=== PATIENT | female | born 1945 | race Caucasian/White ===

== ENCOUNTER 2017-03-24 04:58 | Emergency (ER) | payer BC ==
[~2017-03-24] VITALS: Ht 157.5 cm; Wt 59.0 kg
[~2017-03-24 04:58] MED LIST: ALPR2TAB2 PO; GABA600T2 PO; HYDR-2766 PO; TRAZ100T12 PO
--- NOTE | 2017-03-24 05:20 | PHYS DOC ---
Past Medical History Past Medical History: Other Additional Past Medical Histor: osteoarthritis, DDD, chronic back pain Past Surgical History: Cholecystectomy, Hysterectomy Additional Past Surgical Histo: back surgery Smoking: Cigarettes, 1 Pack Per Day Alcohol Use: None Drug Use: None Social History Narrative: lives at home Adult General Chief Complaint Chief Complaint: FEVER HPI HPI Patient is a 71 year old female who presents with two-week history of gradual onset of shortness of breath, cough and this morning reports subjective fever and dull right lower quadrant pain. Denies chest pain, decreased appetite, nausea, vomiting or diarrhea. Denies flank pain. Denies cardiac history. Does use an albuterol inhaler when necessary. Past abdominal surgical history includes cholecystectomy and abdominal hysterectomy. Review of the medical record, previous presentation to the emergency department in 2015 with similar right lower quadrant pain at which time she thought it might be a recurrence of kidney stone and had a completely negative workup as far as labs and CT scan. Review of Systems Review of Systems Constitutional: Denies fever or chills [] Eyes: Denies change in visual acuity, redness, or eye pain [] HENT: Denies nasal congestion or sore throat [] Respiratory: Denies cough or shortness of breath [] Cardiovascular: No additional information not addressed in HPI [] GI: Denies abdominal pain, nausea, vomiting, bloody stools or diarrhea [] : Denies dysuria or hematuria [] Musculoskeletal: Denies back pain or joint pain [] Integument: Denies rash or skin lesions [] Neurologic: Denies headache, focal weakness or sensory changes [] Endocrine: Denies polyuria or polydipsia [] Current Medications Current Medications Current Medications Medications (Trade) Dose Ordered Sig/Ashley Start Time Stop Time Status Last Admin Dose Admin Fentanyl Citrate (Fentanyl 2ml Vial) 50 mcg PRN Q15MIN PRN 03/24/17 06:30 03/25/17 06:29 03/24/17 06:33 50 MCG Info (Do NOT chart on this entry -- for MONITORING) 1 each PRN DAILY PRN 03/24/17 06:15 03/26/17 06:14 Iohexol (Omnipaque 300 Mg/ml) 75 ml 1X ONCE 03/24/17 06:30 03/24/17 06:31 DC 03/24/17 06:38 75 ML Ondansetron HCl (Zofran) 4 mg 1X ONCE 03/24/17 07:00 03/24/17 07:01 DC 03/24/17 06:32 4 MG Sodium Chloride 500 ml @ 500 mls/hr 1X ONCE 03/24/17 05:30 03/24/17 06:29 DC 03/24/17 05:31 500 MLS/HR Allergies Allergies Allergies Coded Allergies Type Severity Reaction Last Updated Verified codeine Allergy Intermediate 03/24/17 Yes Physical Exam Physical Exam Constitutional: Well developed, well nourished, no acute distress, non-toxic appearance. Poor eye contact [] HENT: Normocephalic, atraumatic, bilateral external ears normal, oropharynx moist, no oral exudates, nose normal. [] Eyes: PERRLA, EOMI, conjunctiva normal, no discharge. [] Neck: Normal range of motion, no tenderness, supple, no stridor. [] Cardiovascular:Heart rate regular rhythm, no murmur [] Lungs & Thorax: Bilateral breath sounds clear to auscultation [] Abdomen: Bowel sounds normal, soft, mild to moderate right lower quadrant tenderness, no masses, no pulsatile masses. [] Skin: Warm, dry, no erythema, no rash. [] Back: No tenderness, no CVA tenderness. [] Extremities: No tenderness, no cyanosis, no clubbing, ROM intact, no edema. [] Neurologic: Alert and oriented X 3, normal motor function, normal sensory function, no focal deficits noted. [] Psychologic: Affect normal, judgement normal, mood normal. [] Current Patient Data Vital Signs Vital Signs Date Time Temp Pulse Resp B/P (MAP) Pulse Ox O2 Delivery O2 Flow Rate FiO2 03/24/17 06:33 72 22 120/68 (85) 94 03/24/17 06:33 Room Air 03/24/17 05:08 98.8 98.8 Lab Values Laboratory Tests Test 03/24/17 05:09 03/24/17 05:30 White Blood Count 5.4 x10^3/uL (4.0-11.0) Red Blood Count 4.48 x10^6/uL (3.50-5.40) Hemoglobin 14.5 g/dL (12.0-15.5) Hematocrit 41.2 % (36.0-47.0) Mean Corpuscular Volume 92 fL (79-100) Mean Corpuscular Hemoglobin 32 pg (25-35) Mean Corpuscular Hemoglobin Concent 35 g/dL (31-37) Red Cell Distribution Width 13.2 % (11.5-14.5) Platelet Count 172 x10^3/uL (140-400) Neutrophils (%) (Auto) 83 % (31-73) H Lymphocytes (%) (Auto) 10 % (24-48) L Monocytes (%) (Auto) 7 % (0-9) Eosinophils (%) (Auto) 0 % (0-3) Basophils (%) (Auto) 0 % (0-3) Neutrophils # (Auto) 4.5 x10^3uL (1.8-7.7) Lymphocytes # (Auto) 0.5 x10^3/uL (1.0-4.8) L Monocytes # (Auto) 0.4 x10^3/uL (0.0-1.1) Eosinophils # (Auto) 0.0 x10^3/uL (0.0-0.7) Basophils # (Auto) 0.0 x10^3/uL (0.0-0.2) Sodium Level 140 mmol/L (136-145) Potassium Level 3.3 mmol/L (3.5-5.1) L Chloride Level 99 mmol/L (98-107) Carbon Dioxide Level 30 mmol/L (21-32) Anion Gap 11 (6-14) Blood Urea Nitrogen 8 mg/dL (7-20) Creatinine 0.8 mg/dL (0.6-1.0) Estimated GFR (Cockcroft-Gault) 70.9 BUN/Creatinine Ratio 10 (6-20) Glucose Level 105 mg/dL (70-99) H Calcium Level 9.3 mg/dL (8.5-10.1) Total Bilirubin 0.6 mg/dL (0.2-1.0) Aspartate Amino Transferase (AST) 17 U/L (15-37) Alanine Aminotransferase (ALT) 12 U/L (14-59) L Alkaline Phosphatase 68 U/L (46-116) Total Protein 6.8 g/dL (6.4-8.2) Albumin 3.8 g/dL (3.4-5.0) Albumin/Globulin Ratio 1.3 (1.0-1.7) Lipase 144 U/L (73-393) Urine Collection Type Unknown Urine Color Yellow Urine Clarity Clear Urine pH 6.0 Urine Specific [place] 1.020 Urine Protein Negative mg/dL (NEG-TRACE) Urine Glucose (UA) Negative mg/dL (NEG) Urine Ketones (Stick) 40 mg/dL (NEG) Urine Blood Negative (NEG) Urine Nitrite Negative (NEG) Urine Bilirubin Negative (NEG) Urine Urobilinogen Dipstick 1.0 mg/dL (0.2 mg/dL) Urine Leukocyte Esterase Negative (NEG) Urine RBC 0 /HPF (0-2) Urine WBC 0 /HPF (0-4) Urine Squamous Epithelial Cells Mod /LPF Urine Bacteria 0 /HPF (0-FEW) Urine Mucus Marked /LPF Laboratory Tests 03/24/17 05:09 Laboratory Tests 03/24/17 05:09 EKG EKG EKG[] normal sinus rhythm rate of 90 no STEMI QTC 479 my interpretation Radiology/Procedures Radiology/Procedures Chest x-ray: Negative acute abnormality; COPD/hyperinflation per my interpretation CT scan abdomen and pelvis:PROCEDURE: CT ABD PELV W/ IV CONTRST ONLY CT ABD PELV W/ IV CONTRST ONLY dated 03/24/2017 6:36 AM Indication: Right side abdominal pain, nausearight side abd pain with nausea
omni 300 75ml, prior sent. Comparison: 05/25/2015 Technique: Contiguous axial imaging of the abdomen and pelvis performed after the administration of 75 cc Isovue-370. One or more of the following individualized dose reduction techniques were utilized for this examination: 1. Automated exposure control 2. Adjustment of the mA and/or kV according to patient size 3. Use of iterative reconstruction technique Findings: Limited images of lung bases are clear. Heart size within normal limits. No pleural or pericardial effusion. Liver, spleen, pancreas, adrenal glands and kidneys are unremarkable. There are well-defined low density lesions at the lower pole left kidney that are most consistent with cysts. No hydronephrosis. Gallbladder surgically absent. Unopacified GI tract normal in caliber and contour. No focal bowel wall thickening. No ascites or lymphadenopathy. Abdominal aorta normal in caliber. Images of the pelvis show suspected mild wall thickening of the sigmoid colon. Uterus is surgically absent. No pelvic adenopathy. Trace amount of free fluid. Mild wall thickening of the urinary bladder. Bone windows show no acute findings. Multilevel spondylosis. Laminectomy and posterior lateral fusion from L4 to the sacrum. IMPRESSION: 1. Suspected mild wall thickening of the sigmoid colon suggesting mild colitis. Consider infectious or inflammatory etiology. 2. Trace amount of free pelvic fluid, nonspecific. 3. Status post cholecystectomy and hysterectomy. Electronically signed by: Jack Joseph MD (03/24/2017 6:52 AM) [facility] DICTATED and SIGNED BY: JACK JOSEPH MD DATE: 03/24/17 0648 Course & Med Decision Making Course & Med Decision Making Pertinent Labs and Imaging studies reviewed. (See chart for details) Patient does not appear to be ill and she is in no respiratory distress with normal lung exam. GIven her age and additional complaints of abdominal pain in the right lower abdomen we will check labs, urine, chest x-ray and a CT scan abdomen and pelvis. --- Assumed care from Dr. Martinez. Patient remained in stable condition with normal vitals. Her pain improved after treatment here. Labs as above, significant for hypokalemia but normal WBC. CT abdomen/pelvis showed colitis. No specific comment regarding appendix. Discussed with Dr. Funez as Dr. Joseph who initially read the study had already ended his shift. Dr. Cazares reviewed images, appendix not definitely seen but no abnormality detected, & there is a source of pain with colitis. Discussed at length with the patient, offered admission for indeterminate CT with persistent right lower quadrant pain, but she states she feels much better & prefers to go home. Will give prescription for cipro & flagyl for possible infectious colitis, recommend hydration & will provide pain medication with sedation precautions. Recommend follow up with PCP in 2-3 days. Low threshold to return to the ED for high fever, severe pain , uncontrolled vomiting, bloody stools, any otherwise worsening condition. Discharged home in stable condition. Melanie Joy MD [] Dragon Disclaimer Dragon Disclaimer This electronic medical record was generated, in whole or in part, using a voice recognition dictation system. Departure Departure Impression: Primary Impression: Cough Additional Impression: Right lower quadrant abdominal pain Disposition: 01 HOME, SELF-CARE Condition: STABLE Referrals: JOAN PRAKASH Jr, MD (PCP) Patient Instructions: Colitis Additional Instructions: You were seen in the emergency department today for abdominal pain & cough. Your CT scan showed inflammation or infection of your colon. The CT did not definitely show your appendix, so there is a possibility that this could be appendicitis. You preferred to go home rather than stay in the hospital for further evaluation. Please rest, drink fluids to stay hydrated, take prescribed antibiotics & use pain medication as needed. No drinking alcohol or driving while taking this medication. Follow up with Dr. Prakash in 2-3 days if not improving. Come back for high fever, severe pain, uncontrolled vomiting, bloody stools, any otherwise worsening condition. Scripts Ondansetron (ZOFRAN ODT) 4 Mg Tab.rapdis 1 TAB SL Q8HRS Y for NAUSEA, #10 TAB Prov: MELANIE JOY MD 03/24/17 Hydrocodone/Apap 5-325 (NORCO 5-325 TABLET) 1 Each Tablet 1 TAB PO PRN Q6HRS Y for PAIN, #10 TAB 0 Refills Prov: MELANIE JOY MD 03/24/17 Metronidazole (FLAGYL) 500 Mg Tablet 1 TAB PO TID, #14 TAB Prov: MELANIE JOY MD 03/24/17 Ciprofloxacin Hcl (CIPRO) 500 Mg Tablet 1 TAB PO BID, #14 TAB Prov: MELANIE JOY MD 03/24/17 Problem Qualifiers ELEN MARTINEZ MD Mar 24, 2017 05:20 MELANIE JOY MD Mar 24, 2017 07:29
[2017-03-24] MEDS ORDERED: IV NORMAL SALINE 500ML BAG 500 ML IV ONE (05:30)
[2017-03-24 05:58] LABS: BASO % 0 % (0-3); EOS % 0 % (0-3); HEMATOCRIT 41.2 % (36.0-47.0); HEMOGLOBIN 14.5 g/dL (12.0-15.5); LYMPH # 0.5 x10^3/uL (1.0-4.8); LYMPH % 10 % (24-48); MEAN CORPUSCULAR HEMOGLOBIN 32 pg (25-35); MEAN CORPUSCULAR HGB CONC 35 g/dL (31-37); MEAN CORPUSCULAR VOLUME 92 fL (79-100); MONO % 7 % (0-9); NEUT % 83 % (31-73); PLATELET COUNT 172 x10^3/uL (140-400); RED BLOOD COUNT 4.48 x10^6/uL (3.50-5.40); RED CELL DISTRIBUTION WIDTH 13.2 % (11.5-14.5); WHITE BLOOD COUNT 5.4 x10^3/uL (4.0-11.0)
[2017-03-24 06:05] LABS: CALCIUM 9.3 mg/dL (8.5-10.1); CREATININE 0.8 mg/dL (0.6-1.0); GFR 70.9; POTASSIUM 3.3 mmol/L (3.5-5.1)
[2017-03-24 06:10] LABS: ALBUMIN 3.8 g/dL (3.4-5.0); ALBUMIN/GLOBULIN RATIO 1.3 (1.0-1.7); TOTAL BILIRUBIN 0.6 mg/dL (0.2-1.0); TOTAL PROTEIN 6.8 g/dL (6.4-8.2)
--- NOTE | 2017-03-24 06:14 | EKG ---
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
[2017-03-24] MEDS ORDERED: CONTRAST GIVEN MC PRN (06:15)
[2017-03-24 06:22] LABS: BILIRUBIN,URINE NEGATIVE (NEG); GLUCOSE,URINE NEGATIVE (NEG); NITRITE,URINE NEGATIVE (NEG); PROTEIN,URINE NEGATIVE (NEG-TRACE)
[2017-03-24 06:23] LABS: BACTERIA,URINE 0 /HPF (0-FEW); RBC,URINE 0 /HPF (0-2); SQUAMOUS EPITHELIAL CELL,UR MOD /LPF; WBC,URINE 0 /HPF (0-4)
[2017-03-24] MEDS ORDERED: IOHEXOL 300 MG/ML 75 ML VIAL IV ONE (06:30)
[2017-03-24] MEDS: fentaNYL PF VIAL 100 MCG/2 ML VIAL IV PRN ×2 (06:33→07:24)
--- NOTE | 2017-03-24 06:56 | RAD ---
CT ABD PELV W/ IV CONTRST ONLY dated 03/24/2017 6:36 AM Indication: Right side abdominal pain, nausearight side abd pain with nausea
omni 300 75ml, prior sent. Comparison: 05/25/2015 Technique: Contiguous axial imaging of the abdomen and pelvis performed after the administration of 75 cc Isovue-370. One or more of the following individualized dose reduction techniques were utilized for this examination: 1. Automated exposure control 2. Adjustment of the mA and/or kV according to patient size 3. Use of iterative reconstruction technique Findings: Limited images of lung bases are clear. Heart size within normal limits. No pleural or pericardial effusion. Liver, spleen, pancreas, adrenal glands and kidneys are unremarkable. There are well-defined low density lesions at the lower pole left kidney that are most consistent with cysts. No hydronephrosis. Gallbladder surgically absent. Unopacified GI tract normal in caliber and contour. No focal bowel wall thickening. No ascites or lymphadenopathy. Abdominal aorta normal in caliber. Images of the pelvis show suspected mild wall thickening of the sigmoid colon. Uterus is surgically absent. No pelvic adenopathy. Trace amount of free fluid. Mild wall thickening of the urinary bladder. Bone windows show no acute findings. Multilevel spondylosis. Laminectomy and posterior lateral fusion from L4 to the sacrum. IMPRESSION: 1. Suspected mild wall thickening of the sigmoid colon suggesting mild colitis. Consider infectious or inflammatory etiology. 2. Trace amount of free pelvic fluid, nonspecific. 3. Status post cholecystectomy and hysterectomy. Electronically signed by: Jack Joseph MD (03/24/2017 6:52 AM) [facility]
[2017-03-24] MEDS ORDERED: ONDANSETRON PF 4 MG/2 ML VIAL. IV ONE (07:00)
--- NOTE | 2017-03-24 07:11 | RAD ---
Portable chest, 03/24/2017: History: Fever Comparison is made to a study from 11/14/2007. The heart size and pulmonary vascularity are normal. There is a calcified granuloma in the right upper lobe. No acute infiltrates are seen. There is no evidence of pleural fluid. IMPRESSION: No acute cardiopulmonary abnormality is detected.
[2017-03-24 07:24] VITALS: BP 126/62
[2017-03-24] MEDS: POTASSIUM CHLORIDE 20 MEQ TABLET.ER. PO ONE ×2 (07:28→07:30)
[2017-03-24] MEDS ORDERED: ONDA4TAB10 SL (07:29)
[2017-03-24] MEDS ORDERED: CIPR500T94 PO (07:29)
[2017-03-24] MEDS ORDERED: HYDR-971 PO (07:29)
[2017-03-24] MEDS ORDERED: METR500T PO (07:29)
[2017-03-24] MEDS ORDERED: OMEP20CA9 PO (17:36)
== END 2017-03-24 07:32 | disposition home or self-care (01) ==
LOC: ER 04:58
DX: R05 Cough (principal); R10.31 Right lower quadrant pain; R06.02 Shortness of breath; R50.9 Fever, unspecified; M19.90 Unspecified osteoarthritis, unspecified site; G89.29 Other chronic pain; F17.210 Nicotine dependence, cigarettes, uncomplicated; Z90.710 Acquired absence of both cervix and uterus; Z90.49 Acquired absence of other specified parts of digestive tract; Z88.5 Allergy status to narcotic agent
CPT/HCPCS: 36415; 71010; 74177; 80053; 81001; 83690; 85025; 93005; 96361; 96374; 96375; 96376; 99285; J2405; J3010; J7040; Q9967

== ENCOUNTER 2017-03-24 15:00 | Inpatient (IN) | payer BC ==
[~2017-03-24] VITALS: Ht 157.5 cm; Wt 59.2 kg
[~2017-03-24 15:00] MED LIST changes: +CIPR500T94 PO; +HYDR-971 PO; +METR500T PO; +ONDA4TAB10 SL
[2017-03-24] MEDS ORDERED: IV NORMAL SALINE 1000ML BAG 1,000 ML IV SCH (15:57)
[2017-03-24] MEDS ORDERED: ONDANSETRON PF 4 MG/2 ML VIAL. IV ONE (16:00)
[2017-03-24] MEDS ORDERED: HYDROmorphone 2 MG/ML VIAL IV ONE (16:00)
[2017-03-24 16:08] LABS: BASO % 0 % (0-3); EOS % 0 % (0-3); HEMATOCRIT 40.9 % (36.0-47.0); HEMOGLOBIN 14.2 g/dL (12.0-15.5); LYMPH % 15 % (24-48); MEAN CORPUSCULAR HEMOGLOBIN 32 pg (25-35); MEAN CORPUSCULAR HGB CONC 35 g/dL (31-37); MEAN CORPUSCULAR VOLUME 93 fL (79-100); MONO % 8 % (0-9); NEUT % 76 % (31-73); PLATELET COUNT 181 x10^3/uL (140-400); RED CELL DISTRIBUTION WIDTH 13.1 % (11.5-14.5); WHITE BLOOD COUNT 6.3 x10^3/uL (4.0-11.0)
--- NOTE | 2017-03-24 16:08 | PHYS DOC ---
Past Medical History Past Medical History: Depression, Other Additional Past Medical Histor: osteoarthritis, DDD, chronic back pain Past Surgical History: Cholecystectomy, Hysterectomy Additional Past Surgical Histo: back surgery Additional Information: Quit smoking 3-4 days ago. Was smoking about 1PPD. Alcohol Use: None Drug Use: None Adult General Chief Complaint Chief Complaint: ABDOMINAL PAIN HPI HPI 71-year-old female presents to the emergency department complaining of abdominal pain with intractable nausea. Patient was seen early this morning and a full workup was done including CT of the abdomen and pelvis and labs. Laboratory results were unremarkable and CT was suggestive of possible sigmoid colitis. Patient was offered admission by the emergency medicine physician Dr. Haro but she declined and wanted to be treated as an outpatient. Patient was prescribed Cipro and Flagyl. She returns this evening because her nausea is uncontrolled as is her pain. Patient states she changed her mind and feels now that she needs to be admitted. No bloody stool or black stool. Patient has not had diarrhea. No blood in vomitus Review of Systems Review of Systems Constitutional: Denies fever or chills [] Eyes: Denies change in visual acuity, redness, or eye pain [] HENT: Denies nasal congestion or sore throat [] Respiratory: Denies cough or shortness of breath [] Cardiovascular: No additional information not addressed in HPI [] GI: As above : Denies dysuria or hematuria [] Musculoskeletal: Denies back pain or joint pain [] Integument: Denies rash or skin lesions [] Neurologic: Denies headache, focal weakness or sensory changes [] Endocrine: Denies polyuria or polydipsia [] Current Medications Current Medications Current Medications Medications (Trade) Dose Ordered Sig/Ashley Start Time Stop Time Status Last Admin Dose Admin Hydromorphone HCl (Dilaudid) 0.5 mg 1X ONCE 03/24/17 16:00 03/24/17 16:03 DC 03/24/17 16:18 0.5 MG Lorazepam (Ativan) 1 mg 1X ONCE 03/24/17 16:00 03/24/17 16:03 DC 03/24/17 16:17 1 MG Ondansetron HCl (Zofran) 4 mg 1X ONCE 03/24/17 16:00 03/24/17 16:03 DC 03/24/17 16:13 4 MG Sodium Chloride 1,000 ml @ 999 mls/hr Q1H1M 03/24/17 15:57 03/24/17 16:57 DC 03/24/17 16:13 999 MLS/HR Allergies Allergies Physical Exam Physical Exam Well-appearing 71-year-old female with a clearly contributory anxiety component. Patient's this time keeping her eyes closed during conversations and evaluation but she is alert communicative and cooperative with a normal mental status. Supple neck clear lungs regular rate and rhythm minimal diffuse tenderness to the abdomen with no focal tenderness and no guarding or rebound no mass or megaly. No CVA tenderness normal-appearing anterior abdomen and normal extremities nonfocal neuro Constitutional: Well developed, well nourished, no acute distress, non-toxic appearance. [] HENT: Normocephalic, atraumatic, bilateral external ears normal, oropharynx moist, no oral exudates, nose normal. [] Eyes: PERRLA, EOMI, conjunctiva normal, no discharge. [] Neck: Normal range of motion, no tenderness, supple, no stridor. [] Cardiovascular:Heart rate regular rhythm, no murmur [] Lungs & Thorax: Bilateral breath sounds clear to auscultation [] Abdomen: Bowel sounds normal, soft, no tenderness, no masses, no pulsatile masses. [] Skin: Warm, dry, no erythema, no rash. [] Back: No tenderness, no CVA tenderness. [] Extremities: No tenderness, no cyanosis, no clubbing, ROM intact, no edema. [] Neurologic: Alert and oriented X 3, normal motor function, normal sensory function, no focal deficits noted. [] Psychologic: Patient with a clearly contributory anxiety component Current Patient Data Vital Signs Vital Signs Date Time Temp Pulse Resp B/P (MAP) Pulse Ox O2 Delivery O2 Flow Rate FiO2 03/24/17 15:28 98.4 75 16 106/59 (75) 94 Room Air 98.4 Lab Values Laboratory Tests Test 03/24/17 15:28 03/24/17 15:45 Urine Color Yellow Urine Clarity Clear Urine pH 6.0 Urine Specific [place] >=1.030 Urine Protein Negative mg/dL (NEG-TRACE) Urine Glucose (UA) Negative mg/dL (NEG) Urine Ketones (Stick) 15 mg/dL (NEG) Urine Blood Negative (NEG) Urine Nitrite Negative (NEG) Urine Bilirubin Small (NEG) Urine Urobilinogen Dipstick 0.2 mg/dL (0.2 mg/dL) Urine Leukocyte Esterase Small (NEG) Urine RBC 0 /HPF (0-2) Urine WBC 1-4 /HPF (0-4) Urine Squamous Epithelial Cells Mod /LPF Urine Bacteria Few /HPF (0-FEW) White Blood Count 6.3 x10^3/uL (4.0-11.0) Red Blood Count 4.40 x10^6/uL (3.50-5.40) Hemoglobin 14.2 g/dL (12.0-15.5) Hematocrit 40.9 % (36.0-47.0) Mean Corpuscular Volume 93 fL (79-100) Mean Corpuscular Hemoglobin 32 pg (25-35) Mean Corpuscular Hemoglobin Concent 35 g/dL (31-37) Red Cell Distribution Width 13.1 % (11.5-14.5) Platelet Count 181 x10^3/uL (140-400) Neutrophils (%) (Auto) 76 % (31-73) H Lymphocytes (%) (Auto) 15 % (24-48) L Monocytes (%) (Auto) 8 % (0-9) Eosinophils (%) (Auto) 0 % (0-3) Basophils (%) (Auto) 0 % (0-3) Neutrophils # (Auto) 4.8 x10^3uL (1.8-7.7) Lymphocytes # (Auto) 1.0 x10^3/uL (1.0-4.8) Monocytes # (Auto) 0.5 x10^3/uL (0.0-1.1) Eosinophils # (Auto) 0.0 x10^3/uL (0.0-0.7) Basophils # (Auto) 0.0 x10^3/uL (0.0-0.2) Erythrocyte Sedimentation Rate 10 (0-25) Sodium Level 136 mmol/L (136-145) Potassium Level 3.4 mmol/L (3.5-5.1) L Chloride Level 96 mmol/L (98-107) L Carbon Dioxide Level 30 mmol/L (21-32) Anion Gap 10 (6-14) Blood Urea Nitrogen 10 mg/dL (7-20) Creatinine 0.9 mg/dL (0.6-1.0) Estimated GFR (Cockcroft-Gault) 61.9 BUN/Creatinine Ratio 11 (6-20) Glucose Level 112 mg/dL (70-99) H Calcium Level 9.0 mg/dL (8.5-10.1) Total Bilirubin 0.6 mg/dL (0.2-1.0) Aspartate Amino Transferase (AST) 17 U/L (15-37) Alanine Aminotransferase (ALT) 11 U/L (14-59) L Alkaline Phosphatase 62 U/L (46-116) Total Protein 6.6 g/dL (6.4-8.2) Albumin 3.7 g/dL (3.4-5.0) Albumin/Globulin Ratio 1.3 (1.0-1.7) Lipase 78 U/L (73-393) Laboratory Tests 03/24/17 15:45 Laboratory Tests 03/24/17 15:45 EKG EKG [] Radiology/Procedures Radiology/Procedures [] Course & Med Decision Making Course & Med Decision Making Pertinent Labs and Imaging studies reviewed. (See chart for details) Patient with signs and symptoms consistent with failed outpatient therapy for what is presumed to be acute colitis. Patient does have complaint of right lower quadrant pain however her CT was unable to visualize the appendix definitively but showed no inflammatory changes in the right lower quadrant. She with no focal tenderness in the right lower quadrant specifically at McBurney's point. He is hemodynamically stable with a clearly contributory anxiety component. Case discussed with admitting physician Dr. Kim, was aware of history and findings and agrees with inpatient admission to a [facility] bed to her service for further workup and treatment as needed [] Dragon Disclaimer Dragon Disclaimer This electronic medical record was generated, in whole or in part, using a voice recognition dictation system. Departure Departure Impression: Primary Impression: Colitis Additional Impressions: Intractable nausea and vomiting Intractable abdominal pain Disposition: ADMITTED INPATIENT Admitting Physician: Alejandra Kim Condition: STABLE Referrals: JOAN PRAKASH Jr, MD (PCP) Problem Qualifiers AILYN MCGRATH MD Mar 24, 2017 16:08
[2017-03-24 16:09] LABS: BILIRUBIN,URINE SMALL (NEG); GLUCOSE,URINE NEGATIVE (NEG); NITRITE,URINE NEGATIVE (NEG); PROTEIN,URINE NEGATIVE (NEG-TRACE); UROBILINOGEN,URINE 0.2 mg/dL (0.2 mg/dL)
[2017-03-24 16:14] LABS: CREATININE 0.9 mg/dL (0.6-1.0); GFR 61.9; POTASSIUM 3.4 mmol/L (3.5-5.1)
[2017-03-24] MEDS ORDERED: ONDANSETRON PF 4 MG/2 ML VIAL. IV PRN ×2 (16:15→16:30)
[2017-03-24] MEDS ORDERED: MORPHINE SULFATE 2 MG/ML DISP.SYRIN. IV PRN (16:15)
--- NOTE | 2017-03-24 16:15 | PDOC1 ---
History and Physical Date of Admission Date of Admission DATE: 03/24/17 TIME: 16:08 Identification/Chief Complaint Chief Complaint abd pain, vomiting Problems: Source Source: Caregiver, Chart review, Patient History of Present Illness History of Present Illness 71 y.o female, who was seen earlier at ER thsi AM for abd pain, mostly RT sided, vomitng, CT scan showed sigmoid diverticulitis, was advised admission but pt wanted to go home so was sent home with PO abx and pain med, But she comes back to ER few hrs later with severe pain, unable to keep anything down, K 3.3. ketones in urine, hence agreeable to admission now,. Bucket at bedside in 03/07 abd pain, VS ok, no fevers, ER to order rpt labs which are pending As per dtr, has had hx "abd pain in her side" in past but not to the extent that needed hospitalization CT scan I have personally reviewed, sigmoid colitis, no mention of abscess etc dw ER MD, [employer] and family and pt Past Medical History CENTRAL NERVOUS SYSTEM: Other (insomnia) GI: GERD Musculoskeletal: low back pain Past Surgical History Past Surgical History: Other (metal plates from mid back down (back sx)) Family History Family History: No Significant Social History Smoke: No ALCOHOL: none Drugs: None Current Problem List Problem List Problems Medical Problems: (1) Colitis Status: Acute (2) Intractable abdominal pain Status: Acute (3) Intractable nausea and vomiting Status: Acute Problems: Current Medications Current Medications Current Medications Sodium Chloride 1,000 ml @ 999 mls/hr Q1H1M IV ; Start 03/24/17 at 15:57; Stop 03/24/17 at 16:57 Lorazepam (Ativan) 1 mg 1X ONCE IV ; Start 03/24/17 at 16:00; Stop 03/24/17 at 16:03; Status DC Hydromorphone HCl (Dilaudid) 0.5 mg 1X ONCE IV ; Start 03/24/17 at 16:00; Stop 03/24/17 at 16:03; Status DC Ondansetron HCl (Zofran) 4 mg 1X ONCE IV ; Start 03/24/17 at 16:00; Stop at 16:03; Status DC Active Scripts Active Zofran Odt (Ondansetron) 4 Mg Tab.rapdis 1 Tab SL Q8HRS PRN [place] 5-325 Tablet (Acetaminophen/Hydrocodone Bitart) 1 Each Tablet 1 Tab PO PRN Q6HRS PRN Flagyl (Metronidazole) 500 Mg Tablet 1 Tab PO TID Cipro (Ciprofloxacin Hcl) 500 Mg Tablet 1 Tab PO BID Reported Xanax (Alprazolam) 2 Mg Tablet 1 Tab PO BID Hydrocodone-Apap 10-325 (Hydrocodone Bit/Acetaminophen) 1 Each Tablet 1 Tab PO PRN Q6HRS PRN Trazodone Hcl 100 Mg Tablet 100 Mg PO HS Gabapentin 600 Mg Tablet 600 Mg PO TID Allergies Allergies: Coded Allergies: codeine (Verified Allergy, Intermediate, 03/24/17) ROS Review of System in too much pain to participAte, but obviously abd pain, emesis, no CP, SOA, no change in stools, no fever, no urinary sxs Physical Exam General: moderate distress, Other (from the pain) HEENT: PERRLA Lungs: Clear to auscultation, Normal air movement Heart: S1S2, RRR, no thrills, no rubs, no gallops Cardiovascular: S1, S2 Breasts: Normal, Rt breast nml w/o mass, Lt breast nml w/o mass, Nipples normal Abdomen: Soft, Other (tenderness left and RT sides, no rebound, no guarding, hypoactive bS) Rectal Exam: not examined Extremities: No clubbing, No cyanosis, No edema, Normal pulses, No tenderness/ swelling Skin: No rashes, No breakdown, No significant lesion Neuro: Normal gait, Normal speech, Strength at 5/5 X4 ext, Normal tone, Sensation intact, Cranial nerves 3-12 NL, Reflexes 2+ Psych/Mental Status: Mental status NL, Mood NL Vitals Vitals Vital Signs Date Time Temp Pulse Resp B/P (MAP) Pulse Ox O2 Delivery O2 Flow Rate FiO2 03/24/17 15:28 98.4 75 16 106/59 (75) 94 Room Air 98.4 VTE Prophylaxis Ordered VTE Prophylaxis Devices: Yes VTE Pharmacological Prophylaxi: Yes Assessment/Plan Assessment/Plan 1. SIgmoid diverticulitis, presumed first episode 2. Insomnia on trazodone 3. CBP - on gabapentin, hydrocodones etc 4. SIRS POA, infectious no organ dysfcn 5. GERD on PPI 6. Mild hypokalemia PLAn: Admit 2 MN NPO IV abx IV PPI COntrol pain IVF GI consult May add ESR Seen at ER,. dw ER staff and pt and dtr further recs pending course Replace DANYELL MONDRAGON IV, MD Mar 24, 2017 16:15
[2017-03-24 16:18] LABS: BACTERIA,URINE FEW /HPF (0-FEW); RBC,URINE 0 /HPF (0-2); SQUAMOUS EPITHELIAL CELL,UR MOD /LPF
[2017-03-24 16:21] LABS: ALBUMIN 3.7 g/dL (3.4-5.0); ALBUMIN/GLOBULIN RATIO 1.3 (1.0-1.7); TOTAL BILIRUBIN 0.6 mg/dL (0.2-1.0); TOTAL PROTEIN 6.6 g/dL (6.4-8.2)
[2017-03-24] MEDS ORDERED: PROCHLORPERAZINE 10 MG/2 ML VIAL. IV PRN (16:30)
[2017-03-24] MEDS ORDERED: diphenhydrAMINE 50 MG/ML VIAL IVP PRN (16:30)
[2017-03-24] MEDS ORDERED: HYDROcodone/APAP 5/325MG 1 TAB TABLET PO PRN (16:30)
[2017-03-24 17:16] VITALS: BP 120/59
[2017-03-24] MEDS ORDERED: OMEP20CA9 PO (17:36)
[2017-03-24] MEDS ORDERED: PNEUMOCOCCAL VAX SCREEN BY RX. MC PRN (18:00)
[2017-03-24] MEDS: ALPRAZolam 1 MG TABLET PO PRN (18:14)
[2017-03-24] MEDS: IV NORMAL SALINE 1000ML BAG 1,000 ML IV SCH (18:14)
[2017-03-24] MEDS: fentaNYL PF VIAL 100 MCG/2 ML VIAL IV PRN ×3 (18:14→23:23)
[2017-03-24] MEDS ORDERED: PNEUMOC CONJ VACC 23-VALENT 0.5 ML VIAL. VAX IM ONE (18:15)
[2017-03-24 19:30] VITALS: BP 106/65
[2017-03-24] MEDS: HYDROcodone/APAP 10/325 1 TAB TABLET PO PRN (19:42)
[2017-03-24] MEDS: FAMOTIDINE 20 MG/2 ML VIAL IVP SCH (20:58)
[2017-03-24] MEDS: GABAPENTIN 300 MG CAPSULE. PO SCH (20:58)
[2017-03-24] MEDS: LACTOBACILLUS RHAMNOSUS GG 1 CAPSULE. PO SCH (20:58)
[2017-03-24] MEDS: CIPROFLOXACIN 400MG PREMIX 200 ML IV SCH (20:59)
[2017-03-24] MEDS: traZODone 100 MG TABLET. PO PRN (22:24)
[2017-03-24 23:26] VITALS: BP 103/44
[2017-03-25 03:16] VITALS: BP 98/45
[2017-03-25] MEDS: fentaNYL PF VIAL 100 MCG/2 ML VIAL IV PRN ×7 (04:35→23:06)
[2017-03-25] MEDS: IV NORMAL SALINE 1000ML BAG 1,000 ML IV SCH ×3 (04:37→22:30)
[2017-03-25 05:05] LABS: BASO % 0 % (0-3); EOS % 0 % (0-3); HEMATOCRIT 36.4 % (36.0-47.0); HEMOGLOBIN 12.7 g/dL (12.0-15.5); LYMPH % 22 % (24-48); MEAN CORPUSCULAR HEMOGLOBIN 32 pg (25-35); MEAN CORPUSCULAR HGB CONC 35 g/dL (31-37); MEAN CORPUSCULAR VOLUME 93 fL (79-100); MONO % 13 % (0-9); NEUT % 64 % (31-73); PLATELET COUNT 152 x10^3/uL (140-400); RED BLOOD COUNT 3.93 x10^6/uL (3.50-5.40); RED CELL DISTRIBUTION WIDTH 13.2 % (11.5-14.5); WHITE BLOOD COUNT 4.7 x10^3/uL (4.0-11.0)
[2017-03-25] MEDS: ALPRAZolam 1 MG TABLET PO PRN ×2 (05:49→20:18)
[2017-03-25 07:00] VITALS: BP 114/48
[2017-03-25] MEDS: LACTOBACILLUS RHAMNOSUS GG 1 CAPSULE. PO SCH ×2 (08:45→20:18)
[2017-03-25] MEDS: CIPROFLOXACIN 400MG PREMIX 200 ML IV SCH ×2 (08:46→20:20)
[2017-03-25] MEDS: POTASSIUM CHLORIDE 10MEQ 100 ML IV SCH ×4 (08:47→14:58)
[2017-03-25] MEDS: HYDROcodone/APAP 10/325 1 TAB TABLET PO PRN ×2 (09:00→16:53)
[2017-03-25] MEDS: GABAPENTIN 300 MG CAPSULE. PO SCH ×3 (09:06→20:19)
[2017-03-25 11:00] VITALS: BP 110/60
--- NOTE | 2017-03-25 12:28 | PDOC ---
PROGRESS NOTES Chief Complaint Chief Complaint Sigmoid diverticulitis Abdominal pain Vomiting PMHx: Insomnia GERD Low back pain History of Present Illness History of Present Illness Pt is a 71 year old pleasant female who presented to the ED with abdominal pain and vomiting. CT scan showed sigmoid diverticulitis. Pt was seen at bedside in no acute distress. Pt is on cipro and metronitazole. Labs indicate hypokalemia. On a clear liquid diet and IV fluids. Pt followed by GI re: diverticulitis. Will continue to monitor. Vitals Vitals Vital Signs Date Time Temp Pulse Resp B/P (MAP) Pulse Ox O2 Delivery O2 Flow Rate FiO2 03/25/17 11:00 98.2 57 18 110/60 (77) 95 Room Air 98.2 Physical Exam General: Alert, Oriented X3, Cooperative, No acute distress, Other (from the pain) Heart: Regular rate, Normal S1, Normal S2, No murmurs Lungs: Clear Abdomen: Soft, No hepatosplenomegaly, No masses, Other (tenderness left and RT sides, no rebound, no guarding, hypoactive bS) Extremities: No clubbing, No cyanosis, No edema, Normal pulses, No tenderness/ swelling Skin: No rashes, No breakdown, No significant lesion Labs LABS Laboratory Tests Test 03/24/17 15:28 03/24/17 15:45 03/25/17 04:35 Urine Color Yellow Urine Clarity Clear Urine pH 6.0 Urine Specific [place] >=1.030 Urine Protein Negative mg/dL (NEG-TRACE) Urine Glucose (UA) Negative mg/dL (NEG) Urine Ketones (Stick) 15 mg/dL (NEG) Urine Blood Negative (NEG) Urine Nitrite Negative (NEG) Urine Bilirubin Small (NEG) Urine Urobilinogen Dipstick 0.2 mg/dL (0.2 mg/dL) Urine Leukocyte Esterase Small (NEG) Urine RBC 0 /HPF (0-2) Urine WBC 1-4 /HPF (0-4) Urine Squamous Epithelial Cells Mod /LPF Urine Bacteria Few /HPF (0-FEW) White Blood Count 6.3 x10^3/uL (4.0-11.0) 4.7 x10^3/uL (4.0-11.0) Red Blood Count 4.40 x10^6/uL (3.50-5.40) 3.93 x10^6/uL (3.50-5.40) Hemoglobin 14.2 g/dL (12.0-15.5) 12.7 g/dL (12.0-15.5) Hematocrit 40.9 % (36.0-47.0) 36.4 % (36.0-47.0) Mean Corpuscular Volume 93 fL (79-100) 93 fL (79-100) Mean Corpuscular Hemoglobin 32 pg (25-35) 32 pg (25-35) Mean Corpuscular Hemoglobin Concent 35 g/dL (31-37) 35 g/dL (31-37) Red Cell Distribution Width 13.1 % (11.5-14.5) 13.2 % (11.5-14.5) Platelet Count 181 x10^3/uL (140-400) 152 x10^3/uL (140-400) Neutrophils (%) (Auto) 76 % (31-73) 64 % (31-73) Lymphocytes (%) (Auto) 15 % (24-48) 22 % (24-48) Monocytes (%) (Auto) 8 % (0-9) 13 % (0-9) Eosinophils (%) (Auto) 0 % (0-3) 0 % (0-3) Basophils (%) (Auto) 0 % (0-3) 0 % (0-3) Neutrophils # (Auto) 4.8 x10^3uL (1.8-7.7) 3.0 x10^3uL (1.8-7.7) Lymphocytes # (Auto) 1.0 x10^3/uL (1.0-4.8) 1.0 x10^3/uL (1.0-4.8) Monocytes # (Auto) 0.5 x10^3/uL (0.0-1.1) 0.6 x10^3/uL (0.0-1.1) Eosinophils # (Auto) 0.0 x10^3/uL (0.0-0.7) 0.0 x10^3/uL (0.0-0.7) Basophils # (Auto) 0.0 x10^3/uL (0.0-0.2) 0.0 x10^3/uL (0.0-0.2) Erythrocyte Sedimentation Rate 10 (0-25) Sodium Level 136 mmol/L (136-145) Potassium Level 3.4 mmol/L (3.5-5.1) Chloride Level 96 mmol/L (98-107) Carbon Dioxide Level 30 mmol/L (21-32) Anion Gap 10 (6-14) Blood Urea Nitrogen 10 mg/dL (7-20) Creatinine 0.9 mg/dL (0.6-1.0) Estimated GFR (Cockcroft-Gault) 61.9 BUN/Creatinine Ratio 11 (6-20) Glucose Level 112 mg/dL (70-99) Calcium Level 9.0 mg/dL (8.5-10.1) Total Bilirubin 0.6 mg/dL (0.2-1.0) Aspartate Amino Transf (AST/SGOT) 17 U/L (15-37) Alanine Aminotransferase (ALT/SGPT) 11 U/L (14-59) Alkaline Phosphatase 62 U/L (46-116) Total Protein 6.6 g/dL (6.4-8.2) Albumin 3.7 g/dL (3.4-5.0) Albumin/Globulin Ratio 1.3 (1.0-1.7) Lipase 78 U/L (73-393) Review of Systems Review of Systems Pt complains of abdominal pain and fatigue Assessment and Plan Assessmemt and Plan Problems Medical Problems: (1) Colitis Status: Acute (2) Intractable abdominal pain Status: Acute (3) Intractable nausea and vomiting Status: Acute Assessment: Sigmoid diverticulitis Abdominal pain Vomiting Insomnia GERD Low back pain Plan: Continue abx Clear liquid diet Ordered KCl IV for hypokalemia GI input appreciated Continue IV fluids Continue monitoring potassium Continue home meds PT/OT Recheck labs Appreciate subspecialty input Problems: Comment Review of Relevant I have reviewed the following items amber (where applicable) has been applied. Labs Laboratory Tests Test 03/24/17 15:28 03/24/17 15:45 03/25/17 04:35 Urine Color Yellow Urine Clarity Clear Urine pH 6.0 Urine Specific [place] >=1.030 Urine Protein Negative mg/dL (NEG-TRACE) Urine Glucose (UA) Negative mg/dL (NEG) Urine Ketones (Stick) 15 mg/dL (NEG) Urine Blood Negative (NEG) Urine Nitrite Negative (NEG) Urine Bilirubin Small (NEG) Urine Urobilinogen Dipstick 0.2 mg/dL (0.2 mg/dL) Urine Leukocyte Esterase Small (NEG) Urine RBC 0 /HPF (0-2) Urine WBC 1-4 /HPF (0-4) Urine Squamous Epithelial Cells Mod /LPF Urine Bacteria Few /HPF (0-FEW) White Blood Count 6.3 x10^3/uL (4.0-11.0) 4.7 x10^3/uL (4.0-11.0) Red Blood Count 4.40 x10^6/uL (3.50-5.40) 3.93 x10^6/uL (3.50-5.40) Hemoglobin 14.2 g/dL (12.0-15.5) 12.7 g/dL (12.0-15.5) Hematocrit 40.9 % (36.0-47.0) 36.4 % (36.0-47.0) Mean Corpuscular Volume 93 fL (79-100) 93 fL (79-100) Mean Corpuscular Hemoglobin 32 pg (25-35) 32 pg (25-35) Mean Corpuscular Hemoglobin Concent 35 g/dL (31-37) 35 g/dL (31-37) Red Cell Distribution Width 13.1 % (11.5-14.5) 13.2 % (11.5-14.5) Platelet Count 181 x10^3/uL (140-400) 152 x10^3/uL (140-400) Neutrophils (%) (Auto) 76 % (31-73) 64 % (31-73) Lymphocytes (%) (Auto) 15 % (24-48) 22 % (24-48) Monocytes (%) (Auto) 8 % (0-9) 13 % (0-9) Eosinophils (%) (Auto) 0 % (0-3) 0 % (0-3) Basophils (%) (Auto) 0 % (0-3) 0 % (0-3) Neutrophils # (Auto) 4.8 x10^3uL (1.8-7.7) 3.0 x10^3uL (1.8-7.7) Lymphocytes # (Auto) 1.0 x10^3/uL (1.0-4.8) 1.0 x10^3/uL (1.0-4.8) Monocytes # (Auto) 0.5 x10^3/uL (0.0-1.1) 0.6 x10^3/uL (0.0-1.1) Eosinophils # (Auto) 0.0 x10^3/uL (0.0-0.7) 0.0 x10^3/uL (0.0-0.7) Basophils # (Auto) 0.0 x10^3/uL (0.0-0.2) 0.0 x10^3/uL (0.0-0.2) Erythrocyte Sedimentation Rate 10 (0-25) Sodium Level 136 mmol/L (136-145) Potassium Level 3.4 mmol/L (3.5-5.1) Chloride Level 96 mmol/L (98-107) Carbon Dioxide Level 30 mmol/L (21-32) Anion Gap 10 (6-14) Blood Urea Nitrogen 10 mg/dL (7-20) Creatinine 0.9 mg/dL (0.6-1.0) Estimated GFR (Cockcroft-Gault) 61.9 BUN/Creatinine Ratio 11 (6-20) Glucose Level 112 mg/dL (70-99) Calcium Level 9.0 mg/dL (8.5-10.1) Total Bilirubin 0.6 mg/dL (0.2-1.0) Aspartate Amino Transf (AST/SGOT) 17 U/L (15-37) Alanine Aminotransferase (ALT/SGPT) 11 U/L (14-59) Alkaline Phosphatase 62 U/L (46-116) Total Protein 6.6 g/dL (6.4-8.2) Albumin 3.7 g/dL (3.4-5.0) Albumin/Globulin Ratio 1.3 (1.0-1.7) Lipase 78 U/L (73-393) Laboratory Tests Test 03/24/17 15:28 03/24/17 15:45 03/25/17 04:35 Urine Color Yellow Urine Clarity Clear Urine pH 6.0 Urine Specific [place] >=1.030 Urine Protein Negative mg/dL (NEG-TRACE) Urine Glucose (UA) Negative mg/dL (NEG) Urine Ketones (Stick) 15 mg/dL (NEG) Urine Blood Negative (NEG) Urine Nitrite Negative (NEG) Urine Bilirubin Small (NEG) Urine Urobilinogen Dipstick 0.2 mg/dL (0.2 mg/dL) Urine Leukocyte Esterase Small (NEG) Urine RBC 0 /HPF (0-2) Urine WBC 1-4 /HPF (0-4) Urine Squamous Epithelial Cells Mod /LPF Urine Bacteria Few /HPF (0-FEW) White Blood Count 6.3 x10^3/uL (4.0-11.0) 4.7 x10^3/uL (4.0-11.0) Red Blood Count 4.40 x10^6/uL (3.50-5.40) 3.93 x10^6/uL (3.50-5.40) Hemoglobin 14.2 g/dL (12.0-15.5) 12.7 g/dL (12.0-15.5) Hematocrit 40.9 % (36.0-47.0) 36.4 % (36.0-47.0) Mean Corpuscular Volume 93 fL (79-100) 93 fL (79-100) Mean Corpuscular Hemoglobin 32 pg (25-35) 32 pg (25-35) Mean Corpuscular Hemoglobin Concent 35 g/dL (31-37) 35 g/dL (31-37) Red Cell Distribution Width 13.1 % (11.5-14.5) 13.2 % (11.5-14.5) Platelet Count 181 x10^3/uL (140-400) 152 x10^3/uL (140-400) Neutrophils (%) (Auto) 76 % (31-73) 64 % (31-73) Lymphocytes (%) (Auto) 15 % (24-48) 22 % (24-48) Monocytes (%) (Auto) 8 % (0-9) 13 % (0-9) Eosinophils (%) (Auto) 0 % (0-3) 0 % (0-3) Basophils (%) (Auto) 0 % (0-3) 0 % (0-3) Neutrophils # (Auto) 4.8 x10^3uL (1.8-7.7) 3.0 x10^3uL (1.8-7.7) Lymphocytes # (Auto) 1.0 x10^3/uL (1.0-4.8) 1.0 x10^3/uL (1.0-4.8) Monocytes # (Auto) 0.5 x10^3/uL (0.0-1.1) 0.6 x10^3/uL (0.0-1.1) Eosinophils # (Auto) 0.0 x10^3/uL (0.0-0.7) 0.0 x10^3/uL (0.0-0.7) Basophils # (Auto) 0.0 x10^3/uL (0.0-0.2) 0.0 x10^3/uL (0.0-0.2) Erythrocyte Sedimentation Rate 10 (0-25) Sodium Level 136 mmol/L (136-145) Potassium Level 3.4 mmol/L (3.5-5.1) Chloride Level 96 mmol/L (98-107) Carbon Dioxide Level 30 mmol/L (21-32) Anion Gap 10 (6-14) Blood Urea Nitrogen 10 mg/dL (7-20) Creatinine 0.9 mg/dL (0.6-1.0) Estimated GFR (Cockcroft-Gault) 61.9 BUN/Creatinine Ratio 11 (6-20) Glucose Level 112 mg/dL (70-99) Calcium Level 9.0 mg/dL (8.5-10.1) Total Bilirubin 0.6 mg/dL (0.2-1.0) Aspartate Amino Transf (AST/SGOT) 17 U/L (15-37) Alanine Aminotransferase (ALT/SGPT) 11 U/L (14-59) Alkaline Phosphatase 62 U/L (46-116) Total Protein 6.6 g/dL (6.4-8.2) Albumin 3.7 g/dL (3.4-5.0) Albumin/Globulin Ratio 1.3 (1.0-1.7) Lipase 78 U/L (73-393) Medications Current Medications Sodium Chloride 1,000 ml @ 999 mls/hr Q1H1M IV Last administered on 16:13; Start 03/24/17 at 15:57; Stop 03/24/17 at 16:57; Status DC Lorazepam (Ativan) 1 mg 1X ONCE IV Last administered on 03/24/17 16:17; Start 03/24/17 at 16:00; Stop 03/24/17 at 16:03; Status DC Hydromorphone HCl (Dilaudid) 0.5 mg 1X ONCE IV Last administered on 16:18; Start 03/24/17 at 16:00; Stop 03/24/17 at 16:03; Status DC Ondansetron HCl (Zofran) 4 mg 1X ONCE IV Last administered on 03/24/17 16:13 ; Start 03/24/17 at 16:00; Stop 03/24/17 at 16:03; Status DC Ondansetron HCl (Zofran) 4 mg PRN Q8HRS PRN IV NAUSEA/VOMITING; Start at 16:15; Stop 03/24/17 at 16:39; Status DC Morphine Sulfate 2 mg PRN Q2HR PRN IV PAIN; Start 03/24/17 at 16:15; Stop at 16:14 Ondansetron HCl (Zofran) 4 mg PRN Q6HRS PRN IV NAUSEA/VOMITING; Start at 16:30 Sodium Chloride 1,000 ml @ 100 mls/hr Q10H IV Last administered on 03/25/17 04:37; Start 03/24/17 at 16:30 Fentanyl Citrate (Fentanyl 2ml Vial) 50 mcg PRN Q2HR PRN IV PAIN Last administered on 03/25/17 09:00; Start 03/24/17 at 16:30 Famotidine (Pepcid) 20 mg QHS IVP Last administered on 03/24/17 20:58; Start 03/24/17 at 21:00 Ciprofloxacin/ Dextrose 200 ml @ 200 mls/hr Q12HR IV Last administered on 08:46; Start 03/24/17 at 21:00 Metronidazole 100 ml @ 100 mls/hr Q8HRS IV Last administered on 03/25/17 05: 45; Start 03/24/17 at 22:00 Acetaminophen/ Hydrocodone Bitart (Lortab 10/325) 1 tab PRN Q6HRS PRN PO PAIN Last administered on 03/25/17 09:00; Start 03/24/17 at 16:30 Acetaminophen/ Hydrocodone Bitart (Lortab 5/325) 1 tab PRN Q6HRS PRN PO PAIN; Start 03/24/17 at 16:30 Trazodone HCl (Desyrel) 100 mg PRN QHS PRN PO INSOMNIA Last administered on 22:24; Start 03/24/17 at 21:00 Alprazolam (Xanax) 2 mg PRN BID PRN PO ANXIETY / AGITATION Last administered on 03/25/17 05:49; Start 03/24/17 at 18:00 Gabapentin (Neurontin) 600 mg TID PO Last administered on 03/25/17 09:06; Start 03/24/17 at 21:00 Prochlorperazine Edisylate (Compazine) 10 mg PRN Q6HRS PRN IV NAUSEA/VOMITING; Start 03/24/17 at 16:30 Diphenhydramine HCl (Benadryl) 25 mg QHS PRN IVP sleep; Start 03/24/17 at 16: 30 Lorazepam (Ativan) 1 mg PRN Q4HRS PRN IV ANXIETY / AGITATION; Start 03/24/17 at 16:30 Lactobacillus Rhamnosus (Culturelle) 1 cap BID PO Last administered on 08:45; Start 03/24/17 at 21:00 Pneumococcal Polyvalent Vaccine (Do NOT chart on this placeholder) 1 each PRN DAILY PRN MC PER PROTOCOL; Start 03/24/17 at 18:00; Status UNV Pneumococcal Polyvalent Vaccine (Pneumovax 23) 0.5 ml ONCE ONCE VAX IM ; Start 03/24/17 at 18:15; Stop 03/24/17 at 18:16; Status DC Potassium Chloride 100 ml @ 100 mls/hr Q1H IV Last administered on 03/25/17 08:47; Start 03/25/17 at 08:00; Stop 03/25/17 at 11:59; Status DC Active Scripts Active Zofran Odt (Ondansetron) 4 Mg Tab.rapdis 1 Tab SL Q8HRS PRN [place] 5-325 Tablet (Acetaminophen/Hydrocodone Bitart) 1 Each Tablet 1 Tab PO PRN Q6HRS PRN Flagyl (Metronidazole) 500 Mg Tablet 1 Tab PO TID Cipro (Ciprofloxacin Hcl) 500 Mg Tablet 1 Tab PO BID Reported Omeprazole 20 Mg Capsule.dr 20 Mg PO DAILY Xanax (Alprazolam) 2 Mg Tablet 1 Tab PO BID Hydrocodone-Apap 10-325 (Hydrocodone Bit/Acetaminophen) 1 Each Tablet 1 Tab PO PRN Q6HRS PRN Trazodone Hcl 100 Mg Tablet 100 Mg PO HS Gabapentin 600 Mg Tablet 600 Mg PO TID Vitals/I & O Vital Sign - Last 24 Hours 03/24/17 03/24/17 03/24/17 03/24/17 15:28 16:10 16:18 16:30 Temp 98.4 98.4 Pulse 75 74 72 Resp 16 21 18 19 B/P (MAP) 106/59 (75) 108/60 (76) 110/57 (74) Pulse Ox 94 94 95 95 O2 Delivery Room Air Room Air Room Air Room Air 03/24/17 03/24/17 03/24/17 03/24/17 17:16 17:16 18:14 18:29 Temp 98.1 98.1 98.1 98.1 Pulse 76 76 Resp 18 18 B/P (MAP) 120/59 (79) 120/59 (79) Pulse Ox 92 92 O2 Delivery Room Air Room Air Room Air Room Air 03/24/17 03/24/17 03/24/17 03/24/17 19:30 19:42 20:00 20:42 Temp 98.2 98.2 Pulse 70 Resp 16 B/P (MAP) 106/65 (79) Pulse Ox 94 94 94 O2 Delivery Room Air Room Air Room Air Room Air 03/24/17 03/24/17 03/24/17 03/25/17 20:57 23:23 23:26 03:16 Temp 98.4 98.5 98.4 98.5 Pulse 67 76 Resp 16 16 B/P (MAP) 103/44 (63) 98/45 (62) Pulse Ox 94 94 95 95 O2 Delivery Room Air Room Air Room Air Room Air 03/25/17 03/25/17 03/25/17 03/25/17 04:35 05:06 07:00 08:00 Temp 98.4 98.4 Pulse 52 Resp 18 B/P (MAP) 114/48 (70) Pulse Ox 95 95 93 O2 Delivery Room Air Room Air Room Air Room Air 03/25/17 11:00 Temp 98.2 98.2 Pulse 57 Resp 18 B/P (MAP) 110/60 (77) Pulse Ox 95 O2 Delivery Room Air LIBRADO DANGELO III DO Mar 25, 2017 12:28
--- NOTE | 2017-03-25 14:31 | PDOC2 ---
CONSULT Date of Consult Date of Consult DATE: 03/25/17 TIME: 14:28 Reason for Consult Reason for Consult: RLQ abd pain/diarrhea Past Medical History CENTRAL NERVOUS SYSTEM: Other (insomnia) GI: GERD Musculoskeletal: low back pain Past Surgical History Past Surgical History: Other (metal plates from mid back down (back sx)) Family History Family History: No Significant Social History No ALCOHOL: none Drugs: None Current Problem List Problem List Problems Medical Problems: (1) Colitis Status: Acute (2) Intractable abdominal pain Status: Acute (3) Intractable nausea and vomiting Status: Acute Current Medications Current Medications Current Medications Sodium Chloride 1,000 ml @ 999 mls/hr Q1H1M IV Last administered on 16:13; Start 03/24/17 at 15:57; Stop 03/24/17 at 16:57; Status DC Lorazepam (Ativan) 1 mg 1X ONCE IV Last administered on 03/24/17 16:17; Start 03/24/17 at 16:00; Stop 03/24/17 at 16:03; Status DC Hydromorphone HCl (Dilaudid) 0.5 mg 1X ONCE IV Last administered on 16:18; Start 03/24/17 at 16:00; Stop 03/24/17 at 16:03; Status DC Ondansetron HCl (Zofran) 4 mg 1X ONCE IV Last administered on 03/24/17 16:13 ; Start 03/24/17 at 16:00; Stop 03/24/17 at 16:03; Status DC Ondansetron HCl (Zofran) 4 mg PRN Q8HRS PRN IV NAUSEA/VOMITING; Start at 16:15; Stop 03/24/17 at 16:39; Status DC Morphine Sulfate 2 mg PRN Q2HR PRN IV PAIN; Start 03/24/17 at 16:15; Stop at 16:14 Ondansetron HCl (Zofran) 4 mg PRN Q6HRS PRN IV NAUSEA/VOMITING; Start at 16:30 Sodium Chloride 1,000 ml @ 100 mls/hr Q10H IV Last administered on 03/25/17 04:37; Start 03/24/17 at 16:30 Fentanyl Citrate (Fentanyl 2ml Vial) 50 mcg PRN Q2HR PRN IV PAIN Last administered on 03/25/17 12:34; Start 03/24/17 at 16:30 Famotidine (Pepcid) 20 mg QHS IVP Last administered on 03/24/17 20:58; Start 03/24/17 at 21:00 Ciprofloxacin/ Dextrose 200 ml @ 200 mls/hr Q12HR IV Last administered on 08:46; Start 03/24/17 at 21:00 Metronidazole 100 ml @ 100 mls/hr Q8HRS IV Last administered on 03/25/17 05: 45; Start 03/24/17 at 22:00 Acetaminophen/ Hydrocodone Bitart (Lortab 10/325) 1 tab PRN Q6HRS PRN PO PAIN Last administered on 03/25/17 09:00; Start 03/24/17 at 16:30 Acetaminophen/ Hydrocodone Bitart (Lortab 5/325) 1 tab PRN Q6HRS PRN PO PAIN; Start 03/24/17 at 16:30 Trazodone HCl (Desyrel) 100 mg PRN QHS PRN PO INSOMNIA Last administered on 22:24; Start 03/24/17 at 21:00 Alprazolam (Xanax) 2 mg PRN BID PRN PO ANXIETY / AGITATION Last administered on 03/25/17 05:49; Start 03/24/17 at 18:00 Gabapentin (Neurontin) 600 mg TID PO Last administered on 03/25/17 09:06; Start 03/24/17 at 21:00 Prochlorperazine Edisylate (Compazine) 10 mg PRN Q6HRS PRN IV NAUSEA/VOMITING; Start 03/24/17 at 16:30 Diphenhydramine HCl (Benadryl) 25 mg QHS PRN IVP sleep; Start 03/24/17 at 16: 30 Lorazepam (Ativan) 1 mg PRN Q4HRS PRN IV ANXIETY / AGITATION; Start 03/24/17 at 16:30 Lactobacillus Rhamnosus (Culturelle) 1 cap BID PO Last administered on 08:45; Start 03/24/17 at 21:00 Pneumococcal Polyvalent Vaccine (Do NOT chart on this placeholder) 1 each PRN DAILY PRN MC PER PROTOCOL; Start 03/24/17 at 18:00; Status UNV Pneumococcal Polyvalent Vaccine (Pneumovax 23) 0.5 ml ONCE ONCE VAX IM ; Start 03/24/17 at 18:15; Stop 03/24/17 at 18:16; Status DC Potassium Chloride 100 ml @ 100 mls/hr Q1H IV Last administered on 03/25/17t 13:47; Start 03/25/17 at 08:00; Stop 03/25/17 at 11:59; Status DC Active Scripts Active Zofran Odt (Ondansetron) 4 Mg Tab.rapdis 1 Tab SL Q8HRS PRN [place] 5-325 Tablet (Acetaminophen/Hydrocodone Bitart) 1 Each Tablet 1 Tab PO PRN Q6HRS PRN Flagyl (Metronidazole) 500 Mg Tablet 1 Tab PO TID Cipro (Ciprofloxacin Hcl) 500 Mg Tablet 1 Tab PO BID Reported Omeprazole 20 Mg Capsule.dr 20 Mg PO DAILY Xanax (Alprazolam) 2 Mg Tablet 1 Tab PO BID Hydrocodone-Apap 10-325 (Hydrocodone Bit/Acetaminophen) 1 Each Tablet 1 Tab PO PRN Q6HRS PRN Trazodone Hcl 100 Mg Tablet 100 Mg PO HS Gabapentin 600 Mg Tablet 600 Mg PO TID Allergies Allergies: Coded Allergies: No Known Drug Allergies (Unverified , 03/24/17) Vitals VITALS Vital Signs Date Time Temp Pulse Resp B/P (MAP) Pulse Ox O2 Delivery O2 Flow Rate FiO2 03/25/17 13:37 Room Air 03/25/17 11:00 98.2 57 18 110/60 (77) 95 98.2 Labs Labs Laboratory Tests Test 03/24/17 15:28 03/24/17 15:45 03/25/17 04:35 Urine Color Yellow Urine Clarity Clear Urine pH 6.0 Urine Specific [place] >=1.030 Urine Protein Negative mg/dL (NEG-TRACE) Urine Glucose (UA) Negative mg/dL (NEG) Urine Ketones (Stick) 15 mg/dL (NEG) Urine Blood Negative (NEG) Urine Nitrite Negative (NEG) Urine Bilirubin Small (NEG) Urine Urobilinogen Dipstick 0.2 mg/dL (0.2 mg/dL) Urine Leukocyte Esterase Small (NEG) Urine RBC 0 /HPF (0-2) Urine WBC 1-4 /HPF (0-4) Urine Squamous Epithelial Cells Mod /LPF Urine Bacteria Few /HPF (0-FEW) White Blood Count 6.3 x10^3/uL (4.0-11.0) 4.7 x10^3/uL (4.0-11.0) Red Blood Count 4.40 x10^6/uL (3.50-5.40) 3.93 x10^6/uL (3.50-5.40) Hemoglobin 14.2 g/dL (12.0-15.5) 12.7 g/dL (12.0-15.5) Hematocrit 40.9 % (36.0-47.0) 36.4 % (36.0-47.0) Mean Corpuscular Volume 93 fL (79-100) 93 fL (79-100) Mean Corpuscular Hemoglobin 32 pg (25-35) 32 pg (25-35) Mean Corpuscular Hemoglobin Concent 35 g/dL (31-37) 35 g/dL (31-37) Red Cell Distribution Width 13.1 % (11.5-14.5) 13.2 % (11.5-14.5) Platelet Count 181 x10^3/uL (140-400) 152 x10^3/uL (140-400) Neutrophils (%) (Auto) 76 % (31-73) 64 % (31-73) Lymphocytes (%) (Auto) 15 % (24-48) 22 % (24-48) Monocytes (%) (Auto) 8 % (0-9) 13 % (0-9) Eosinophils (%) (Auto) 0 % (0-3) 0 % (0-3) Basophils (%) (Auto) 0 % (0-3) 0 % (0-3) Neutrophils # (Auto) 4.8 x10^3uL (1.8-7.7) 3.0 x10^3uL (1.8-7.7) Lymphocytes # (Auto) 1.0 x10^3/uL (1.0-4.8) 1.0 x10^3/uL (1.0-4.8) Monocytes # (Auto) 0.5 x10^3/uL (0.0-1.1) 0.6 x10^3/uL (0.0-1.1) Eosinophils # (Auto) 0.0 x10^3/uL (0.0-0.7) 0.0 x10^3/uL (0.0-0.7) Basophils # (Auto) 0.0 x10^3/uL (0.0-0.2) 0.0 x10^3/uL (0.0-0.2) Erythrocyte Sedimentation Rate 10 (0-25) Sodium Level 136 mmol/L (136-145) Potassium Level 3.4 mmol/L (3.5-5.1) Chloride Level 96 mmol/L (98-107) Carbon Dioxide Level 30 mmol/L (21-32) Anion Gap 10 (6-14) Blood Urea Nitrogen 10 mg/dL (7-20) Creatinine 0.9 mg/dL (0.6-1.0) Estimated GFR (Cockcroft-Gault) 61.9 BUN/Creatinine Ratio 11 (6-20) Glucose Level 112 mg/dL (70-99) Calcium Level 9.0 mg/dL (8.5-10.1) Total Bilirubin 0.6 mg/dL (0.2-1.0) Aspartate Amino Transf (AST/SGOT) 17 U/L (15-37) Alanine Aminotransferase (ALT/SGPT) 11 U/L (14-59) Alkaline Phosphatase 62 U/L (46-116) Total Protein 6.6 g/dL (6.4-8.2) Albumin 3.7 g/dL (3.4-5.0) Albumin/Globulin Ratio 1.3 (1.0-1.7) Lipase 78 U/L (73-393) Laboratory Tests Test 03/24/17 15:28 03/24/17 15:45 03/25/17 04:35 Urine Color Yellow Urine Clarity Clear Urine pH 6.0 Urine Specific [place] >=1.030 Urine Protein Negative mg/dL (NEG-TRACE) Urine Glucose (UA) Negative mg/dL (NEG) Urine Ketones (Stick) 15 mg/dL (NEG) Urine Blood Negative (NEG) Urine Nitrite Negative (NEG) Urine Bilirubin Small (NEG) Urine Urobilinogen Dipstick 0.2 mg/dL (0.2 mg/dL) Urine Leukocyte Esterase Small (NEG) Urine RBC 0 /HPF (0-2) Urine WBC 1-4 /HPF (0-4) Urine Squamous Epithelial Cells Mod /LPF Urine Bacteria Few /HPF (0-FEW) White Blood Count 6.3 x10^3/uL (4.0-11.0) 4.7 x10^3/uL (4.0-11.0) Red Blood Count 4.40 x10^6/uL (3.50-5.40) 3.93 x10^6/uL (3.50-5.40) Hemoglobin 14.2 g/dL (12.0-15.5) 12.7 g/dL (12.0-15.5) Hematocrit 40.9 % (36.0-47.0) 36.4 % (36.0-47.0) Mean Corpuscular Volume 93 fL (79-100) 93 fL (79-100) Mean Corpuscular Hemoglobin 32 pg (25-35) 32 pg (25-35) Mean Corpuscular Hemoglobin Concent 35 g/dL (31-37) 35 g/dL (31-37) Red Cell Distribution Width 13.1 % (11.5-14.5) 13.2 % (11.5-14.5) Platelet Count 181 x10^3/uL (140-400) 152 x10^3/uL (140-400) Neutrophils (%) (Auto) 76 % (31-73) 64 % (31-73) Lymphocytes (%) (Auto) 15 % (24-48) 22 % (24-48) Monocytes (%) (Auto) 8 % (0-9) 13 % (0-9) Eosinophils (%) (Auto) 0 % (0-3) 0 % (0-3) Basophils (%) (Auto) 0 % (0-3) 0 % (0-3) Neutrophils # (Auto) 4.8 x10^3uL (1.8-7.7) 3.0 x10^3uL (1.8-7.7) Lymphocytes # (Auto) 1.0 x10^3/uL (1.0-4.8) 1.0 x10^3/uL (1.0-4.8) Monocytes # (Auto) 0.5 x10^3/uL (0.0-1.1) 0.6 x10^3/uL (0.0-1.1) Eosinophils # (Auto) 0.0 x10^3/uL (0.0-0.7) 0.0 x10^3/uL (0.0-0.7) Basophils # (Auto) 0.0 x10^3/uL (0.0-0.2) 0.0 x10^3/uL (0.0-0.2) Erythrocyte Sedimentation Rate 10 (0-25) Sodium Level 136 mmol/L (136-145) Potassium Level 3.4 mmol/L (3.5-5.1) Chloride Level 96 mmol/L (98-107) Carbon Dioxide Level 30 mmol/L (21-32) Anion Gap 10 (6-14) Blood Urea Nitrogen 10 mg/dL (7-20) Creatinine 0.9 mg/dL (0.6-1.0) Estimated GFR (Cockcroft-Gault) 61.9 BUN/Creatinine Ratio 11 (6-20) Glucose Level 112 mg/dL (70-99) Calcium Level 9.0 mg/dL (8.5-10.1) Total Bilirubin 0.6 mg/dL (0.2-1.0) Aspartate Amino Transf (AST/SGOT) 17 U/L (15-37) Alanine Aminotransferase (ALT/SGPT) 11 U/L (14-59) Alkaline Phosphatase 62 U/L (46-116) Total Protein 6.6 g/dL (6.4-8.2) Albumin 3.7 g/dL (3.4-5.0) Albumin/Globulin Ratio 1.3 (1.0-1.7) Lipase 78 U/L (73-393) Assessment/Plan Assessment/Plan RLQ abd pain- with abnl Ct scan with left sided diverticulitis. Infectious colitis and/or appendicitis as well as new onset Crohn's disease. Plan antibiotics consider interval Ct scan if pain worsens/possible surgical consult Full note dictated ROXANNA ESCOBAR MD Mar 25, 2017 14:31
[2017-03-25 15:00] VITALS: BP 124/44
[2017-03-25 19:38] VITALS: BP 102/41
[2017-03-25] MEDS: traZODone 100 MG TABLET. PO PRN (20:19)
[2017-03-25] MEDS: FAMOTIDINE 20 MG/2 ML VIAL IVP SCH (20:19)
[2017-03-25 23:13] VITALS: BP 94/38
--- NOTE | 2017-03-26 02:48 | CONS ---
DATE OF CONSULTATION: 03/25/2017 REASON FOR CONSULTATION: Right lower quadrant abdominal pain. HISTORY OF PRESENT ILLNESS: This is a 71-year-old female whose past medical history is significant for anxiety, status post hysterectomy, cholecystectomy. He is seen with right lower quadrant abdominal pain of approximately one week's duration, associated with anorexia and nausea as well as diarrhea over the past 2 days. There has been no outside travel, well water consumption or recent antibiotics. Colonoscopy a year ago was unrevealing. With continued issues and symptoms of pain, she came to the Emergency Room. Originally wanted to be released, but then subsequently returned due to worsening pain, as the oral antibiotics could not control her symptoms. GI consultation is requested. PAST MEDICAL HISTORY: Anxiety, status post cholecystectomy and hysterectomy. ALLERGIES: None. MEDICATIONS: Include Flagyl, gabapentin, trazodone, alprazolam, morphine. SOCIAL HISTORY: She is retired. Does not drink or smoke. FAMILY HISTORY: Noncontributory. REVIEW OF SYSTEMS: Per records. PHYSICAL EXAMINATION: VITAL SIGNS: Temperature is 98.3, pulse is 67, respirations 18, blood pressure is 110/60. HEENT: Normocephalic and atraumatic head. Pupils and extraocular muscles not tested. Sclerae anicteric. NECK: Supple. LUNGS: Clear. CARDIOVASCULAR: Reveals S1, S2, without S3, S4 or appreciable murmur. ABDOMEN: Soft abdomen, normal bowel sounds. Right lower quadrant tenderness to deep palpation, without appreciable hepatosplenomegaly. EXTREMITIES: Reveals no cyanosis, clubbing or edema. LABORATORY STUDIES: White count 4.7; hemoglobin 12.2; hematocrit 36.4; white count 152,000. Sodium 136, potassium 3.4, chloride 96, BUN 10, creatinine 0.9, glucose 112, calcium 9.0, total bili 0.6, AST of 17, ALT 11, alk phos 62, total bilirubin 6.6, albumin 3.7, lipase is 72. CT scan reveals a possible sigmoid thickening. IMPRESSION: Right lower quadrant abdominal pain, opposite from the CT findings with the diarrhea. Differential includes ischemic colitis, infectious colitis, possible appendicitis and new onset inflammatory bowel disease. We therefore recommend the antibiotics, serial white counts. Consider interval CT scan; if possible surgical consultation if no improvement, as appendicitis may be contributing. The patient does relate having had undergone a colonoscopy in the past year which has been within normal limits. ROXANNA ESCOBAR MD DR: ANIYA/priyanka JOB#: [id number] / [id number]
[2017-03-26 03:40] VITALS: BP 106/56
[2017-03-26 05:13] LABS: BASO % 1 % (0-3); EOS % 0 % (0-3); HEMATOCRIT 32.6 % (36.0-47.0); HEMOGLOBIN 11.3 g/dL (12.0-15.5); LYMPH # 1.2 x10^3/uL (1.0-4.8); LYMPH % 33 % (24-48); MEAN CORPUSCULAR HEMOGLOBIN 32 pg (25-35); MEAN CORPUSCULAR HGB CONC 35 g/dL (31-37); MEAN CORPUSCULAR VOLUME 94 fL (79-100); MONO % 10 % (0-9); NEUT % 56 % (31-73); PLATELET COUNT 136 x10^3/uL (140-400); RED BLOOD COUNT 3.49 x10^6/uL (3.50-5.40); WHITE BLOOD COUNT 3.6 x10^3/uL (4.0-11.0)
[2017-03-26 05:35] LABS: CREATININE 0.8 mg/dL (0.6-1.0); GFR 70.9; POTASSIUM 3.5 mmol/L (3.5-5.1)
[2017-03-26] MEDS: fentaNYL PF VIAL 100 MCG/2 ML VIAL IV PRN ×7 (06:03→20:28)
[2017-03-26] MEDS: IV NORMAL SALINE 1000ML BAG 1,000 ML IV SCH ×2 (06:04→20:29)
[2017-03-26 07:00] VITALS: BP 117/49
[2017-03-26] MEDS: HYDROcodone/APAP 10/325 1 TAB TABLET PO PRN ×3 (08:00→20:27)
[2017-03-26] MEDS: LACTOBACILLUS RHAMNOSUS GG 1 CAPSULE. PO SCH ×2 (08:00→20:27)
[2017-03-26] MEDS: GABAPENTIN 300 MG CAPSULE. PO SCH ×3 (08:00→20:27)
[2017-03-26] MEDS: CIPROFLOXACIN 400MG PREMIX 200 ML IV SCH ×2 (08:01→20:28)
[2017-03-26] MEDS: ALPRAZolam 1 MG TABLET PO PRN ×2 (10:27→20:27)
--- NOTE | 2017-03-26 10:43 | PDOC ---
G I PROGRESS NOTE Reason for Follow-up Abd pain/diarrhea Subjective Pain improving/ Hungry Physical Exam Lungs clear CV S1 S2 Abd +BS, +RLQ tenderness. Review of Relevant I have reviewed the following items amber (where applicable) has been applied. Labs Laboratory Tests Test 03/24/17 15:28 03/24/17 15:45 03/25/17 04:35 03/26/17 05:00 Urine Color Yellow Urine Clarity Clear Urine pH 6.0 Urine Specific [place] >=1.030 Urine Protein Negative mg/dL (NEG-TRACE) Urine Glucose (UA) Negative mg/dL (NEG) Urine Ketones (Stick) 15 mg/dL (NEG) Urine Blood Negative (NEG) Urine Nitrite Negative (NEG) Urine Bilirubin Small (NEG) Urine Urobilinogen Dipstick 0.2 mg/dL (0.2 mg/dL) Urine Leukocyte Esterase Small (NEG) Urine RBC 0 /HPF (0-2) Urine WBC 1-4 /HPF (0-4) Urine Squamous Epithelial Cells Mod /LPF Urine Bacteria Few /HPF (0-FEW) White Blood Count 6.3 x10^3/uL (4.0-11.0) 4.7 x10^3/uL (4.0-11.0) 3.6 x10^3/uL (4.0-11.0) Red Blood Count 4.40 x10^6/uL (3.50-5.40) 3.93 x10^6/uL (3.50-5.40) 3.49 x10^6/uL (3.50-5.40) Hemoglobin 14.2 g/dL (12.0-15.5) 12.7 g/dL (12.0-15.5) 11.3 g/dL (12.0-15.5) Hematocrit 40.9 % (36.0-47.0) 36.4 % (36.0-47.0) 32.6 % (36.0-47.0) Mean Corpuscular Volume 93 fL (79-100) 93 fL (79-100) 94 fL (79-100) Mean Corpuscular Hemoglobin 32 pg (25-35) 32 pg (25-35) 32 pg (25-35) Mean Corpuscular Hemoglobin Concent 35 g/dL (31-37) 35 g/dL (31-37) 35 g/dL (31-37) Red Cell Distribution Width 13.1 % (11.5-14.5) 13.2 % (11.5-14.5) 13.0 % (11.5-14.5) Platelet Count 181 x10^3/uL (140-400) 152 x10^3/uL (140-400) 136 x10^3/uL (140-400) Neutrophils (%) (Auto) 76 % (31-73) 64 % (31-73) 56 % (31-73) Lymphocytes (%) (Auto) 15 % (24-48) 22 % (24-48) 33 % (24-48) Monocytes (%) (Auto) 8 % (0-9) 13 % (0-9) 10 % (0-9) Eosinophils (%) (Auto) 0 % (0-3) 0 % (0-3) 0 % (0-3) Basophils (%) (Auto) 0 % (0-3) 0 % (0-3) 1 % (0-3) Neutrophils # (Auto) 4.8 x10^3uL (1.8-7.7) 3.0 x10^3uL (1.8-7.7) 2.0 x10^3uL (1.8-7.7) Lymphocytes # (Auto) 1.0 x10^3/uL (1.0-4.8) 1.0 x10^3/uL (1.0-4.8) 1.2 x10^3/uL (1.0-4.8) Monocytes # (Auto) 0.5 x10^3/uL (0.0-1.1) 0.6 x10^3/uL (0.0-1.1) 0.4 x10^3/uL (0.0-1.1) Eosinophils # (Auto) 0.0 x10^3/uL (0.0-0.7) 0.0 x10^3/uL (0.0-0.7) 0.0 x10^3/uL (0.0-0.7) Basophils # (Auto) 0.0 x10^3/uL (0.0-0.2) 0.0 x10^3/uL (0.0-0.2) 0.0 x10^3/uL (0.0-0.2) Erythrocyte Sedimentation Rate 10 (0-25) Sodium Level 136 mmol/L (136-145) 144 mmol/L (136-145) Potassium Level 3.4 mmol/L (3.5-5.1) 3.5 mmol/L (3.5-5.1) Chloride Level 96 mmol/L (98-107) 108 mmol/L (98-107) Carbon Dioxide Level 30 mmol/L (21-32) 30 mmol/L (21-32) Anion Gap 10 (6-14) 6 (6-14) Blood Urea Nitrogen 10 mg/dL (7-20) 3 mg/dL (7-20) Creatinine 0.9 mg/dL (0.6-1.0) 0.8 mg/dL (0.6-1.0) Estimated GFR (Cockcroft-Gault) 61.9 70.9 BUN/Creatinine Ratio 11 (6-20) Glucose Level 112 mg/dL (70-99) 108 mg/dL (70-99) Calcium Level 9.0 mg/dL (8.5-10.1) 8.0 mg/dL (8.5-10.1) Total Bilirubin 0.6 mg/dL (0.2-1.0) Aspartate Amino Transf (AST/SGOT) 17 U/L (15-37) Alanine Aminotransferase (ALT/SGPT) 11 U/L (14-59) Alkaline Phosphatase 62 U/L (46-116) Total Protein 6.6 g/dL (6.4-8.2) Albumin 3.7 g/dL (3.4-5.0) Albumin/Globulin Ratio 1.3 (1.0-1.7) Lipase 78 U/L (73-393) Laboratory Tests Test 03/26/17 05:00 White Blood Count 3.6 x10^3/uL (4.0-11.0) Red Blood Count 3.49 x10^6/uL (3.50-5.40) Hemoglobin 11.3 g/dL (12.0-15.5) Hematocrit 32.6 % (36.0-47.0) Mean Corpuscular Volume 94 fL (79-100) Mean Corpuscular Hemoglobin 32 pg (25-35) Mean Corpuscular Hemoglobin Concent 35 g/dL (31-37) Red Cell Distribution Width 13.0 % (11.5-14.5) Platelet Count 136 x10^3/uL (140-400) Neutrophils (%) (Auto) 56 % (31-73) Lymphocytes (%) (Auto) 33 % (24-48) Monocytes (%) (Auto) 10 % (0-9) Eosinophils (%) (Auto) 0 % (0-3) Basophils (%) (Auto) 1 % (0-3) Neutrophils # (Auto) 2.0 x10^3uL (1.8-7.7) Lymphocytes # (Auto) 1.2 x10^3/uL (1.0-4.8) Monocytes # (Auto) 0.4 x10^3/uL (0.0-1.1) Eosinophils # (Auto) 0.0 x10^3/uL (0.0-0.7) Basophils # (Auto) 0.0 x10^3/uL (0.0-0.2) Sodium Level 144 mmol/L (136-145) Potassium Level 3.5 mmol/L (3.5-5.1) Chloride Level 108 mmol/L (98-107) Carbon Dioxide Level 30 mmol/L (21-32) Anion Gap 6 (6-14) Blood Urea Nitrogen 3 mg/dL (7-20) Creatinine 0.8 mg/dL (0.6-1.0) Estimated GFR (Cockcroft-Gault) 70.9 Glucose Level 108 mg/dL (70-99) Calcium Level 8.0 mg/dL (8.5-10.1) Medications Current Medications Sodium Chloride 1,000 ml @ 999 mls/hr Q1H1M IV Last administered on 16:13; Start 03/24/17 at 15:57; Stop 03/24/17 at 16:57; Status DC Lorazepam (Ativan) 1 mg 1X ONCE IV Last administered on 03/24/17 16:17; Start 03/24/17 at 16:00; Stop 03/24/17 at 16:03; Status DC Hydromorphone HCl (Dilaudid) 0.5 mg 1X ONCE IV Last administered on 16:18; Start 03/24/17 at 16:00; Stop 03/24/17 at 16:03; Status DC Ondansetron HCl (Zofran) 4 mg 1X ONCE IV Last administered on 03/24/17 16:13 ; Start 03/24/17 at 16:00; Stop 03/24/17 at 16:03; Status DC Ondansetron HCl (Zofran) 4 mg PRN Q8HRS PRN IV NAUSEA/VOMITING; Start at 16:15; Stop 03/24/17 at 16:39; Status DC Morphine Sulfate 2 mg PRN Q2HR PRN IV PAIN; Start 03/24/17 at 16:15; Stop at 16:14; Status DC Ondansetron HCl (Zofran) 4 mg PRN Q6HRS PRN IV NAUSEA/VOMITING; Start at 16:30 Sodium Chloride 1,000 ml @ 100 mls/hr Q10H IV Last administered on 03/26/17 06:04; Start 03/24/17 at 16:30 Fentanyl Citrate (Fentanyl 2ml Vial) 50 mcg PRN Q2HR PRN IV PAIN Last administered on 03/26/17 10:23; Start 03/24/17 at 16:30 Famotidine (Pepcid) 20 mg QHS IVP Last administered on 03/25/17 20:19; Start 03/24/17 at 21:00 Ciprofloxacin/ Dextrose 200 ml @ 200 mls/hr Q12HR IV Last administered on 08:01; Start 03/24/17 at 21:00 Metronidazole 100 ml @ 100 mls/hr Q8HRS IV Last administered on 03/26/17 06: 05; Start 03/24/17 at 22:00 Acetaminophen/ Hydrocodone Bitart (Lortab 10/325) 1 tab PRN Q6HRS PRN PO PAIN Last administered on 03/26/17 08:00; Start 03/24/17 at 16:30 Acetaminophen/ Hydrocodone Bitart (Lortab 5/325) 1 tab PRN Q6HRS PRN PO PAIN; Start 03/24/17 at 16:30 Trazodone HCl (Desyrel) 100 mg PRN QHS PRN PO INSOMNIA Last administered on 20:19; Start 03/24/17 at 21:00 Alprazolam (Xanax) 2 mg PRN BID PRN PO ANXIETY / AGITATION Last administered on 03/26/17 10:27; Start 03/24/17 at 18:00 Gabapentin (Neurontin) 600 mg TID PO Last administered on 03/26/17 08:00; Start 03/24/17 at 21:00 Prochlorperazine Edisylate (Compazine) 10 mg PRN Q6HRS PRN IV NAUSEA/VOMITING; Start 03/24/17 at 16:30 Diphenhydramine HCl (Benadryl) 25 mg QHS PRN IVP sleep; Start 03/24/17 at 16: 30 Lorazepam (Ativan) 1 mg PRN Q4HRS PRN IV ANXIETY / AGITATION; Start 03/24/17 at 16:30 Lactobacillus Rhamnosus (Culturelle) 1 cap BID PO Last administered on 08:00; Start 03/24/17 at 21:00 Pneumococcal Polyvalent Vaccine (Do NOT chart on this placeholder) 1 each PRN DAILY PRN MC PER PROTOCOL; Start 03/24/17 at 18:00; Status UNV Pneumococcal Polyvalent Vaccine (Pneumovax 23) 0.5 ml ONCE ONCE VAX IM ; Start 03/24/17 at 18:15; Stop 03/24/17 at 18:16; Status DC Potassium Chloride 100 ml @ 100 mls/hr Q1H IV Last administered on 03/25/17 14:58; Start 03/25/17 at 08:00; Stop 03/25/17 at 11:59; Status DC Active Scripts Active Zofran Odt (Ondansetron) 4 Mg Tab.rapdis 1 Tab SL Q8HRS PRN [place] 5-325 Tablet (Acetaminophen/Hydrocodone Bitart) 1 Each Tablet 1 Tab PO PRN Q6HRS PRN Flagyl (Metronidazole) 500 Mg Tablet 1 Tab PO TID Cipro (Ciprofloxacin Hcl) 500 Mg Tablet 1 Tab PO BID Reported Omeprazole 20 Mg Capsule. 20 Mg PO DAILY Xanax (Alprazolam) 2 Mg Tablet 1 Tab PO BID Hydrocodone-Apap 10-325 (Hydrocodone Bit/Acetaminophen) 1 Each Tablet 1 Tab PO PRN Q6HRS PRN Trazodone Hcl 100 Mg Tablet 100 Mg PO HS Gabapentin 600 Mg Tablet 600 Mg PO TID Vitals/I & O Vital Sign - Last 24 Hours 03/25/17 03/25/17 03/25/17 03/25/17 11:00 13:37 15:00 17:53 Temp 98.2 98.3 98.2 98.3 Pulse 57 76 Resp 18 18 18 B/P (MAP) 110/60 (77) 124/44 (70) Pulse Ox 95 92 O2 Delivery Room Air Room Air Room Air 03/25/17 03/25/17 03/25/17 03/25/17 19:38 20:00 20:19 23:06 Temp 98.7 98.7 Pulse 69 Resp 18 18 B/P (MAP) 102/41 (61) Pulse Ox 90 92 92 O2 Delivery Room Air Room Air Room Air Room Air 03/25/17 03/26/17 03/26/17 03/26/17 23:13 03:40 06:03 06:33 Temp 98.1 97.6 98.1 97.6 Pulse 66 71 Resp 16 16 18 B/P (MAP) 94/38 (56) 106/56 (73) Pulse Ox 94 92 92 O2 Delivery Room Air Room Air Room Air 03/26/17 03/26/17 03/26/17 03/26/17 07:00 08:00 08:00 08:09 Temp 97.7 97.7 Pulse 61 Resp 18 B/P (MAP) 117/49 (71) Pulse Ox 95 95 95 O2 Delivery Room Air Room Air Room Air Room Air 03/26/17 03/26/17 03/26/17 09:37 09:37 10:23 Pulse Ox 95 95 95 O2 Delivery Room Air Room Air Room Air Problem List Problems Medical Problems: (1) Colitis Status: Acute (2) Intractable abdominal pain Status: Acute (3) Intractable nausea and vomiting Status: Acute Assessment RLQ abd pain- with possible diverticulitis/colitis, improving with antibiotics, advance diet and reassess ROXANNA ESCOBAR MD Mar 26, 2017 10:43
[2017-03-26 11:00] VITALS: BP 125/47
--- NOTE | 2017-03-26 12:47 | PDOC ---
PROGRESS NOTES Chief Complaint Chief Complaint Sigmoid diverticulitis Abdominal pain Vomiting PMHx: Insomnia GERD Low back pain History of Present Illness History of Present Illness Pt is a 71 year old pleasant female who presented to the ED with abdominal pain and vomiting. CT scan showed sigmoid diverticulitis. Pt was seen at bedside in no acute distress. Pt is on cipro and metronitazole. Pt will advance diet as tolerated. Pt followed by GI re: diverticulitis. Will continue to monitor. Discharge hopefully tomorrow if ok with GI. Vitals Vitals Vital Signs Date Time Temp Pulse Resp B/P (MAP) Pulse Ox O2 Delivery O2 Flow Rate FiO2 03/26/17 12:29 94 Room Air 03/26/17 11:00 97.5 68 18 125/47 (73) 97.5 Physical Exam General: Alert, Oriented X3, Cooperative, No acute distress, Other (from the pain) Heart: Regular rate, Normal S1, Normal S2, No murmurs Lungs: Clear Abdomen: Soft, No hepatosplenomegaly, No masses, Other (tenderness left and RT sides, no rebound, no guarding, hypoactive bS) Extremities: No clubbing, No cyanosis, No edema, Normal pulses, No tenderness/ swelling Skin: No rashes, No breakdown, No significant lesion Labs LABS Laboratory Tests Test 03/26/17 05:00 White Blood Count 3.6 x10^3/uL (4.0-11.0) Red Blood Count 3.49 x10^6/uL (3.50-5.40) Hemoglobin 11.3 g/dL (12.0-15.5) Hematocrit 32.6 % (36.0-47.0) Mean Corpuscular Volume 94 fL (79-100) Mean Corpuscular Hemoglobin 32 pg (25-35) Mean Corpuscular Hemoglobin Concent 35 g/dL (31-37) Red Cell Distribution Width 13.0 % (11.5-14.5) Platelet Count 136 x10^3/uL (140-400) Neutrophils (%) (Auto) 56 % (31-73) Lymphocytes (%) (Auto) 33 % (24-48) Monocytes (%) (Auto) 10 % (0-9) Eosinophils (%) (Auto) 0 % (0-3) Basophils (%) (Auto) 1 % (0-3) Neutrophils # (Auto) 2.0 x10^3uL (1.8-7.7) Lymphocytes # (Auto) 1.2 x10^3/uL (1.0-4.8) Monocytes # (Auto) 0.4 x10^3/uL (0.0-1.1) Eosinophils # (Auto) 0.0 x10^3/uL (0.0-0.7) Basophils # (Auto) 0.0 x10^3/uL (0.0-0.2) Sodium Level 144 mmol/L (136-145) Potassium Level 3.5 mmol/L (3.5-5.1) Chloride Level 108 mmol/L (98-107) Carbon Dioxide Level 30 mmol/L (21-32) Anion Gap 6 (6-14) Blood Urea Nitrogen 3 mg/dL (7-20) Creatinine 0.8 mg/dL (0.6-1.0) Estimated GFR (Cockcroft-Gault) 70.9 Glucose Level 108 mg/dL (70-99) Calcium Level 8.0 mg/dL (8.5-10.1) Review of Systems Review of Systems Pt complains of fatigue and hunger Assessment and Plan Assessmemt and Plan Problems Medical Problems: (1) Colitis Status: Acute (2) Intractable abdominal pain Status: Acute (3) Intractable nausea and vomiting Status: Acute Assessment: Sigmoid diverticulitis Abdominal pain Vomiting Insomnia GERD Low back pain Plan: Continue cipro and metronidazole Advance diet as tolerated Continue home meds PT/OT Recheck labs Appreciate subspecialty input Discharge tomorrow if GI agrees Problems: Comment Review of Relevant I have reviewed the following items amber (where applicable) has been applied. Labs Laboratory Tests Test 03/24/17 15:28 03/24/17 15:45 03/25/17 04:35 03/26/17 05:00 Urine Color Yellow Urine Clarity Clear Urine pH 6.0 Urine Specific [place] >=1.030 Urine Protein Negative mg/dL (NEG-TRACE) Urine Glucose (UA) Negative mg/dL (NEG) Urine Ketones (Stick) 15 mg/dL (NEG) Urine Blood Negative (NEG) Urine Nitrite Negative (NEG) Urine Bilirubin Small (NEG) Urine Urobilinogen Dipstick 0.2 mg/dL (0.2 mg/dL) Urine Leukocyte Esterase Small (NEG) Urine RBC 0 /HPF (0-2) Urine WBC 1-4 /HPF (0-4) Urine Squamous Epithelial Cells Mod /LPF Urine Bacteria Few /HPF (0-FEW) White Blood Count 6.3 x10^3/uL (4.0-11.0) 4.7 x10^3/uL (4.0-11.0) 3.6 x10^3/uL (4.0-11.0) Red Blood Count 4.40 x10^6/uL (3.50-5.40) 3.93 x10^6/uL (3.50-5.40) 3.49 x10^6/uL (3.50-5.40) Hemoglobin 14.2 g/dL (12.0-15.5) 12.7 g/dL (12.0-15.5) 11.3 g/dL (12.0-15.5) Hematocrit 40.9 % (36.0-47.0) 36.4 % (36.0-47.0) 32.6 % (36.0-47.0) Mean Corpuscular Volume 93 fL (79-100) 93 fL (79-100) 94 fL (79-100) Mean Corpuscular Hemoglobin 32 pg (25-35) 32 pg (25-35) 32 pg (25-35) Mean Corpuscular Hemoglobin Concent 35 g/dL (31-37) 35 g/dL (31-37) 35 g/dL (31-37) Red Cell Distribution Width 13.1 % (11.5-14.5) 13.2 % (11.5-14.5) 13.0 % (11.5-14.5) Platelet Count 181 x10^3/uL (140-400) 152 x10^3/uL (140-400) 136 x10^3/uL (140-400) Neutrophils (%) (Auto) 76 % (31-73) 64 % (31-73) 56 % (31-73) Lymphocytes (%) (Auto) 15 % (24-48) 22 % (24-48) 33 % (24-48) Monocytes (%) (Auto) 8 % (0-9) 13 % (0-9) 10 % (0-9) Eosinophils (%) (Auto) 0 % (0-3) 0 % (0-3) 0 % (0-3) Basophils (%) (Auto) 0 % (0-3) 0 % (0-3) 1 % (0-3) Neutrophils # (Auto) 4.8 x10^3uL (1.8-7.7) 3.0 x10^3uL (1.8-7.7) 2.0 x10^3uL (1.8-7.7) Lymphocytes # (Auto) 1.0 x10^3/uL (1.0-4.8) 1.0 x10^3/uL (1.0-4.8) 1.2 x10^3/uL (1.0-4.8) Monocytes # (Auto) 0.5 x10^3/uL (0.0-1.1) 0.6 x10^3/uL (0.0-1.1) 0.4 x10^3/uL (0.0-1.1) Eosinophils # (Auto) 0.0 x10^3/uL (0.0-0.7) 0.0 x10^3/uL (0.0-0.7) 0.0 x10^3/uL (0.0-0.7) Basophils # (Auto) 0.0 x10^3/uL (0.0-0.2) 0.0 x10^3/uL (0.0-0.2) 0.0 x10^3/uL (0.0-0.2) Erythrocyte Sedimentation Rate 10 (0-25) Sodium Level 136 mmol/L (136-145) 144 mmol/L (136-145) Potassium Level 3.4 mmol/L (3.5-5.1) 3.5 mmol/L (3.5-5.1) Chloride Level 96 mmol/L (98-107) 108 mmol/L (98-107) Carbon Dioxide Level 30 mmol/L (21-32) 30 mmol/L (21-32) Anion Gap 10 (6-14) 6 (6-14) Blood Urea Nitrogen 10 mg/dL (7-20) 3 mg/dL (7-20) Creatinine 0.9 mg/dL (0.6-1.0) 0.8 mg/dL (0.6-1.0) Estimated GFR (Cockcroft-Gault) 61.9 70.9 BUN/Creatinine Ratio 11 (6-20) Glucose Level 112 mg/dL (70-99) 108 mg/dL (70-99) Calcium Level 9.0 mg/dL (8.5-10.1) 8.0 mg/dL (8.5-10.1) Total Bilirubin 0.6 mg/dL (0.2-1.0) Aspartate Amino Transf (AST/SGOT) 17 U/L (15-37) Alanine Aminotransferase (ALT/SGPT) 11 U/L (14-59) Alkaline Phosphatase 62 U/L (46-116) Total Protein 6.6 g/dL (6.4-8.2) Albumin 3.7 g/dL (3.4-5.0) Albumin/Globulin Ratio 1.3 (1.0-1.7) Lipase 78 U/L (73-393) Laboratory Tests Test 03/26/17 05:00 White Blood Count 3.6 x10^3/uL (4.0-11.0) Red Blood Count 3.49 x10^6/uL (3.50-5.40) Hemoglobin 11.3 g/dL (12.0-15.5) Hematocrit 32.6 % (36.0-47.0) Mean Corpuscular Volume 94 fL (79-100) Mean Corpuscular Hemoglobin 32 pg (25-35) Mean Corpuscular Hemoglobin Concent 35 g/dL (31-37) Red Cell Distribution Width 13.0 % (11.5-14.5) Platelet Count 136 x10^3/uL (140-400) Neutrophils (%) (Auto) 56 % (31-73) Lymphocytes (%) (Auto) 33 % (24-48) Monocytes (%) (Auto) 10 % (0-9) Eosinophils (%) (Auto) 0 % (0-3) Basophils (%) (Auto) 1 % (0-3) Neutrophils # (Auto) 2.0 x10^3uL (1.8-7.7) Lymphocytes # (Auto) 1.2 x10^3/uL (1.0-4.8) Monocytes # (Auto) 0.4 x10^3/uL (0.0-1.1) Eosinophils # (Auto) 0.0 x10^3/uL (0.0-0.7) Basophils # (Auto) 0.0 x10^3/uL (0.0-0.2) Sodium Level 144 mmol/L (136-145) Potassium Level 3.5 mmol/L (3.5-5.1) Chloride Level 108 mmol/L (98-107) Carbon Dioxide Level 30 mmol/L (21-32) Anion Gap 6 (6-14) Blood Urea Nitrogen 3 mg/dL (7-20) Creatinine 0.8 mg/dL (0.6-1.0) Estimated GFR (Cockcroft-Gault) 70.9 Glucose Level 108 mg/dL (70-99) Calcium Level 8.0 mg/dL (8.5-10.1) Medications Current Medications Sodium Chloride 1,000 ml @ 999 mls/hr Q1H1M IV Last administered on 16:13; Start 03/24/17 at 15:57; Stop 03/24/17 at 16:57; Status DC Lorazepam (Ativan) 1 mg 1X ONCE IV Last administered on 03/24/17 16:17; Start 03/24/17 at 16:00; Stop 03/24/17 at 16:03; Status DC Hydromorphone HCl (Dilaudid) 0.5 mg 1X ONCE IV Last administered on 16:18; Start 03/24/17 at 16:00; Stop 03/24/17 at 16:03; Status DC Ondansetron HCl (Zofran) 4 mg 1X ONCE IV Last administered on 03/24/17 16:13 ; Start 03/24/17 at 16:00; Stop 03/24/17 at 16:03; Status DC Ondansetron HCl (Zofran) 4 mg PRN Q8HRS PRN IV NAUSEA/VOMITING; Start at 16:15; Stop 03/24/17 at 16:39; Status DC Morphine Sulfate 2 mg PRN Q2HR PRN IV PAIN; Start 03/24/17 at 16:15; Stop at 16:14; Status DC Ondansetron HCl (Zofran) 4 mg PRN Q6HRS PRN IV NAUSEA/VOMITING; Start at 16:30 Sodium Chloride 1,000 ml @ 100 mls/hr Q10H IV Last administered on 03/26/17 06:04; Start 03/24/17 at 16:30 Fentanyl Citrate (Fentanyl 2ml Vial) 50 mcg PRN Q2HR PRN IV PAIN Last administered on 03/26/17 12:29; Start 03/24/17 at 16:30 Famotidine (Pepcid) 20 mg QHS IVP Last administered on 03/25/17 20:19; Start 03/24/17 at 21:00 Ciprofloxacin/ Dextrose 200 ml @ 200 mls/hr Q12HR IV Last administered on 08:01; Start 03/24/17 at 21:00 Metronidazole 100 ml @ 100 mls/hr Q8HRS IV Last administered on 03/26/17 06: 05; Start 03/24/17 at 22:00 Acetaminophen/ Hydrocodone Bitart (Lortab 10/325) 1 tab PRN Q6HRS PRN PO PAIN Last administered on 03/26/17 08:00; Start 03/24/17 at 16:30 Acetaminophen/ Hydrocodone Bitart (Lortab 5/325) 1 tab PRN Q6HRS PRN PO PAIN; Start 03/24/17 at 16:30 Trazodone HCl (Desyrel) 100 mg PRN QHS PRN PO INSOMNIA Last administered on 20:19; Start 03/24/17 at 21:00 Alprazolam (Xanax) 2 mg PRN BID PRN PO ANXIETY / AGITATION Last administered on 03/26/17 10:27; Start 03/24/17 at 18:00 Gabapentin (Neurontin) 600 mg TID PO Last administered on 03/26/17 08:00; Start 03/24/17 at 21:00 Prochlorperazine Edisylate (Compazine) 10 mg PRN Q6HRS PRN IV NAUSEA/VOMITING; Start 03/24/17 at 16:30 Diphenhydramine HCl (Benadryl) 25 mg QHS PRN IVP sleep; Start 03/24/17 at 16: 30 Lorazepam (Ativan) 1 mg PRN Q4HRS PRN IV ANXIETY / AGITATION; Start 03/24/17 at 16:30 Lactobacillus Rhamnosus (Culturelle) 1 cap BID PO Last administered on 08:00; Start 03/24/17 at 21:00 Pneumococcal Polyvalent Vaccine (Do NOT chart on this placeholder) 1 each PRN DAILY PRN MC PER PROTOCOL; Start 03/24/17 at 18:00; Status UNV Pneumococcal Polyvalent Vaccine (Pneumovax 23) 0.5 ml ONCE ONCE VAX IM ; Start 03/24/17 at 18:15; Stop 03/24/17 at 18:16; Status DC Potassium Chloride 100 ml @ 100 mls/hr Q1H IV Last administered on 03/25/17 14:58; Start 03/25/17 at 08:00; Stop 03/25/17 at 11:59; Status DC Active Scripts Active Zofran Odt (Ondansetron) 4 Mg Tab.rapdis 1 Tab SL Q8HRS PRN [place] 5-325 Tablet (Acetaminophen/Hydrocodone Bitart) 1 Each Tablet 1 Tab PO PRN Q6HRS PRN Flagyl (Metronidazole) 500 Mg Tablet 1 Tab PO TID Cipro (Ciprofloxacin Hcl) 500 Mg Tablet 1 Tab PO BID Reported Omeprazole 20 Mg Capsule.dr 20 Mg PO DAILY Xanax (Alprazolam) 2 Mg Tablet 1 Tab PO BID Hydrocodone-Apap 10-325 (Hydrocodone Bit/Acetaminophen) 1 Each Tablet 1 Tab PO PRN Q6HRS PRN Trazodone Hcl 100 Mg Tablet 100 Mg PO HS Gabapentin 600 Mg Tablet 600 Mg PO TID Vitals/I & O Vital Sign - Last 24 Hours 03/25/17 03/25/17 03/25/17 03/25/17 13:37 15:00 17:53 19:38 Temp 98.3 98.7 98.3 98.7 Pulse 76 69 Resp 18 18 18 B/P (MAP) 124/44 (70) 102/41 (61) Pulse Ox 92 90 O2 Delivery Room Air Room Air Room Air 03/25/17 03/25/17 03/25/17 03/25/17 20:00 20:19 23:06 23:13 Temp 98.1 98.1 Pulse 66 Resp 18 16 B/P (MAP) 94/38 (56) Pulse Ox 92 92 94 O2 Delivery Room Air Room Air Room Air Room Air 03/26/17 03/26/17 03/26/17 03/26/17 03:40 06:03 06:33 07:00 Temp 97.6 97.7 97.6 97.7 Pulse 71 61 Resp 16 18 18 B/P (MAP) 106/56 (73) 117/49 (71) Pulse Ox 92 92 95 O2 Delivery Room Air Room Air Room Air 03/26/17 03/26/17 03/26/17 03/26/17 08:00 08:00 08:09 09:37 Pulse Ox 95 95 95 O2 Delivery Room Air Room Air Room Air Room Air 03/26/17 03/26/17 03/26/17 03/26/17 10:23 11:00 11:20 12:29 Temp 97.5 97.5 Pulse 68 Resp 18 B/P (MAP) 125/47 (73) Pulse Ox 95 94 94 94 O2 Delivery Room Air Room Air Room Air Room Air LIBRADO DANGELO III DO Mar 26, 2017 12:47
[2017-03-26 15:00] VITALS: BP 111/61
[2017-03-26 19:24] VITALS: BP 124/45
[2017-03-26] MEDS: FAMOTIDINE 20 MG/2 ML VIAL IVP SCH (20:28)
[2017-03-26] MEDS: traZODone 100 MG TABLET. PO PRN (22:35)
[2017-03-26 23:31] VITALS: BP 110/61
[2017-03-27 03:58] VITALS: BP 105/42
[2017-03-27] MEDS: IV NORMAL SALINE 1000ML BAG 1,000 ML IV SCH (04:30)
[2017-03-27 05:01] LABS: BASO % 1 % (0-3); EOS % 3 % (0-3); HEMATOCRIT 30.8 % (36.0-47.0); HEMOGLOBIN 10.8 g/dL (12.0-15.5); LYMPH # 1.3 x10^3/uL (1.0-4.8); LYMPH % 41 % (24-48); MEAN CORPUSCULAR HEMOGLOBIN 33 pg (25-35); MEAN CORPUSCULAR HGB CONC 35 g/dL (31-37); MEAN CORPUSCULAR VOLUME 93 fL (79-100); MONO % 9 % (0-9); NEUT % 47 % (31-73); PLATELET COUNT 133 x10^3/uL (140-400); RED BLOOD COUNT 3.32 x10^6/uL (3.50-5.40); RED CELL DISTRIBUTION WIDTH 13.1 % (11.5-14.5); WHITE BLOOD COUNT 3.2 x10^3/uL (4.0-11.0)
[2017-03-27 05:13] LABS: CREATININE 0.8 mg/dL (0.6-1.0); GFR 70.9; POTASSIUM 3.4 mmol/L (3.5-5.1)
[2017-03-27] MEDS: fentaNYL PF VIAL 100 MCG/2 ML VIAL IV PRN ×2 (06:04→09:14)
[2017-03-27 07:00] VITALS: BP 112/31
[2017-03-27] MEDS: LACTOBACILLUS RHAMNOSUS GG 1 CAPSULE. PO SCH (09:10)
[2017-03-27] MEDS: ALPRAZolam 1 MG TABLET PO PRN (09:10)
[2017-03-27] MEDS: GABAPENTIN 300 MG CAPSULE. PO SCH (09:11)
[2017-03-27] MEDS: CIPROFLOXACIN 400MG PREMIX 200 ML IV SCH (09:12)
[2017-03-27] MEDS: HYDROcodone/APAP 10/325 1 TAB TABLET PO PRN (09:14)
[2017-03-27 11:08] VITALS: BP 118/43
--- NOTE | 2017-03-27 11:36 | PDOC ---
Subjective: Subjective: Feeing much better, going home today. Objective: Vital Signs: Vital Signs Date Time Temp Pulse Resp B/P (MAP) Pulse Ox O2 Delivery O2 Flow Rate FiO2 03/27/17 11:13 Room Air 03/27/17 11:08 97.7 60 18 118/43 (68) 96 97.7 Labs: Laboratory Tests Test 03/27/17 04:13 White Blood Count 3.2 x10^3/uL Red Blood Count 3.32 x10^6/uL Hemoglobin 10.8 g/dL Hematocrit 30.8 % Mean Corpuscular Volume 93 fL Mean Corpuscular Hemoglobin 33 pg Mean Corpuscular Hemoglobin Concent 35 g/dL Red Cell Distribution Width 13.1 % Platelet Count 133 x10^3/uL Neutrophils (%) (Auto) 47 % Lymphocytes (%) (Auto) 41 % Monocytes (%) (Auto) 9 % Eosinophils (%) (Auto) 3 % Basophils (%) (Auto) 1 % Neutrophils # (Auto) 1.5 x10^3uL Lymphocytes # (Auto) 1.3 x10^3/uL Monocytes # (Auto) 0.3 x10^3/uL Eosinophils # (Auto) 0.1 x10^3/uL Basophils # (Auto) 0.0 x10^3/uL Sodium Level 146 mmol/L Potassium Level 3.4 mmol/L Chloride Level 111 mmol/L Carbon Dioxide Level 30 mmol/L Anion Gap 5 Blood Urea Nitrogen 2 mg/dL Creatinine 0.8 mg/dL Estimated GFR (Cockcroft-Gault) 70.9 Glucose Level 98 mg/dL Calcium Level 8.0 mg/dL PE: GEN: NAD LUNGS: CTAB HEART: RRR ABD: NABS, S/ND/NT NEURO/PSYCH: A & O 3 A/P: RLQ pain, nausea, diarrhea - improved Abnormal CT - sigmoid thickening CRC screen -normal colonoscopy 1 year ago -- Improved w/ atbx. DC per primary. KAYLA DE LEON Mar 27, 2017 11:36
[2017-03-27 11:50] VITALS: BP 112/31
--- NOTE | 2017-03-27 13:03 | PDOC ---
PROGRESS NOTES Chief Complaint Chief Complaint Sigmoid diverticulitis Abdominal pain Vomiting PMHx: Insomnia GERD Low back pain History of Present Illness History of Present Illness Pt is a 71 year old pleasant female who presented to the ED with abdominal pain and vomiting. CT scan showed sigmoid diverticulitis. Pt was seen at bedside in no acute distress. Pt is on cipro and metronitazole. Pt. asked the nurse for multiple pain medication and once confronted about this she said it is because of her experience with prior use of pain medication. Multiple pain medications were not given. If the patient is able to tolerate advanced diet will be able to go home soon. She was given flagyl 500mg #28 qid and cipro 500mg #14 bid. She was also give #20 tablets of lortab which is her home medication, stating that she is running out and "needs enough to get her to April 12." Pt followed by GI re: diverticulitis. A few minutes later the plan was discussed with the pt daughter. Probably discharge today if ok with specialist. Vitals Vitals Vital Signs Date Time Temp Pulse Resp B/P (MAP) Pulse Ox O2 Delivery O2 Flow Rate FiO2 03/27/17 11:50 98.1 56 18 112/31 (58) 95 Room Air 98.1 Physical Exam General: Alert, Oriented X3, Cooperative, No acute distress, Other (from the pain) Heart: Regular rate, Normal S1, Normal S2, No murmurs Lungs: Clear Abdomen: Soft, No hepatosplenomegaly, No masses, Other (tenderness left and RT sides, no rebound, no guarding, hypoactive bS) Extremities: No clubbing, No cyanosis, No edema, Normal pulses, No tenderness/ swelling Skin: No rashes, No breakdown, No significant lesion Labs LABS Laboratory Tests Test 03/27/17 04:13 White Blood Count 3.2 x10^3/uL (4.0-11.0) Red Blood Count 3.32 x10^6/uL (3.50-5.40) Hemoglobin 10.8 g/dL (12.0-15.5) Hematocrit 30.8 % (36.0-47.0) Mean Corpuscular Volume 93 fL (79-100) Mean Corpuscular Hemoglobin 33 pg (25-35) Mean Corpuscular Hemoglobin Concent 35 g/dL (31-37) Red Cell Distribution Width 13.1 % (11.5-14.5) Platelet Count 133 x10^3/uL (140-400) Neutrophils (%) (Auto) 47 % (31-73) Lymphocytes (%) (Auto) 41 % (24-48) Monocytes (%) (Auto) 9 % (0-9) Eosinophils (%) (Auto) 3 % (0-3) Basophils (%) (Auto) 1 % (0-3) Neutrophils # (Auto) 1.5 x10^3uL (1.8-7.7) Lymphocytes # (Auto) 1.3 x10^3/uL (1.0-4.8) Monocytes # (Auto) 0.3 x10^3/uL (0.0-1.1) Eosinophils # (Auto) 0.1 x10^3/uL (0.0-0.7) Basophils # (Auto) 0.0 x10^3/uL (0.0-0.2) Sodium Level 146 mmol/L (136-145) Potassium Level 3.4 mmol/L (3.5-5.1) Chloride Level 111 mmol/L (98-107) Carbon Dioxide Level 30 mmol/L (21-32) Anion Gap 5 (6-14) Blood Urea Nitrogen 2 mg/dL (7-20) Creatinine 0.8 mg/dL (0.6-1.0) Estimated GFR (Cockcroft-Gault) 70.9 Glucose Level 98 mg/dL (70-99) Calcium Level 8.0 mg/dL (8.5-10.1) Review of Systems Review of Systems fatigue and weakness Assessment and Plan Assessmemt and Plan Problems Medical Problems: (1) Colitis Status: Acute (2) Intractable abdominal pain Status: Acute (3) Intractable nausea and vomiting Status: Acute Assessment: Sigmoid diverticulitis Abdominal pain Vomiting Insomnia GERD Low back pain Plan: Possible discharge if ok with specialist Proper diet for diverticulitis Continue current meds Plan discussed with daughter Follow up with PCP if needed Problems: Comment Review of Relevant I have reviewed the following items amber (where applicable) has been applied. Labs Laboratory Tests Test 03/26/17 05:00 03/27/17 04:13 White Blood Count 3.6 x10^3/uL (4.0-11.0) 3.2 x10^3/uL (4.0-11.0) Red Blood Count 3.49 x10^6/uL (3.50-5.40) 3.32 x10^6/uL (3.50-5.40) Hemoglobin 11.3 g/dL (12.0-15.5) 10.8 g/dL (12.0-15.5) Hematocrit 32.6 % (36.0-47.0) 30.8 % (36.0-47.0) Mean Corpuscular Volume 94 fL (79-100) 93 fL (79-100) Mean Corpuscular Hemoglobin 32 pg (25-35) 33 pg (25-35) Mean Corpuscular Hemoglobin Concent 35 g/dL (31-37) 35 g/dL (31-37) Red Cell Distribution Width 13.0 % (11.5-14.5) 13.1 % (11.5-14.5) Platelet Count 136 x10^3/uL (140-400) 133 x10^3/uL (140-400) Neutrophils (%) (Auto) 56 % (31-73) 47 % (31-73) Lymphocytes (%) (Auto) 33 % (24-48) 41 % (24-48) Monocytes (%) (Auto) 10 % (0-9) 9 % (0-9) Eosinophils (%) (Auto) 0 % (0-3) 3 % (0-3) Basophils (%) (Auto) 1 % (0-3) 1 % (0-3) Neutrophils # (Auto) 2.0 x10^3uL (1.8-7.7) 1.5 x10^3uL (1.8-7.7) Lymphocytes # (Auto) 1.2 x10^3/uL (1.0-4.8) 1.3 x10^3/uL (1.0-4.8) Monocytes # (Auto) 0.4 x10^3/uL (0.0-1.1) 0.3 x10^3/uL (0.0-1.1) Eosinophils # (Auto) 0.0 x10^3/uL (0.0-0.7) 0.1 x10^3/uL (0.0-0.7) Basophils # (Auto) 0.0 x10^3/uL (0.0-0.2) 0.0 x10^3/uL (0.0-0.2) Sodium Level 144 mmol/L (136-145) 146 mmol/L (136-145) Potassium Level 3.5 mmol/L (3.5-5.1) 3.4 mmol/L (3.5-5.1) Chloride Level 108 mmol/L (98-107) 111 mmol/L (98-107) Carbon Dioxide Level 30 mmol/L (21-32) 30 mmol/L (21-32) Anion Gap 6 (6-14) 5 (6-14) Blood Urea Nitrogen 3 mg/dL (7-20) 2 mg/dL (7-20) Creatinine 0.8 mg/dL (0.6-1.0) 0.8 mg/dL (0.6-1.0) Estimated GFR (Cockcroft-Gault) 70.9 70.9 Glucose Level 108 mg/dL (70-99) 98 mg/dL (70-99) Calcium Level 8.0 mg/dL (8.5-10.1) 8.0 mg/dL (8.5-10.1) Laboratory Tests Test 03/27/17 04:13 White Blood Count 3.2 x10^3/uL (4.0-11.0) Red Blood Count 3.32 x10^6/uL (3.50-5.40) Hemoglobin 10.8 g/dL (12.0-15.5) Hematocrit 30.8 % (36.0-47.0) Mean Corpuscular Volume 93 fL (79-100) Mean Corpuscular Hemoglobin 33 pg (25-35) Mean Corpuscular Hemoglobin Concent 35 g/dL (31-37) Red Cell Distribution Width 13.1 % (11.5-14.5) Platelet Count 133 x10^3/uL (140-400) Neutrophils (%) (Auto) 47 % (31-73) Lymphocytes (%) (Auto) 41 % (24-48) Monocytes (%) (Auto) 9 % (0-9) Eosinophils (%) (Auto) 3 % (0-3) Basophils (%) (Auto) 1 % (0-3) Neutrophils # (Auto) 1.5 x10^3uL (1.8-7.7) Lymphocytes # (Auto) 1.3 x10^3/uL (1.0-4.8) Monocytes # (Auto) 0.3 x10^3/uL (0.0-1.1) Eosinophils # (Auto) 0.1 x10^3/uL (0.0-0.7) Basophils # (Auto) 0.0 x10^3/uL (0.0-0.2) Sodium Level 146 mmol/L (136-145) Potassium Level 3.4 mmol/L (3.5-5.1) Chloride Level 111 mmol/L (98-107) Carbon Dioxide Level 30 mmol/L (21-32) Anion Gap 5 (6-14) Blood Urea Nitrogen 2 mg/dL (7-20) Creatinine 0.8 mg/dL (0.6-1.0) Estimated GFR (Cockcroft-Gault) 70.9 Glucose Level 98 mg/dL (70-99) Calcium Level 8.0 mg/dL (8.5-10.1) Medications Current Medications Sodium Chloride 1,000 ml @ 999 mls/hr Q1H1M IV Last administered on 16:13; Start 03/24/17 at 15:57; Stop 03/24/17 at 16:57; Status DC Lorazepam (Ativan) 1 mg 1X ONCE IV Last administered on 03/24/17 16:17; Start 03/24/17 at 16:00; Stop 03/24/17 at 16:03; Status DC Hydromorphone HCl (Dilaudid) 0.5 mg 1X ONCE IV Last administered on 16:18; Start 03/24/17 at 16:00; Stop 03/24/17 at 16:03; Status DC Ondansetron HCl (Zofran) 4 mg 1X ONCE IV Last administered on 03/24/17 16:13 ; Start 03/24/17 at 16:00; Stop 03/24/17 at 16:03; Status DC Ondansetron HCl (Zofran) 4 mg PRN Q8HRS PRN IV NAUSEA/VOMITING; Start at 16:15; Stop 03/24/17 at 16:39; Status DC Morphine Sulfate 2 mg PRN Q2HR PRN IV PAIN; Start 03/24/17 at 16:15; Stop at 16:14; Status DC Ondansetron HCl (Zofran) 4 mg PRN Q6HRS PRN IV NAUSEA/VOMITING; Start at 16:30 Sodium Chloride 1,000 ml @ 100 mls/hr Q10H IV Last administered on 03/26/17 20:29; Start 03/24/17 at 16:30 Fentanyl Citrate (Fentanyl 2ml Vial) 50 mcg PRN Q2HR PRN IV PAIN Last administered on 03/27/17 09:14; Start 03/24/17 at 16:30 Famotidine (Pepcid) 20 mg QHS IVP Last administered on 03/26/17 20:28; Start 03/24/17 at 21:00 Ciprofloxacin/ Dextrose 200 ml @ 200 mls/hr Q12HR IV Last administered on 09:12; Start 03/24/17 at 21:00 Metronidazole 100 ml @ 100 mls/hr Q8HRS IV Last administered on 03/27/17 06: 05; Start 03/24/17 at 22:00 Acetaminophen/ Hydrocodone Bitart (Lortab 10/325) 1 tab PRN Q6HRS PRN PO PAIN Last administered on 03/27/17 09:14; Start 03/24/17 at 16:30 Acetaminophen/ Hydrocodone Bitart (Lortab 5/325) 1 tab PRN Q6HRS PRN PO PAIN; Start 03/24/17 at 16:30 Trazodone HCl (Desyrel) 100 mg PRN QHS PRN PO INSOMNIA Last administered on 22:35; Start 03/24/17 at 21:00 Alprazolam (Xanax) 2 mg PRN BID PRN PO ANXIETY / AGITATION Last administered on 03/27/17 09:10; Start 03/24/17 at 18:00 Gabapentin (Neurontin) 600 mg TID PO Last administered on 03/27/17 09:11; Start 03/24/17 at 21:00 Prochlorperazine Edisylate (Compazine) 10 mg PRN Q6HRS PRN IV NAUSEA/VOMITING; Start 03/24/17 at 16:30 Diphenhydramine HCl (Benadryl) 25 mg QHS PRN IVP sleep; Start 03/24/17 at 16: 30 Lorazepam (Ativan) 1 mg PRN Q4HRS PRN IV ANXIETY / AGITATION; Start 03/24/17 at 16:30 Lactobacillus Rhamnosus (Culturelle) 1 cap BID PO Last administered on 09:10; Start 03/24/17 at 21:00 Pneumococcal Polyvalent Vaccine (Do NOT chart on this placeholder) 1 each PRN DAILY PRN MC PER PROTOCOL; Start 03/24/17 at 18:00; Status UNV Pneumococcal Polyvalent Vaccine (Pneumovax 23) 0.5 ml ONCE ONCE VAX IM ; Start 03/24/17 at 18:15; Stop 03/24/17 at 18:16; Status DC Potassium Chloride 100 ml @ 100 mls/hr Q1H IV Last administered on 03/25/17t 14:58; Start 03/25/17 at 08:00; Stop 03/25/17 at 11:59; Status DC Active Scripts Active Zofran Odt (Ondansetron) 4 Mg Tab.rapdis 1 Tab SL Q8HRS PRN [place] 5-325 Tablet (Acetaminophen/Hydrocodone Bitart) 1 Each Tablet 1 Tab PO PRN Q6HRS PRN Flagyl (Metronidazole) 500 Mg Tablet 1 Tab PO TID Cipro (Ciprofloxacin Hcl) 500 Mg Tablet 1 Tab PO BID Reported Omeprazole 20 Mg Capsule.dr 20 Mg PO DAILY Xanax (Alprazolam) 2 Mg Tablet 1 Tab PO BID Hydrocodone-Apap 10-325 (Hydrocodone Bit/Acetaminophen) 1 Each Tablet 1 Tab PO PRN Q6HRS PRN Trazodone Hcl 100 Mg Tablet 100 Mg PO HS Gabapentin 600 Mg Tablet 600 Mg PO TID Vitals/I & O Vital Sign - Last 24 Hours 03/26/17 03/26/17 03/26/17 03/26/17 14:13 14:45 15:00 18:24 Temp 97.9 97.9 Pulse 70 Resp 18 B/P (MAP) 111/61 (78) Pulse Ox 94 94 93 93 O2 Delivery Room Air Room Air Room Air Room Air 03/26/17 03/26/17 03/26/17 03/26/17 19:24 20:00 20:27 20:28 Temp 97.8 97.8 Pulse 78 Resp 18 18 18 B/P (MAP) 124/45 (71) Pulse Ox 95 95 95 O2 Delivery Room Air Room Air Room Air Room Air 03/26/17 03/26/17 03/26/17 03/27/17 20:58 21:27 23:31 03:58 Temp 97.5 98.1 97.5 98.1 Pulse 78 56 Resp 18 18 18 18 B/P (MAP) 110/61 (77) 105/42 (63) Pulse Ox 96 95 95 O2 Delivery Room Air Room Air 03/27/17 03/27/17 03/27/17 03/27/17 06:04 06:34 07:00 08:06 Temp 98.1 98.1 Pulse 56 Resp 18 18 B/P (MAP) 112/31 (58) Pulse Ox 95 95 95 O2 Delivery Room Air Room Air Room Air 03/27/17 03/27/17 03/27/17 03/27/17 09:14 09:14 09:52 10:20 O2 Delivery Room Air Room Air Room Air Room Air 03/27/17 03/27/17 03/27/17 11:08 11:13 11:50 Temp 97.7 98.1 97.7 98.1 Pulse 60 56 Resp 18 18 B/P (MAP) 118/43 (68) 112/31 (58) Pulse Ox 96 95 O2 Delivery Room Air Room Air Room Air Intake and Output 03/27/17 03/27/17 03/28/17 15:00 23:00 07:00 Intake Total 300 ml Balance 300 ml LIBRADO DANGELO III DO Mar 27, 2017 13:03
== END 2017-03-27 12:05 | disposition home or self-care (01) | DRG 392 ==
LOC: ER 15:00 → 6 SOUTH 16:00
PROVIDERS: ADMIT Internal Medicine; ATTEND Internal Medicine
DX: K57.32 Diverticulitis of large intestine without perforation or abscess without bleeding (principal); K50.90 Crohn's disease, unspecified, without complications; A09 Infectious gastroenteritis and colitis, unspecified; E87.6 Hypokalemia; G47.00 Insomnia, unspecified; K21.9 Gastro-esophageal reflux disease without esophagitis; K37 Unspecified appendicitis; Z90.49 Acquired absence of other specified parts of digestive tract; Z90.710 Acquired absence of both cervix and uterus
CPT/HCPCS: 36415; 80048; 80053; 81001; 83690; 85025; 85651; 96361; 96374; 96375; J0744; J1170; J2060; J2405; J3010; J3480; J3490; J7030; S0028; 99285-25

== ENCOUNTER 2018-07-19 09:39 | Inpatient (IN) | payer BC ==
[~2018-07-19] VITALS: Ht 157.5 cm; Wt 61.7 kg
[~2018-07-19 09:39] MED LIST changes: -GABA600T2 PO; +GABA600T7 PO; -HYDR-2766 PO; +HYDR-2769 PO; +HYDR-3164 PO; -HYDR-971 PO; +OMEP20CA10 PO; +TRAZ-86 PO; -TRAZ100T12 PO
[2018-07-19] MEDS ORDERED: PIPERACILLIN/TAZOBACTAM 4.5 GM in IV NORMAL SALINE 100ML 100 ML IV ONE (10:30)
[2018-07-19] MEDS ORDERED: MORPHINE SULFATE 4 MG/ML VIAL. IV/SQ PRN (10:30)
[2018-07-19] MEDS ORDERED: VANCOMYCIN PER PHARMACY MC ONE (10:30)
[2018-07-19 10:51] LABS: BASO % 0 % (0-3); EOS % 0 % (0-3); HEMATOCRIT 35.3 % (36.0-47.0); HEMOGLOBIN 11.9 g/dL (12.0-15.5); LYMPH # 0.6 x10^3/uL (1.0-4.8); LYMPH % 6 % (24-48); MEAN CORPUSCULAR HEMOGLOBIN 32 pg (25-35); MEAN CORPUSCULAR HGB CONC 34 g/dL (31-37); MEAN CORPUSCULAR VOLUME 94 fL (79-100); MONO # 0.9 x10^3/uL (0.0-1.1); MONO % 9 % (0-9); NEUT # 7.9 x10^3uL (1.8-7.7); NEUT % 85 % (31-73); PLATELET COUNT 156 x10^3/uL (140-400); RED BLOOD COUNT 3.78 x10^6/uL (3.50-5.40); RED CELL DISTRIBUTION WIDTH 13.5 % (11.5-14.5); WHITE BLOOD COUNT 9.3 x10^3/uL (4.0-11.0)
[2018-07-19] MEDS: IV NORMAL SALINE 1000ML BAG 1,000 ML IV SCH ×2 (10:54→13:18)
[2018-07-19] MEDS ORDERED: VANCOMYCIN 1.5 GM in IV NORMAL SALINE 500ML BAG 500 ML IV ONE (11:00)
[2018-07-19 11:10] LABS: CALCIUM 8.9 mg/dL (8.5-10.1); CREATININE 1.5 mg/dL (0.6-1.0); GFR 34.1; POTASSIUM 3.4 mmol/L (3.5-5.1)
[2018-07-19 11:16] LABS: ALBUMIN 2.9 g/dL (3.4-5.0); ALBUMIN/GLOBULIN RATIO 0.8 (1.0-1.7); TOTAL BILIRUBIN 0.6 mg/dL (0.2-1.0); TOTAL PROTEIN 6.5 g/dL (6.4-8.2)
[2018-07-19 11:33] LABS: C-REACTIVE PROTEIN 408.6 mg/L (0-3.3)
[2018-07-19] MEDS ORDERED: ACETAMINOPHEN 500 MG TABLET PO ONE (12:45)
[2018-07-19] MEDS ORDERED: ESCITALOPRAM OXA5 M1 PO (12:59)
[2018-07-19] MEDS ORDERED: MELO7.5T29 PO (12:59)
[2018-07-19] MEDS ORDERED: HYDR-2769 PO (12:59)
[2018-07-19] MEDS ORDERED: HYDROmorphone 2 MG/ML VIAL IV ONE (13:30)
[2018-07-19] MEDS ORDERED: ONDANSETRON PF 4 MG/2 ML VIAL. IV PRN (14:30)
[2018-07-19] MEDS ORDERED: ACETAMINOPHEN 325 MG TABLET. PO PRN (14:30)
[2018-07-19] MEDS ORDERED: IV NORMAL SALINE 1000ML BAG 1,000 ML IV ONE ×2 (14:30→16:15)
--- NOTE | 2018-07-19 15:16 | PHYS DOC ---
Past Medical History Past Medical History: Depression, Other Additional Past Medical Histor: osteoarthritis,DDD,chronic back pain,GUILLAN- BARRE Past Surgical History: Cholecystectomy, Hysterectomy, Other Additional Past Surgical Histo: back surgery,CATARCT LEFT EYE,L FEMUR ORIF Additional Information: 1 PPD Alcohol Use: None Drug Use: None Adult General Chief Complaint Chief Complaint: ABSCESS HPI HPI Patient is a 73 year old female who presents with bilateral axilla abscesses that began a week ago. Patient states she was seen by the PCP yesterday and they were drained. She states this morning she woke up and she had redness on the right axilla. Patient is also complaining of a fever. She states she was started on Augmentin and Bactrim yesterday. Integument Review of Systems Review of Systems Constitutional: Reports fever Eyes: Denies change in visual acuity, redness, or eye pain [] HENT: Denies nasal congestion or sore throat [] Respiratory: Denies cough or shortness of breath [] Cardiovascular: No additional information not addressed in HPI [] GI: Denies abdominal pain, nausea, vomiting, bloody stools or diarrhea [] : Denies dysuria or hematuria [] Musculoskeletal: Reports bilateral axilla abscess Integument: Denies rash or skin lesions [] Neurologic: Denies headache, focal weakness or sensory changes [] All other systems were reviewed and found to be within normal limits, except as documented in this note. Current Medications Current Medications Current Medications Medications (Trade) Dose Ordered Sig/Ashley Start Time Stop Time Status Last Admin Dose Admin Morphine Sulfate (Morphine Sulfate) 4 mg PRN Q15MIN PRN 07/19/18 10:30 07/20/18 10:29 07/19/18 10:54 4 MG Piperacillin Sod/ Tazobactam Sod 4.5 gm/Sodium Chloride 100 ml @ 200 mls/hr 1X ONCE 07/19/18 10:30 07/19/18 10:59 DC 07/19/18 11:30 200 MLS/HR Sodium Chloride 1,000 ml @ 1,860 mls/hr Q33M 07/19/18 10:27 07/19/18 11:27 DC 07/19/18 13:18 1,860 MLS/HR Vancomycin HCl (Vanco Per Pharmacy) 1 each 1X ONCE 07/19/18 10:30 07/19/18 10:31 UNV Vancomycin HCl 1.5 gm/Sodium Chloride 500 ml @ 250 mls/hr 1X ONCE 07/19/18 11:00 07/19/18 12:59 DC 07/19/18 12:36 250 MLS/HR Allergies Allergies Allergies Coded Allergies Type Severity Reaction Last Updated Verified codeine Adverse Reaction Intermediate HALLUCINATES 07/19/18 Yes Physical Exam Physical Exam Constitutional: Well developed, well nourished, no acute distress, non-toxic appearance. [] HENT: Normocephalic, atraumatic, bilateral external ears normal, oropharynx moist, no oral exudates, nose normal. [] Eyes: PERRLA, EOMI, conjunctiva normal, no discharge. [] Neck: Normal range of motion, no tenderness, supple, no stridor. [] Cardiovascular:Heart rate regular rhythm, no murmur [] Lungs & Thorax: Bilateral breath sounds clear to auscultation [] Abdomen: Bowel sounds normal, soft, no tenderness, no masses, no pulsatile masses. [] Skin: Right axilla with an none indurated open wound draining yellow purulent material which was squeezed out by me. There is approximately 5 cm of cellulitis around this area. The area is warm, tender to the touch. Left axilla with another area of cellulitis approximately 0.5 x 0.5 cm. There is nothing draining from this area. Back: No tenderness, no CVA tenderness. [] Extremities: No tenderness, no cyanosis, no clubbing, ROM intact, no edema. [] Neurologic: Alert and oriented X 3, normal motor function, normal sensory function, no focal deficits noted. [] Psychologic: Affect normal, judgement normal, mood normal. [] Current Patient Data Vital Signs Vital Signs Date Time Temp Pulse Resp B/P (MAP) Pulse Ox O2 Delivery O2 Flow Rate FiO2 07/19/18 11:24 19 95 Nasal Cannula 07/19/18 10:54 2.0 07/19/18 10:02 101.6 112 107/53 (71) 101.6 Lab Values Laboratory Tests Test 07/19/18 10:32 White Blood Count 9.3 x10^3/uL (4.0-11.0) Red Blood Count 3.78 x10^6/uL (3.50-5.40) Hemoglobin 11.9 g/dL (12.0-15.5) L Hematocrit 35.3 % (36.0-47.0) L Mean Corpuscular Volume 94 fL (79-100) Mean Corpuscular Hemoglobin 32 pg (25-35) Mean Corpuscular Hemoglobin Concent 34 g/dL (31-37) Red Cell Distribution Width 13.5 % (11.5-14.5) Platelet Count 156 x10^3/uL (140-400) Neutrophils (%) (Auto) 85 % (31-73) H Lymphocytes (%) (Auto) 6 % (24-48) L Monocytes (%) (Auto) 9 % (0-9) Eosinophils (%) (Auto) 0 % (0-3) Basophils (%) (Auto) 0 % (0-3) Neutrophils # (Auto) 7.9 x10^3uL (1.8-7.7) H Lymphocytes # (Auto) 0.6 x10^3/uL (1.0-4.8) L Monocytes # (Auto) 0.9 x10^3/uL (0.0-1.1) Eosinophils # (Auto) 0.0 x10^3/uL (0.0-0.7) Basophils # (Auto) 0.0 x10^3/uL (0.0-0.2) Erythrocyte Sedimentation Rate 55 (0-25) H Sodium Level 134 mmol/L (136-145) L Potassium Level 3.4 mmol/L (3.5-5.1) L Chloride Level 97 mmol/L (98-107) L Carbon Dioxide Level 27 mmol/L (21-32) Anion Gap 10 (6-14) Blood Urea Nitrogen 21 mg/dL (7-20) H Creatinine 1.5 mg/dL (0.6-1.0) H Estimated GFR (Cockcroft-Gault) 34.1 BUN/Creatinine Ratio 14 (6-20) Glucose Level 141 mg/dL (70-99) H Lactic Acid Level 1.1 mmol/L (0.4-2.0) Calcium Level 8.9 mg/dL (8.5-10.1) Total Bilirubin 0.6 mg/dL (0.2-1.0) Aspartate Amino Transferase (AST) 13 U/L (15-37) L Alanine Aminotransferase (ALT) 29 U/L (14-59) Alkaline Phosphatase 85 U/L (46-116) C-Reactive Protein, Quantitative 408.6 mg/L (0-3.3) H Total Protein 6.5 g/dL (6.4-8.2) Albumin 2.9 g/dL (3.4-5.0) L Albumin/Globulin Ratio 0.8 (1.0-1.7) L Procalcitonin 7.98 ng/mL (0.00-0.10) H Laboratory Tests 07/19/18 10:32 Laboratory Tests 07/19/18 10:32 EKG EKG [] Radiology/Procedures Radiology/Procedures [] Course & Med Decision Making Course & Med Decision Making Pertinent Labs and Imaging studies reviewed. (See chart for details) This is a 73-year-old female patient presenting to the ED today with cellulitis and abscess to bilateral axilla. Symptoms began a week ago. Patient was started yesterday on Augmentin and Bactrim. Symptoms have gotten worse. CBC within normal, ESR 55, C-reactive 408.6 lactic is normal, CMP with Creatinine of 1.5 BUN 24, patient was started on IV antibiotics as well as IV fluids under the sepsis protocol. Routine consult placed for surgery. Consulted with Dr. lepe who accepted patient for admission. Dalila Disclaimer Dragon Disclaimer This electronic medical record was generated, in whole or in part, using a voice recognition dictation system. Departure Departure Impression: Primary Impression: Abscess of right axilla Additional Impressions: Fever Sepsis Disposition: ADMITTED INPATIENT Condition: STABLE Referrals: UNKNOWN PCP NAME (PCP) Problem Qualifiers Additional Impressions: Fever Fever type: unspecified Qualified Codes: R50.9 - Fever, unspecified Sepsis Sepsis type: sepsis due to unspecified organism Qualified Codes: A41.9 - Sepsis, unspecified organism AKIKO JENSEN APRN Jul 19, 2018 15:16
[2018-07-19] MEDS ORDERED: C.DIFF MED SCREEN BY RX. MC ONE (15:30)
[2018-07-19] MEDS ORDERED: ALPRAZolam 1 MG TABLET PO PRN (15:45)
[2018-07-19] MEDS ORDERED: ONDANSETRON ODT 4 MG TAB.RAPDIS. PO PRN (15:45)
[2018-07-19] MEDS ORDERED: PIP/TAZO PER PHARMACY MC PRN (16:00)
--- NOTE | 2018-07-19 16:02 | PDOC1 ---
History and Physical Date of Admission Date of Admission DATE: 07/19/18 TIME: 15:59 Identification/Chief Complaint Chief Complaint armpit pain Source Source: Chart review, Patient History of Present Illness History of Present Illness Ms. Canela, is a 73 year old female admit from ER with bilateral axilla pain and swelling, She has swelling and likely abscesses that began a week ago. Patient states she was seen by the PCP yesterday and they were drained. She states this morning she woke up and she had redness on the right axilla. Patient is also complaining of a fever, PO augmentin started just yesterday, not better Past Medical History Cardiovascular: No pertinent hx Pulmonary: No pertinent hx CENTRAL NERVOUS SYSTEM: Other GI: GERD Musculoskeletal: low back pain Past Surgical History Past Surgical History: Other Family History Family History: No Significant Social History Smoke: No ALCOHOL: none Drugs: None Current Problem List Problem List Problems Medical Problems: (1) Sepsis Status: Acute Current Medications Current Medications Current Medications Piperacillin Sod/ Tazobactam Sod 4.5 gm/Sodium Chloride 100 ml @ 200 mls/hr 1X ONCE IV Last administered on 07/19/18at 11:30; Start 07/19/18 at 10:30; Stop 07/19/18 at 10:59; Status DC Vancomycin HCl (Vanco Per Pharmacy) 1 each 1X ONCE [facility] ; Start 07/19/18 at 10:30 ; Stop 07/19/18 at 10:31; Status UNV Sodium Chloride 1,000 ml @ 1,860 mls/hr Q33M IV Last administered on at 13:18; Start 07/19/18 at 10:27; Stop 07/19/18 at 11:27; Status DC Morphine Sulfate (Morphine Sulfate) 4 mg PRN Q15MIN PRN IV/SQ PAIN GREATER THAN 3/10 Last administered on 07/19/18at 10:54; Start 07/19/18 at 10:30; Stop at 10:29 Vancomycin HCl 1.5 gm/Sodium Chloride 500 ml @ 250 mls/hr 1X ONCE IV Last administered on 07/19/18at 12:36; Start 07/19/18 at 11:00; Stop 07/19/18 at 12:59 ; Status DC Acetaminophen (Tylenol) 1,000 mg 1X ONCE PO Last administered on 07/19/18at 13: 03; Start 07/19/18 at 12:45; Stop 07/19/18 at 12:47; Status DC Hydromorphone HCl (Dilaudid) 1 mg 1X ONCE IV Last administered on 07/19/18at 14 :01; Start 07/19/18 at 13:30; Stop 07/19/18 at 13:32; Status DC Ondansetron HCl (Zofran) 4 mg PRN Q8HRS PRN IV NAUSEA/VOMITING; Start 07/19/18 at 14:30; Stop 07/20/18 at 14:29 Morphine Sulfate (Morphine Sulfate) 4 mg PRN Q2HR PRN IV PAIN; Start 07/19/18 at 14:30; Stop 07/20/18 at 14:29 Acetaminophen (Tylenol) 650 mg PRN Q4HRS PRN PO FEVER; Start 07/19/18 at 14:30 ; Stop 07/20/18 at 14:29 Sodium Chloride 1,000 ml @ 125 mls/hr 1X ONCE IV ; Start 07/19/18 at 14:30; Stop 07/19/18 at 22:29 Pharmacy Consult (C.diff Med Screen By Rx) 1 each 1X ONCE MC ; Start 07/19/18 at 15:30; Stop 07/19/18 at 15:31; Status UNV Vancomycin HCl (Vanco Per Pharmacy) 1 each PRN DAILY PRN [facility] SEE COMMENTS; Start 07/19/18 at 15:45 Acetaminophen/ Hydrocodone Bitart (Lortab 10/325) 1 tab PRN Q6HRS PRN PO PAIN; Start 07/19/18 at 15:45 Ondansetron HCl (Zofran Odt) 4 mg PRN Q8HRS PRN PO NAUSEA; Start 07/19/18 at 15 :45 Trazodone HCl (Desyrel) 100 mg HS PO ; Start 07/19/18 at 21:00 Citalopram Hydrobromide (CeleXA) 10 mg DAILY PO ; Start 07/19/18 at 16:30 Gabapentin (Neurontin) 600 mg TID PO ; Start 07/19/18 at 21:00 Meloxicam (Mobic) 7.5 mg DAILY PO ; Start 07/19/18 at 16:30 Non-Formulary Medication (Metronidazole (Flagyl)) 1 tab TID PO ; Start 07/19/18 at 21:00; Status UNV Pantoprazole Sodium (Protonix) 40 mg DAILYAC PO ; Start 07/19/18 at 16:30 Alprazolam (Xanax) 1 mg PRN Q8HRS PRN PO ANXIETY / AGITATION; Start 07/19/18 at 15:45 Active Scripts Active Zofran Odt (Ondansetron) 4 Mg Tab.rapdis 1 Tab SL Q8HRS PRN [place] 5-325 Tablet (Acetaminophen/Hydrocodone Bitart) 1 Each Tablet 1 Tab PO PRN Q6HRS PRN Flagyl (Metronidazole) 500 Mg Tablet 1 Tab PO TID Cipro (Ciprofloxacin Hcl) 500 Mg Tablet 1 Tab PO BID Reported Meloxicam 7.5 Mg Tablet 1 Tab PO DAILY Escitalopram Oxalate 5 Mg Tablet 5 Mg PO DAILY Hydrocodone-Apap 10-325 (Hydrocodone Bit/Acetaminophen) 1 Tab Tablet 1 Tab PO PRN Q4HRS PRN Omeprazole 20 Mg Capsule.dr 20 Mg PO DAILY Xanax (Alprazolam) 2 Mg Tablet 1 Tab PO BID Hydrocodone-Apap 10-325 (Hydrocodone Bit/Acetaminophen) 1 Each Tablet 1 Tab PO PRN Q6HRS PRN Trazodone Hcl 100 Mg Tablet 100 Mg PO HS Gabapentin 600 Mg Tablet 600 Mg PO TID Allergies Allergies: Coded Allergies: codeine (Verified Adverse Reaction, Intermediate, HALLUCINATES, 07/19/18) ROS General: No: Chills, Night Sweats, Fatigue, Malaise, Appetite, Other PSYCHOLOGICAL ROS: No: Anxiety, Behavioral Disorder, Concentration difficultie , Decreased libido, Depression, Disorientation, Hallucinations, Hostility, Irritablity, Memory difficulties, Mood Swings, Obsessive thoughts, Physical abuse, Sexual abuse, Sleep disturbances, Suicidal ideation, Other Eyes: No Blurry vision, No Decreased vision, No Double vision, No Dry eyes, No Excessive tearing, No Eye Pain, No Itchy Eyes, No Loss of vision, No Photophobia , No Scotomata, No Uses contacts, No Uses glasses, No Other HEENT: No: Heacaches, Visual Changes, Hearing change, Nasal congestion, Nasal discharge, Oral lesions, Sinus pain, Sore Throat, Epistaxis, Sneezing, Snoring, Tinnitus, Vertigo, Vocal changes, Other Respiratory: No: Cough, Hemoptysis, Orthopnea, Pleuritic Pain, Shortness of breath, SOB with excertion, Sputum Changes, Stridor, Tachypnea, Wheezing, Other Cardiovascular: No Chest Pain, No Palpitations, No Orthopnea, No Paroxysmal Noc. Dyspnea, No Edema, No Lt Headedness, No Other Gastrointestinal: Yes Nausea; No Vomiting, No Abdominal Pain, No Diarrhea, No Constipation, No Melena, No Hematochezia, No Other Genitourinary: No Dysuria, No Frequency, No Incontinence, No Hematuria, No Retention, No Discharge, No Urgency, No Pain, No Flank Pain, No Other, No , No , No , No , No , No , No Musculoskeletal: Yes Gait Disturbance; No Joint Pain, No Joint Stiffness, No Joint Swelling, No Muscle Pain, No Muscular Weakness, No Pain In:, No Swelling In:, No Other Neurological: No Behavorial Changes, No Bowel/Bladder ControlChng, No Confusion , No Dizziness, No Gait Disturbance, No Headaches, No Impaired Coord/balance, No Memory Loss, No Numbness/Tingling, No Seizures, No Speech Problems, No Tremors, No Visual Changes, No Weakness, No Other Skin: Yes Dry Skin; No Eczema, No Hair Changes, No Lumps, No Mole Changes, No Mottling, No Nail Changes, No Pruritus, No Rash, No Skin Lesion Changes, No Other, No Acne Physical Exam General: Alert, Oriented X3, No acute distress HEENT: Atraumatic, PERRLA, EOMI, Mucous membr. moist/pink Lungs: Normal air movement Heart: no gallops, no murmurs Abdomen: Soft Rectal Exam: not examined Extremities: No cyanosis, No edema, Normal pulses Skin: No breakdown, No significant lesion Neuro: Normal speech, Normal tone, Sensation intact, Cranial nerves 3-12 NL Psych/Mental Status: Mood NL Vitals Vitals Vital Signs Date Time Temp Pulse Resp B/P (MAP) Pulse Ox O2 Delivery O2 Flow Rate FiO2 07/19/18 14:01 22 97 Nasal Cannula 2.0 07/19/18 13:56 86 102/55 (71) 07/19/18 10:02 101.6 101.6 Labs Labs Laboratory Tests Test 07/19/18 10:32 07/19/18 14:25 White Blood Count 9.3 x10^3/uL (4.0-11.0) Red Blood Count 3.78 x10^6/uL (3.50-5.40) Hemoglobin 11.9 g/dL (12.0-15.5) Hematocrit 35.3 % (36.0-47.0) Mean Corpuscular Volume 94 fL (79-100) Mean Corpuscular Hemoglobin 32 pg (25-35) Mean Corpuscular Hemoglobin Concent 34 g/dL (31-37) Red Cell Distribution Width 13.5 % (11.5-14.5) Platelet Count 156 x10^3/uL (140-400) Neutrophils (%) (Auto) 85 % (31-73) Lymphocytes (%) (Auto) 6 % (24-48) Monocytes (%) (Auto) 9 % (0-9) Eosinophils (%) (Auto) 0 % (0-3) Basophils (%) (Auto) 0 % (0-3) Neutrophils # (Auto) 7.9 x10^3uL (1.8-7.7) Lymphocytes # (Auto) 0.6 x10^3/uL (1.0-4.8) Monocytes # (Auto) 0.9 x10^3/uL (0.0-1.1) Eosinophils # (Auto) 0.0 x10^3/uL (0.0-0.7) Basophils # (Auto) 0.0 x10^3/uL (0.0-0.2) Erythrocyte Sedimentation Rate 55 (0-25) Sodium Level 134 mmol/L (136-145) Potassium Level 3.4 mmol/L (3.5-5.1) Chloride Level 97 mmol/L (98-107) Carbon Dioxide Level 27 mmol/L (21-32) Anion Gap 10 (6-14) Blood Urea Nitrogen 21 mg/dL (7-20) Creatinine 1.5 mg/dL (0.6-1.0) Estimated GFR (Cockcroft-Gault) 34.1 BUN/Creatinine Ratio 14 (6-20) Glucose Level 141 mg/dL (70-99) Lactic Acid Level 1.1 mmol/L (0.4-2.0) 1.1 mmol/L (0.4-2.0) Calcium Level 8.9 mg/dL (8.5-10.1) Total Bilirubin 0.6 mg/dL (0.2-1.0) Aspartate Amino Transf (AST/SGOT) 13 U/L (15-37) Alanine Aminotransferase (ALT/SGPT) 29 U/L (14-59) Alkaline Phosphatase 85 U/L (46-116) C-Reactive Protein, Quantitative 408.6 mg/L (0-3.3) Total Protein 6.5 g/dL (6.4-8.2) Albumin 2.9 g/dL (3.4-5.0) Albumin/Globulin Ratio 0.8 (1.0-1.7) Procalcitonin 7.98 ng/mL (0.00-0.10) Laboratory Tests Test 07/19/18 10:32 07/19/18 14:25 White Blood Count 9.3 x10^3/uL (4.0-11.0) Red Blood Count 3.78 x10^6/uL (3.50-5.40) Hemoglobin 11.9 g/dL (12.0-15.5) Hematocrit 35.3 % (36.0-47.0) Mean Corpuscular Volume 94 fL (79-100) Mean Corpuscular Hemoglobin 32 pg (25-35) Mean Corpuscular Hemoglobin Concent 34 g/dL (31-37) Red Cell Distribution Width 13.5 % (11.5-14.5) Platelet Count 156 x10^3/uL (140-400) Neutrophils (%) (Auto) 85 % (31-73) Lymphocytes (%) (Auto) 6 % (24-48) Monocytes (%) (Auto) 9 % (0-9) Eosinophils (%) (Auto) 0 % (0-3) Basophils (%) (Auto) 0 % (0-3) Neutrophils # (Auto) 7.9 x10^3uL (1.8-7.7) Lymphocytes # (Auto) 0.6 x10^3/uL (1.0-4.8) Monocytes # (Auto) 0.9 x10^3/uL (0.0-1.1) Eosinophils # (Auto) 0.0 x10^3/uL (0.0-0.7) Basophils # (Auto) 0.0 x10^3/uL (0.0-0.2) Erythrocyte Sedimentation Rate 55 (0-25) Sodium Level 134 mmol/L (136-145) Potassium Level 3.4 mmol/L (3.5-5.1) Chloride Level 97 mmol/L (98-107) Carbon Dioxide Level 27 mmol/L (21-32) Anion Gap 10 (6-14) Blood Urea Nitrogen 21 mg/dL (7-20) Creatinine 1.5 mg/dL (0.6-1.0) Estimated GFR (Cockcroft-Gault) 34.1 BUN/Creatinine Ratio 14 (6-20) Glucose Level 141 mg/dL (70-99) Lactic Acid Level 1.1 mmol/L (0.4-2.0) 1.1 mmol/L (0.4-2.0) Calcium Level 8.9 mg/dL (8.5-10.1) Total Bilirubin 0.6 mg/dL (0.2-1.0) Aspartate Amino Transf (AST/SGOT) 13 U/L (15-37) Alanine Aminotransferase (ALT/SGPT) 29 U/L (14-59) Alkaline Phosphatase 85 U/L (46-116) C-Reactive Protein, Quantitative 408.6 mg/L (0-3.3) Total Protein 6.5 g/dL (6.4-8.2) Albumin 2.9 g/dL (3.4-5.0) Albumin/Globulin Ratio 0.8 (1.0-1.7) Procalcitonin 7.98 ng/mL (0.00-0.10) VTE Prophylaxis Ordered VTE Prophylaxis Devices: No VTE Pharmacological Prophylaxi: Yes Assessment/Plan Assessment/Plan axillar cellulitis pain, acute on chronic back pain, takes hydro 10 PRN for chronic back pain, has hardware sepsis vasomotor nephropathy hypokalemia SAMPSON TIRADO MD Jul 19, 2018 16:02
[2018-07-19] MEDS ORDERED: POTASSIUM CHLORIDE 20 MEQ TABLET.ER. PO ONE (16:15)
[2018-07-19] MEDS ORDERED: POLYETHYLENE GLYCOL 3350 17 GM PACKET. PO PRN (16:15)
[2018-07-19] MEDS: CITALOPRAM 10 MG TABLET. PO SCH (16:43)
[2018-07-19] MEDS: PANTOPRAZOLE 40 MG TABLET.DR. PO SCH (16:43)
[2018-07-19] MEDS: MELOXICAM 7.5 MG TABLET PO SCH (16:44)
[2018-07-19] MEDS: MORPHINE SULFATE 4 MG/ML VIAL. IV PRN (17:20)
[2018-07-19] MEDS: PIPERACILLIN/TAZOBACTAM 2.25 GM in IV NORMAL SALINE 50ML 50 ML IV SCH ×2 (18:35→22:57)
[2018-07-19 19:00] VITALS: BP 78/38
[2018-07-19] MEDS: VANCOMYCIN PER PHARMACY MC PRN (19:37)
--- NOTE | 2018-07-19 19:37 | NUR ---
Pharmacy Vancomycin Dosing Note S:Consulted to monitor and dose vancomycin started 07/19/18. O:ROBERTA JORDAN is a 73 year old F with Cellulitis AXILLA ABSCESS . Height: 5 feet, 2 inches Weight: 61.428844 kg [place] Body Weight: 50.10 Adjusted Body Weight: 54.74 Dosing Weight: Actual Other Antibiotics: ZOSYN LABS: Last BUN: 21 Last Creatinine: 1.5 Creatinine Clearance: 29 mL/min Last WBC: 9.3 Last Procalcitonin: Tmax (past 24 hours): 101.6 Microbiology: I/O: Drug Levels: Last level: on at Last dose given 07/19/18 at 1236 Vancomycin Dosing: Loading Dose: 1500 mg x1 Dosing Weight: Actual Target Trough: 10-20 A: Based on: Body weight and renal function P: 1. After loading dose, start Vancomycin 1000 mg IV q24h 2. Follow up Trough level on 07/21/18 at 1200 3. Pharmacy will continue to monitor, follow and adjust therapy as needed. SOL MOTA [facility], 07/19/18 1938
[2018-07-19] MEDS: GABAPENTIN 300 MG CAPSULE. PO SCH (20:15)
[2018-07-19] MEDS: traZODone 100 MG TABLET. PO SCH (20:15)
[2018-07-19 20:39] LABS: BILIRUBIN,URINE NEGATIVE (NEG); CLARITY,URINE CLEAR; COLOR,URINE YELLOW; NITRITE,URINE NEGATIVE (NEG); PH,URINE 5.5; PROTEIN,URINE 30 mg/dL (NEG-TRACE); UROBILINOGEN,URINE 0.2 mg/dL (0.2 mg/dL)
[2018-07-19 20:45] LABS: AMORPHOUS SEDIMENT,UR PRESENT /HPF; BACTERIA,URINE 0 /HPF (0-FEW); RBC,URINE OCC /HPF (0-2); SQUAMOUS EPITHELIAL CELL,UR FEW /LPF
[2018-07-19] MEDS ORDERED: NON FORMULARY ITEM (Metronidazole (Flagyl) 1 TAB) PO SCH (21:00)
[2018-07-19] MEDS: oxyCODONE IR 5 MG TABLET PO PRN (22:57)
[2018-07-19 23:00] VITALS: BP 97/46
[2018-07-20] VITALS (8 sets, daily range): BP systolic 81–124; BP diastolic 39–62
[2018-07-20 04:47] LABS: BASO % 0 % (0-3); EOS # 0.1 x10^3/uL (0.0-0.7); EOS % 1 % (0-3); HEMATOCRIT 29.1 % (36.0-47.0); HEMOGLOBIN 9.7 g/dL (12.0-15.5); LYMPH # 0.7 x10^3/uL (1.0-4.8); LYMPH % 11 % (24-48); MEAN CORPUSCULAR HEMOGLOBIN 32 pg (25-35); MEAN CORPUSCULAR HGB CONC 33 g/dL (31-37); MEAN CORPUSCULAR VOLUME 96 fL (79-100); MONO # 0.5 x10^3/uL (0.0-1.1); MONO % 8 % (0-9); NEUT # 4.7 x10^3uL (1.8-7.7); NEUT % 79 % (31-73); PLATELET COUNT 132 x10^3/uL (140-400); RED BLOOD COUNT 3.04 x10^6/uL (3.50-5.40); WHITE BLOOD COUNT 5.9 x10^3/uL (4.0-11.0)
[2018-07-20] MEDS: PIPERACILLIN/TAZOBACTAM 2.25 GM in IV NORMAL SALINE 50ML 50 ML IV SCH ×3 (05:27→15:27)
[2018-07-20] MEDS: oxyCODONE IR 5 MG TABLET PO PRN (05:32)
[2018-07-20 05:51] LABS: ALBUMIN/GLOBULIN RATIO 0.6 (1.0-1.7); CALCIUM 7.8 mg/dL (8.5-10.1); CREATININE 1.1 mg/dL (0.6-1.0); GFR 48.8; POTASSIUM 4.4 mmol/L (3.5-5.1); TOTAL BILIRUBIN 0.5 mg/dL (0.2-1.0); TOTAL PROTEIN 5.3 g/dL (6.4-8.2)
--- NOTE | 2018-07-20 07:54 | RAD ---
Right axillary ultrasound, 07/19/2018: HISTORY: Abscess The area of clinical concern in the right axilla was carefully scanned. There is mild streaky subcutaneous edema. No discrete drainable fluid collection or mass is evident. Left axillary ultrasound, 07/19/2018: HISTORY: Abscess. The area of clinical concern in the left axilla was carefully scanned. There is a small 11 x 4 x 8 mm subcutaneous hypoechoic structure. No internal color flow is seen. No adjacent hypervascularity is seen. This is a nonspecific appearance which could be complex fluid such as a hematoma, complicated sebaceous cyst or abscess. No large drainable fluid collection or mass is evident. Electronically signed by: Scottie Funez MD (07/20/2018 7:51 AM) [facility]
[2018-07-20] MEDS: PANTOPRAZOLE 40 MG TABLET.DR. PO SCH (08:07)
[2018-07-20] MEDS: GABAPENTIN 300 MG CAPSULE. PO SCH ×3 (08:07→20:09)
[2018-07-20] MEDS: HYDROcodone/APAP 10/325 1 TAB TABLET PO PRN ×2 (08:07→17:15)
[2018-07-20] MEDS: MELOXICAM 7.5 MG TABLET PO SCH (08:08)
[2018-07-20] MEDS: DOCUSATE SODIUM 100 MG CAPSULE. PO SCH (08:08)
[2018-07-20] MEDS: CITALOPRAM 10 MG TABLET. PO SCH (08:08)
--- NOTE | 2018-07-20 08:16 | PDOC ---
PROGRESS NOTES Chief Complaint Chief Complaint Bilateral Axillary cellulitis Left axillary abscess Pain, acute on chronic Chronic back pain, takes hydro 10 PRN for chronic back pain, has hardware Dog scratch Severe sepsis BRANDON - vasomotor nephropathy Hypokalemia History of Present Illness History of Present Illness 73 year old female admit from ER with bilateral axilla pain and swelling, She has swelling and likely abscesses that began a week ago. Patient states she was seen by her PCP 07/18 and both axilla were drained. She states the next morning she woke up and she had redness on the right axilla. PO augmentin started 07/18, not better, came to ED, had wound and blood cultures drawn. Seen by surgery, bilateral US showed cellulitis on right axilla and small abscess in left. Still with fever overnight. Lost left peripheral IV access very quickly and has dog scratch on her right arm (likely source). Flu test still pending. BP persistently low despite 2 bolus and WBC count going up. On further review she notes she broke up a dog fight about 6 days ago and was scratched multiple times , these are apparent on exam today. Plan: PICC for access and dual antibiotics, frequent blood draws, may need pressors if another bolus can't get her BP up Zosyn on for capnocytophagia coverage with dog encounter. Last tetanus was 1 year ago. Dogs up to date on vaccines May need to consult ID regarding her persistent fevers. F/u on flu test, still pending from admit Aggressive IV fluids Back off on her pain meds and xanax Vitals Vitals Vital Signs Date Time Temp Pulse Resp B/P (MAP) Pulse Ox O2 Delivery O2 Flow Rate FiO2 07/20/18 08:07 Room Air 07/20/18 03:00 101.2 87 17 95/50 (65) 93 2.0 101.2 Physical Exam General: Alert, Oriented X3, No acute distress Lungs: Clear Abdomen: Soft Extremities: No cyanosis, No edema, Normal pulses Skin: No breakdown, No significant lesion Labs LABS Laboratory Tests Test 07/19/18 10:32 07/19/18 14:25 07/19/18 18:40 07/20/18 04:15 White Blood Count 9.3 x10^3/uL (4.0-11.0) 5.9 x10^3/uL (4.0-11.0) Red Blood Count 3.78 x10^6/uL (3.50-5.40) 3.04 x10^6/uL (3.50-5.40) Hemoglobin 11.9 g/dL (12.0-15.5) 9.7 g/dL (12.0-15.5) Hematocrit 35.3 % (36.0-47.0) 29.1 % (36.0-47.0) Mean Corpuscular Volume 94 fL (79-100) 96 fL (79-100) Mean Corpuscular Hemoglobin 32 pg (25-35) 32 pg (25-35) Mean Corpuscular Hemoglobin Concent 34 g/dL (31-37) 33 g/dL (31-37) Red Cell Distribution Width 13.5 % (11.5-14.5) 14.0 % (11.5-14.5) Platelet Count 156 x10^3/uL (140-400) 132 x10^3/uL (140-400) Neutrophils (%) (Auto) 85 % (31-73) 79 % (31-73) Lymphocytes (%) (Auto) 6 % (24-48) 11 % (24-48) Monocytes (%) (Auto) 9 % (0-9) 8 % (0-9) Eosinophils (%) (Auto) 0 % (0-3) 1 % (0-3) Basophils (%) (Auto) 0 % (0-3) 0 % (0-3) Neutrophils # (Auto) 7.9 x10^3uL (1.8-7.7) 4.7 x10^3uL (1.8-7.7) Lymphocytes # (Auto) 0.6 x10^3/uL (1.0-4.8) 0.7 x10^3/uL (1.0-4.8) Monocytes # (Auto) 0.9 x10^3/uL (0.0-1.1) 0.5 x10^3/uL (0.0-1.1) Eosinophils # (Auto) 0.0 x10^3/uL (0.0-0.7) 0.1 x10^3/uL (0.0-0.7) Basophils # (Auto) 0.0 x10^3/uL (0.0-0.2) 0.0 x10^3/uL (0.0-0.2) Erythrocyte Sedimentation Rate 55 (0-25) Sodium Level 134 mmol/L (136-145) 138 mmol/L (136-145) Potassium Level 3.4 mmol/L (3.5-5.1) 4.4 mmol/L (3.5-5.1) Chloride Level 97 mmol/L (98-107) 105 mmol/L (98-107) Carbon Dioxide Level 27 mmol/L (21-32) 25 mmol/L (21-32) Anion Gap 10 (6-14) 8 (6-14) Blood Urea Nitrogen 21 mg/dL (7-20) 16 mg/dL (7-20) Creatinine 1.5 mg/dL (0.6-1.0) 1.1 mg/dL (0.6-1.0) Estimated GFR (Cockcroft-Gault) 34.1 48.8 BUN/Creatinine Ratio 14 (6-20) 15 (6-20) Glucose Level 141 mg/dL (70-99) 107 mg/dL (70-99) Lactic Acid Level 1.1 mmol/L (0.4-2.0) 1.1 mmol/L (0.4-2.0) Calcium Level 8.9 mg/dL (8.5-10.1) 7.8 mg/dL (8.5-10.1) Total Bilirubin 0.6 mg/dL (0.2-1.0) 0.5 mg/dL (0.2-1.0) Aspartate Amino Transf (AST/SGOT) 13 U/L (15-37) 13 U/L (15-37) Alanine Aminotransferase (ALT/SGPT) 29 U/L (14-59) 23 U/L (14-59) Alkaline Phosphatase 85 U/L (46-116) 67 U/L (46-116) C-Reactive Protein, Quantitative 408.6 mg/L (0-3.3) Total Protein 6.5 g/dL (6.4-8.2) 5.3 g/dL (6.4-8.2) Albumin 2.9 g/dL (3.4-5.0) 2.0 g/dL (3.4-5.0) Albumin/Globulin Ratio 0.8 (1.0-1.7) 0.6 (1.0-1.7) Procalcitonin 7.98 ng/mL (0.00-0.10) Urine Collection Type Unknown Urine Color Yellow Urine Clarity Clear Urine pH 5.5 Urine Specific [place] 1.015 Urine Protein 30 mg/dL (NEG-TRACE) Urine Glucose (UA) Negative mg/dL (NEG) Urine Ketones (Stick) Negative mg/dL (NEG) Urine Blood Negative (NEG) Urine Nitrite Negative (NEG) Urine Bilirubin Negative (NEG) Urine Urobilinogen Dipstick 0.2 mg/dL (0.2 mg/dL) Urine Leukocyte Esterase Negative (NEG) Urine RBC Occ /HPF (0-2) Urine WBC 1-4 /HPF (0-4) Urine Squamous Epithelial Cells Few /LPF Urine Amorphous Sediment Present /HPF Urine Bacteria 0 /HPF (0-FEW) Assessment and Plan Assessmemt and Plan Problems Medical Problems: (1) Sepsis Status: Acute Comment Review of Relevant I have reviewed the following items amber (where applicable) has been applied. Labs Laboratory Tests Test 07/19/18 10:32 07/19/18 14:25 07/19/18 18:40 07/20/18 04:15 White Blood Count 9.3 x10^3/uL (4.0-11.0) 5.9 x10^3/uL (4.0-11.0) Red Blood Count 3.78 x10^6/uL (3.50-5.40) 3.04 x10^6/uL (3.50-5.40) Hemoglobin 11.9 g/dL (12.0-15.5) 9.7 g/dL (12.0-15.5) Hematocrit 35.3 % (36.0-47.0) 29.1 % (36.0-47.0) Mean Corpuscular Volume 94 fL (79-100) 96 fL (79-100) Mean Corpuscular Hemoglobin 32 pg (25-35) 32 pg (25-35) Mean Corpuscular Hemoglobin Concent 34 g/dL (31-37) 33 g/dL (31-37) Red Cell Distribution Width 13.5 % (11.5-14.5) 14.0 % (11.5-14.5) Platelet Count 156 x10^3/uL (140-400) 132 x10^3/uL (140-400) Neutrophils (%) (Auto) 85 % (31-73) 79 % (31-73) Lymphocytes (%) (Auto) 6 % (24-48) 11 % (24-48) Monocytes (%) (Auto) 9 % (0-9) 8 % (0-9) Eosinophils (%) (Auto) 0 % (0-3) 1 % (0-3) Basophils (%) (Auto) 0 % (0-3) 0 % (0-3) Neutrophils # (Auto) 7.9 x10^3uL (1.8-7.7) 4.7 x10^3uL (1.8-7.7) Lymphocytes # (Auto) 0.6 x10^3/uL (1.0-4.8) 0.7 x10^3/uL (1.0-4.8) Monocytes # (Auto) 0.9 x10^3/uL (0.0-1.1) 0.5 x10^3/uL (0.0-1.1) Eosinophils # (Auto) 0.0 x10^3/uL (0.0-0.7) 0.1 x10^3/uL (0.0-0.7) Basophils # (Auto) 0.0 x10^3/uL (0.0-0.2) 0.0 x10^3/uL (0.0-0.2) Erythrocyte Sedimentation Rate 55 (0-25) Sodium Level 134 mmol/L (136-145) 138 mmol/L (136-145) Potassium Level 3.4 mmol/L (3.5-5.1) 4.4 mmol/L (3.5-5.1) Chloride Level 97 mmol/L (98-107) 105 mmol/L (98-107) Carbon Dioxide Level 27 mmol/L (21-32) 25 mmol/L (21-32) Anion Gap 10 (6-14) 8 (6-14) Blood Urea Nitrogen 21 mg/dL (7-20) 16 mg/dL (7-20) Creatinine 1.5 mg/dL (0.6-1.0) 1.1 mg/dL (0.6-1.0) Estimated GFR (Cockcroft-Gault) 34.1 48.8 BUN/Creatinine Ratio 14 (6-20) 15 (6-20) Glucose Level 141 mg/dL (70-99) 107 mg/dL (70-99) Lactic Acid Level 1.1 mmol/L (0.4-2.0) 1.1 mmol/L (0.4-2.0) Calcium Level 8.9 mg/dL (8.5-10.1) 7.8 mg/dL (8.5-10.1) Total Bilirubin 0.6 mg/dL (0.2-1.0) 0.5 mg/dL (0.2-1.0) Aspartate Amino Transf (AST/SGOT) 13 U/L (15-37) 13 U/L (15-37) Alanine Aminotransferase (ALT/SGPT) 29 U/L (14-59) 23 U/L (14-59) Alkaline Phosphatase 85 U/L (46-116) 67 U/L (46-116) C-Reactive Protein, Quantitative 408.6 mg/L (0-3.3) Total Protein 6.5 g/dL (6.4-8.2) 5.3 g/dL (6.4-8.2) Albumin 2.9 g/dL (3.4-5.0) 2.0 g/dL (3.4-5.0) Albumin/Globulin Ratio 0.8 (1.0-1.7) 0.6 (1.0-1.7) Procalcitonin 7.98 ng/mL (0.00-0.10) Urine Collection Type Unknown Urine Color Yellow Urine Clarity Clear Urine pH 5.5 Urine Specific [place] 1.015 Urine Protein 30 mg/dL (NEG-TRACE) Urine Glucose (UA) Negative mg/dL (NEG) Urine Ketones (Stick) Negative mg/dL (NEG) Urine Blood Negative (NEG) Urine Nitrite Negative (NEG) Urine Bilirubin Negative (NEG) Urine Urobilinogen Dipstick 0.2 mg/dL (0.2 mg/dL) Urine Leukocyte Esterase Negative (NEG) Urine RBC Occ /HPF (0-2) Urine WBC 1-4 /HPF (0-4) Urine Squamous Epithelial Cells Few /LPF Urine Amorphous Sediment Present /HPF Urine Bacteria 0 /HPF (0-FEW) Laboratory Tests Test 07/19/18 10:32 07/19/18 14:25 07/19/18 18:40 07/20/18 04:15 White Blood Count 9.3 x10^3/uL (4.0-11.0) 5.9 x10^3/uL (4.0-11.0) Red Blood Count 3.78 x10^6/uL (3.50-5.40) 3.04 x10^6/uL (3.50-5.40) Hemoglobin 11.9 g/dL (12.0-15.5) 9.7 g/dL (12.0-15.5) Hematocrit 35.3 % (36.0-47.0) 29.1 % (36.0-47.0) Mean Corpuscular Volume 94 fL (79-100) 96 fL (79-100) Mean Corpuscular Hemoglobin 32 pg (25-35) 32 pg (25-35) Mean Corpuscular Hemoglobin Concent 34 g/dL (31-37) 33 g/dL (31-37) Red Cell Distribution Width 13.5 % (11.5-14.5) 14.0 % (11.5-14.5) Platelet Count 156 x10^3/uL (140-400) 132 x10^3/uL (140-400) Neutrophils (%) (Auto) 85 % (31-73) 79 % (31-73) Lymphocytes (%) (Auto) 6 % (24-48) 11 % (24-48) Monocytes (%) (Auto) 9 % (0-9) 8 % (0-9) Eosinophils (%) (Auto) 0 % (0-3) 1 % (0-3) Basophils (%) (Auto) 0 % (0-3) 0 % (0-3) Neutrophils # (Auto) 7.9 x10^3uL (1.8-7.7) 4.7 x10^3uL (1.8-7.7) Lymphocytes # (Auto) 0.6 x10^3/uL (1.0-4.8) 0.7 x10^3/uL (1.0-4.8) Monocytes # (Auto) 0.9 x10^3/uL (0.0-1.1) 0.5 x10^3/uL (0.0-1.1) Eosinophils # (Auto) 0.0 x10^3/uL (0.0-0.7) 0.1 x10^3/uL (0.0-0.7) Basophils # (Auto) 0.0 x10^3/uL (0.0-0.2) 0.0 x10^3/uL (0.0-0.2) Erythrocyte Sedimentation Rate 55 (0-25) Sodium Level 134 mmol/L (136-145) 138 mmol/L (136-145) Potassium Level 3.4 mmol/L (3.5-5.1) 4.4 mmol/L (3.5-5.1) Chloride Level 97 mmol/L (98-107) 105 mmol/L (98-107) Carbon Dioxide Level 27 mmol/L (21-32) 25 mmol/L (21-32) Anion Gap 10 (6-14) 8 (6-14) Blood Urea Nitrogen 21 mg/dL (7-20) 16 mg/dL (7-20) Creatinine 1.5 mg/dL (0.6-1.0) 1.1 mg/dL (0.6-1.0) Estimated GFR (Cockcroft-Gault) 34.1 48.8 BUN/Creatinine Ratio 14 (6-20) 15 (6-20) Glucose Level 141 mg/dL (70-99) 107 mg/dL (70-99) Lactic Acid Level 1.1 mmol/L (0.4-2.0) 1.1 mmol/L (0.4-2.0) Calcium Level 8.9 mg/dL (8.5-10.1) 7.8 mg/dL (8.5-10.1) Total Bilirubin 0.6 mg/dL (0.2-1.0) 0.5 mg/dL (0.2-1.0) Aspartate Amino Transf (AST/SGOT) 13 U/L (15-37) 13 U/L (15-37) Alanine Aminotransferase (ALT/SGPT) 29 U/L (14-59) 23 U/L (14-59) Alkaline Phosphatase 85 U/L (46-116) 67 U/L (46-116) C-Reactive Protein, Quantitative 408.6 mg/L (0-3.3) Total Protein 6.5 g/dL (6.4-8.2) 5.3 g/dL (6.4-8.2) Albumin 2.9 g/dL (3.4-5.0) 2.0 g/dL (3.4-5.0) Albumin/Globulin Ratio 0.8 (1.0-1.7) 0.6 (1.0-1.7) Procalcitonin 7.98 ng/mL (0.00-0.10) Urine Collection Type Unknown Urine Color Yellow Urine Clarity Clear Urine pH 5.5 Urine Specific [place] 1.015 Urine Protein 30 mg/dL (NEG-TRACE) Urine Glucose (UA) Negative mg/dL (NEG) Urine Ketones (Stick) Negative mg/dL (NEG) Urine Blood Negative (NEG) Urine Nitrite Negative (NEG) Urine Bilirubin Negative (NEG) Urine Urobilinogen Dipstick 0.2 mg/dL (0.2 mg/dL) Urine Leukocyte Esterase Negative (NEG) Urine RBC Occ /HPF (0-2) Urine WBC 1-4 /HPF (0-4) Urine Squamous Epithelial Cells Few /LPF Urine Amorphous Sediment Present /HPF Urine Bacteria 0 /HPF (0-FEW) Medications Current Medications Piperacillin Sod/ Tazobactam Sod 4.5 gm/Sodium Chloride 100 ml @ 200 mls/hr 1X ONCE IV Last administered on 07/19/18at 11:30; Start 07/19/18 at 10:30; Stop 07/19/18 at 10:59; Status DC Vancomycin HCl (Vanco Per Pharmacy) 1 each 1X ONCE MC ; Start 07/19/18 at 10:30 ; Stop 07/19/18 at 10:31; Status UNV Sodium Chloride 1,000 ml @ 1,860 mls/hr Q33M IV Last administered on at 13:18; Start 07/19/18 at 10:27; Stop 07/19/18 at 11:27; Status DC Morphine Sulfate (Morphine Sulfate) 4 mg PRN Q15MIN PRN IV/SQ PAIN GREATER THAN 3/10 Last administered on 07/19/18at 10:54; Start 07/19/18 at 10:30; Stop at 10:29 Vancomycin HCl 1.5 gm/Sodium Chloride 500 ml @ 250 mls/hr 1X ONCE IV Last administered on 07/19/18at 12:36; Start 07/19/18 at 11:00; Stop 07/19/18 at 12:59 ; Status DC Acetaminophen (Tylenol) 1,000 mg 1X ONCE PO Last administered on 07/19/18at 13: 03; Start 07/19/18 at 12:45; Stop 07/19/18 at 12:47; Status DC Hydromorphone HCl (Dilaudid) 1 mg 1X ONCE IV Last administered on 07/19/18at 14 :01; Start 07/19/18 at 13:30; Stop 07/19/18 at 13:32; Status DC Ondansetron HCl (Zofran) 4 mg PRN Q8HRS PRN IV NAUSEA/VOMITING; Start 07/19/18 at 14:30; Stop 07/20/18 at 14:29 Morphine Sulfate (Morphine Sulfate) 4 mg PRN Q2HR PRN IV PAIN Last administered on 07/19/18at 17:20; Start 07/19/18 at 14:30; Stop 07/20/18 at 14:29 Acetaminophen (Tylenol) 650 mg PRN Q4HRS PRN PO FEVER Last administered on 07/20at 04:16; Start 07/19/18 at 14:30; Stop 07/20/18 at 14:29 Sodium Chloride 1,000 ml @ 125 mls/hr 1X ONCE IV Last administered on at 18:22; Start 07/19/18 at 14:30; Stop 07/19/18 at 22:29; Status DC Pharmacy Consult (C.diff Med Screen By Rx) 1 each 1X ONCE MC ; Start 07/19/18 at 15:30; Stop 07/19/18 at 15:31; Status UNV Vancomycin HCl (Vanco Per Pharmacy) 1 each PRN DAILY PRN MC SEE COMMENTS Last administered on 07/19/18at 19:37; Start 07/19/18 at 15:45 Acetaminophen/ Hydrocodone Bitart (Lortab 10/325) 1 tab PRN Q6HRS PRN PO MODERATE PAIN Last administered on 07/20/18at 08:07; Start 07/19/18 at 15:45 Ondansetron HCl (Zofran Odt) 4 mg PRN Q8HRS PRN PO NAUSEA; Start 07/19/18 at 15 :45 Trazodone HCl (Desyrel) 100 mg HS PO Last administered on 07/19/18at 20:15; Start 07/19/18 at 21:00 Citalopram Hydrobromide (CeleXA) 10 mg DAILY PO Last administered on 07/20/18at 08:08; Start 07/19/18 at 16:30 Gabapentin (Neurontin) 600 mg TID PO Last administered on 07/20/18at 08:07; Start 07/19/18 at 21:00 Meloxicam (Mobic) 7.5 mg DAILY PO Last administered on 07/20/18at 08:08; Start 07/19/18 at 16:30 Non-Formulary Medication (Metronidazole (Flagyl)) 1 tab TID PO ; Start 07/19/18 at 21:00; Status UNV Pantoprazole Sodium (Protonix) 40 mg DAILYAC PO Last administered on 07/20/18at 08:07; Start 07/19/18 at 16:30 Alprazolam (Xanax) 1 mg PRN Q8HRS PRN PO ANXIETY / AGITATION Last administered on 07/19/18at 16:43; Start 07/19/18 at 15:45 Piperacillin Sod/ Tazobactam Sod (Zosyn Per Pharmacy) 1 each PRN DAILY PRN MC SEE COMMENTS; Start 07/19/18 at 16:00 Vancomycin HCl 1 gm/Sodium Chloride 250 ml @ 250 mls/hr Q24H IV ; Start at 12:30 Vancomycin HCl (Vancomycin Trough Level) 1 each 1X ONCE MC ; Start 07/21/18 at 12:00; Stop 07/21/18 at 12:01 Oxycodone HCl (Roxicodone) 20 mg PRN Q6HRS PRN PO SEVERE PAIN Last administered on 07/20/18at 05:32; Start 07/19/18 at 16:00 Piperacillin Sod/ Tazobactam Sod 2.25 gm/Sodium Chloride 50 ml @ 100 mls/hr Q6HRS IV Last administered on 07/20/18at 05:27; Start 07/19/18 at 18:00 Sodium Chloride 1,000 ml @ 1,000 mls/hr 1X ONCE IV Last administered on at 16:44; Start 07/19/18 at 16:15; Stop 07/19/18 at 17:14; Status DC Potassium Chloride (Klor-Con) 40 meq 1X ONCE PO Last administered on at 16:43; Start 07/19/18 at 16:15; Stop 07/19/18 at 16:28; Status DC Docusate Sodium (Colace) 100 mg DAILY PO Last administered on 07/20/18at 08:08; Start 07/20/18 at 09:00 Polyethylene Glycol (miraLAX PACKET) 17 gm PRN DAILY PRN PO CONSTIPATION; Start 07/19/18 at 16:15 Active Scripts Active Zofran Odt (Ondansetron) 4 Mg Tab.rapdis 1 Tab SL Q8HRS PRN [place] 5-325 Tablet (Acetaminophen/Hydrocodone Bitart) 1 Each Tablet 1 Tab PO PRN Q6HRS PRN Flagyl (Metronidazole) 500 Mg Tablet 1 Tab PO TID Cipro (Ciprofloxacin Hcl) 500 Mg Tablet 1 Tab PO BID Reported Meloxicam 7.5 Mg Tablet 1 Tab PO DAILY Escitalopram Oxalate 5 Mg Tablet 5 Mg PO DAILY Hydrocodone-Apap 10-325 (Hydrocodone Bit/Acetaminophen) 1 Tab Tablet 1 Tab PO PRN Q4HRS PRN Omeprazole 20 Mg Capsule.dr 20 Mg PO DAILY Xanax (Alprazolam) 2 Mg Tablet 1 Tab PO BID Hydrocodone-Apap 10-325 (Hydrocodone Bit/Acetaminophen) 1 Each Tablet 1 Tab PO PRN Q6HRS PRN Trazodone Hcl 100 Mg Tablet 100 Mg PO HS Gabapentin 600 Mg Tablet 600 Mg PO TID Vitals/I & O Vital Sign - Last 24 Hours 07/19/18 07/19/18 07/19/18 07/19/18 10:02 10:26 10:54 10:56 Temp 101.6 101.6 Pulse 112 106 104 Resp 18 15 20 58 B/P (MAP) 107/53 (71) 95/52 (66) 95/57 (70) Pulse Ox 93 91 96 97 O2 Delivery Room Air Room Air Nasal Cannula Nasal Cannula O2 Flow Rate 2.0 2.0 07/19/18 07/19/18 07/19/18 07/19/18 11:24 11:26 11:56 12:26 Pulse 96 90 90 Resp 19 15 15 18 B/P (MAP) 91/55 (67) 94/55 (68) 97/56 (70) Pulse Ox 95 97 96 97 O2 Delivery Nasal Cannula Nasal Cannula Nasal Cannula Nasal Cannula O2 Flow Rate 2.0 2.0 2.0 07/19/18 07/19/18 07/19/18 07/19/18 12:56 13:26 13:56 14:01 Pulse 90 86 86 Resp 17 24 30 22 B/P (MAP) 106/57 (73) 104/58 (73) 102/55 (71) Pulse Ox 96 96 97 97 O2 Delivery Nasal Cannula Nasal Cannula Nasal Cannula Nasal Cannula O2 Flow Rate 2.0 2.0 2.0 2.0 07/19/18 07/19/18 07/19/18 07/19/18 15:50 17:20 18:01 19:00 Temp 98.2 98.2 Pulse 77 Resp 20 B/P (MAP) 78/38 (51) Pulse Ox 93 O2 Delivery Nasal Cannula Room Air Room Air Room Air O2 Flow Rate 2.0 07/19/18 07/19/18 07/19/18 07/20/18 20:00 22:57 23:00 03:00 Temp 98.2 101.2 98.2 101.2 Pulse 81 87 Resp 18 17 B/P (MAP) 97/46 (63) 95/50 (65) Pulse Ox 93 93 O2 Delivery Room Air Room Air Room Air Room Air O2 Flow Rate 2.0 2.0 07/20/18 07/20/18 07/20/18 05:32 06:34 08:07 O2 Delivery Room Air Room Air Room Air Intake and Output 07/19/18 07/19/18 07/20/18 15:00 23:00 07:00 Intake Total 100 ml 50 ml Output Total 0 ml Balance 100 ml 50 ml MAGALY BONILLA MD Jul 20, 2018 08:16
--- NOTE | 2018-07-20 09:09 | PDOC2 ---
CONSULT Date of Consult Date of Consult DATE: 07/20/18 TIME: 09:04 Reason for Consult Reason for Consult: abscess Referring Physician Referring Physician: ER Identification/Chief Complaint Chief Complaint erythema to axilla Source Source: Chart review, Patient History of Present Illness Reason for Visit: Reports swelling to right axilla about a week ago. Was seen yesterday in ER at [facility]--I&D done, however still having fevers and redness worse. She had not even started her abx she was discharged one before returning here. She does report a small swelling to Left axilla that occurred after removing a few hairs --it did have some pus drainage. Past Medical History Cardiovascular: No pertinent hx Pulmonary: No pertinent hx CENTRAL NERVOUS SYSTEM: Other GI: GERD Musculoskeletal: low back pain Past Surgical History Past Surgical History: Other Family History Family History: No Significant Social History No ALCOHOL: none Drugs: None Current Problem List Problem List Problems Medical Problems: (1) Sepsis Status: Acute Current Medications Current Medications Current Medications Piperacillin Sod/ Tazobactam Sod 4.5 gm/Sodium Chloride 100 ml @ 200 mls/hr 1X ONCE IV Last administered on 07/19/18at 11:30; Start 07/19/18 at 10:30; Stop 07/19/18 at 10:59; Status DC Vancomycin HCl (Vanco Per Pharmacy) 1 each 1X ONCE MC ; Start 07/19/18 at 10:30 ; Stop 07/19/18 at 10:31; Status UNV Sodium Chloride 1,000 ml @ 1,860 mls/hr Q33M IV Last administered on at 13:18; Start 07/19/18 at 10:27; Stop 07/19/18 at 11:27; Status DC Morphine Sulfate (Morphine Sulfate) 4 mg PRN Q15MIN PRN IV/SQ PAIN GREATER THAN 3/10 Last administered on 07/19/18at 10:54; Start 07/19/18 at 10:30; Stop at 10:29 Vancomycin HCl 1.5 gm/Sodium Chloride 500 ml @ 250 mls/hr 1X ONCE IV Last administered on 07/19/18at 12:36; Start 07/19/18 at 11:00; Stop 07/19/18 at 12:59 ; Status DC Acetaminophen (Tylenol) 1,000 mg 1X ONCE PO Last administered on 07/19/18 13: 03; Start 07/19/18 at 12:45; Stop 07/19/18 at 12:47; Status DC Hydromorphone HCl (Dilaudid) 1 mg 1X ONCE IV Last administered on 07/19/18at 14 :01; Start 07/19/18 at 13:30; Stop 07/19/18 at 13:32; Status DC Ondansetron HCl (Zofran) 4 mg PRN Q8HRS PRN IV NAUSEA/VOMITING; Start 07/19/18 at 14:30; Stop 07/20/18 at 14:29 Morphine Sulfate (Morphine Sulfate) 4 mg PRN Q2HR PRN IV PAIN Last administered on 07/19/18at 17:20; Start 07/19/18 at 14:30; Stop 07/20/18 at 14:29 Acetaminophen (Tylenol) 650 mg PRN Q4HRS PRN PO FEVER Last administered on 07/20 04:16; Start 07/19/18 at 14:30; Stop 07/20/18 at 14:29 Sodium Chloride 1,000 ml @ 125 mls/hr 1X ONCE IV Last administered on 18:22; Start 07/19/18 at 14:30; Stop 07/19/18 at 22:29; Status DC Pharmacy Consult (C.diff Med Screen By Rx) 1 each 1X ONCE MC ; Start 07/19/18 at 15:30; Stop 07/19/18 at 15:31; Status UNV Vancomycin HCl (Vanco Per Pharmacy) 1 each PRN DAILY PRN MC SEE COMMENTS Last administered on 07/19/18at 19:37; Start 07/19/18 at 15:45 Acetaminophen/ Hydrocodone Bitart (Lortab 10/325) 1 tab PRN Q6HRS PRN PO MODERATE PAIN Last administered on 07/20/18at 08:07; Start 07/19/18 at 15:45 Ondansetron HCl (Zofran Odt) 4 mg PRN Q8HRS PRN PO NAUSEA; Start 07/19/18 at 15 :45 Trazodone HCl (Desyrel) 100 mg HS PO Last administered on 07/19/18at 20:15; Start 07/19/18 at 21:00 Citalopram Hydrobromide (CeleXA) 10 mg DAILY PO Last administered on 07/20/18at 08:08; Start 07/19/18 at 16:30 Gabapentin (Neurontin) 600 mg TID PO Last administered on 07/20/18at 08:07; Start 07/19/18 at 21:00 Meloxicam (Mobic) 7.5 mg DAILY PO Last administered on 07/20/18at 08:08; Start 07/19/18 at 16:30 Non-Formulary Medication (Metronidazole (Flagyl)) 1 tab TID PO ; Start 07/19/18 at 21:00; Status UNV Pantoprazole Sodium (Protonix) 40 mg DAILYAC PO Last administered on 07/20/18at 08:07; Start 07/19/18 at 16:30 Alprazolam (Xanax) 1 mg PRN Q8HRS PRN PO ANXIETY / AGITATION Last administered on 07/19/18at 16:43; Start 07/19/18 at 15:45 Piperacillin Sod/ Tazobactam Sod (Zosyn Per Pharmacy) 1 each PRN DAILY PRN MC SEE COMMENTS; Start 07/19/18 at 16:00 Vancomycin HCl 1 gm/Sodium Chloride 250 ml @ 250 mls/hr Q24H IV ; Start at 12:30 Vancomycin HCl (Vancomycin Trough Level) 1 each 1X ONCE MC ; Start 07/21/18 at 12:00; Stop 07/21/18 at 12:01 Oxycodone HCl (Roxicodone) 20 mg PRN Q6HRS PRN PO SEVERE PAIN Last administered on 07/20/18at 05:32; Start 07/19/18 at 16:00 Piperacillin Sod/ Tazobactam Sod 2.25 gm/Sodium Chloride 50 ml @ 100 mls/hr Q6HRS IV Last administered on 07/20/18at 05:27; Start 07/19/18 at 18:00 Sodium Chloride 1,000 ml @ 1,000 mls/hr 1X ONCE IV Last administered on at 16:44; Start 07/19/18 at 16:15; Stop 07/19/18 at 17:14; Status DC Potassium Chloride (Klor-Con) 40 meq 1X ONCE PO Last administered on at 16:43; Start 07/19/18 at 16:15; Stop 07/19/18 at 16:28; Status DC Docusate Sodium (Colace) 100 mg DAILY PO Last administered on 07/20/18at 08:08; Start 07/20/18 at 09:00 Polyethylene Glycol (miraLAX PACKET) 17 gm PRN DAILY PRN PO CONSTIPATION; Start 07/19/18 at 16:15 Active Scripts Active Zofran Odt (Ondansetron) 4 Mg Tab.rapdis 1 Tab SL Q8HRS PRN [place] 5-325 Tablet (Acetaminophen/Hydrocodone Bitart) 1 Each Tablet 1 Tab PO PRN Q6HRS PRN Flagyl (Metronidazole) 500 Mg Tablet 1 Tab PO TID Cipro (Ciprofloxacin Hcl) 500 Mg Tablet 1 Tab PO BID Reported Meloxicam 7.5 Mg Tablet 1 Tab PO DAILY Escitalopram Oxalate 5 Mg Tablet 5 Mg PO DAILY Hydrocodone-Apap 10-325 (Hydrocodone Bit/Acetaminophen) 1 Tab Tablet 1 Tab PO PRN Q4HRS PRN Omeprazole 20 Mg Capsule.dr 20 Mg PO DAILY Xanax (Alprazolam) 2 Mg Tablet 1 Tab PO BID Hydrocodone-Apap 10-325 (Hydrocodone Bit/Acetaminophen) 1 Each Tablet 1 Tab PO PRN Q6HRS PRN Trazodone Hcl 100 Mg Tablet 100 Mg PO HS Gabapentin 600 Mg Tablet 600 Mg PO TID Allergies Allergies: Coded Allergies: codeine (Verified Adverse Reaction, Intermediate, HALLUCINATES, 07/19/18) ROS General: YES: Chills, Other (fevers) PSYCHOLOGICAL ROS: No: Anxiety, Depression Eyes: No Blurry vision, No Double vision HEENT: No: Heacaches, Sore Throat Hematological and Lymphatic: No: Bleeding Problems, Blood Clots Respiratory: No: Cough, Shortness of breath Cardiovascular: No Chest Pain, No Palpitations Gastrointestinal: No Nausea, No Vomiting Genitourinary: No Dysuria, No Hematuria Musculoskeletal: Yes Muscle Pain; No Joint Pain Neurological: No Confusion, No Numbness/Tingling Skin: Yes Other (see hpi) Physical Exam General: Alert, Oriented X3, Cooperative, No acute distress HEENT: PERRLA, Mucous membr. moist/pink Lungs: Clear to auscultation, Normal air movement Heart: Regular rate, Normal S1, Normal S2, No murmurs Abdomen: Soft, No tenderness Extremities: No clubbing, No cyanosis Skin: Other (right axillary area with erythema, no induration, small incision with scant drainage, left axilla small lump, no erythema ) Vitals VITALS Vital Signs Date Time Temp Pulse Resp B/P (MAP) Pulse Ox O2 Delivery O2 Flow Rate FiO2 07/20/18 08:07 Room Air 07/20/18 07:00 97.6 73 18 81/39 (53) 93 97.6 07/20/18 03:00 2.0 Labs Labs Laboratory Tests Test 07/19/18 10:32 07/19/18 14:25 07/19/18 18:40 07/20/18 04:15 White Blood Count 9.3 x10^3/uL (4.0-11.0) 5.9 x10^3/uL (4.0-11.0) Red Blood Count 3.78 x10^6/uL (3.50-5.40) 3.04 x10^6/uL (3.50-5.40) Hemoglobin 11.9 g/dL (12.0-15.5) 9.7 g/dL (12.0-15.5) Hematocrit 35.3 % (36.0-47.0) 29.1 % (36.0-47.0) Mean Corpuscular Volume 94 fL (79-100) 96 fL (79-100) Mean Corpuscular Hemoglobin 32 pg (25-35) 32 pg (25-35) Mean Corpuscular Hemoglobin Concent 34 g/dL (31-37) 33 g/dL (31-37) Red Cell Distribution Width 13.5 % (11.5-14.5) 14.0 % (11.5-14.5) Platelet Count 156 x10^3/uL (140-400) 132 x10^3/uL (140-400) Neutrophils (%) (Auto) 85 % (31-73) 79 % (31-73) Lymphocytes (%) (Auto) 6 % (24-48) 11 % (24-48) Monocytes (%) (Auto) 9 % (0-9) 8 % (0-9) Eosinophils (%) (Auto) 0 % (0-3) 1 % (0-3) Basophils (%) (Auto) 0 % (0-3) 0 % (0-3) Neutrophils # (Auto) 7.9 x10^3uL (1.8-7.7) 4.7 x10^3uL (1.8-7.7) Lymphocytes # (Auto) 0.6 x10^3/uL (1.0-4.8) 0.7 x10^3/uL (1.0-4.8) Monocytes # (Auto) 0.9 x10^3/uL (0.0-1.1) 0.5 x10^3/uL (0.0-1.1) Eosinophils # (Auto) 0.0 x10^3/uL (0.0-0.7) 0.1 x10^3/uL (0.0-0.7) Basophils # (Auto) 0.0 x10^3/uL (0.0-0.2) 0.0 x10^3/uL (0.0-0.2) Erythrocyte Sedimentation Rate 55 (0-25) Sodium Level 134 mmol/L (136-145) 138 mmol/L (136-145) Potassium Level 3.4 mmol/L (3.5-5.1) 4.4 mmol/L (3.5-5.1) Chloride Level 97 mmol/L (98-107) 105 mmol/L (98-107) Carbon Dioxide Level 27 mmol/L (21-32) 25 mmol/L (21-32) Anion Gap 10 (6-14) 8 (6-14) Blood Urea Nitrogen 21 mg/dL (7-20) 16 mg/dL (7-20) Creatinine 1.5 mg/dL (0.6-1.0) 1.1 mg/dL (0.6-1.0) Estimated GFR (Cockcroft-Gault) 34.1 48.8 BUN/Creatinine Ratio 14 (6-20) 15 (6-20) Glucose Level 141 mg/dL (70-99) 107 mg/dL (70-99) Lactic Acid Level 1.1 mmol/L (0.4-2.0) 1.1 mmol/L (0.4-2.0) Calcium Level 8.9 mg/dL (8.5-10.1) 7.8 mg/dL (8.5-10.1) Total Bilirubin 0.6 mg/dL (0.2-1.0) 0.5 mg/dL (0.2-1.0) Aspartate Amino Transf (AST/SGOT) 13 U/L (15-37) 13 U/L (15-37) Alanine Aminotransferase (ALT/SGPT) 29 U/L (14-59) 23 U/L (14-59) Alkaline Phosphatase 85 U/L (46-116) 67 U/L (46-116) C-Reactive Protein, Quantitative 408.6 mg/L (0-3.3) Total Protein 6.5 g/dL (6.4-8.2) 5.3 g/dL (6.4-8.2) Albumin 2.9 g/dL (3.4-5.0) 2.0 g/dL (3.4-5.0) Albumin/Globulin Ratio 0.8 (1.0-1.7) 0.6 (1.0-1.7) Procalcitonin 7.98 ng/mL (0.00-0.10) Urine Collection Type Unknown Urine Color Yellow Urine Clarity Clear Urine pH 5.5 Urine Specific [place] 1.015 Urine Protein 30 mg/dL (NEG-TRACE) Urine Glucose (UA) Negative mg/dL (NEG) Urine Ketones (Stick) Negative mg/dL (NEG) Urine Blood Negative (NEG) Urine Nitrite Negative (NEG) Urine Bilirubin Negative (NEG) Urine Urobilinogen Dipstick 0.2 mg/dL (0.2 mg/dL) Urine Leukocyte Esterase Negative (NEG) Urine RBC Occ /HPF (0-2) Urine WBC 1-4 /HPF (0-4) Urine Squamous Epithelial Cells Few /LPF Urine Amorphous Sediment Present /HPF Urine Bacteria 0 /HPF (0-FEW) Laboratory Tests Test 07/19/18 10:32 07/19/18 14:25 07/19/18 18:40 07/20/18 04:15 White Blood Count 9.3 x10^3/uL (4.0-11.0) 5.9 x10^3/uL (4.0-11.0) Red Blood Count 3.78 x10^6/uL (3.50-5.40) 3.04 x10^6/uL (3.50-5.40) Hemoglobin 11.9 g/dL (12.0-15.5) 9.7 g/dL (12.0-15.5) Hematocrit 35.3 % (36.0-47.0) 29.1 % (36.0-47.0) Mean Corpuscular Volume 94 fL (79-100) 96 fL (79-100) Mean Corpuscular Hemoglobin 32 pg (25-35) 32 pg (25-35) Mean Corpuscular Hemoglobin Concent 34 g/dL (31-37) 33 g/dL (31-37) Red Cell Distribution Width 13.5 % (11.5-14.5) 14.0 % (11.5-14.5) Platelet Count 156 x10^3/uL (140-400) 132 x10^3/uL (140-400) Neutrophils (%) (Auto) 85 % (31-73) 79 % (31-73) Lymphocytes (%) (Auto) 6 % (24-48) 11 % (24-48) Monocytes (%) (Auto) 9 % (0-9) 8 % (0-9) Eosinophils (%) (Auto) 0 % (0-3) 1 % (0-3) Basophils (%) (Auto) 0 % (0-3) 0 % (0-3) Neutrophils # (Auto) 7.9 x10^3uL (1.8-7.7) 4.7 x10^3uL (1.8-7.7) Lymphocytes # (Auto) 0.6 x10^3/uL (1.0-4.8) 0.7 x10^3/uL (1.0-4.8) Monocytes # (Auto) 0.9 x10^3/uL (0.0-1.1) 0.5 x10^3/uL (0.0-1.1) Eosinophils # (Auto) 0.0 x10^3/uL (0.0-0.7) 0.1 x10^3/uL (0.0-0.7) Basophils # (Auto) 0.0 x10^3/uL (0.0-0.2) 0.0 x10^3/uL (0.0-0.2) Erythrocyte Sedimentation Rate 55 (0-25) Sodium Level 134 mmol/L (136-145) 138 mmol/L (136-145) Potassium Level 3.4 mmol/L (3.5-5.1) 4.4 mmol/L (3.5-5.1) Chloride Level 97 mmol/L (98-107) 105 mmol/L (98-107) Carbon Dioxide Level 27 mmol/L (21-32) 25 mmol/L (21-32) Anion Gap 10 (6-14) 8 (6-14) Blood Urea Nitrogen 21 mg/dL (7-20) 16 mg/dL (7-20) Creatinine 1.5 mg/dL (0.6-1.0) 1.1 mg/dL (0.6-1.0) Estimated GFR (Cockcroft-Gault) 34.1 48.8 BUN/Creatinine Ratio 14 (6-20) 15 (6-20) Glucose Level 141 mg/dL (70-99) 107 mg/dL (70-99) Lactic Acid Level 1.1 mmol/L (0.4-2.0) 1.1 mmol/L (0.4-2.0) Calcium Level 8.9 mg/dL (8.5-10.1) 7.8 mg/dL (8.5-10.1) Total Bilirubin 0.6 mg/dL (0.2-1.0) 0.5 mg/dL (0.2-1.0) Aspartate Amino Transf (AST/SGOT) 13 U/L (15-37) 13 U/L (15-37) Alanine Aminotransferase (ALT/SGPT) 29 U/L (14-59) 23 U/L (14-59) Alkaline Phosphatase 85 U/L (46-116) 67 U/L (46-116) C-Reactive Protein, Quantitative 408.6 mg/L (0-3.3) Total Protein 6.5 g/dL (6.4-8.2) 5.3 g/dL (6.4-8.2) Albumin 2.9 g/dL (3.4-5.0) 2.0 g/dL (3.4-5.0) Albumin/Globulin Ratio 0.8 (1.0-1.7) 0.6 (1.0-1.7) Procalcitonin 7.98 ng/mL (0.00-0.10) Urine Collection Type Unknown Urine Color Yellow Urine Clarity Clear Urine pH 5.5 Urine Specific [place] 1.015 Urine Protein 30 mg/dL (NEG-TRACE) Urine Glucose (UA) Negative mg/dL (NEG) Urine Ketones (Stick) Negative mg/dL (NEG) Urine Blood Negative (NEG) Urine Nitrite Negative (NEG) Urine Bilirubin Negative (NEG) Urine Urobilinogen Dipstick 0.2 mg/dL (0.2 mg/dL) Urine Leukocyte Esterase Negative (NEG) Urine RBC Occ /HPF (0-2) Urine WBC 1-4 /HPF (0-4) Urine Squamous Epithelial Cells Few /LPF Urine Amorphous Sediment Present /HPF Urine Bacteria 0 /HPF (0-FEW) Assessment/Plan Assessment/Plan US noted cellulitis to right axilla, no drainable fluid collection Left axilla very small fluid collection continue abx, observation CHERYL GARCIA APRN Jul 20, 2018 09:09
[2018-07-20 10:05] LABS: INFLUENZA A PATIENT NEGATIVE (NEGATIVE); INFLUENZA B PATIENT NEGATIVE (NEGATIVE)
[2018-07-20] MEDS: IV RINGERS,LACTATED 1000ML 1,000 ML IV SCH ×2 (10:13→19:30)
--- NOTE | 2018-07-20 11:18 | NUR ---
SW reviewed pt's medical chart and evaluated for potential dc needs. Pt is from home with family and admitted for axilla abscess. PT/OT has not been ordered. There are no dc needs at this time. SW will be available if pt's condition changes and dc planning is required.
[2018-07-20] MEDS: MORPHINE SULFATE 4 MG/ML VIAL. IV PRN ×2 (12:05→15:36)
[2018-07-20] MEDS ORDERED: VANCOMYCIN 1 GM in IV NORMAL SALINE 250ML 250 ML IV SCH (12:30)
[2018-07-20] MEDS ORDERED: LIDOCAINE 1%/EPI 1:100,000 20 ML VIAL. ONE (13:46)
[2018-07-20] MEDS ORDERED: HEPARIN for IV BOLUS 10,000 UNIT/10 ML VIAL. ONE (13:46)
[2018-07-20] MEDS ORDERED: HEPARIN PF 500 UNIT/5 ML DISP.SYRIN. IV ONE ×2 (13:53→14:47)
[2018-07-20] MEDS ORDERED: fentaNYL PF VIAL 100 MCG/2 ML VIAL ONE (13:54)
[2018-07-20] MEDS ORDERED: MIDAZOLAM HCL/PF 2 MG/2 ML VIAL. ONE (13:54)
[2018-07-20] MEDS ORDERED: LIDOCAINE 1%/EPI 1:100,000 20 ML VIAL. IJ ONE (14:45)
[2018-07-20] MEDS ORDERED: fentaNYL PF VIAL 100 MCG/2 ML VIAL IV ONE (14:45)
[2018-07-20] MEDS ORDERED: MIDAZOLAM HCL/PF 2 MG/2 ML VIAL. IV ONE (14:45)
--- NOTE | 2018-07-20 15:22 | RAD ---
Procedure: Tunnel Central venous line placement Clinical Indication: 73-year-old with infection requiring long-term central venous access Sedation: Local anesthesia only Antibiotics: Patient is on IV systemic antibiotic therapy Exposure: Kerma-Area Product: 1 Gycm2 Sterility: All elements of maximal sterile barrier technique including the use of a cap, mask, sterile gown, sterile gloves, large sterile sheet, appropriate hand hygiene, and 2% chlorhexidine for cutaneous antisepsis (or acceptable alternative antiseptic per current guidelines) were followed for this procedure. If ultrasound guidance was utilized, sterile ultrasound techniques were followed including use of a sterile probe cover. Consent: The procedure was explained in its entirety to the patient or the patients designated underwriting sales representative by a member of the treatment team, including a discussion of the risks, benefits and commonly accepted alternatives to the procedure, as well as the expected consequences of no therapy whatsoever. Discussion of the risks included, but was not limited to, those that are most frequent and those that are rare but possibly severe or life-threatening, as well as the possibility of unforeseen complications. Technique and Findings: Following informed consent, the patient was prepped and draped in usual sterile fashion. 1% lidocaine was used to achieve local anesthesia over the right neck. A small dermatotomy was made. Under ultrasound guidance, a 21-gauge micropuncture needle was used to gain access to the right internal jugular vein which was seen to be patent and compressible. A Hardcopy ultrasound image was recorded. The needle was exchanged over wire for a peel-away sheath. The right anterior chest wall was copiously anesthetized with 1% lidocaine plus epinephrine. A small dermatotomy was made. A double lumen power injectable cuffed venous line was then tunneled subcutaneously towards the peel-away sheath and deployed under fluoroscopic guidance such that the distal tip resided at the cavoatrial junction. Both lumens flushed and aspirated with ease. The catheter was sutured to the skin. Dermabond was used to close the neck dermatotomy. Complications: No immediate Impression: 1. Ultrasound and fluoroscopic guided placement of a tunneled power injectable central venous catheter as described
--- NOTE | 2018-07-20 15:33 | NUR ---
Wound Care: Consult to eval and treat for abscesses to bilateral axilla. Per pt, her daughter plucked 2 hairs from her left axilla prior to admission, and purulant drainage came out of the abscess. At this time the area is closed with no scab, slight purple discoloration with marble sized induration, and no pain. R axilla has a small incision from her visit to the doctor's office prior to admission. Upon palpation, large amount of pink purulent drainage was expressed from opening (est. 10-15cc). Packed small amount of gauze packing into opening, covered with ABD and tape. Plan to follow up on 07/23/18. No other open areas present on head to toe inspection.
[2018-07-20] MEDS: VANCOMYCIN PER PHARMACY MC PRN (16:49)
[2018-07-20] MEDS: PIPERACILLIN/TAZOBACTAM 3.375 GM in IV NORMAL SALINE 50ML 50 ML IV SCH ×2 (18:18→23:54)
[2018-07-20] MEDS: ALPRAZolam 0.5 MG TABLET PO PRN (20:09)
[2018-07-20] MEDS: LACTOBACILLUS RHAMNOSUS GG 1 CAPSULE. PO SCH (20:09)
[2018-07-20] MEDS: traZODone 100 MG TABLET. PO SCH (20:09)
[2018-07-21] MEDS: HYDROcodone/APAP 10/325 1 TAB TABLET PO PRN ×3 (00:34→15:47)
[2018-07-21 03:00] VITALS: BP 95/49
[2018-07-21] MEDS: PIPERACILLIN/TAZOBACTAM 3.375 GM in IV NORMAL SALINE 50ML 50 ML IV SCH ×3 (05:10→20:20)
[2018-07-21] MEDS: IV RINGERS,LACTATED 1000ML 1,000 ML IV SCH ×2 (05:10→15:49)
[2018-07-21 07:00] VITALS: BP 138/73
[2018-07-21] MEDS: PANTOPRAZOLE 40 MG TABLET.DR. PO SCH (07:56)
--- NOTE | 2018-07-21 08:57 | PDOC ---
SURGICAL PROGRESS NOTE Subjective Pt with c/o pain right axilla, but improved, denies left axilla pain Vital Signs Vital Signs Date Time Temp Pulse Resp B/P (MAP) Pulse Ox O2 Delivery O2 Flow Rate FiO2 07/21/18 07:56 16 94 Room Air 07/21/18 03:00 98.1 77 95/49 (64) 98.1 07/21/18 01:31 2.0 I&O Intake and Output 07/21/18 06:59 Intake Total 1020 ml Output Total 500 ml Balance 520 ml Intake Oral 1020 ml Output Urine Total 500 ml # Voids 1 General: Alert, Oriented X3, Cooperative, No acute distress Skin: Other (right axilla with some erythema, wound with purulent drainage) Labs Laboratory Tests Test 07/19/18 10:32 07/19/18 14:25 07/19/18 18:40 07/20/18 04:15 White Blood Count 9.3 x10^3/uL (4.0-11.0) 5.9 x10^3/uL (4.0-11.0) Red Blood Count 3.78 x10^6/uL (3.50-5.40) 3.04 x10^6/uL (3.50-5.40) Hemoglobin 11.9 g/dL (12.0-15.5) 9.7 g/dL (12.0-15.5) Hematocrit 35.3 % (36.0-47.0) 29.1 % (36.0-47.0) Mean Corpuscular Volume 94 fL (79-100) 96 fL (79-100) Mean Corpuscular Hemoglobin 32 pg (25-35) 32 pg (25-35) Mean Corpuscular Hemoglobin Concent 34 g/dL (31-37) 33 g/dL (31-37) Red Cell Distribution Width 13.5 % (11.5-14.5) 14.0 % (11.5-14.5) Platelet Count 156 x10^3/uL (140-400) 132 x10^3/uL (140-400) Neutrophils (%) (Auto) 85 % (31-73) 79 % (31-73) Lymphocytes (%) (Auto) 6 % (24-48) 11 % (24-48) Monocytes (%) (Auto) 9 % (0-9) 8 % (0-9) Eosinophils (%) (Auto) 0 % (0-3) 1 % (0-3) Basophils (%) (Auto) 0 % (0-3) 0 % (0-3) Neutrophils # (Auto) 7.9 x10^3uL (1.8-7.7) 4.7 x10^3uL (1.8-7.7) Lymphocytes # (Auto) 0.6 x10^3/uL (1.0-4.8) 0.7 x10^3/uL (1.0-4.8) Monocytes # (Auto) 0.9 x10^3/uL (0.0-1.1) 0.5 x10^3/uL (0.0-1.1) Eosinophils # (Auto) 0.0 x10^3/uL (0.0-0.7) 0.1 x10^3/uL (0.0-0.7) Basophils # (Auto) 0.0 x10^3/uL (0.0-0.2) 0.0 x10^3/uL (0.0-0.2) Erythrocyte Sedimentation Rate 55 (0-25) Sodium Level 134 mmol/L (136-145) 138 mmol/L (136-145) Potassium Level 3.4 mmol/L (3.5-5.1) 4.4 mmol/L (3.5-5.1) Chloride Level 97 mmol/L (98-107) 105 mmol/L (98-107) Carbon Dioxide Level 27 mmol/L (21-32) 25 mmol/L (21-32) Anion Gap 10 (6-14) 8 (6-14) Blood Urea Nitrogen 21 mg/dL (7-20) 16 mg/dL (7-20) Creatinine 1.5 mg/dL (0.6-1.0) 1.1 mg/dL (0.6-1.0) Estimated GFR (Cockcroft-Gault) 34.1 48.8 BUN/Creatinine Ratio 14 (6-20) 15 (6-20) Glucose Level 141 mg/dL (70-99) 107 mg/dL (70-99) Lactic Acid Level 1.1 mmol/L (0.4-2.0) 1.1 mmol/L (0.4-2.0) Calcium Level 8.9 mg/dL (8.5-10.1) 7.8 mg/dL (8.5-10.1) Total Bilirubin 0.6 mg/dL (0.2-1.0) 0.5 mg/dL (0.2-1.0) Aspartate Amino Transf (AST/SGOT) 13 U/L (15-37) 13 U/L (15-37) Alanine Aminotransferase (ALT/SGPT) 29 U/L (14-59) 23 U/L (14-59) Alkaline Phosphatase 85 U/L (46-116) 67 U/L (46-116) C-Reactive Protein, Quantitative 408.6 mg/L (0-3.3) Total Protein 6.5 g/dL (6.4-8.2) 5.3 g/dL (6.4-8.2) Albumin 2.9 g/dL (3.4-5.0) 2.0 g/dL (3.4-5.0) Albumin/Globulin Ratio 0.8 (1.0-1.7) 0.6 (1.0-1.7) Procalcitonin 7.98 ng/mL (0.00-0.10) Urine Collection Type Unknown Urine Color Yellow Urine Clarity Clear Urine pH 5.5 Urine Specific [place] 1.015 Urine Protein 30 mg/dL (NEG-TRACE) Urine Glucose (UA) Negative mg/dL (NEG) Urine Ketones (Stick) Negative mg/dL (NEG) Urine Blood Negative (NEG) Urine Nitrite Negative (NEG) Urine Bilirubin Negative (NEG) Urine Urobilinogen Dipstick 0.2 mg/dL (0.2 mg/dL) Urine Leukocyte Esterase Negative (NEG) Urine RBC Occ /HPF (0-2) Urine WBC 1-4 /HPF (0-4) Urine Squamous Epithelial Cells Few /LPF Urine Amorphous Sediment Present /HPF Urine Bacteria 0 /HPF (0-FEW) Test 07/20/18 09:20 Influenza Type A Antigen Negative (NEGATIVE) Influenza Type B Antigen Negative (NEGATIVE) Laboratory Tests Test 07/20/18 09:20 Influenza Type A Antigen Negative (NEGATIVE) Influenza Type B Antigen Negative (NEGATIVE) Problem List Problems Medical Problems: (1) Sepsis Status: Acute Assessment/Plan right axilla abscess, s/p drainage at outside facility appears to be draining well with improved symptoms cont dressing changes chlorhexidine showers JEANNA MARTINEZ MD Jul 21, 2018 08:57
[2018-07-21] MEDS: CITALOPRAM 10 MG TABLET. PO SCH (09:33)
[2018-07-21] MEDS: MELOXICAM 7.5 MG TABLET PO SCH (09:33)
[2018-07-21] MEDS: LACTOBACILLUS RHAMNOSUS GG 1 CAPSULE. PO SCH ×2 (09:33→20:45)
--- NOTE | 2018-07-21 09:33 | PDOC ---
PROGRESS NOTES Chief Complaint Chief Complaint Bilateral Axillary cellulitis Left axillary abscess Pain, acute on chronic Chronic back pain, takes hydro 10 PRN for chronic back pain, has hardware Dog scratch Severe sepsis BRANDON - vasomotor nephropathy Hypokalemia History of Present Illness History of Present Illness 73 year old female admit from ER with bilateral axilla pain and swelling, She has swelling and likely abscesses that began a week ago. Patient states she was seen by her PCP 07/18 and both axilla were drained. She states the next morning she woke up and she had redness on the right axilla. PO augmentin started 07/18, not better, came to ED, had wound and blood cultures drawn. Seen by surgery, bilateral US showed cellulitis on right axilla and small abscess in left. 07/20: Still with fever overnight. Lost left peripheral IV access very quickly and has dog scratch on her right arm (likely source). Flu test still pending. BP persistently low despite 2 bolus and WBC count going up. On further review she notes she broke up a dog fight about 6 days ago and was scratched multiple times, these are apparent on exam today. Afebrile since 0300 on 07/20. Feeling improved with better drainage on the right with saturated dressing. PICC yesterday per IR due to dog scratches on her arms. Wound culture gram stain shows few GPC, looks like staph Plan: Chlorhexidine bath, check MRSA PCR S/p PICC for access and dual antibiotics, frequent blood draws, may need pressors if another bolus can't get her BP up Appreciate surgery recs Zosyn on for capnocytophagia coverage with dog encounter. Last tetanus was 1 year ago. Dogs up to date on vaccines. Cont Vanco as well with GPC May need to consult ID, will await culture and sensitivity as she is improving F/u on flu test, still pending from admit Aggressive IV fluids Back off on her pain meds and xanax Vitals Vitals Vital Signs Date Time Temp Pulse Resp B/P (MAP) Pulse Ox O2 Delivery O2 Flow Rate FiO2 07/21/18 07:56 16 94 Room Air 07/21/18 07:00 97.9 95 138/73 (94) 97.9 07/21/18 01:31 2.0 Physical Exam General: Alert, Oriented X3, Cooperative, No acute distress Heart: Regular rate, Normal S1, Normal S2, No murmurs Lungs: Clear Abdomen: Soft, No tenderness Extremities: No clubbing, No cyanosis Skin: Other (right axilla with some erythema, wound with purulent drainage) Assessment and Plan Assessmemt and Plan Problems Medical Problems: (1) Sepsis Status: Acute Comment Review of Relevant I have reviewed the following items amber (where applicable) has been applied. Labs Laboratory Tests Test 07/19/18 10:32 07/19/18 14:25 07/19/18 18:40 07/20/18 04:15 White Blood Count 9.3 x10^3/uL (4.0-11.0) 5.9 x10^3/uL (4.0-11.0) Red Blood Count 3.78 x10^6/uL (3.50-5.40) 3.04 x10^6/uL (3.50-5.40) Hemoglobin 11.9 g/dL (12.0-15.5) 9.7 g/dL (12.0-15.5) Hematocrit 35.3 % (36.0-47.0) 29.1 % (36.0-47.0) Mean Corpuscular Volume 94 fL (79-100) 96 fL (79-100) Mean Corpuscular Hemoglobin 32 pg (25-35) 32 pg (25-35) Mean Corpuscular Hemoglobin Concent 34 g/dL (31-37) 33 g/dL (31-37) Red Cell Distribution Width 13.5 % (11.5-14.5) 14.0 % (11.5-14.5) Platelet Count 156 x10^3/uL (140-400) 132 x10^3/uL (140-400) Neutrophils (%) (Auto) 85 % (31-73) 79 % (31-73) Lymphocytes (%) (Auto) 6 % (24-48) 11 % (24-48) Monocytes (%) (Auto) 9 % (0-9) 8 % (0-9) Eosinophils (%) (Auto) 0 % (0-3) 1 % (0-3) Basophils (%) (Auto) 0 % (0-3) 0 % (0-3) Neutrophils # (Auto) 7.9 x10^3uL (1.8-7.7) 4.7 x10^3uL (1.8-7.7) Lymphocytes # (Auto) 0.6 x10^3/uL (1.0-4.8) 0.7 x10^3/uL (1.0-4.8) Monocytes # (Auto) 0.9 x10^3/uL (0.0-1.1) 0.5 x10^3/uL (0.0-1.1) Eosinophils # (Auto) 0.0 x10^3/uL (0.0-0.7) 0.1 x10^3/uL (0.0-0.7) Basophils # (Auto) 0.0 x10^3/uL (0.0-0.2) 0.0 x10^3/uL (0.0-0.2) Erythrocyte Sedimentation Rate 55 (0-25) Sodium Level 134 mmol/L (136-145) 138 mmol/L (136-145) Potassium Level 3.4 mmol/L (3.5-5.1) 4.4 mmol/L (3.5-5.1) Chloride Level 97 mmol/L (98-107) 105 mmol/L (98-107) Carbon Dioxide Level 27 mmol/L (21-32) 25 mmol/L (21-32) Anion Gap 10 (6-14) 8 (6-14) Blood Urea Nitrogen 21 mg/dL (7-20) 16 mg/dL (7-20) Creatinine 1.5 mg/dL (0.6-1.0) 1.1 mg/dL (0.6-1.0) Estimated GFR (Cockcroft-Gault) 34.1 48.8 BUN/Creatinine Ratio 14 (6-20) 15 (6-20) Glucose Level 141 mg/dL (70-99) 107 mg/dL (70-99) Lactic Acid Level 1.1 mmol/L (0.4-2.0) 1.1 mmol/L (0.4-2.0) Calcium Level 8.9 mg/dL (8.5-10.1) 7.8 mg/dL (8.5-10.1) Total Bilirubin 0.6 mg/dL (0.2-1.0) 0.5 mg/dL (0.2-1.0) Aspartate Amino Transf (AST/SGOT) 13 U/L (15-37) 13 U/L (15-37) Alanine Aminotransferase (ALT/SGPT) 29 U/L (14-59) 23 U/L (14-59) Alkaline Phosphatase 85 U/L (46-116) 67 U/L (46-116) C-Reactive Protein, Quantitative 408.6 mg/L (0-3.3) Total Protein 6.5 g/dL (6.4-8.2) 5.3 g/dL (6.4-8.2) Albumin 2.9 g/dL (3.4-5.0) 2.0 g/dL (3.4-5.0) Albumin/Globulin Ratio 0.8 (1.0-1.7) 0.6 (1.0-1.7) Procalcitonin 7.98 ng/mL (0.00-0.10) Urine Collection Type Unknown Urine Color Yellow Urine Clarity Clear Urine pH 5.5 Urine Specific [place] 1.015 Urine Protein 30 mg/dL (NEG-TRACE) Urine Glucose (UA) Negative mg/dL (NEG) Urine Ketones (Stick) Negative mg/dL (NEG) Urine Blood Negative (NEG) Urine Nitrite Negative (NEG) Urine Bilirubin Negative (NEG) Urine Urobilinogen Dipstick 0.2 mg/dL (0.2 mg/dL) Urine Leukocyte Esterase Negative (NEG) Urine RBC Occ /HPF (0-2) Urine WBC 1-4 /HPF (0-4) Urine Squamous Epithelial Cells Few /LPF Urine Amorphous Sediment Present /HPF Urine Bacteria 0 /HPF (0-FEW) Test 07/20/18 09:20 Influenza Type A Antigen Negative (NEGATIVE) Influenza Type B Antigen Negative (NEGATIVE) Microbiology 07/19/18 Blood Culture - Preliminary, Resulted NO GROWTH AFTER 1 DAY 07/19/18 Anaerobic/Aerobic Culture, Resulted Pending 07/19/18 Anaerobic Culture Result 1 (JACKIE), Resulted Pending 07/19/18 Aerobic Culture, Resulted Pending 07/19/18 Aerobic Culture Result 1 (JACKIE), Resulted Pending 07/19/18 Gram Stain - Final, Resulted 07/19/18 Gram Stain Result 1 (JACKIE) - Final, Resulted 07/19/18 Gram Stain Result 2 (JACKIE) - Final, Resulted Medications Current Medications Piperacillin Sod/ Tazobactam Sod 4.5 gm/Sodium Chloride 100 ml @ 200 mls/hr 1X ONCE IV Last administered on 07/19/18at 11:30; Start 07/19/18 at 10:30; Stop 07/19/18 at 10:59; Status DC Vancomycin HCl (Vanco Per Pharmacy) 1 each 1X ONCE MC ; Start 07/19/18 at 10:30 ; Stop 07/19/18 at 10:31; Status UNV Sodium Chloride 1,000 ml @ 1,860 mls/hr Q33M IV Last administered on at 13:18; Start 07/19/18 at 10:27; Stop 07/19/18 at 11:27; Status DC Morphine Sulfate (Morphine Sulfate) 4 mg PRN Q15MIN PRN IV/SQ PAIN GREATER THAN 3/10 Last administered on 07/19/18at 10:54; Start 07/19/18 at 10:30; Stop at 10:29; Status DC Vancomycin HCl 1.5 gm/Sodium Chloride 500 ml @ 250 mls/hr 1X ONCE IV Last administered on 07/19/18at 12:36; Start 07/19/18 at 11:00; Stop 07/19/18 at 12:59 ; Status DC Acetaminophen (Tylenol) 1,000 mg 1X ONCE PO Last administered on 07/19/18at 13: 03; Start 07/19/18 at 12:45; Stop 07/19/18 at 12:47; Status DC Hydromorphone HCl (Dilaudid) 1 mg 1X ONCE IV Last administered on 07/19/18at 14 :01; Start 07/19/18 at 13:30; Stop 07/19/18 at 13:32; Status DC Ondansetron HCl (Zofran) 4 mg PRN Q8HRS PRN IV NAUSEA/VOMITING; Start 07/19/18 at 14:30; Stop 07/20/18 at 14:29; Status DC Morphine Sulfate (Morphine Sulfate) 4 mg PRN Q2HR PRN IV PAIN Last administered on 07/19/18at 17:20; Start 07/19/18 at 14:30; Stop 07/20/18 at 14:29 ; Status DC Acetaminophen (Tylenol) 650 mg PRN Q4HRS PRN PO FEVER Last administered on 07/20 04:16; Start 07/19/18 at 14:30; Stop 07/20/18 at 14:29; Status DC Sodium Chloride 1,000 ml @ 125 mls/hr 1X ONCE IV Last administered on 18:22; Start 07/19/18 at 14:30; Stop 07/19/18 at 22:29; Status DC Pharmacy Consult (C.diff Med Screen By Rx) 1 each 1X ONCE MC ; Start 07/19/18 at 15:30; Stop 07/19/18 at 15:31; Status UNV Vancomycin HCl (Vanco Per Pharmacy) 1 each PRN DAILY PRN MC SEE COMMENTS Last administered on 07/20/18 16:49; Start 07/19/18 at 15:45 Acetaminophen/ Hydrocodone Bitart (Lortab 10/325) 1 tab PRN Q6HRS PRN PO MODERATE PAIN Last administered on 07/21/18 07:56; Start 07/19/18 at 15:45 Ondansetron HCl (Zofran Odt) 4 mg PRN Q8HRS PRN PO NAUSEA; Start 07/19/18 at 15 :45 Trazodone HCl (Desyrel) 100 mg HS PO Last administered on 07/20/18 20:09; Start 07/19/18 at 21:00 Citalopram Hydrobromide (CeleXA) 10 mg DAILY PO Last administered on 07/20/18 08:08; Start 07/19/18 at 16:30 Gabapentin (Neurontin) 600 mg TID PO Last administered on 07/20/18 20:09; Start 07/19/18 at 21:00 Meloxicam (Mobic) 7.5 mg DAILY PO Last administered on 07/20/18 08:08; Start 07/19/18 at 16:30 Non-Formulary Medication (Metronidazole (Flagyl)) 1 tab TID PO ; Start 07/19/18 at 21:00; Status UNV Pantoprazole Sodium (Protonix) 40 mg DAILYAC PO Last administered on 07/21/18 07:56; Start 07/19/18 at 16:30 Alprazolam (Xanax) 1 mg PRN Q8HRS PRN PO ANXIETY / AGITATION Last administered on 2/21/19at 16:43; Start 07/19/18 at 15:45; Stop 07/20/18 at 09:25; Status DC Piperacillin Sod/ Tazobactam Sod (Zosyn Per Pharmacy) 1 each PRN DAILY PRN MC SEE COMMENTS; Start 07/19/18 at 16:00 Vancomycin HCl 1 gm/Sodium Chloride 250 ml @ 250 mls/hr Q24H IV Last administered on 07/20/18at 17:11; Start 07/20/18 at 12:30 Vancomycin HCl (Vancomycin Trough Level) 1 each 1X ONCE MC ; Start 07/21/18 at 16:30; Stop 07/21/18 at 16:31 Oxycodone HCl (Roxicodone) 20 mg PRN Q6HRS PRN PO SEVERE PAIN Last administered on 07/20/18at 05:32; Start 07/19/18 at 16:00; Stop 07/20/18 at 09:25 ; Status DC Piperacillin Sod/ Tazobactam Sod 2.25 gm/Sodium Chloride 50 ml @ 100 mls/hr Q6HRS IV Last administered on 07/20/18at 15:27; Start 07/19/18 at 18:00; Stop at 16:45; Status DC Sodium Chloride 1,000 ml @ 1,000 mls/hr 1X ONCE IV Last administered on at 16:44; Start 07/19/18 at 16:15; Stop 07/19/18 at 17:14; Status DC Potassium Chloride (Klor-Con) 40 meq 1X ONCE PO Last administered on at 16:43; Start 07/19/18 at 16:15; Stop 07/19/18 at 16:28; Status DC Docusate Sodium (Colace) 100 mg DAILY PO Last administered on 07/20/18at 08:08; Start 07/20/18 at 09:00 Polyethylene Glycol (miraLAX PACKET) 17 gm PRN DAILY PRN PO CONSTIPATION; Start 07/19/18 at 16:15 Alprazolam (Xanax) 0.5 mg PRN Q8HRS PRN PO ANXIETY / AGITATION Last administered on 07/20/18at 20:09; Start 07/20/18 at 09:30 Ringer's Solution 1,000 ml @ 100 mls/hr Q10H IV Last administered on at 05:10; Start 07/20/18 at 09:30 Lidocaine/ Epinephrine (LIDOCAINE 1%-EPI 1:100,000 Multi-Dose) 20 ml STK-MED ONCE .ROUTE ; Start 07/20/18 at 13:46; Stop 07/20/18 at 13:47; Status DC Heparin Sodium (Porcine) (Heparin Sodium) 10,000 unit STK-MED ONCE .ROUTE ; Start 07/20/18 at 13:46; Stop 07/20/18 at 13:47; Status DC Heparin Sodium (Porcine) (Hep Lock Adult) 500 unit STK-MED ONCE IV ; Start 07/20 at 13:53; Stop 07/20/18 at 13:54; Status DC Midazolam HCl (Versed) 2 mg STK-MED ONCE .ROUTE ; Start 07/20/18 at 13:54; Stop 07/20/18 at 13:55; Status DC Fentanyl Citrate (Fentanyl 2ml Vial) 100 mcg STK-MED ONCE .ROUTE ; Start at 13:54; Stop 07/20/18 at 13:55; Status DC Midazolam HCl (Versed) 2 mg 1X ONCE IV ; Start 07/20/18 at 14:45; Stop at 14:46; Status DC Fentanyl Citrate (Fentanyl 2ml Vial) 50 mcg 1X ONCE IV Last administered on at 14:43; Start 07/20/18 at 14:45; Stop 07/20/18 at 14:46; Status DC Lidocaine/ Epinephrine (LIDOCAINE 1%-EPI 1:100,000 Multi-Dose) 8 ml 1X ONCE IJ Last administered on 07/20/18at 14:42; Start 07/20/18 at 14:45; Stop 07/20/18 at 14:46; Status DC Heparin Sodium (Porcine) (Hep Lock Adult) 500 unit STK-MED ONCE IV ; Start 07/20 at 14:47; Stop 07/20/18 at 14:48; Status DC Morphine Sulfate (Morphine Sulfate) 4 mg PRN Q4HRS PRN IV PAIN Last administered on 07/20/18at 15:36; Start 07/20/18 at 15:30 Piperacillin Sod/ Tazobactam Sod 3.375 gm/Sodium Chloride 50 ml @ 100 mls/hr Q6HRS IV Last administered on 07/21/18at 05:10; Start 07/20/18 at 18:00 Lactobacillus Rhamnosus (Culturelle) 1 cap BID PO Last administered on at 20:09; Start 07/20/18 at 21:00 Active Scripts Active Reported Meloxicam 7.5 Mg Tablet 1 Tab PO DAILY Escitalopram Oxalate 5 Mg Tablet 5 Mg PO DAILY Omeprazole 20 Mg Capsule.dr 20 Mg PO DAILY Xanax (Alprazolam) 2 Mg Tablet 1 Tab PO BID Hydrocodone-Apap 10-325 (Hydrocodone Bit/Acetaminophen) 1 Each Tablet 1 Tab PO PRN Q6HRS PRN Trazodone Hcl 100 Mg Tablet 100 Mg PO HS Gabapentin 600 Mg Tablet 600 Mg PO TID Vitals/I & O Vital Sign - Last 24 Hours 07/20/18 07/20/18 07/20/18 07/20/18 11:00 12:05 15:00 15:36 Temp 97.7 97.7 97.7 97.7 Pulse 83 86 80 Resp 18 18 B/P (MAP) 89/45 (60) 117/62 (80) 110/59 (76) Pulse Ox 93 93 O2 Delivery Room Air Room Air Room Air Room Air 07/20/18 07/20/18 07/20/18 07/20/18 16:08 17:15 19:00 20:00 Temp 98.5 98.5 Pulse 93 Resp 16 B/P (MAP) 104/51 (68) Pulse Ox 95 O2 Delivery Room Air Room Air Room Air Room Air 07/20/18 07/21/18 07/21/18 07/21/18 23:00 00:34 01:31 03:00 Temp 98.6 98.1 98.6 98.1 Pulse 91 77 Resp 14 16 B/P (MAP) 124/60 (81) 95/49 (64) Pulse Ox 92 94 O2 Delivery Room Air Room Air Nasal Cannula Room Air O2 Flow Rate 2.0 07/21/18 07/21/18 07:00 07:56 Temp 97.9 97.9 Pulse 95 Resp 16 16 B/P (MAP) 138/73 (94) Pulse Ox 96 94 O2 Delivery Room Air Room Air Intake and Output 07/20/18 07/20/18 07/21/18 14:59 22:59 06:59 Intake Total 300 ml 560 ml 160 ml Output Total 500 ml Balance 300 ml 560 ml -340 ml MAGALY BONILLA MD Jul 21, 2018 09:33
[2018-07-21] MEDS: DOCUSATE SODIUM 100 MG CAPSULE. PO SCH (09:34)
[2018-07-21] MEDS: GABAPENTIN 300 MG CAPSULE. PO SCH ×3 (09:34→20:45)
[2018-07-21] MEDS: ALPRAZolam 0.5 MG TABLET PO PRN ×2 (09:40→20:45)
[2018-07-21 11:16] VITALS: BP 120/64
[2018-07-21] MEDS: MORPHINE SULFATE 4 MG/ML VIAL. IV PRN ×2 (13:15→17:58)
[2018-07-21 15:00] VITALS: BP 132/47
[2018-07-21 16:55] LABS: VANC TR 2.4 mcg/mL (10.0-20.0)
[2018-07-21] MEDS: VANCOMYCIN PER PHARMACY MC PRN ×2 (17:01→17:03)
--- NOTE | 2018-07-21 17:04 | NUR ---
Pharmacy Vancomycin Dosing Note S:Consulted to monitor and dose vancomycin started 07/19/18. O:ROBERTA JORDAN is a 73 year old F with Cellulitis AXILLA CELLULITIS . Height: 5 feet, 2 inches Weight: 61.008119 kg [place] Body Weight: 188.10 Adjusted Body Weight: 137.54 Dosing Weight: Actual Other Antibiotics: ZOSYN 3.375G IV Q6HRS LABS: Last BUN: 16 Last Creatinine: 1.1 Creatinine Clearance: 40 mL/min Last WBC: 5.9 Last Procalcitonin: - Tmax (past 24 hours): 98.5 Microbiology: BLOOD CX: NGTD AXILLA CX: GPC I/O: Drug Levels: Last Trough level: 2.4 on 07/21/18 at 1630 Last dose given 07/21/18 at 1236 Vancomycin Dosing: Loading Dose: 1500 mg x1 Dosing Weight: Actual Target Trough: 10-20 A: Based on: LEVEL P: 1. Change Vancomycin 1000 mg IV q12h 2. Follow up Trough level on 07/23/18 at 0430 3. Pharmacy will continue to monitor, follow and adjust therapy as needed. JOANNE CLINTON [facility], 07/21/18 [id number]
[2018-07-21] MEDS: VANCOMYCIN 1 GM in IV NORMAL SALINE 250ML 250 ML IV SCH (17:48)
[2018-07-21 19:00] VITALS: BP 115/57
[2018-07-21] MEDS: FAMOTIDINE 20 MG TABLET. PO SCH (20:45)
[2018-07-21] MEDS: traZODone 100 MG TABLET. PO SCH (20:45)
[2018-07-21 22:34] VITALS: BP 113/65
[2018-07-22] MEDS: PIPERACILLIN/TAZOBACTAM 3.375 GM in IV NORMAL SALINE 50ML 50 ML IV SCH ×5 (01:04→23:47)
[2018-07-22 02:46] VITALS: BP 117/71
[2018-07-22] MEDS: VANCOMYCIN 1 GM in IV NORMAL SALINE 250ML 250 ML IV SCH (04:36)
[2018-07-22] MEDS: IV RINGERS,LACTATED 1000ML 1,000 ML IV SCH ×3 (04:36→21:30)
[2018-07-22] MEDS: HYDROcodone/APAP 10/325 1 TAB TABLET PO PRN ×2 (04:51→15:06)
[2018-07-22 05:01] LABS: BASO % 1 % (0-3); EOS # 0.1 x10^3/uL (0.0-0.7); EOS % 2 % (0-3); HEMATOCRIT 29.4 % (36.0-47.0); HEMOGLOBIN 9.9 g/dL (12.0-15.5); LYMPH # 0.9 x10^3/uL (1.0-4.8); LYMPH % 19 % (24-48); MEAN CORPUSCULAR HEMOGLOBIN 32 pg (25-35); MEAN CORPUSCULAR HGB CONC 34 g/dL (31-37); MEAN CORPUSCULAR VOLUME 95 fL (79-100); MONO # 0.5 x10^3/uL (0.0-1.1); MONO % 10 % (0-9); NEUT # 3.2 x10^3uL (1.8-7.7); NEUT % 69 % (31-73); PLATELET COUNT 172 x10^3/uL (140-400); RED CELL DISTRIBUTION WIDTH 13.9 % (11.5-14.5); WHITE BLOOD COUNT 4.6 x10^3/uL (4.0-11.0)
[2018-07-22 05:58] LABS: CALCIUM 8.6 mg/dL (8.5-10.1); CREATININE 0.8 mg/dL (0.6-1.0); GFR 70.5; POTASSIUM 3.9 mmol/L (3.5-5.1)
[2018-07-22 07:00] VITALS: BP 132/61
[2018-07-22 07:31] LABS: % BANDS 3 % (0-9); % BASOS 2 % (0-3); % EOS 2 % (0-5); % LYMPHS 29 % (24-48); % MONOS 12 % (0-10); % SEGS 52 % (35-66); PLT ESTIMATE ADEQUATE (ADEQUATE)
[2018-07-22] MEDS: ALPRAZolam 0.5 MG TABLET PO PRN ×2 (08:11→17:34)
[2018-07-22] MEDS: LACTOBACILLUS RHAMNOSUS GG 1 CAPSULE. PO SCH ×2 (08:11→20:40)
[2018-07-22] MEDS: MELOXICAM 7.5 MG TABLET PO SCH (08:12)
[2018-07-22] MEDS: DOCUSATE SODIUM 100 MG CAPSULE. PO SCH (08:13)
[2018-07-22] MEDS: CITALOPRAM 10 MG TABLET. PO SCH (08:13)
[2018-07-22] MEDS: GABAPENTIN 300 MG CAPSULE. PO SCH ×3 (08:13→20:40)
--- NOTE | 2018-07-22 08:24 | PDOC ---
PROGRESS NOTES Chief Complaint Chief Complaint Bilateral Axillary cellulitis Left axillary abscess Pain, acute on chronic Chronic back pain, takes hydro 10 PRN for chronic back pain, has hardware Dog scratch Severe sepsis BRANDON - vasomotor nephropathy Hypokalemia History of Present Illness History of Present Illness 73 yo F admit from ER with bilateral axilla pain and swelling, She has swelling and likely abscesses that began a week ago. Patient states she was seen by her PCP 07/18 and both axilla were drained. She states the next morning she woke up and she had redness on the right axilla. PO augmentin started 07/18, not better, came to ED, had wound and blood cultures drawn. Seen by surgery, bilateral US showed cellulitis on right axilla and small abscess in left. 07/20: Still with fever overnight. Lost left peripheral IV access very quickly and has dog scratch on her right arm (likely source). Flu test still pending. BP persistently low despite 2 bolus and WBC count going up. On further review she notes she broke up a dog fight about 6 days ago and was scratched multiple times, these are apparent on exam today. 07/21: Afebrile since 0300 on 07/20. Feeling improved with better drainage on the right with saturated dressing. PICC yesterday per IR due to dog scratches on her arms. Wound culture gram stain shows few GPC, looks like nessa Feels better, wants to go home. Less drainage in her right axilla. Contacted [facility] for her lab results and they state her last encounter there was in 2002, patient and note that the culture was sent to [facility] from the doctors office, will order records as she could potentially go home if I have sensitivities, would be hesitant to discharge her without sensitivities since she arrived here septic. Plan: Chlorhexidine bath, check MRSA PCR S/p PICC for access and dual antibiotics, frequent blood draws, may need pressors if another bolus can't get her BP up Appreciate surgery recs Zosyn on for capnocytophagia coverage with dog encounter. Last tetanus was 1 year ago. Dogs up to date on vaccines. Cont Vanco as well with GPC May need to consult ID, will await culture and sensitivity as she is improving F/u on flu test, still pending from admit Aggressive IV fluids Back off on her pain meds and xanax Vitals Vitals Vital Signs Date Time Temp Pulse Resp B/P (MAP) Pulse Ox O2 Delivery O2 Flow Rate FiO2 07/22/18 07:00 98.2 68 18 132/61 (84) 93 Room Air 2.0 98.2 Physical Exam General: Alert, Oriented X3, Cooperative, No acute distress Heart: Regular rate, Normal S1, Normal S2, No murmurs Lungs: Clear Abdomen: Soft, No tenderness Extremities: No clubbing, No cyanosis Skin: Other (right axilla with some erythema, wound with purulent drainage) Labs LABS Laboratory Tests Test 07/21/18 16:28 07/22/18 04:50 Vancomycin Level Trough 2.4 mcg/mL (10.0-20.0) Vancomycin Last Dose Date Unk Vancomycin Last Dose Time Unk White Blood Count 4.6 x10^3/uL (4.0-11.0) Red Blood Count 3.10 x10^6/uL (3.50-5.40) Hemoglobin 9.9 g/dL (12.0-15.5) Hematocrit 29.4 % (36.0-47.0) Mean Corpuscular Volume 95 fL (79-100) Mean Corpuscular Hemoglobin 32 pg (25-35) Mean Corpuscular Hemoglobin Concent 34 g/dL (31-37) Red Cell Distribution Width 13.9 % (11.5-14.5) Platelet Count 172 x10^3/uL (140-400) Neutrophils (%) (Auto) 69 % (31-73) Lymphocytes (%) (Auto) 19 % (24-48) Monocytes (%) (Auto) 10 % (0-9) Eosinophils (%) (Auto) 2 % (0-3) Basophils (%) (Auto) 1 % (0-3) Neutrophils # (Auto) 3.2 x10^3uL (1.8-7.7) Lymphocytes # (Auto) 0.9 x10^3/uL (1.0-4.8) Monocytes # (Auto) 0.5 x10^3/uL (0.0-1.1) Eosinophils # (Auto) 0.1 x10^3/uL (0.0-0.7) Basophils # (Auto) 0.0 x10^3/uL (0.0-0.2) Segmented Neutrophils % 52 % (35-66) Band Neutrophils % 3 % (0-9) Lymphocytes % 29 % (24-48) Monocytes % 12 % (0-10) Eosinophils % 2 % (0-5) Basophils % 2 % (0-3) Platelet Estimate Adequate (ADEQUATE) Sodium Level 145 mmol/L (136-145) Potassium Level 3.9 mmol/L (3.5-5.1) Chloride Level 108 mmol/L (98-107) Carbon Dioxide Level 29 mmol/L (21-32) Anion Gap 8 (6-14) Blood Urea Nitrogen 4 mg/dL (7-20) Creatinine 0.8 mg/dL (0.6-1.0) Estimated GFR (Cockcroft-Gault) 70.5 Glucose Level 101 mg/dL (70-99) Calcium Level 8.6 mg/dL (8.5-10.1) Assessment and Plan Assessmemt and Plan Problems Medical Problems: (1) Sepsis Status: Acute Comment Review of Relevant I have reviewed the following items amber (where applicable) has been applied. Labs Laboratory Tests Test 07/20/18 09:20 07/21/18 16:28 07/22/18 04:50 Influenza Type A Antigen Negative (NEGATIVE) Influenza Type B Antigen Negative (NEGATIVE) Vancomycin Level Trough 2.4 mcg/mL (10.0-20.0) Vancomycin Last Dose Date Unk Vancomycin Last Dose Time Unk White Blood Count 4.6 x10^3/uL (4.0-11.0) Red Blood Count 3.10 x10^6/uL (3.50-5.40) Hemoglobin 9.9 g/dL (12.0-15.5) Hematocrit 29.4 % (36.0-47.0) Mean Corpuscular Volume 95 fL (79-100) Mean Corpuscular Hemoglobin 32 pg (25-35) Mean Corpuscular Hemoglobin Concent 34 g/dL (31-37) Red Cell Distribution Width 13.9 % (11.5-14.5) Platelet Count 172 x10^3/uL (140-400) Neutrophils (%) (Auto) 69 % (31-73) Lymphocytes (%) (Auto) 19 % (24-48) Monocytes (%) (Auto) 10 % (0-9) Eosinophils (%) (Auto) 2 % (0-3) Basophils (%) (Auto) 1 % (0-3) Neutrophils # (Auto) 3.2 x10^3uL (1.8-7.7) Lymphocytes # (Auto) 0.9 x10^3/uL (1.0-4.8) Monocytes # (Auto) 0.5 x10^3/uL (0.0-1.1) Eosinophils # (Auto) 0.1 x10^3/uL (0.0-0.7) Basophils # (Auto) 0.0 x10^3/uL (0.0-0.2) Segmented Neutrophils % 52 % (35-66) Band Neutrophils % 3 % (0-9) Lymphocytes % 29 % (24-48) Monocytes % 12 % (0-10) Eosinophils % 2 % (0-5) Basophils % 2 % (0-3) Platelet Estimate Adequate (ADEQUATE) Sodium Level 145 mmol/L (136-145) Potassium Level 3.9 mmol/L (3.5-5.1) Chloride Level 108 mmol/L (98-107) Carbon Dioxide Level 29 mmol/L (21-32) Anion Gap 8 (6-14) Blood Urea Nitrogen 4 mg/dL (7-20) Creatinine 0.8 mg/dL (0.6-1.0) Estimated GFR (Cockcroft-Gault) 70.5 Glucose Level 101 mg/dL (70-99) Calcium Level 8.6 mg/dL (8.5-10.1) Laboratory Tests Test 07/21/18 16:28 07/22/18 04:50 Vancomycin Level Trough 2.4 mcg/mL (10.0-20.0) Vancomycin Last Dose Date Unk Vancomycin Last Dose Time Unk White Blood Count 4.6 x10^3/uL (4.0-11.0) Red Blood Count 3.10 x10^6/uL (3.50-5.40) Hemoglobin 9.9 g/dL (12.0-15.5) Hematocrit 29.4 % (36.0-47.0) Mean Corpuscular Volume 95 fL (79-100) Mean Corpuscular Hemoglobin 32 pg (25-35) Mean Corpuscular Hemoglobin Concent 34 g/dL (31-37) Red Cell Distribution Width 13.9 % (11.5-14.5) Platelet Count 172 x10^3/uL (140-400) Neutrophils (%) (Auto) 69 % (31-73) Lymphocytes (%) (Auto) 19 % (24-48) Monocytes (%) (Auto) 10 % (0-9) Eosinophils (%) (Auto) 2 % (0-3) Basophils (%) (Auto) 1 % (0-3) Neutrophils # (Auto) 3.2 x10^3uL (1.8-7.7) Lymphocytes # (Auto) 0.9 x10^3/uL (1.0-4.8) Monocytes # (Auto) 0.5 x10^3/uL (0.0-1.1) Eosinophils # (Auto) 0.1 x10^3/uL (0.0-0.7) Basophils # (Auto) 0.0 x10^3/uL (0.0-0.2) Segmented Neutrophils % 52 % (35-66) Band Neutrophils % 3 % (0-9) Lymphocytes % 29 % (24-48) Monocytes % 12 % (0-10) Eosinophils % 2 % (0-5) Basophils % 2 % (0-3) Platelet Estimate Adequate (ADEQUATE) Sodium Level 145 mmol/L (136-145) Potassium Level 3.9 mmol/L (3.5-5.1) Chloride Level 108 mmol/L (98-107) Carbon Dioxide Level 29 mmol/L (21-32) Anion Gap 8 (6-14) Blood Urea Nitrogen 4 mg/dL (7-20) Creatinine 0.8 mg/dL (0.6-1.0) Estimated GFR (Cockcroft-Gault) 70.5 Glucose Level 101 mg/dL (70-99) Calcium Level 8.6 mg/dL (8.5-10.1) Microbiology 07/19/18 Blood Culture - Preliminary, Resulted NO GROWTH AFTER 2 DAYS 07/19/18 Anaerobic/Aerobic Culture, Resulted Pending 07/19/18 Anaerobic Culture Result 1 (JACKIE), Resulted Pending 07/19/18 Aerobic Culture - Preliminary, Resulted 07/19/18 Aerobic Culture Result 1 (JACKIE) - Preliminary, Resulted 07/19/18 Gram Stain - Final, Resulted 07/19/18 Gram Stain Result 1 (JACKIE) - Final, Resulted 07/19/18 Gram Stain Result 2 (JACKIE) - Final, Resulted Medications Current Medications Piperacillin Sod/ Tazobactam Sod 4.5 gm/Sodium Chloride 100 ml @ 200 mls/hr 1X ONCE IV Last administered on 07/19/18at 11:30; Start 07/19/18 at 10:30; Stop 07/19/18 at 10:59; Status DC Vancomycin HCl (Vanco Per Pharmacy) 1 each 1X ONCE MC ; Start 07/19/18 at 10:30 ; Stop 07/19/18 at 10:31; Status UNV Sodium Chloride 1,000 ml @ 1,860 mls/hr Q33M IV Last administered on at 13:18; Start 07/19/18 at 10:27; Stop 07/19/18 at 11:27; Status DC Morphine Sulfate (Morphine Sulfate) 4 mg PRN Q15MIN PRN IV/SQ PAIN GREATER THAN 3/10 Last administered on 07/19/18at 10:54; Start 07/19/18 at 10:30; Stop at 10:29; Status DC Vancomycin HCl 1.5 gm/Sodium Chloride 500 ml @ 250 mls/hr 1X ONCE IV Last administered on 07/19/18at 12:36; Start 07/19/18 at 11:00; Stop 07/19/18 at 12:59 ; Status DC Acetaminophen (Tylenol) 1,000 mg 1X ONCE PO Last administered on 07/19/18at 13: 03; Start 07/19/18 at 12:45; Stop 07/19/18 at 12:47; Status DC Hydromorphone HCl (Dilaudid) 1 mg 1X ONCE IV Last administered on 07/19/18at 14 :01; Start 07/19/18 at 13:30; Stop 07/19/18 at 13:32; Status DC Ondansetron HCl (Zofran) 4 mg PRN Q8HRS PRN IV NAUSEA/VOMITING; Start 07/19/18 at 14:30; Stop 07/20/18 at 14:29; Status DC Morphine Sulfate (Morphine Sulfate) 4 mg PRN Q2HR PRN IV PAIN Last administered on 07/19/18at 17:20; Start 07/19/18 at 14:30; Stop 07/20/18 at 14:29 ; Status DC Acetaminophen (Tylenol) 650 mg PRN Q4HRS PRN PO FEVER Last administered on 07/20 04:16; Start 07/19/18 at 14:30; Stop 07/20/18 at 14:29; Status DC Sodium Chloride 1,000 ml @ 125 mls/hr 1X ONCE IV Last administered on 18:22; Start 07/19/18 at 14:30; Stop 07/19/18 at 22:29; Status DC Pharmacy Consult (C.diff Med Screen By Rx) 1 each 1X ONCE MC ; Start 07/19/18 at 15:30; Stop 07/19/18 at 15:31; Status UNV Vancomycin HCl (Vanco Per Pharmacy) 1 each PRN DAILY PRN MC SEE COMMENTS Last administered on 07/21/18 17:03; Start 07/19/18 at 15:45 Acetaminophen/ Hydrocodone Bitart (Lortab 10/325) 1 tab PRN Q6HRS PRN PO MODERATE PAIN Last administered on 07/22/18 04:51; Start 07/19/18 at 15:45 Ondansetron HCl (Zofran Odt) 4 mg PRN Q8HRS PRN PO NAUSEA; Start 07/19/18 at 15 :45 Trazodone HCl (Desyrel) 100 mg HS PO Last administered on 07/21/18 20:45; Start 07/19/18 at 21:00 Citalopram Hydrobromide (CeleXA) 10 mg DAILY PO Last administered on 07/22/18 08:13; Start 07/19/18 at 16:30 Gabapentin (Neurontin) 600 mg TID PO Last administered on 07/22/18 08:13; Start 07/19/18 at 21:00 Meloxicam (Mobic) 7.5 mg DAILY PO Last administered on 07/22/18 08:12; Start 07/19/18 at 16:30 Non-Formulary Medication (Metronidazole (Flagyl)) 1 tab TID PO ; Start 07/19/18 at 21:00; Status UNV Pantoprazole Sodium (Protonix) 40 mg DAILYAC PO Last administered on 07/21/18 07:56; Start 07/19/18 at 16:30; Stop 07/21/18 at 15:35; Status DC Alprazolam (Xanax) 1 mg PRN Q8HRS PRN PO ANXIETY / AGITATION Last administered on 07/19/18at 16:43; Start 07/19/18 at 15:45; Stop 07/20/18 at 09:25; Status DC Piperacillin Sod/ Tazobactam Sod (Zosyn Per Pharmacy) 1 each PRN DAILY PRN MC SEE COMMENTS; Start 07/19/18 at 16:00 Vancomycin HCl 1 gm/Sodium Chloride 250 ml @ 250 mls/hr Q24H IV Last administered on 07/20/18at 17:11; Start 07/20/18 at 12:30; Stop 07/21/18 at 16:59 ; Status DC Vancomycin HCl (Vancomycin Trough Level) 1 each 1X ONCE MC Last administered on 07/21/18at 16:30; Start 07/21/18 at 16:30; Stop 07/21/18 at 16:31; Status DC Oxycodone HCl (Roxicodone) 20 mg PRN Q6HRS PRN PO SEVERE PAIN Last administered on 07/20/18at 05:32; Start 07/19/18 at 16:00; Stop 07/20/18 at 09:25 ; Status DC Piperacillin Sod/ Tazobactam Sod 2.25 gm/Sodium Chloride 50 ml @ 100 mls/hr Q6HRS IV Last administered on 07/20/18at 15:27; Start 07/19/18 at 18:00; Stop at 16:45; Status DC Sodium Chloride 1,000 ml @ 1,000 mls/hr 1X ONCE IV Last administered on at 16:44; Start 07/19/18 at 16:15; Stop 07/19/18 at 17:14; Status DC Potassium Chloride (Klor-Con) 40 meq 1X ONCE PO Last administered on at 16:43; Start 07/19/18 at 16:15; Stop 07/19/18 at 16:28; Status DC Docusate Sodium (Colace) 100 mg DAILY PO Last administered on 07/21/18at 09:34; Start 07/20/18 at 09:00 Polyethylene Glycol (miraLAX PACKET) 17 gm PRN DAILY PRN PO CONSTIPATION; Start 07/19/18 at 16:15 Alprazolam (Xanax) 0.5 mg PRN Q8HRS PRN PO ANXIETY / AGITATION Last administered on 07/22/18at 08:11; Start 07/20/18 at 09:30 Ringer's Solution 1,000 ml @ 100 mls/hr Q10H IV Last administered on at 04:36; Start 07/20/18 at 09:30 Lidocaine/ Epinephrine (LIDOCAINE 1%-EPI 1:100,000 Multi-Dose) 20 ml STK-MED ONCE .ROUTE ; Start 07/20/18 at 13:46; Stop 07/20/18 at 13:47; Status DC Heparin Sodium (Porcine) (Heparin Sodium) 10,000 unit STK-MED ONCE .ROUTE ; Start 07/20/18 at 13:46; Stop 07/20/18 at 13:47; Status DC Heparin Sodium (Porcine) (Hep Lock Adult) 500 unit STK-MED ONCE IV ; Start 07/20 at 13:53; Stop 07/20/18 at 13:54; Status DC Midazolam HCl (Versed) 2 mg STK-MED ONCE .ROUTE ; Start 07/20/18 at 13:54; Stop 07/20/18 at 13:55; Status DC Fentanyl Citrate (Fentanyl 2ml Vial) 100 mcg STK-MED ONCE .ROUTE ; Start at 13:54; Stop 07/20/18 at 13:55; Status DC Midazolam HCl (Versed) 2 mg 1X ONCE IV ; Start 07/20/18 at 14:45; Stop at 14:46; Status DC Fentanyl Citrate (Fentanyl 2ml Vial) 50 mcg 1X ONCE IV Last administered on at 14:43; Start 07/20/18 at 14:45; Stop 07/20/18 at 14:46; Status DC Lidocaine/ Epinephrine (LIDOCAINE 1%-EPI 1:100,000 Multi-Dose) 8 ml 1X ONCE IJ Last administered on 07/20/18at 14:42; Start 07/20/18 at 14:45; Stop 07/20/18 at 14:46; Status DC Heparin Sodium (Porcine) (Hep Lock Adult) 500 unit STK-MED ONCE IV ; Start 07/20 at 14:47; Stop 07/20/18 at 14:48; Status DC Morphine Sulfate (Morphine Sulfate) 4 mg PRN Q4HRS PRN IV PAIN Last administered on 07/21/18at 17:58; Start 07/20/18 at 15:30 Piperacillin Sod/ Tazobactam Sod 3.375 gm/Sodium Chloride 50 ml @ 100 mls/hr Q6HRS IV Last administered on 07/22/18at 05:49; Start 07/20/18 at 18:00 Lactobacillus Rhamnosus (Culturelle) 1 cap BID PO Last administered on at 08:11; Start 07/20/18 at 21:00 Famotidine (Pepcid) 20 mg HS PO Last administered on 07/21/18at 20:45; Start at 21:00 Vancomycin HCl 1 gm/Sodium Chloride 250 ml @ 250 mls/hr Q12H IV Last administered on 07/22/18at 04:36; Start 07/21/18 at 17:00 Active Scripts Active Reported Meloxicam 7.5 Mg Tablet 1 Tab PO DAILY Escitalopram Oxalate 5 Mg Tablet 5 Mg PO DAILY Omeprazole 20 Mg Capsule.dr 20 Mg PO DAILY Xanax (Alprazolam) 2 Mg Tablet 1 Tab PO BID Hydrocodone-Apap 10-325 (Hydrocodone Bit/Acetaminophen) 1 Each Tablet 1 Tab PO PRN Q6HRS PRN Trazodone Hcl 100 Mg Tablet 100 Mg PO HS Gabapentin 600 Mg Tablet 600 Mg PO TID Vitals/I & O Vital Sign - Last 24 Hours 07/21/18 07/21/18 07/21/18 07/21/18 11:16 13:15 13:45 15:00 Temp 98.1 98.1 98.1 98.1 Pulse 68 75 Resp 16 17 16 16 B/P (MAP) 120/64 (82) 132/47 (75) Pulse Ox 95 95 95 97 O2 Delivery Room Air Room Air Room Air O2 Flow Rate 2.0 07/21/18 07/21/18 07/21/18 07/21/18 15:47 16:50 17:58 18:56 Resp 16 17 16 Pulse Ox 95 95 95 O2 Delivery Room Air Room Air Room Air 07/21/18 07/21/18 07/21/18 07/22/18 19:00 20:00 22:34 02:46 Temp 98.2 98.0 98.2 98.2 98.0 98.2 Pulse 82 89 78 Resp 17 16 15 B/P (MAP) 115/57 (76) 113/65 (81) 117/71 (86) Pulse Ox 95 95 95 O2 Delivery Room Air Room Air Room Air Room Air 07/22/18 07/22/18 07/22/18 04:51 06:38 07:00 Temp 98.2 98.2 Pulse 68 Resp 18 B/P (MAP) 132/61 (84) Pulse Ox 93 O2 Delivery Room Air Room Air Room Air O2 Flow Rate 2.0 Intake and Output 07/21/18 07/21/18 07/22/18 15:00 23:00 07:00 Intake Total 1000 ml Balance 1000 ml MAGALY BONILLA MD Jul 22, 2018 08:24
[2018-07-22] MEDS: MORPHINE SULFATE 4 MG/ML VIAL. IV PRN (10:45)
[2018-07-22 11:00] VITALS: BP 130/74
[2018-07-22] MEDS: VANCOMYCIN PER PHARMACY MC PRN ×2 (12:30→13:02)
[2018-07-22] MEDS ORDERED: VANCOMYCIN 1 GM in IV NORMAL SALINE 250ML 250 ML IV ONE (13:00)
--- NOTE | 2018-07-22 13:53 | PDOC ---
SURGICAL PROGRESS NOTE Subjective Pt feels much better, interested in going home Vital Signs Vital Signs Date Time Temp Pulse Resp B/P (MAP) Pulse Ox O2 Delivery O2 Flow Rate FiO2 07/22/18 11:17 93 Room Air 2.0 07/22/18 11:00 98.3 72 18 130/74 (92) 98.3 I&O Intake and Output 07/22/18 07:00 Intake Total 1000 ml Balance 1000 ml Intake Oral 950 ml IV Total 50 ml # Voids 1 General: Alert, Oriented X3, Cooperative, No acute distress Skin: Other (left axilla dry, small nodule, left axilla with decreased drainage , some erythema) Labs Laboratory Tests Test 07/21/18 16:28 07/22/18 04:50 Vancomycin Level Trough 2.4 mcg/mL (10.0-20.0) Vancomycin Last Dose Date Unk Vancomycin Last Dose Time Unk White Blood Count 4.6 x10^3/uL (4.0-11.0) Red Blood Count 3.10 x10^6/uL (3.50-5.40) Hemoglobin 9.9 g/dL (12.0-15.5) Hematocrit 29.4 % (36.0-47.0) Mean Corpuscular Volume 95 fL (79-100) Mean Corpuscular Hemoglobin 32 pg (25-35) Mean Corpuscular Hemoglobin Concent 34 g/dL (31-37) Red Cell Distribution Width 13.9 % (11.5-14.5) Platelet Count 172 x10^3/uL (140-400) Neutrophils (%) (Auto) 69 % (31-73) Lymphocytes (%) (Auto) 19 % (24-48) Monocytes (%) (Auto) 10 % (0-9) Eosinophils (%) (Auto) 2 % (0-3) Basophils (%) (Auto) 1 % (0-3) Neutrophils # (Auto) 3.2 x10^3uL (1.8-7.7) Lymphocytes # (Auto) 0.9 x10^3/uL (1.0-4.8) Monocytes # (Auto) 0.5 x10^3/uL (0.0-1.1) Eosinophils # (Auto) 0.1 x10^3/uL (0.0-0.7) Basophils # (Auto) 0.0 x10^3/uL (0.0-0.2) Segmented Neutrophils % 52 % (35-66) Band Neutrophils % 3 % (0-9) Lymphocytes % 29 % (24-48) Monocytes % 12 % (0-10) Eosinophils % 2 % (0-5) Basophils % 2 % (0-3) Platelet Estimate Adequate (ADEQUATE) Sodium Level 145 mmol/L (136-145) Potassium Level 3.9 mmol/L (3.5-5.1) Chloride Level 108 mmol/L (98-107) Carbon Dioxide Level 29 mmol/L (21-32) Anion Gap 8 (6-14) Blood Urea Nitrogen 4 mg/dL (7-20) Creatinine 0.8 mg/dL (0.6-1.0) Estimated GFR (Cockcroft-Gault) 70.5 Glucose Level 101 mg/dL (70-99) Calcium Level 8.6 mg/dL (8.5-10.1) Laboratory Tests Test 07/21/18 16:28 07/22/18 04:50 Vancomycin Level Trough 2.4 mcg/mL (10.0-20.0) Vancomycin Last Dose Date Unk Vancomycin Last Dose Time Unk White Blood Count 4.6 x10^3/uL (4.0-11.0) Red Blood Count 3.10 x10^6/uL (3.50-5.40) Hemoglobin 9.9 g/dL (12.0-15.5) Hematocrit 29.4 % (36.0-47.0) Mean Corpuscular Volume 95 fL (79-100) Mean Corpuscular Hemoglobin 32 pg (25-35) Mean Corpuscular Hemoglobin Concent 34 g/dL (31-37) Red Cell Distribution Width 13.9 % (11.5-14.5) Platelet Count 172 x10^3/uL (140-400) Neutrophils (%) (Auto) 69 % (31-73) Lymphocytes (%) (Auto) 19 % (24-48) Monocytes (%) (Auto) 10 % (0-9) Eosinophils (%) (Auto) 2 % (0-3) Basophils (%) (Auto) 1 % (0-3) Neutrophils # (Auto) 3.2 x10^3uL (1.8-7.7) Lymphocytes # (Auto) 0.9 x10^3/uL (1.0-4.8) Monocytes # (Auto) 0.5 x10^3/uL (0.0-1.1) Eosinophils # (Auto) 0.1 x10^3/uL (0.0-0.7) Basophils # (Auto) 0.0 x10^3/uL (0.0-0.2) Segmented Neutrophils % 52 % (35-66) Band Neutrophils % 3 % (0-9) Lymphocytes % 29 % (24-48) Monocytes % 12 % (0-10) Eosinophils % 2 % (0-5) Basophils % 2 % (0-3) Platelet Estimate Adequate (ADEQUATE) Sodium Level 145 mmol/L (136-145) Potassium Level 3.9 mmol/L (3.5-5.1) Chloride Level 108 mmol/L (98-107) Carbon Dioxide Level 29 mmol/L (21-32) Anion Gap 8 (6-14) Blood Urea Nitrogen 4 mg/dL (7-20) Creatinine 0.8 mg/dL (0.6-1.0) Estimated GFR (Cockcroft-Gault) 70.5 Glucose Level 101 mg/dL (70-99) Calcium Level 8.6 mg/dL (8.5-10.1) Problem List Problems Medical Problems: (1) Sepsis Status: Acute Assessment/Plan left axillary abscess appears improved cont abx and supportive care, ok to work on d/c home f/u with Dr. Oneill in one to two weeks. JEANNA MARTINEZ MD Jul 22, 2018 13:53
[2018-07-22 15:00] VITALS: BP 124/58
[2018-07-22 19:00] VITALS: BP 131/69
[2018-07-22] MEDS: traZODone 100 MG TABLET. PO SCH (20:40)
[2018-07-22] MEDS: FAMOTIDINE 20 MG TABLET. PO SCH (20:47)
[2018-07-22 23:00] VITALS: BP 116/65
[2018-07-23] MEDS: VANCOMYCIN 1 GM in IV NORMAL SALINE 250ML 250 ML IV SCH ×2 (01:10→13:02)
[2018-07-23 03:00] VITALS: BP 125/65
[2018-07-23] MEDS: IV RINGERS,LACTATED 1000ML 1,000 ML IV SCH ×2 (05:12→12:30)
[2018-07-23] MEDS: PIPERACILLIN/TAZOBACTAM 3.375 GM in IV NORMAL SALINE 50ML 50 ML IV SCH ×3 (05:12→18:20)
[2018-07-23] MEDS: HYDROcodone/APAP 10/325 1 TAB TABLET PO PRN ×3 (05:13→16:58)
[2018-07-23 05:44] LABS: BASO % 0 % (0-3); EOS # 0.1 x10^3/uL (0.0-0.7); EOS % 2 % (0-3); HEMATOCRIT 28.2 % (36.0-47.0); HEMOGLOBIN 9.5 g/dL (12.0-15.5); LYMPH # 0.6 x10^3/uL (1.0-4.8); LYMPH % 14 % (24-48); MEAN CORPUSCULAR HEMOGLOBIN 32 pg (25-35); MEAN CORPUSCULAR HGB CONC 34 g/dL (31-37); MEAN CORPUSCULAR VOLUME 95 fL (79-100); MONO # 0.5 x10^3/uL (0.0-1.1); MONO % 10 % (0-9); NEUT # 3.5 x10^3uL (1.8-7.7); NEUT % 74 % (31-73); PLATELET COUNT 172 x10^3/uL (140-400); RED BLOOD COUNT 2.97 x10^6/uL (3.50-5.40); RED CELL DISTRIBUTION WIDTH 13.8 % (11.5-14.5); WHITE BLOOD COUNT 4.7 x10^3/uL (4.0-11.0)
[2018-07-23 05:57] LABS: CALCIUM 8.3 mg/dL (8.5-10.1); CREATININE 0.8 mg/dL (0.6-1.0); GFR 70.5; POTASSIUM 3.4 mmol/L (3.5-5.1)
[2018-07-23 07:00] VITALS: BP 123/49
[2018-07-23] MEDS: LACTOBACILLUS RHAMNOSUS GG 1 CAPSULE. PO SCH ×2 (08:34→20:56)
[2018-07-23] MEDS: CITALOPRAM 10 MG TABLET. PO SCH (08:34)
[2018-07-23] MEDS: DOCUSATE SODIUM 100 MG CAPSULE. PO SCH ×2 (08:34→09:00)
[2018-07-23] MEDS: GABAPENTIN 300 MG CAPSULE. PO SCH ×3 (08:34→20:54)
[2018-07-23] MEDS: MELOXICAM 7.5 MG TABLET PO SCH (08:34)
[2018-07-23] MEDS: MORPHINE SULFATE 4 MG/ML VIAL. IV PRN ×3 (08:35→19:24)
[2018-07-23] MEDS: ALPRAZolam 0.5 MG TABLET PO PRN ×2 (09:09→16:55)
--- NOTE | 2018-07-23 10:35 | NUR ---
Call to Dr. Oneill RE: R axillary area very red, hard, and painful, no drainage and no packing per shift commander RN.
[2018-07-23 10:46] VITALS: BP 128/52
--- NOTE | 2018-07-23 11:20 | PDOC ---
SURGICAL PROGRESS NOTE Subjective tolerating diet some pain Vital Signs Vital Signs Date Time Temp Pulse Resp B/P (MAP) Pulse Ox O2 Delivery O2 Flow Rate FiO2 07/23/18 11:16 18 Room Air 07/23/18 10:46 97.8 59 128/52 (77) 94 97.8 07/23/18 09:09 2.0 I&O Intake and Output 07/23/18 07:00 Intake Total 2330 ml Balance 2330 ml Intake Oral 980 ml IV Total 1350 ml # Voids 6 General: Alert, Oriented X3, Cooperative, No acute distress Skin: Other (right axilla with erythema and induration, no fluctance, packing in place) Labs Laboratory Tests Test 07/21/18 11:30 07/21/18 16:28 07/22/18 04:50 07/23/18 05:20 Nasal Screen MRSA (PCR) Negative (Negative) Vancomycin Level Trough 2.4 mcg/mL (10.0-20.0) Vancomycin Last Dose Date Unk Vancomycin Last Dose Time Unk White Blood Count 4.6 x10^3/uL (4.0-11.0) 4.7 x10^3/uL (4.0-11.0) Red Blood Count 3.10 x10^6/uL (3.50-5.40) 2.97 x10^6/uL (3.50-5.40) Hemoglobin 9.9 g/dL (12.0-15.5) 9.5 g/dL (12.0-15.5) Hematocrit 29.4 % (36.0-47.0) 28.2 % (36.0-47.0) Mean Corpuscular Volume 95 fL (79-100) 95 fL (79-100) Mean Corpuscular Hemoglobin 32 pg (25-35) 32 pg (25-35) Mean Corpuscular Hemoglobin Concent 34 g/dL (31-37) 34 g/dL (31-37) Red Cell Distribution Width 13.9 % (11.5-14.5) 13.8 % (11.5-14.5) Platelet Count 172 x10^3/uL (140-400) 172 x10^3/uL (140-400) Neutrophils (%) (Auto) 69 % (31-73) 74 % (31-73) Lymphocytes (%) (Auto) 19 % (24-48) 14 % (24-48) Monocytes (%) (Auto) 10 % (0-9) 10 % (0-9) Eosinophils (%) (Auto) 2 % (0-3) 2 % (0-3) Basophils (%) (Auto) 1 % (0-3) 0 % (0-3) Neutrophils # (Auto) 3.2 x10^3uL (1.8-7.7) 3.5 x10^3uL (1.8-7.7) Lymphocytes # (Auto) 0.9 x10^3/uL (1.0-4.8) 0.6 x10^3/uL (1.0-4.8) Monocytes # (Auto) 0.5 x10^3/uL (0.0-1.1) 0.5 x10^3/uL (0.0-1.1) Eosinophils # (Auto) 0.1 x10^3/uL (0.0-0.7) 0.1 x10^3/uL (0.0-0.7) Basophils # (Auto) 0.0 x10^3/uL (0.0-0.2) 0.0 x10^3/uL (0.0-0.2) Segmented Neutrophils % 52 % (35-66) Band Neutrophils % 3 % (0-9) Lymphocytes % 29 % (24-48) Monocytes % 12 % (0-10) Eosinophils % 2 % (0-5) Basophils % 2 % (0-3) Platelet Estimate Adequate (ADEQUATE) Sodium Level 145 mmol/L (136-145) 147 mmol/L (136-145) Potassium Level 3.9 mmol/L (3.5-5.1) 3.4 mmol/L (3.5-5.1) Chloride Level 108 mmol/L (98-107) 108 mmol/L (98-107) Carbon Dioxide Level 29 mmol/L (21-32) 29 mmol/L (21-32) Anion Gap 8 (6-14) 10 (6-14) Blood Urea Nitrogen 4 mg/dL (7-20) 3 mg/dL (7-20) Creatinine 0.8 mg/dL (0.6-1.0) 0.8 mg/dL (0.6-1.0) Estimated GFR (Cockcroft-Gault) 70.5 70.5 Glucose Level 101 mg/dL (70-99) 104 mg/dL (70-99) Calcium Level 8.6 mg/dL (8.5-10.1) 8.3 mg/dL (8.5-10.1) Laboratory Tests Test 07/23/18 05:20 White Blood Count 4.7 x10^3/uL (4.0-11.0) Red Blood Count 2.97 x10^6/uL (3.50-5.40) Hemoglobin 9.5 g/dL (12.0-15.5) Hematocrit 28.2 % (36.0-47.0) Mean Corpuscular Volume 95 fL (79-100) Mean Corpuscular Hemoglobin 32 pg (25-35) Mean Corpuscular Hemoglobin Concent 34 g/dL (31-37) Red Cell Distribution Width 13.8 % (11.5-14.5) Platelet Count 172 x10^3/uL (140-400) Neutrophils (%) (Auto) 74 % (31-73) Lymphocytes (%) (Auto) 14 % (24-48) Monocytes (%) (Auto) 10 % (0-9) Eosinophils (%) (Auto) 2 % (0-3) Basophils (%) (Auto) 0 % (0-3) Neutrophils # (Auto) 3.5 x10^3uL (1.8-7.7) Lymphocytes # (Auto) 0.6 x10^3/uL (1.0-4.8) Monocytes # (Auto) 0.5 x10^3/uL (0.0-1.1) Eosinophils # (Auto) 0.1 x10^3/uL (0.0-0.7) Basophils # (Auto) 0.0 x10^3/uL (0.0-0.2) Sodium Level 147 mmol/L (136-145) Potassium Level 3.4 mmol/L (3.5-5.1) Chloride Level 108 mmol/L (98-107) Carbon Dioxide Level 29 mmol/L (21-32) Anion Gap 10 (6-14) Blood Urea Nitrogen 3 mg/dL (7-20) Creatinine 0.8 mg/dL (0.6-1.0) Estimated GFR (Cockcroft-Gault) 70.5 Glucose Level 104 mg/dL (70-99) Calcium Level 8.3 mg/dL (8.5-10.1) Problem List Problems Medical Problems: (1) Sepsis Status: Acute Assessment/Plan continue wound care, continue abx will review with CHERYL Marshall APRN Jul 23, 2018 11:20
--- NOTE | 2018-07-23 13:26 | PDOC ---
PROGRESS NOTES Chief Complaint Chief Complaint Bilateral Axillary cellulitis Left axillary abscess AEROBIC RES 1 Final Comment Methicillin - resistant Staphylococcus aureus 4+ Pain, acute on chronic Chronic back pain, takes hydro 10 PRN for chronic back pain, has hardware Dog scratch Severe sepsis BRANDON - vasomotor nephropathy Hypokalemia 07/[address] right axilla History of Present Illness History of Present Illness 73 yo F admit from ER with bilateral axilla pain and swelling, She has swelling and likely abscesses that began a week ago. Patient states she was seen by her PCP 07/18 and both axilla were drained. She states the next morning she woke up and she had redness on the right axilla. PO augmentin started 07/18, not better, came to ED, had wound and blood cultures drawn. Seen by surgery, bilateral US showed cellulitis on right axilla and small abscess in left. 07/20: Still with fever overnight. Lost left peripheral IV access very quickly and has dog scratch on her right arm (likely source). Flu test still pending. BP persistently low despite 2 bolus and WBC count going up. On further review she notes she broke up a dog fight about 6 days ago and was scratched multiple times, these are apparent on exam today. 07/21: Afebrile since 0300 on 07/20. Feeling improved with better drainage on the right with saturated dressing. PICC yesterday per IR due to dog scratches on her arms. Wound culture gram stain shows few GPC, looks like staph 07/23 still has large woung right axilla with purulent drainage cult pos MRSA id consulted Feels better, wants to go home. Contacted [facility] for her lab results and they state her last encounter there was in 2002, patient and note that the culture was sent to [facility] from the doctors office, will order records as she arrived here septic. Plan: Chlorhexidine bath, check MRSA PCR S/p PICC for access and dual antibiotics, frequent blood draws, may need pressors if another bolus can't get her BP up Appreciate surgery recs Zosyn on for capnocytophagia coverage with dog encounter. Last tetanus was 1 year ago. Dogs up to date on vaccines. Cont Vanco as well with GPC May need to consult ID, will await culture and sensitivity as she is improving F/u on flu test, still pending from admit Aggressive IV fluids Back off on her pain meds and xanax Vitals Vitals Vital Signs Date Time Temp Pulse Resp B/P (MAP) Pulse Ox O2 Delivery O2 Flow Rate FiO2 07/23/18 13:01 18 Room Air 07/23/18 10:46 97.8 59 128/52 (77) 94 97.8 07/23/18 09:09 2.0 Physical Exam General: Alert, Oriented X3, Cooperative, No acute distress, mild distress Heart: Regular rate, Normal S1, Normal S2, No murmurs Lungs: Clear Abdomen: Soft, No tenderness Extremities: No clubbing, No cyanosis Skin: Other (right axilla with erythema and induration, no fluctance, packing in place purulent drainage, tender) Labs LABS SPEC #: [id number] JOE: 07/19/18 STATUS: RES REQ #: [id number] RECD: 07/19/[address]: AKIKO JENSEN APRN SOURCE: AXILLA ENTR: 07/19/18-[address]: UNKNOWN PCP NAME SPDC: RIGHT ORDERED: ANAER/AEROB/GS Procedure Result ANAEROBIC-AEROBIC CULTURE PENDING ANAEROBIC RES 1 PENDING AEROBIC CULT Final Final report AEROBIC RES 1 Final Comment Methicillin - resistant Staphylococcus aureus 4+ Based on resistance to oxacillin this isolate would be resistant to all currently available beta-lactam antimicrobial agents, with the exception of the newer cephalosporins with anti-MRSA activity, such as Ceftaroline This isolate does not demonstrate inducible clindamycin resistance in vitro by D test. ANTIMICROBIAL SUSCEPTIBILITY Final Comment S = Susceptible; I = Intermediate; R = Resistant P = Positive; N = Negative MICS are expressed in micrograms per mL Antibiotic RSLT#1 RSLT#2 RSLT#3 RSLT#4 Ciprofloxacin S<=0.5 Clindamycin S<=0.25 Erythromycin R>=8 Gentamicin S<=0.5 Levofloxacin S<=0.12 Linezolid S =1 Oxacillin R>=4 Penicillin R>=0.5 Rifampin S<=0.5 Tetracycline S<=1 Trimethoprim/Sulfa S<=10 Laboratory Tests Test 07/23/18 05:20 White Blood Count 4.7 x10^3/uL (4.0-11.0) Red Blood Count 2.97 x10^6/uL (3.50-5.40) Hemoglobin 9.5 g/dL (12.0-15.5) Hematocrit 28.2 % (36.0-47.0) Mean Corpuscular Volume 95 fL (79-100) Mean Corpuscular Hemoglobin 32 pg (25-35) Mean Corpuscular Hemoglobin Concent 34 g/dL (31-37) Red Cell Distribution Width 13.8 % (11.5-14.5) Platelet Count 172 x10^3/uL (140-400) Neutrophils (%) (Auto) 74 % (31-73) Lymphocytes (%) (Auto) 14 % (24-48) Monocytes (%) (Auto) 10 % (0-9) Eosinophils (%) (Auto) 2 % (0-3) Basophils (%) (Auto) 0 % (0-3) Neutrophils # (Auto) 3.5 x10^3uL (1.8-7.7) Lymphocytes # (Auto) 0.6 x10^3/uL (1.0-4.8) Monocytes # (Auto) 0.5 x10^3/uL (0.0-1.1) Eosinophils # (Auto) 0.1 x10^3/uL (0.0-0.7) Basophils # (Auto) 0.0 x10^3/uL (0.0-0.2) Sodium Level 147 mmol/L (136-145) Potassium Level 3.4 mmol/L (3.5-5.1) Chloride Level 108 mmol/L (98-107) Carbon Dioxide Level 29 mmol/L (21-32) Anion Gap 10 (6-14) Blood Urea Nitrogen 3 mg/dL (7-20) Creatinine 0.8 mg/dL (0.6-1.0) Estimated GFR (Cockcroft-Gault) 70.5 Glucose Level 104 mg/dL (70-99) Calcium Level 8.3 mg/dL (8.5-10.1) Assessment and Plan Assessmemt and Plan Problems Medical Problems: (1) Sepsis Status: Acute Comment Review of Relevant I have reviewed the following items amber (where applicable) has been applied. Labs Laboratory Tests Test 07/21/18 16:28 07/22/18 04:50 07/23/18 05:20 Vancomycin Level Trough 2.4 mcg/mL (10.0-20.0) Vancomycin Last Dose Date Unk Vancomycin Last Dose Time Unk White Blood Count 4.6 x10^3/uL (4.0-11.0) 4.7 x10^3/uL (4.0-11.0) Red Blood Count 3.10 x10^6/uL (3.50-5.40) 2.97 x10^6/uL (3.50-5.40) Hemoglobin 9.9 g/dL (12.0-15.5) 9.5 g/dL (12.0-15.5) Hematocrit 29.4 % (36.0-47.0) 28.2 % (36.0-47.0) Mean Corpuscular Volume 95 fL (79-100) 95 fL (79-100) Mean Corpuscular Hemoglobin 32 pg (25-35) 32 pg (25-35) Mean Corpuscular Hemoglobin Concent 34 g/dL (31-37) 34 g/dL (31-37) Red Cell Distribution Width 13.9 % (11.5-14.5) 13.8 % (11.5-14.5) Platelet Count 172 x10^3/uL (140-400) 172 x10^3/uL (140-400) Neutrophils (%) (Auto) 69 % (31-73) 74 % (31-73) Lymphocytes (%) (Auto) 19 % (24-48) 14 % (24-48) Monocytes (%) (Auto) 10 % (0-9) 10 % (0-9) Eosinophils (%) (Auto) 2 % (0-3) 2 % (0-3) Basophils (%) (Auto) 1 % (0-3) 0 % (0-3) Neutrophils # (Auto) 3.2 x10^3uL (1.8-7.7) 3.5 x10^3uL (1.8-7.7) Lymphocytes # (Auto) 0.9 x10^3/uL (1.0-4.8) 0.6 x10^3/uL (1.0-4.8) Monocytes # (Auto) 0.5 x10^3/uL (0.0-1.1) 0.5 x10^3/uL (0.0-1.1) Eosinophils # (Auto) 0.1 x10^3/uL (0.0-0.7) 0.1 x10^3/uL (0.0-0.7) Basophils # (Auto) 0.0 x10^3/uL (0.0-0.2) 0.0 x10^3/uL (0.0-0.2) Segmented Neutrophils % 52 % (35-66) Band Neutrophils % 3 % (0-9) Lymphocytes % 29 % (24-48) Monocytes % 12 % (0-10) Eosinophils % 2 % (0-5) Basophils % 2 % (0-3) Platelet Estimate Adequate (ADEQUATE) Sodium Level 145 mmol/L (136-145) 147 mmol/L (136-145) Potassium Level 3.9 mmol/L (3.5-5.1) 3.4 mmol/L (3.5-5.1) Chloride Level 108 mmol/L (98-107) 108 mmol/L (98-107) Carbon Dioxide Level 29 mmol/L (21-32) 29 mmol/L (21-32) Anion Gap 8 (6-14) 10 (6-14) Blood Urea Nitrogen 4 mg/dL (7-20) 3 mg/dL (7-20) Creatinine 0.8 mg/dL (0.6-1.0) 0.8 mg/dL (0.6-1.0) Estimated GFR (Cockcroft-Gault) 70.5 70.5 Glucose Level 101 mg/dL (70-99) 104 mg/dL (70-99) Calcium Level 8.6 mg/dL (8.5-10.1) 8.3 mg/dL (8.5-10.1) Laboratory Tests Test 07/23/18 05:20 White Blood Count 4.7 x10^3/uL (4.0-11.0) Red Blood Count 2.97 x10^6/uL (3.50-5.40) Hemoglobin 9.5 g/dL (12.0-15.5) Hematocrit 28.2 % (36.0-47.0) Mean Corpuscular Volume 95 fL (79-100) Mean Corpuscular Hemoglobin 32 pg (25-35) Mean Corpuscular Hemoglobin Concent 34 g/dL (31-37) Red Cell Distribution Width 13.8 % (11.5-14.5) Platelet Count 172 x10^3/uL (140-400) Neutrophils (%) (Auto) 74 % (31-73) Lymphocytes (%) (Auto) 14 % (24-48) Monocytes (%) (Auto) 10 % (0-9) Eosinophils (%) (Auto) 2 % (0-3) Basophils (%) (Auto) 0 % (0-3) Neutrophils # (Auto) 3.5 x10^3uL (1.8-7.7) Lymphocytes # (Auto) 0.6 x10^3/uL (1.0-4.8) Monocytes # (Auto) 0.5 x10^3/uL (0.0-1.1) Eosinophils # (Auto) 0.1 x10^3/uL (0.0-0.7) Basophils # (Auto) 0.0 x10^3/uL (0.0-0.2) Sodium Level 147 mmol/L (136-145) Potassium Level 3.4 mmol/L (3.5-5.1) Chloride Level 108 mmol/L (98-107) Carbon Dioxide Level 29 mmol/L (21-32) Anion Gap 10 (6-14) Blood Urea Nitrogen 3 mg/dL (7-20) Creatinine 0.8 mg/dL (0.6-1.0) Estimated GFR (Cockcroft-Gault) 70.5 Glucose Level 104 mg/dL (70-99) Calcium Level 8.3 mg/dL (8.5-10.1) Microbiology 07/19/18 Blood Culture - Preliminary, Resulted NO GROWTH AFTER 4 DAYS 07/19/18 Anaerobic/Aerobic Culture, Resulted Pending 07/19/18 Anaerobic Culture Result 1 (JACKIE), Resulted Pending 07/19/18 Aerobic Culture - Final, Resulted 07/19/18 Aerobic Culture Result 1 (JACKIE) - Final, Resulted 07/19/18 Antimicrobic Susceptibility - Final, Resulted 07/19/18 Gram Stain - Final, Resulted 07/19/18 Gram Stain Result 1 (JACKIE) - Final, Resulted 07/19/18 Gram Stain Result 2 (JACKIE) - Final, Resulted Medications Current Medications Piperacillin Sod/ Tazobactam Sod 4.5 gm/Sodium Chloride 100 ml @ 200 mls/hr 1X ONCE IV Last administered on 07/19/18at 11:30; Start 07/19/18 at 10:30; Stop 07/19/18 at 10:59; Status DC Vancomycin HCl (Vanco Per Pharmacy) 1 each 1X ONCE MC ; Start 07/19/18 at 10:30 ; Stop 07/19/18 at 10:31; Status UNV Sodium Chloride 1,000 ml @ 1,860 mls/hr Q33M IV Last administered on at 13:18; Start 07/19/18 at 10:27; Stop 07/19/18 at 11:27; Status DC Morphine Sulfate (Morphine Sulfate) 4 mg PRN Q15MIN PRN IV/SQ PAIN GREATER THAN 3/10 Last administered on 07/19/18at 10:54; Start 07/19/18 at 10:30; Stop at 10:29; Status DC Vancomycin HCl 1.5 gm/Sodium Chloride 500 ml @ 250 mls/hr 1X ONCE IV Last administered on 07/19/18at 12:36; Start 07/19/18 at 11:00; Stop 07/19/18 at 12:59 ; Status DC Acetaminophen (Tylenol) 1,000 mg 1X ONCE PO Last administered on 07/19/18at 13: 03; Start 07/19/18 at 12:45; Stop 07/19/18 at 12:47; Status DC Hydromorphone HCl (Dilaudid) 1 mg 1X ONCE IV Last administered on 07/19/18 14 :01; Start 07/19/18 at 13:30; Stop 07/19/18 at 13:32; Status DC Ondansetron HCl (Zofran) 4 mg PRN Q8HRS PRN IV NAUSEA/VOMITING; Start 07/19/18 at 14:30; Stop 07/20/18 at 14:29; Status DC Morphine Sulfate (Morphine Sulfate) 4 mg PRN Q2HR PRN IV PAIN Last administered on 07/19/18 17:20; Start 07/19/18 at 14:30; Stop 07/20/18 at 14:29 ; Status DC Acetaminophen (Tylenol) 650 mg PRN Q4HRS PRN PO FEVER Last administered on 07/20 04:16; Start 07/19/18 at 14:30; Stop 07/20/18 at 14:29; Status DC Sodium Chloride 1,000 ml @ 125 mls/hr 1X ONCE IV Last administered on at 18:22; Start 07/19/18 at 14:30; Stop 07/19/18 at 22:29; Status DC Pharmacy Consult (C.diff Med Screen By Rx) 1 each 1X ONCE MC ; Start 07/19/18 at 15:30; Stop 07/19/18 at 15:31; Status UNV Vancomycin HCl (Vanco Per Pharmacy) 1 each PRN DAILY PRN MC SEE COMMENTS Last administered on 07/22/18 13:02; Start 07/19/18 at 15:45 Acetaminophen/ Hydrocodone Bitart (Lortab 10/325) 1 tab PRN Q6HRS PRN PO MODERATE PAIN Last administered on 07/23/18 11:16; Start 07/19/18 at 15:45 Ondansetron HCl (Zofran Odt) 4 mg PRN Q8HRS PRN PO NAUSEA; Start 07/19/18 at 15 :45 Trazodone HCl (Desyrel) 100 mg HS PO Last administered on 07/22/18 20:40; Start 07/19/18 at 21:00 Citalopram Hydrobromide (CeleXA) 10 mg DAILY PO Last administered on 07/23/18 08:34; Start 07/19/18 at 16:30 Gabapentin (Neurontin) 600 mg TID PO Last administered on 07/23/18at 08:34; Start 07/19/18 at 21:00 Meloxicam (Mobic) 7.5 mg DAILY PO Last administered on 07/23/18at 08:34; Start 07/19/18 at 16:30 Non-Formulary Medication (Metronidazole (Flagyl)) 1 tab TID PO ; Start 07/19/18 at 21:00; Status UNV Pantoprazole Sodium (Protonix) 40 mg DAILYAC PO Last administered on 07/21/18at 07:56; Start 07/19/18 at 16:30; Stop 07/21/18 at 15:35; Status DC Alprazolam (Xanax) 1 mg PRN Q8HRS PRN PO ANXIETY / AGITATION Last administered on 07/19/18at 16:43; Start 07/19/18 at 15:45; Stop 07/20/18 at 09:25; Status DC Piperacillin Sod/ Tazobactam Sod (Zosyn Per Pharmacy) 1 each PRN DAILY PRN MC SEE COMMENTS; Start 07/19/18 at 16:00 Vancomycin HCl 1 gm/Sodium Chloride 250 ml @ 250 mls/hr Q24H IV Last administered on 07/20/18at 17:11; Start 07/20/18 at 12:30; Stop 07/21/18 at 16:59 ; Status DC Vancomycin HCl (Vancomycin Trough Level) 1 each 1X ONCE MC Last administered on 07/21/18at 16:30; Start 07/21/18 at 16:30; Stop 07/21/18 at 16:31; Status DC Oxycodone HCl (Roxicodone) 20 mg PRN Q6HRS PRN PO SEVERE PAIN Last administered on 07/20/18at 05:32; Start 07/19/18 at 16:00; Stop 07/20/18 at 09:25 ; Status DC Piperacillin Sod/ Tazobactam Sod 2.25 gm/Sodium Chloride 50 ml @ 100 mls/hr Q6HRS IV Last administered on 07/20/18at 15:27; Start 07/19/18 at 18:00; Stop at 16:45; Status DC Sodium Chloride 1,000 ml @ 1,000 mls/hr 1X ONCE IV Last administered on at 16:44; Start 07/19/18 at 16:15; Stop 07/19/18 at 17:14; Status DC Potassium Chloride (Klor-Con) 40 meq 1X ONCE PO Last administered on at 16:43; Start 07/19/18 at 16:15; Stop 07/19/18 at 16:28; Status DC Docusate Sodium (Colace) 100 mg DAILY PO Last administered on 07/21/18at 09:34; Start 07/20/18 at 09:00 Polyethylene Glycol (miraLAX PACKET) 17 gm PRN DAILY PRN PO CONSTIPATION; Start 07/19/18 at 16:15 Alprazolam (Xanax) 0.5 mg PRN Q8HRS PRN PO ANXIETY / AGITATION Last administered on 07/23/18at 09:09; Start 07/20/18 at 09:30 Ringer's Solution 1,000 ml @ 100 mls/hr Q10H IV Last administered on at 12:30; Start 07/20/18 at 09:30 Lidocaine/ Epinephrine (LIDOCAINE 1%-EPI 1:100,000 Multi-Dose) 20 ml STK-MED ONCE .ROUTE ; Start 07/20/18 at 13:46; Stop 07/20/18 at 13:47; Status DC Heparin Sodium (Porcine) (Heparin Sodium) 10,000 unit STK-MED ONCE .ROUTE ; Start 07/20/18 at 13:46; Stop 07/20/18 at 13:47; Status DC Heparin Sodium (Porcine) (Hep Lock Adult) 500 unit STK-MED ONCE IV ; Start 07/20 at 13:53; Stop 07/20/18 at 13:54; Status DC Midazolam HCl (Versed) 2 mg STK-MED ONCE .ROUTE ; Start 07/20/18 at 13:54; Stop 07/20/18 at 13:55; Status DC Fentanyl Citrate (Fentanyl 2ml Vial) 100 mcg STK-MED ONCE .ROUTE ; Start at 13:54; Stop 07/20/18 at 13:55; Status DC Midazolam HCl (Versed) 2 mg 1X ONCE IV ; Start 07/20/18 at 14:45; Stop at 14:46; Status DC Fentanyl Citrate (Fentanyl 2ml Vial) 50 mcg 1X ONCE IV Last administered on 14:43; Start 07/20/18 at 14:45; Stop 07/20/18 at 14:46; Status DC Lidocaine/ Epinephrine (LIDOCAINE 1%-EPI 1:100,000 Multi-Dose) 8 ml 1X ONCE IJ Last administered on 07/20/18at 14:42; Start 07/20/18 at 14:45; Stop 07/20/18 at 14:46; Status DC Heparin Sodium (Porcine) (Hep Lock Adult) 500 unit STK-MED ONCE IV ; Start 07/20 at 14:47; Stop 07/20/18 at 14:48; Status DC Morphine Sulfate (Morphine Sulfate) 4 mg PRN Q4HRS PRN IV PAIN Last administered on 07/23/18 13:01; Start 07/20/18 at 15:30 Piperacillin Sod/ Tazobactam Sod 3.375 gm/Sodium Chloride 50 ml @ 100 mls/hr Q6HRS IV Last administered on 07/23/18 12:30; Start 07/20/18 at 18:00 Lactobacillus Rhamnosus (Culturelle) 1 cap BID PO Last administered on 08:34; Start 07/20/18 at 21:00 Famotidine (Pepcid) 20 mg HS PO Last administered on 07/22/18at 20:47; Start at 21:00 Vancomycin HCl 1 gm/Sodium Chloride 250 ml @ 250 mls/hr Q12H IV Last administered on 07/22/18 04:36; Start 07/21/18 at 17:00; Stop 07/22/18 at 12:59 ; Status DC Vancomycin HCl (Vancomycin Trough Level) 1 each 1X ONCE MC ; Start 07/24/18 at 00:30; Stop 07/24/18 at 00:31 Vancomycin HCl 1 gm/Sodium Chloride 250 ml @ 250 mls/hr 1X ONCE IV Last administered on 07/22/18 13:03; Start 07/22/18 at 13:00; Stop 07/22/18 at 13:59 ; Status DC Vancomycin HCl 1 gm/Sodium Chloride 250 ml @ 250 mls/hr Q12H IV Last administered on 07/23/18at 13:02; Start 07/23/18 at 01:00 Active Scripts Active Reported Meloxicam 7.5 Mg Tablet 1 Tab PO DAILY Escitalopram Oxalate 5 Mg Tablet 5 Mg PO DAILY Omeprazole 20 Mg Capsule.dr 20 Mg PO DAILY Xanax (Alprazolam) 2 Mg Tablet 1 Tab PO BID Hydrocodone-Apap 10-325 (Hydrocodone Bit/Acetaminophen) 1 Each Tablet 1 Tab PO PRN Q6HRS PRN Trazodone Hcl 100 Mg Tablet 100 Mg PO HS Gabapentin 600 Mg Tablet 600 Mg PO TID Vitals/I & O Vital Sign - Last 24 Hours 07/22/18 07/22/18 07/22/18 07/22/18 15:00 15:06 16:06 19:00 Temp 98.1 98.4 98.1 98.4 Pulse 66 69 Resp 18 20 B/P (MAP) 124/58 (80) 131/69 (89) Pulse Ox 96 93 93 98 O2 Delivery Room Air Room Air Room Air O2 Flow Rate 2.0 2.0 2.0 07/22/18 07/22/18 07/23/18 07/23/18 20:00 23:00 03:00 05:13 Temp 97.9 98.7 97.9 98.7 Pulse 63 78 Resp 20 20 B/P (MAP) 116/65 (82) 125/65 (85) Pulse Ox 96 95 O2 Delivery Room Air Room Air Room Air Room Air 07/23/18 07/23/18 07/23/18 07/23/18 07:00 08:00 08:35 09:09 Temp 97.7 97.7 Pulse 53 Resp 18 18 B/P (MAP) 123/49 (73) Pulse Ox 94 94 O2 Delivery Room Air Room Air Room Air Room Air O2 Flow Rate 2.0 07/23/18 07/23/18 07/23/18 07/23/18 10:46 11:16 12:16 13:01 Temp 97.8 97.8 Pulse 59 Resp 18 18 16 18 B/P (MAP) 128/52 (77) Pulse Ox 94 O2 Delivery Room Air Room Air Room Air Room Air Intake and Output 07/22/18 07/22/18 07/23/18 14:59 22:59 06:59 Intake Total 600 ml 1730 ml Balance 600 ml 1730 ml ALFREDO WELLS MD Jul 23, 2018 13:25
[2018-07-23] MEDS: VANCOMYCIN PER PHARMACY MC PRN (14:30)
[2018-07-23 15:07] VITALS: BP 125/50
[2018-07-23] MEDS ORDERED: MORPHINE SULFATE 4 MG/ML VIAL. IV ONE (15:45)
--- NOTE | 2018-07-23 16:12 | NUR ---
Wound care Wound care follow up for assessment of abscess to r axilla. Redness, induration and pain have increased since Monday. Opening had scabbed over, removed scab and expressed copious amount of purulent drainage. Unable to relieve induration from distal portion of wound with expression. packed opening of wound with small piece of gauze packing to keep open and covered with ABD pad. Recommend to change dressing daily. No other wounds noted on full skin inspection. Pt educated on PU prevention, states she gets up and walks around frequently. WC will follow up after consult to general surgery. Pt may follow up in Wound Clinic after discharge.
--- NOTE | 2018-07-23 17:06 | RAD ---
CT study of the right shoulder without contrast Clinical indications: Right axillary abscess. COMPARISON: Sonogram of the right axillary region dated June 18, 2018. TECHNIQUE: Noncontrast helical CT scanning of the right shoulder was performed. Multiplanar 2-D reconstructions were generated. Without contrast, the sensitivity to detect organ pathology is decreased. PQRS compliance Statement One or more of the following individualized dose reduction techniques were utilized for this study: 1. Automated exposure control 2. Adjustment of the mA and/or kV according to patient size 3. Use of iterative reconstruction technique FINDINGS: Multiple nodular densities of the right axillary region are seen. These are contiguous with the upper lateral aspect of the right breast. Some these may represent enlarged axillary lymphadenopathy. There is a prominent nodular area within the lateral upper aspect of the right breast measuring 3 cm in size. This measures 21 Hounsfield units. More inferiorly within the right lateral chest wall, there is another area of nodularity measuring 2.5 cm in size with Hounsfield unit measurement of 26. Without contrast, it is difficult to exclude complex fluid collections or abscesses. There is diffuse subcutaneous soft tissue edema present here. Noncalcified right lung nodules are seen. Calcified granuloma of the right upper lobe is seen. No lytic process is seen. IMPRESSION: Nodular inflammatory process of the lateral right breast and right lateral chest wall and right axillary region. Some of the nodularity may represent axillary lymphadenopathy. However, inflammatory carcinoma is a consideration in addition to infection. There are 2 prominent nodular masses within the lateral right breast and the right lateral chest wall. Without contrast, it is difficult to exclude complex fluid collections or abscesses. Hounsfield unit measurements are in the 20s. Noncalcified right lung nodules. Electronically signed by: Rm Martinez MD (07/23/2018 5:03 PM) [facility]
[2018-07-23 19:00] VITALS: BP 132/65
[2018-07-23] MEDS: traZODone 100 MG TABLET. PO SCH (20:56)
[2018-07-23] MEDS: FAMOTIDINE 20 MG TABLET. PO SCH (20:56)
[2018-07-23 22:56] VITALS: BP 141/74
[2018-07-24] MEDS: PIPERACILLIN/TAZOBACTAM 3.375 GM in IV NORMAL SALINE 50ML 50 ML IV SCH ×3 (00:08→11:32)
[2018-07-24] MEDS: HYDROcodone/APAP 10/325 1 TAB TABLET PO PRN ×3 (00:12→15:34)
[2018-07-24] MEDS: VANCOMYCIN 1 GM in IV NORMAL SALINE 250ML 250 ML IV SCH ×2 (02:46→12:08)
[2018-07-24] MEDS: IV RINGERS,LACTATED 1000ML 1,000 ML IV SCH ×2 (02:49→15:37)
[2018-07-24 03:00] VITALS: BP 113/62
[2018-07-24] MEDS: VANCOMYCIN PER PHARMACY MC PRN (03:08)
--- NOTE | 2018-07-24 03:09 | NUR ---
Pharmacy Vancomycin Dosing Note S: Consulted to monitor and dose vancomycin started 07/19/18. O: ROBERTA JORDAN is a 73 year old F with Cellulitis AXILLA CELLULITIS . Other Antibiotics: ZOSYN 3.375G IV Q6HRS LABS: Last BUN: 3 Last Creatinine: 0.8 Creatinine Clearance: 44 mL/min Last WBC: 4.7 Last Platelets: Tmax (past 24 hours): 98.7 Microbiology: BLOOD CX: NGTD AXILLA CX: MRSA I/O: 2330/- Drug Levels: Last Trough level: 12.0 on 07/23/18 at 1302 Last dose given 07/23/18 at 1302 Vancomycin Dosing: Dosing Weight: Actual Target Trough: 10-20 A: Based on: Trough, Actual Wt and CrCl P: 1. 07/24/18 Continue Vancomycin 1000 mg IV q12h 2. Follow up Trough level in 5 to 7 days as needed 3. Pharmacy will continue to monitor, follow and adjust therapy as needed. PETE FLEMING RPH, 07/24/18 [id number] Signed: 07/24/18 at 031 by PETE FLEMING RPH PHA Signed: 07/24/18 at 0312 by PETE FLEMING RPH PHA
[2018-07-24] MEDS: MORPHINE SULFATE 4 MG/ML VIAL. IV PRN ×3 (03:14→20:52)
[2018-07-24 06:20] LABS: BASO % 1 % (0-3); EOS # 0.1 x10^3/uL (0.0-0.7); EOS % 3 % (0-3); HEMATOCRIT 26.3 % (36.0-47.0); HEMOGLOBIN 8.8 g/dL (12.0-15.5); LYMPH # 0.9 x10^3/uL (1.0-4.8); LYMPH % 18 % (24-48); MEAN CORPUSCULAR HEMOGLOBIN 32 pg (25-35); MEAN CORPUSCULAR HGB CONC 33 g/dL (31-37); MEAN CORPUSCULAR VOLUME 95 fL (79-100); MONO # 0.4 x10^3/uL (0.0-1.1); MONO % 8 % (0-9); NEUT # 3.5 x10^3uL (1.8-7.7); NEUT % 70 % (31-73); PLATELET COUNT 181 x10^3/uL (140-400); RED BLOOD COUNT 2.76 x10^6/uL (3.50-5.40); RED CELL DISTRIBUTION WIDTH 13.7 % (11.5-14.5)
[2018-07-24 06:49] LABS: CALCIUM 7.9 mg/dL (8.5-10.1); CREATININE 0.7 mg/dL (0.6-1.0); GFR 82.3; POTASSIUM 3.5 mmol/L (3.5-5.1)
[2018-07-24 07:00] VITALS: BP 125/81
[2018-07-24] MEDS: ALPRAZolam 0.5 MG TABLET PO PRN ×2 (07:15→15:40)
--- NOTE | 2018-07-24 08:50 | PDOC ---
PROGRESS NOTES Chief Complaint Chief Complaint Bilateral Axillary cellulitis Left axillary abscess AEROBIC RES 1 Final Comment Methicillin - resistant Staphylococcus aureus 4+ Pain, acute on chronic Chronic back pain, takes hydro 10 PRN for chronic back pain, has hardware Dog scratch Severe sepsis BRANDON - vasomotor nephropathy Hypokalemia 07/[address] right axilla History of Present Illness History of Present Illness 73 yo F admit from ER with bilateral axilla pain and swelling, She has swelling and likely abscesses that began a week ago. Patient states she was seen by her PCP 07/18 and both axilla were drained. She states the next morning she woke up and she had redness on the right axilla. PO augmentin started 07/18, not better, came to ED, had wound and blood cultures drawn. Seen by surgery, bilateral US showed cellulitis on right axilla and small abscess in left. 07/20: Still with fever overnight. Lost left peripheral IV access very quickly and has dog scratch on her right arm (likely source). Flu test still pending. BP persistently low despite 2 bolus and WBC count going up. On further review she notes she broke up a dog fight about 6 days ago and was scratched multiple times, these are apparent on exam today. 07/21: Afebrile since 0300 on 07/20. Feeling improved with better drainage on the right with saturated dressing. PICC yesterday per IR due to dog scratches on her arms. Wound culture gram stain shows few GPC, looks like staph 07/23 still has large woung right axilla with purulent drainage cult pos MRSA id consulted 07/24. Contacted [facility] for her lab results and they state her last encounter there was in 2002, patient and note that the culture was sent to [facility] from the doctors office, will order records as she arrived here septic. still drainage from wound purulent Plan: Chlorhexidine bath, check MRSA PCR S/p PICC for access and dual antibiotics, frequent blood draws, may need pressors if another bolus can't get her BP up Appreciate surgery recs Zosyn on for capnocytophagia coverage with dog encounter. Last tetanus was 1 year ago. Dogs up to date on vaccines. Cont Vanco as well with GPC May need to consult ID, will await culture and sensitivity as she is improving F/u on flu test, still pending from admit Aggressive IV fluids Back off on her pain meds and xanax Vitals Vitals Vital Signs Date Time Temp Pulse Resp B/P (MAP) Pulse Ox O2 Delivery O2 Flow Rate FiO2 07/24/18 07:15 16 96 Room Air 07/24/18 07:00 97.6 58 125/81 (96) 97.6 07/23/18 22:56 2.0 Physical Exam General: Alert, Oriented X3, Cooperative, No acute distress, mild distress Heart: Regular rate, Normal S1, Normal S2, No murmurs Lungs: Clear Abdomen: Soft, No tenderness Extremities: No clubbing, No cyanosis Skin: Other (right axilla with erythema and induration, no fluctance, packing in place purulent drainage, tender) Labs LABS Laboratory Tests Test 07/23/18 17:15 07/24/18 01:30 07/24/18 05:50 Erythrocyte Sedimentation Rate 35 (0-25) Vancomycin Level Trough 12.0 mcg/mL (10.0-20.0) Vancomycin Last Dose Date 07/22/18 Vancomycin Last Dose Time 1700 White Blood Count 5.0 x10^3/uL (4.0-11.0) Red Blood Count 2.76 x10^6/uL (3.50-5.40) Hemoglobin 8.8 g/dL (12.0-15.5) Hematocrit 26.3 % (36.0-47.0) Mean Corpuscular Volume 95 fL (79-100) Mean Corpuscular Hemoglobin 32 pg (25-35) Mean Corpuscular Hemoglobin Concent 33 g/dL (31-37) Red Cell Distribution Width 13.7 % (11.5-14.5) Platelet Count 181 x10^3/uL (140-400) Neutrophils (%) (Auto) 70 % (31-73) Lymphocytes (%) (Auto) 18 % (24-48) Monocytes (%) (Auto) 8 % (0-9) Eosinophils (%) (Auto) 3 % (0-3) Basophils (%) (Auto) 1 % (0-3) Neutrophils # (Auto) 3.5 x10^3uL (1.8-7.7) Lymphocytes # (Auto) 0.9 x10^3/uL (1.0-4.8) Monocytes # (Auto) 0.4 x10^3/uL (0.0-1.1) Eosinophils # (Auto) 0.1 x10^3/uL (0.0-0.7) Basophils # (Auto) 0.0 x10^3/uL (0.0-0.2) Sodium Level 148 mmol/L (136-145) Potassium Level 3.5 mmol/L (3.5-5.1) Chloride Level 110 mmol/L (98-107) Carbon Dioxide Level 31 mmol/L (21-32) Anion Gap 7 (6-14) Blood Urea Nitrogen 2 mg/dL (7-20) Creatinine 0.7 mg/dL (0.6-1.0) Estimated GFR (Cockcroft-Gault) 82.3 Glucose Level 94 mg/dL (70-99) Calcium Level 7.9 mg/dL (8.5-10.1) Assessment and Plan Assessmemt and Plan Problems Medical Problems: (1) Sepsis Status: Acute Comment Review of Relevant I have reviewed the following items amber (where applicable) has been applied. Labs Laboratory Tests Test 07/23/18 05:20 07/23/18 17:15 07/24/18 01:30 07/24/18 05:50 White Blood Count 4.7 x10^3/uL (4.0-11.0) 5.0 x10^3/uL (4.0-11.0) Red Blood Count 2.97 x10^6/uL (3.50-5.40) 2.76 x10^6/uL (3.50-5.40) Hemoglobin 9.5 g/dL (12.0-15.5) 8.8 g/dL (12.0-15.5) Hematocrit 28.2 % (36.0-47.0) 26.3 % (36.0-47.0) Mean Corpuscular Volume 95 fL (79-100) 95 fL (79-100) Mean Corpuscular Hemoglobin 32 pg (25-35) 32 pg (25-35) Mean Corpuscular Hemoglobin Concent 34 g/dL (31-37) 33 g/dL (31-37) Red Cell Distribution Width 13.8 % (11.5-14.5) 13.7 % (11.5-14.5) Platelet Count 172 x10^3/uL (140-400) 181 x10^3/uL (140-400) Neutrophils (%) (Auto) 74 % (31-73) 70 % (31-73) Lymphocytes (%) (Auto) 14 % (24-48) 18 % (24-48) Monocytes (%) (Auto) 10 % (0-9) 8 % (0-9) Eosinophils (%) (Auto) 2 % (0-3) 3 % (0-3) Basophils (%) (Auto) 0 % (0-3) 1 % (0-3) Neutrophils # (Auto) 3.5 x10^3uL (1.8-7.7) 3.5 x10^3uL (1.8-7.7) Lymphocytes # (Auto) 0.6 x10^3/uL (1.0-4.8) 0.9 x10^3/uL (1.0-4.8) Monocytes # (Auto) 0.5 x10^3/uL (0.0-1.1) 0.4 x10^3/uL (0.0-1.1) Eosinophils # (Auto) 0.1 x10^3/uL (0.0-0.7) 0.1 x10^3/uL (0.0-0.7) Basophils # (Auto) 0.0 x10^3/uL (0.0-0.2) 0.0 x10^3/uL (0.0-0.2) Sodium Level 147 mmol/L (136-145) 148 mmol/L (136-145) Potassium Level 3.4 mmol/L (3.5-5.1) 3.5 mmol/L (3.5-5.1) Chloride Level 108 mmol/L (98-107) 110 mmol/L (98-107) Carbon Dioxide Level 29 mmol/L (21-32) 31 mmol/L (21-32) Anion Gap 10 (6-14) 7 (6-14) Blood Urea Nitrogen 3 mg/dL (7-20) 2 mg/dL (7-20) Creatinine 0.8 mg/dL (0.6-1.0) 0.7 mg/dL (0.6-1.0) Estimated GFR (Cockcroft-Gault) 70.5 82.3 Glucose Level 104 mg/dL (70-99) 94 mg/dL (70-99) Calcium Level 8.3 mg/dL (8.5-10.1) 7.9 mg/dL (8.5-10.1) Erythrocyte Sedimentation Rate 35 (0-25) Vancomycin Level Trough 12.0 mcg/mL (10.0-20.0) Vancomycin Last Dose Date 07/22/18 Vancomycin Last Dose Time 1700 Laboratory Tests Test 07/23/18 17:15 07/24/18 01:30 07/24/18 05:50 Erythrocyte Sedimentation Rate 35 (0-25) Vancomycin Level Trough 12.0 mcg/mL (10.0-20.0) Vancomycin Last Dose Date 07/22/18 Vancomycin Last Dose Time 1700 White Blood Count 5.0 x10^3/uL (4.0-11.0) Red Blood Count 2.76 x10^6/uL (3.50-5.40) Hemoglobin 8.8 g/dL (12.0-15.5) Hematocrit 26.3 % (36.0-47.0) Mean Corpuscular Volume 95 fL (79-100) Mean Corpuscular Hemoglobin 32 pg (25-35) Mean Corpuscular Hemoglobin Concent 33 g/dL (31-37) Red Cell Distribution Width 13.7 % (11.5-14.5) Platelet Count 181 x10^3/uL (140-400) Neutrophils (%) (Auto) 70 % (31-73) Lymphocytes (%) (Auto) 18 % (24-48) Monocytes (%) (Auto) 8 % (0-9) Eosinophils (%) (Auto) 3 % (0-3) Basophils (%) (Auto) 1 % (0-3) Neutrophils # (Auto) 3.5 x10^3uL (1.8-7.7) Lymphocytes # (Auto) 0.9 x10^3/uL (1.0-4.8) Monocytes # (Auto) 0.4 x10^3/uL (0.0-1.1) Eosinophils # (Auto) 0.1 x10^3/uL (0.0-0.7) Basophils # (Auto) 0.0 x10^3/uL (0.0-0.2) Sodium Level 148 mmol/L (136-145) Potassium Level 3.5 mmol/L (3.5-5.1) Chloride Level 110 mmol/L (98-107) Carbon Dioxide Level 31 mmol/L (21-32) Anion Gap 7 (6-14) Blood Urea Nitrogen 2 mg/dL (7-20) Creatinine 0.7 mg/dL (0.6-1.0) Estimated GFR (Cockcroft-Gault) 82.3 Glucose Level 94 mg/dL (70-99) Calcium Level 7.9 mg/dL (8.5-10.1) Microbiology 07/19/18 Blood Culture - Preliminary, Resulted NO GROWTH AFTER 4 DAYS 07/19/18 Anaerobic/Aerobic Culture - Final, Complete 07/19/18 Anaerobic Culture Result 1 (JACKIE) - Final, Complete 07/19/18 Aerobic Culture - Final, Complete 07/19/18 Aerobic Culture Result 1 (JACKIE) - Final, Complete 07/19/18 Antimicrobic Susceptibility - Final, Complete 07/19/18 Gram Stain - Final, Complete 07/19/18 Gram Stain Result 1 (JACKIE) - Final, Complete 07/19/18 Gram Stain Result 2 (JACKIE) - Final, Complete Medications Current Medications Piperacillin Sod/ Tazobactam Sod 4.5 gm/Sodium Chloride 100 ml @ 200 mls/hr 1X ONCE IV Last administered on 07/19/18at 11:30; Start 07/19/18 at 10:30; Stop 07/19/18 at 10:59; Status DC Vancomycin HCl (Vanco Per Pharmacy) 1 each 1X ONCE MC ; Start 07/19/18 at 10:30 ; Stop 07/19/18 at 10:31; Status UNV Sodium Chloride 1,000 ml @ 1,860 mls/hr Q33M IV Last administered on at 13:18; Start 07/19/18 at 10:27; Stop 07/19/18 at 11:27; Status DC Morphine Sulfate (Morphine Sulfate) 4 mg PRN Q15MIN PRN IV/SQ PAIN GREATER THAN 3/10 Last administered on 07/19/18at 10:54; Start 07/19/18 at 10:30; Stop at 10:29; Status DC Vancomycin HCl 1.5 gm/Sodium Chloride 500 ml @ 250 mls/hr 1X ONCE IV Last administered on 07/19/18at 12:36; Start 07/19/18 at 11:00; Stop 07/19/18 at 12:59 ; Status DC Acetaminophen (Tylenol) 1,000 mg 1X ONCE PO Last administered on 07/19/18at 13: 03; Start 07/19/18 at 12:45; Stop 07/19/18 at 12:47; Status DC Hydromorphone HCl (Dilaudid) 1 mg 1X ONCE IV Last administered on 07/19/18at 14 :01; Start 07/19/18 at 13:30; Stop 07/19/18 at 13:32; Status DC Ondansetron HCl (Zofran) 4 mg PRN Q8HRS PRN IV NAUSEA/VOMITING; Start 07/19/18 at 14:30; Stop 07/20/18 at 14:29; Status DC Morphine Sulfate (Morphine Sulfate) 4 mg PRN Q2HR PRN IV PAIN Last administered on 07/19/18at 17:20; Start 07/19/18 at 14:30; Stop 07/20/18 at 14:29 ; Status DC Acetaminophen (Tylenol) 650 mg PRN Q4HRS PRN PO FEVER Last administered on 07/20at 04:16; Start 07/19/18 at 14:30; Stop 07/20/18 at 14:29; Status DC Sodium Chloride 1,000 ml @ 125 mls/hr 1X ONCE IV Last administered on at 18:22; Start 07/19/18 at 14:30; Stop 07/19/18 at 22:29; Status DC Pharmacy Consult (C.diff Med Screen By Rx) 1 each 1X ONCE MC ; Start 07/19/18 at 15:30; Stop 07/19/18 at 15:31; Status UNV Vancomycin HCl (Vanco Per Pharmacy) 1 each PRN DAILY PRN MC SEE COMMENTS Last administered on 07/24/18at 03:08; Start 07/19/18 at 15:45 Acetaminophen/ Hydrocodone Bitart (Lortab 10/325) 1 tab PRN Q6HRS PRN PO MODERATE PAIN Last administered on 07/24/18at 07:15; Start 07/19/18 at 15:45 Ondansetron HCl (Zofran Odt) 4 mg PRN Q8HRS PRN PO NAUSEA; Start 07/19/18 at 15 :45 Trazodone HCl (Desyrel) 100 mg HS PO Last administered on 07/23/18 20:56; Start 07/19/18 at 21:00 Citalopram Hydrobromide (CeleXA) 10 mg DAILY PO Last administered on 07/23/18 08:34; Start 07/19/18 at 16:30 Gabapentin (Neurontin) 600 mg TID PO Last administered on 07/23/18 20:54; Start 07/19/18 at 21:00 Meloxicam (Mobic) 7.5 mg DAILY PO Last administered on 07/23/18 08:34; Start 07/19/18 at 16:30 Non-Formulary Medication (Metronidazole (Flagyl)) 1 tab TID PO ; Start 07/19/18 at 21:00; Status UNV Pantoprazole Sodium (Protonix) 40 mg DAILYAC PO Last administered on 07/21/18 07:56; Start 07/19/18 at 16:30; Stop 07/21/18 at 15:35; Status DC Alprazolam (Xanax) 1 mg PRN Q8HRS PRN PO ANXIETY / AGITATION Last administered on 07/19/18 16:43; Start 07/19/18 at 15:45; Stop 07/20/18 at 09:25; Status DC Piperacillin Sod/ Tazobactam Sod (Zosyn Per Pharmacy) 1 each PRN DAILY PRN MC SEE COMMENTS; Start 07/19/18 at 16:00 Vancomycin HCl 1 gm/Sodium Chloride 250 ml @ 250 mls/hr Q24H IV Last administered on 07/20/18at 17:11; Start 07/20/18 at 12:30; Stop 07/21/18 at 16:59 ; Status DC Vancomycin HCl (Vancomycin Trough Level) 1 each 1X ONCE MC Last administered on 07/21/18at 16:30; Start 07/21/18 at 16:30; Stop 07/21/18 at 16:31; Status DC Oxycodone HCl (Roxicodone) 20 mg PRN Q6HRS PRN PO SEVERE PAIN Last administered on 07/20/18at 05:32; Start 07/19/18 at 16:00; Stop 07/20/18 at 09:25 ; Status DC Piperacillin Sod/ Tazobactam Sod 2.25 gm/Sodium Chloride 50 ml @ 100 mls/hr Q6HRS IV Last administered on 07/20/18at 15:27; Start 07/19/18 at 18:00; Stop at 16:45; Status DC Sodium Chloride 1,000 ml @ 1,000 mls/hr 1X ONCE IV Last administered on at 16:44; Start 07/19/18 at 16:15; Stop 07/19/18 at 17:14; Status DC Potassium Chloride (Klor-Con) 40 meq 1X ONCE PO Last administered on at 16:43; Start 07/19/18 at 16:15; Stop 07/19/18 at 16:28; Status DC Docusate Sodium (Colace) 100 mg DAILY PO Last administered on 07/21/18at 09:34; Start 07/20/18 at 09:00 Polyethylene Glycol (miraLAX PACKET) 17 gm PRN DAILY PRN PO CONSTIPATION; Start 07/19/18 at 16:15 Alprazolam (Xanax) 0.5 mg PRN Q8HRS PRN PO ANXIETY / AGITATION Last administered on 07/24/18at 07:15; Start 07/20/18 at 09:30 Ringer's Solution 1,000 ml @ 100 mls/hr Q10H IV Last administered on at 02:49; Start 07/20/18 at 09:30 Lidocaine/ Epinephrine (LIDOCAINE 1%-EPI 1:100,000 Multi-Dose) 20 ml STK-MED ONCE .ROUTE ; Start 07/20/18 at 13:46; Stop 07/20/18 at 13:47; Status DC Heparin Sodium (Porcine) (Heparin Sodium) 10,000 unit STK-MED ONCE .ROUTE ; Start 07/20/18 at 13:46; Stop 07/20/18 at 13:47; Status DC Heparin Sodium (Porcine) (Hep Lock Adult) 500 unit STK-MED ONCE IV ; Start 07/20 at 13:53; Stop 07/20/18 at 13:54; Status DC Midazolam HCl (Versed) 2 mg STK-MED ONCE .ROUTE ; Start 07/20/18 at 13:54; Stop 07/20/18 at 13:55; Status DC Fentanyl Citrate (Fentanyl 2ml Vial) 100 mcg STK-MED ONCE .ROUTE ; Start at 13:54; Stop 07/20/18 at 13:55; Status DC Midazolam HCl (Versed) 2 mg 1X ONCE IV ; Start 07/20/18 at 14:45; Stop at 14:46; Status DC Fentanyl Citrate (Fentanyl 2ml Vial) 50 mcg 1X ONCE IV Last administered on at 14:43; Start 07/20/18 at 14:45; Stop 07/20/18 at 14:46; Status DC Lidocaine/ Epinephrine (LIDOCAINE 1%-EPI 1:100,000 Multi-Dose) 8 ml 1X ONCE IJ Last administered on 07/20/18at 14:42; Start 07/20/18 at 14:45; Stop 07/20/18 at 14:46; Status DC Heparin Sodium (Porcine) (Hep Lock Adult) 500 unit STK-MED ONCE IV ; Start 07/20 at 14:47; Stop 07/20/18 at 14:48; Status DC Morphine Sulfate (Morphine Sulfate) 4 mg PRN Q4HRS PRN IV PAIN Last administered on 07/24/18at 03:14; Start 07/20/18 at 15:30 Piperacillin Sod/ Tazobactam Sod 3.375 gm/Sodium Chloride 50 ml @ 100 mls/hr Q6HRS IV Last administered on 07/24/18 06:01; Start 07/20/18 at 18:00 Lactobacillus Rhamnosus (Culturelle) 1 cap BID PO Last administered on 20:56; Start 07/20/18 at 21:00 Famotidine (Pepcid) 20 mg HS PO Last administered on 07/23/18 20:56; Start at 21:00 Vancomycin HCl 1 gm/Sodium Chloride 250 ml @ 250 mls/hr Q12H IV Last administered on 07/22/18 04:36; Start 07/21/18 at 17:00; Stop 07/22/18 at 12:59 ; Status DC Vancomycin HCl (Vancomycin Trough Level) 1 each 1X ONCE MC Last administered on 07/24/18at 01:30; Start 07/24/18 at 00:30; Stop 07/24/18 at 00:31; Status DC Vancomycin HCl 1 gm/Sodium Chloride 250 ml @ 250 mls/hr 1X ONCE IV Last administered on 07/22/18at 13:03; Start 07/22/18 at 13:00; Stop 07/22/18 at 13:59 ; Status DC Vancomycin HCl 1 gm/Sodium Chloride 250 ml @ 250 mls/hr Q12H IV Last administered on 07/24/18at 02:46; Start 07/23/18 at 01:00 Morphine Sulfate (Morphine Sulfate) 2 mg 1X ONCE IV Last administered on at 15:56; Start 07/23/18 at 15:45; Stop 07/23/18 at 15:46; Status DC Active Scripts Active Reported Meloxicam 7.5 Mg Tablet 1 Tab PO DAILY Escitalopram Oxalate 5 Mg Tablet 5 Mg PO DAILY Omeprazole 20 Mg Capsule.dr 20 Mg PO DAILY Xanax (Alprazolam) 2 Mg Tablet 1 Tab PO BID Hydrocodone-Apap 10-325 (Hydrocodone Bit/Acetaminophen) 1 Each Tablet 1 Tab PO PRN Q6HRS PRN Trazodone Hcl 100 Mg Tablet 100 Mg PO HS Gabapentin 600 Mg Tablet 600 Mg PO TID Vitals/I & O Vital Sign - Last 24 Hours 07/23/18 07/23/18 07/23/18 07/23/18 10:46 11:16 13:01 13:31 Temp 97.8 97.8 Pulse 59 Resp 18 18 18 B/P (MAP) 128/52 (77) Pulse Ox 94 O2 Delivery Room Air Room Air Room Air O2 Flow Rate 2.0 07/23/18 07/23/18 07/23/18 07/23/18 15:07 15:56 16:26 16:58 Temp 97.8 97.8 Pulse 58 Resp 18 18 18 18 B/P (MAP) 125/50 (75) Pulse Ox 95 95 O2 Delivery Room Air Room Air Room Air Room Air 07/23/18 07/23/18 07/23/18 07/23/18 19:00 19:24 20:00 22:56 Temp 97.8 97.9 97.8 97.9 Pulse 78 70 Resp 18 18 18 B/P (MAP) 132/65 (87) 141/74 (96) Pulse Ox 94 96 O2 Delivery Room Air Room Air Room Air Room Air O2 Flow Rate 2.0 07/24/18 07/24/18 07/24/18 07/24/18 00:12 01:37 03:00 03:14 Pulse 63 Resp 15 17 18 15 B/P (MAP) 113/62 (79) Pulse Ox 96 96 96 96 O2 Delivery Room Air Room Air Room Air Room Air 07/24/18 07/24/18 07/24/18 03:45 07:00 07:15 Temp 97.6 97.6 Pulse 58 Resp 14 18 16 B/P (MAP) 125/81 (96) Pulse Ox 96 97 96 O2 Delivery Room Air Room Air Room Air Intake and Output 07/23/18 07/23/18 07/24/18 15:00 23:00 07:00 Intake Total 600 ml 300 ml 1800 ml Balance 600 ml 300 ml 1800 ml ALFREDO WELLS MD Jul 24, 2018 08:50
[2018-07-24] MEDS: DOCUSATE SODIUM 100 MG CAPSULE. PO SCH (09:00)
--- NOTE | 2018-07-24 09:17 | PDOC ---
CHERYL GARCIA [employer] 07/24/18 0917: SURGICAL PROGRESS NOTE Subjective does feel better today reviewed wound care note--when previous incision site unroofed had purulent drainage Vital Signs Vital Signs Date Time Temp Pulse Resp B/P (MAP) Pulse Ox O2 Delivery O2 Flow Rate FiO2 07/24/18 07:15 16 96 Room Air 07/24/18 07:00 97.6 58 125/81 (96) 97.6 07/23/18 22:56 2.0 I&O Intake and Output 07/24/18 06:59 Intake Total 2700 ml Balance 2700 ml Intake Oral 1400 ml IV Total 1300 ml # Voids 3 General: Alert, Oriented X3, Cooperative, No acute distress Skin: Other (right axillary with erythema and induration) Labs Laboratory Tests Test 07/23/18 05:20 07/23/18 17:15 07/24/18 01:30 07/24/18 05:50 White Blood Count 4.7 x10^3/uL (4.0-11.0) 5.0 x10^3/uL (4.0-11.0) Red Blood Count 2.97 x10^6/uL (3.50-5.40) 2.76 x10^6/uL (3.50-5.40) Hemoglobin 9.5 g/dL (12.0-15.5) 8.8 g/dL (12.0-15.5) Hematocrit 28.2 % (36.0-47.0) 26.3 % (36.0-47.0) Mean Corpuscular Volume 95 fL (79-100) 95 fL (79-100) Mean Corpuscular Hemoglobin 32 pg (25-35) 32 pg (25-35) Mean Corpuscular Hemoglobin Concent 34 g/dL (31-37) 33 g/dL (31-37) Red Cell Distribution Width 13.8 % (11.5-14.5) 13.7 % (11.5-14.5) Platelet Count 172 x10^3/uL (140-400) 181 x10^3/uL (140-400) Neutrophils (%) (Auto) 74 % (31-73) 70 % (31-73) Lymphocytes (%) (Auto) 14 % (24-48) 18 % (24-48) Monocytes (%) (Auto) 10 % (0-9) 8 % (0-9) Eosinophils (%) (Auto) 2 % (0-3) 3 % (0-3) Basophils (%) (Auto) 0 % (0-3) 1 % (0-3) Neutrophils # (Auto) 3.5 x10^3uL (1.8-7.7) 3.5 x10^3uL (1.8-7.7) Lymphocytes # (Auto) 0.6 x10^3/uL (1.0-4.8) 0.9 x10^3/uL (1.0-4.8) Monocytes # (Auto) 0.5 x10^3/uL (0.0-1.1) 0.4 x10^3/uL (0.0-1.1) Eosinophils # (Auto) 0.1 x10^3/uL (0.0-0.7) 0.1 x10^3/uL (0.0-0.7) Basophils # (Auto) 0.0 x10^3/uL (0.0-0.2) 0.0 x10^3/uL (0.0-0.2) Sodium Level 147 mmol/L (136-145) 148 mmol/L (136-145) Potassium Level 3.4 mmol/L (3.5-5.1) 3.5 mmol/L (3.5-5.1) Chloride Level 108 mmol/L (98-107) 110 mmol/L (98-107) Carbon Dioxide Level 29 mmol/L (21-32) 31 mmol/L (21-32) Anion Gap 10 (6-14) 7 (6-14) Blood Urea Nitrogen 3 mg/dL (7-20) 2 mg/dL (7-20) Creatinine 0.8 mg/dL (0.6-1.0) 0.7 mg/dL (0.6-1.0) Estimated GFR (Cockcroft-Gault) 70.5 82.3 Glucose Level 104 mg/dL (70-99) 94 mg/dL (70-99) Calcium Level 8.3 mg/dL (8.5-10.1) 7.9 mg/dL (8.5-10.1) Erythrocyte Sedimentation Rate 35 (0-25) Vancomycin Level Trough 12.0 mcg/mL (10.0-20.0) Vancomycin Last Dose Date 07/22/18 Vancomycin Last Dose Time 1700 Laboratory Tests Test 07/23/18 17:15 07/24/18 01:30 07/24/18 05:50 Erythrocyte Sedimentation Rate 35 (0-25) Vancomycin Level Trough 12.0 mcg/mL (10.0-20.0) Vancomycin Last Dose Date 07/22/18 Vancomycin Last Dose Time 1700 White Blood Count 5.0 x10^3/uL (4.0-11.0) Red Blood Count 2.76 x10^6/uL (3.50-5.40) Hemoglobin 8.8 g/dL (12.0-15.5) Hematocrit 26.3 % (36.0-47.0) Mean Corpuscular Volume 95 fL (79-100) Mean Corpuscular Hemoglobin 32 pg (25-35) Mean Corpuscular Hemoglobin Concent 33 g/dL (31-37) Red Cell Distribution Width 13.7 % (11.5-14.5) Platelet Count 181 x10^3/uL (140-400) Neutrophils (%) (Auto) 70 % (31-73) Lymphocytes (%) (Auto) 18 % (24-48) Monocytes (%) (Auto) 8 % (0-9) Eosinophils (%) (Auto) 3 % (0-3) Basophils (%) (Auto) 1 % (0-3) Neutrophils # (Auto) 3.5 x10^3uL (1.8-7.7) Lymphocytes # (Auto) 0.9 x10^3/uL (1.0-4.8) Monocytes # (Auto) 0.4 x10^3/uL (0.0-1.1) Eosinophils # (Auto) 0.1 x10^3/uL (0.0-0.7) Basophils # (Auto) 0.0 x10^3/uL (0.0-0.2) Sodium Level 148 mmol/L (136-145) Potassium Level 3.5 mmol/L (3.5-5.1) Chloride Level 110 mmol/L (98-107) Carbon Dioxide Level 31 mmol/L (21-32) Anion Gap 7 (6-14) Blood Urea Nitrogen 2 mg/dL (7-20) Creatinine 0.7 mg/dL (0.6-1.0) Estimated GFR (Cockcroft-Gault) 82.3 Glucose Level 94 mg/dL (70-99) Calcium Level 7.9 mg/dL (8.5-10.1) Problem List Problems Medical Problems: (1) Sepsis Status: Acute Assessment/Plan CT yesterday-IMPRESSION: Nodular inflammatory process of the lateral right breast and right lateral chest wall and right axillary region. Some of the nodularity may represent axillary lymphadenopathy. However, inflammatory carcinoma is a consideration in addition to infection. There are 2 prominent nodular masses within the lateral right breast and the right lateral chest wall. Without contrast, it is difficult to exclude complex fluid collections or abscesses. Hounsfield unit measurements are in the 20s. will review with ALFREDO King MD 07/24/18 1120: SURGICAL PROGRESS NOTE Assessment/Plan Patient seen and examined by me she states she is feeling better less pain concerned with the CT findings possible abscess versus inflammatory breast cancer with plan for incision and drainage and biopsy of the right breast and axilla. Agree with Vito assessment and plan CHERYL GARCIA APRN Jul 24, 2018 09:17 ALFREDO RODGERS MD Jul 24, 2018 11:20
[2018-07-24] MEDS: LACTOBACILLUS RHAMNOSUS GG 1 CAPSULE. PO SCH ×2 (09:25→20:52)
[2018-07-24] MEDS: GABAPENTIN 300 MG CAPSULE. PO SCH ×3 (09:25→20:52)
[2018-07-24] MEDS: MELOXICAM 7.5 MG TABLET PO SCH (09:25)
[2018-07-24] MEDS: CITALOPRAM 10 MG TABLET. PO SCH (09:25)
--- NOTE | 2018-07-24 09:54 | NUR ---
IP: Pt is mrsa + in axilla abscess requiring contact precautions.
[2018-07-24 11:03] VITALS: BP 144/55
--- NOTE | 2018-07-24 14:09 | PDOC ---
Infectious Disease Note Vital Sign Vital Signs Vital Signs Date Time Temp Pulse Resp B/P (MAP) Pulse Ox O2 Delivery O2 Flow Rate FiO2 07/24/18 12:02 93 Room Air 2.0 07/24/18 11:03 98.0 77 18 144/55 (84) 98.0 Labs Lab Laboratory Tests Test 07/23/18 17:15 07/24/18 01:30 07/24/18 05:50 Erythrocyte Sedimentation Rate 35 (0-25) Vancomycin Level Trough 12.0 mcg/mL (10.0-20.0) Vancomycin Last Dose Date 07/22/18 Vancomycin Last Dose Time 1700 White Blood Count 5.0 x10^3/uL (4.0-11.0) Red Blood Count 2.76 x10^6/uL (3.50-5.40) Hemoglobin 8.8 g/dL (12.0-15.5) Hematocrit 26.3 % (36.0-47.0) Mean Corpuscular Volume 95 fL (79-100) Mean Corpuscular Hemoglobin 32 pg (25-35) Mean Corpuscular Hemoglobin Concent 33 g/dL (31-37) Red Cell Distribution Width 13.7 % (11.5-14.5) Platelet Count 181 x10^3/uL (140-400) Neutrophils (%) (Auto) 70 % (31-73) Lymphocytes (%) (Auto) 18 % (24-48) Monocytes (%) (Auto) 8 % (0-9) Eosinophils (%) (Auto) 3 % (0-3) Basophils (%) (Auto) 1 % (0-3) Neutrophils # (Auto) 3.5 x10^3uL (1.8-7.7) Lymphocytes # (Auto) 0.9 x10^3/uL (1.0-4.8) Monocytes # (Auto) 0.4 x10^3/uL (0.0-1.1) Eosinophils # (Auto) 0.1 x10^3/uL (0.0-0.7) Basophils # (Auto) 0.0 x10^3/uL (0.0-0.2) Sodium Level 148 mmol/L (136-145) Potassium Level 3.5 mmol/L (3.5-5.1) Chloride Level 110 mmol/L (98-107) Carbon Dioxide Level 31 mmol/L (21-32) Anion Gap 7 (6-14) Blood Urea Nitrogen 2 mg/dL (7-20) Creatinine 0.7 mg/dL (0.6-1.0) Estimated GFR (Cockcroft-Gault) 82.3 Glucose Level 94 mg/dL (70-99) Calcium Level 7.9 mg/dL (8.5-10.1) Objective Assessment MRSA rt axillary infection MRSA rt breast infection Nodularity sec to infection vs malignancy Anxiety Plan Plan of Care cont vanc d/c zosyn surgery input pending EMILE MONGE MD Jul 24, 2018 14:09
[2018-07-24 15:00] VITALS: BP 134/58
[2018-07-24 18:43] VITALS: BP 143/63
[2018-07-24] MEDS: traZODone 100 MG TABLET. PO SCH (20:52)
[2018-07-24] MEDS: FAMOTIDINE 20 MG TABLET. PO SCH (20:53)
[2018-07-24 23:00] VITALS: BP 135/63
[2018-07-25] VITALS (10 sets, daily range): BP systolic 114–153; BP diastolic 40–77
[2018-07-25] MEDS: IV RINGERS,LACTATED 1000ML 1,000 ML IV SCH ×2 (00:36→10:37)
[2018-07-25] MEDS: VANCOMYCIN 1 GM in IV NORMAL SALINE 250ML 250 ML IV SCH ×2 (00:37→13:00)
--- NOTE | 2018-07-25 01:23 | CONS ---
DATE OF CONSULTATION: 07/24/2018 REQUESTING PHYSICIAN: Dr. Kyle. REASON FOR CONSULTATION: MRSA axillary abscess. HISTORY OF PRESENT ILLNESS: This is a 73-year-old female who has not much medical problems who has not had any mammograms for now years, presented with right-sided axillary and breast pain, swelling and redness. The patient says she had fever at home. The patient was found to have extensive cellulitis and abscesses in the right axilla and right breast and culture is positive with MRSA. The patient is getting vancomycin and Zosyn and consult has been requested. The patient now denies any nausea, vomiting, diarrhea, chest pain, shortness of breath, abdominal pain, urinary symptoms or bowel symptoms. The patient has no fever. PAST MEDICAL HISTORY: Positive for gastroesophageal reflux disease, diverticular disease, anxiety disorder. SOCIAL HISTORY: Negative for smoking, alcohol, illicit drug use. ALLERGIES: LISTED ALLERGIC TO CODEINE. CURRENT MEDICATIONS: Reviewed. REVIEW OF SYSTEMS: As per HPI. All other systems reviewed are negative. PHYSICAL EXAMINATION: GENERAL: Alert, oriented female, not in any distress. VITAL SIGNS: Stable, afebrile. HEENT: NAD. NECK: Supple, no JVP, no lymphadenopathy. LUNGS: Clear. HEART: S1, S2 regular. ABDOMEN: Benign. EXTREMITIES: No edema or cyanosis. SKIN: Unremarkable except right axilla and right breast confluent areas of multiple abscesses. One is open with large amount of purulent drainage coming out. There is some nodularity into the breast. All the exam done with the patient's RN. NEUROLOGIC: The patient is neurologically alert, awake. No focal neurologic deficit. LABORATORY DATA: White count is normal. BUN and creatinine is normal. Her culture is positive with MRSA. CT of the upper extremity showed nodular inflammatory process of the lateral right breast and right lateral chest wall. Malignancy cannot be ruled out apart from the infection. IMPRESSION: 1. Right axillary skin and soft tissue infection with methicillin-resistant Staphylococcus aureus. 2. Right breast skin and soft tissue infection with methicillin-resistant Staphylococcus aureus. 3. Nodularity on the CT and ultrasound. Malignancy cannot be ruled out. 4. Anxiety disorder. 5. Gastroesophageal reflux disease. RECOMMENDATIONS: Would discontinue Zosyn, continue vancomycin. Surgery input is pending. Eventually, the patient can be discharged on p.o. Zyvox once it is decided what the plan is, I and D and/or with biopsy and/or mammogram and then biopsy if needed. Thank you very much, Dr. Kyle, for giving me the opportunity to participate in this patient's care. EMILE MONGE MD DR: MILLY/priyanka JOB#: [id number] / [id number]
[2018-07-25] MEDS: MORPHINE SULFATE 4 MG/ML VIAL. IV PRN ×4 (01:40→19:51)
[2018-07-25] MEDS ORDERED: LIDOCAINE 1% PF 2 ML VIAL. ID PRN (07:00)
[2018-07-25] MEDS ORDERED: HYDROmorphone 2 MG/ML VIAL IV PRN (07:00)
[2018-07-25] MEDS ORDERED: IV RINGERS,LACTATED 1000ML 1,000 ML IV SCH (07:00)
[2018-07-25] MEDS ORDERED: PROCHLORPERAZINE 10 MG/2 ML VIAL. IV PRN (07:00)
[2018-07-25] MEDS ORDERED: fentaNYL PF VIAL 100 MCG/2 ML VIAL IV PRN ×2 (07:00)
[2018-07-25] MEDS ORDERED: MORPHINE SULFATE 4 MG/ML VIAL. IV PRN (07:00)
--- NOTE | 2018-07-25 08:14 | RAD ---
Right axillary ultrasound, 07/19/2018: HISTORY: Abscess The area of clinical concern in the right axilla was carefully scanned. There is mild streaky subcutaneous edema. No discrete drainable fluid collection or mass is evident. Left axillary ultrasound, 07/19/2018: HISTORY: Abscess. The area of clinical concern in the left axilla was carefully scanned. There is a small 11 x 4 x 8 mm subcutaneous hypoechoic structure. No internal color flow is seen. No adjacent hypervascularity is seen. This is a nonspecific appearance which could be complex fluid such as a hematoma, complicated sebaceous cyst or abscess. No large drainable fluid collection or mass is evident. Electronically signed by: Scottie Funez MD (07/20/2018 7:51 AM) [facility] DICTATED and SIGNED BY: SCOTTIE FUNEZ MD DATE: 07/20/18 0746 MTDD
--- NOTE | 2018-07-25 09:20 | PDOC ---
PROGRESS NOTES Chief Complaint Chief Complaint Bilateral Axillary cellulitis Left axillary abscess AEROBIC RES 1 Final Comment Methicillin - resistant Staphylococcus aureus 4+ Pain, acute on chronic Chronic back pain, takes hydro 10 PRN for chronic back pain, has hardware Dog scratch Severe sepsis BRANDON - vasomotor nephropathy Hypokalemia 07/[address] right axilla History of Present Illness History of Present Illness 73 yo F admit from ER with bilateral axilla pain and swelling, She has swelling and likely abscesses that began a week ago. Patient states she was seen by her PCP 07/18 and both axilla were drained. She states the next morning she woke up and she had redness on the right axilla. PO augmentin started 07/18, not better, came to ED, had wound and blood cultures drawn. Seen by surgery, bilateral US showed cellulitis on right axilla and small abscess in left. 07/20: Still with fever overnight. Lost left peripheral IV access very quickly and has dog scratch on her right arm (likely source). Flu test still pending. BP persistently low despite 2 bolus and WBC count going up. On further review she notes she broke up a dog fight about 6 days ago and was scratched multiple times, these are apparent on exam today. 07/21: Afebrile since 0300 on 07/20. Feeling improved with better drainage on the right with saturated dressing. PICC yesterday per IR due to dog scratches on her arms. Wound culture gram stain shows few GPC, looks like staph 07/23 still has large woung right axilla with purulent drainage cult pos MRSA id consulted 07/24. Contacted [facility] for her lab results and they state her last encounter there was in 2002, patient and note that the culture was sent to [facility] from the doctors office, will order records as she arrived here septic. still drainage from wound purulent 07/25 Operative Note Operative Note Date: 07/25/2018 Preoperative diagnosis: Right axillary abscess right breast abscess Postoperative diagnosis: Same Procedure: Incision and drainage of axillary and breast abscess with biopsy of breast abscess cavity Surgeon: Nino Specimen: Cultures of abscess fluid and right breast biopsy Plan: Chlorhexidine bath, pos MRSA PCR S/p PICC for access and dual antibiotics, frequent blood draws, Appreciate surgery recs Zosyn on for capnocytophagia coverage with dog encounter. Last tetanus was 1 year ago. Dogs up to date on vaccines. Cont Vanco as well with GPC May need to consult ID, will await culture and sensitivity as she is improving F/u on flu test, still pending from admit Aggressive IV fluids Back off on her pain meds and xanax bx breast cavity Vitals Vitals Vital Signs Date Time Temp Pulse Resp B/P (MAP) Pulse Ox O2 Delivery O2 Flow Rate FiO2 07/25/18 07:42 Room Air 07/25/18 06:50 97.8 79 18 137/48 (77) 94 97.8 07/25/18 02:41 2.0 Physical Exam General: Alert, Oriented X3, Cooperative, No acute distress, mild distress Heart: Regular rate, Normal S1, Normal S2, No murmurs Lungs: Clear Abdomen: Normal bowel sounds, Soft, No tenderness Extremities: No clubbing, No cyanosis Skin: Other (right axillary with erythema and induration) Labs LABS Laboratory Tests Test 07/24/18 12:30 Procalcitonin 0.25 ng/mL (0.00-0.10) Assessment and Plan Assessmemt and Plan Problems Medical Problems: (1) Sepsis Status: Acute Comment Review of Relevant I have reviewed the following items amber (where applicable) has been applied. Labs Laboratory Tests Test 07/23/18 17:15 07/24/18 01:30 07/24/18 05:50 07/24/18 12:30 Erythrocyte Sedimentation Rate 35 (0-25) Vancomycin Level Trough 12.0 mcg/mL (10.0-20.0) Vancomycin Last Dose Date 07/22/18 Vancomycin Last Dose Time 1700 White Blood Count 5.0 x10^3/uL (4.0-11.0) Red Blood Count 2.76 x10^6/uL (3.50-5.40) Hemoglobin 8.8 g/dL (12.0-15.5) Hematocrit 26.3 % (36.0-47.0) Mean Corpuscular Volume 95 fL (79-100) Mean Corpuscular Hemoglobin 32 pg (25-35) Mean Corpuscular Hemoglobin Concent 33 g/dL (31-37) Red Cell Distribution Width 13.7 % (11.5-14.5) Platelet Count 181 x10^3/uL (140-400) Neutrophils (%) (Auto) 70 % (31-73) Lymphocytes (%) (Auto) 18 % (24-48) Monocytes (%) (Auto) 8 % (0-9) Eosinophils (%) (Auto) 3 % (0-3) Basophils (%) (Auto) 1 % (0-3) Neutrophils # (Auto) 3.5 x10^3uL (1.8-7.7) Lymphocytes # (Auto) 0.9 x10^3/uL (1.0-4.8) Monocytes # (Auto) 0.4 x10^3/uL (0.0-1.1) Eosinophils # (Auto) 0.1 x10^3/uL (0.0-0.7) Basophils # (Auto) 0.0 x10^3/uL (0.0-0.2) Sodium Level 148 mmol/L (136-145) Potassium Level 3.5 mmol/L (3.5-5.1) Chloride Level 110 mmol/L (98-107) Carbon Dioxide Level 31 mmol/L (21-32) Anion Gap 7 (6-14) Blood Urea Nitrogen 2 mg/dL (7-20) Creatinine 0.7 mg/dL (0.6-1.0) Estimated GFR (Cockcroft-Gault) 82.3 Glucose Level 94 mg/dL (70-99) Calcium Level 7.9 mg/dL (8.5-10.1) Procalcitonin 0.25 ng/mL (0.00-0.10) Laboratory Tests Test 07/24/18 12:30 Procalcitonin 0.25 ng/mL (0.00-0.10) Microbiology 07/19/18 Blood Culture - Final, Complete NO GROWTH AFTER 5 DAYS 07/19/18 Anaerobic/Aerobic Culture - Final, Complete 07/19/18 Anaerobic Culture Result 1 (JACKIE) - Final, Complete 07/19/18 Aerobic Culture - Final, Complete 07/19/18 Aerobic Culture Result 1 (JACKIE) - Final, Complete 07/19/18 Antimicrobic Susceptibility - Final, Complete 07/19/18 Gram Stain - Final, Complete 07/19/18 Gram Stain Result 1 (JACKIE) - Final, Complete 07/19/18 Gram Stain Result 2 (JACKIE) - Final, Complete Medications Current Medications Piperacillin Sod/ Tazobactam Sod 4.5 gm/Sodium Chloride 100 ml @ 200 mls/hr 1X ONCE IV Last administered on 07/19/18at 11:30; Start 07/19/18 at 10:30; Stop 07/19/18 at 10:59; Status DC Vancomycin HCl (Vanco Per Pharmacy) 1 each 1X ONCE MC ; Start 07/19/18 at 10:30 ; Stop 07/19/18 at 10:31; Status UNV Sodium Chloride 1,000 ml @ 1,860 mls/hr Q33M IV Last administered on at 13:18; Start 07/19/18 at 10:27; Stop 07/19/18 at 11:27; Status DC Morphine Sulfate (Morphine Sulfate) 4 mg PRN Q15MIN PRN IV/SQ PAIN GREATER THAN 3/10 Last administered on 07/19/18at 10:54; Start 07/19/18 at 10:30; Stop at 10:29; Status DC Vancomycin HCl 1.5 gm/Sodium Chloride 500 ml @ 250 mls/hr 1X ONCE IV Last administered on 07/19/18at 12:36; Start 07/19/18 at 11:00; Stop 07/19/18 at 12:59 ; Status DC Acetaminophen (Tylenol) 1,000 mg 1X ONCE PO Last administered on 07/19/18at 13: 03; Start 07/19/18 at 12:45; Stop 07/19/18 at 12:47; Status DC Hydromorphone HCl (Dilaudid) 1 mg 1X ONCE IV Last administered on 07/19/18at 14 :01; Start 07/19/18 at 13:30; Stop 07/19/18 at 13:32; Status DC Ondansetron HCl (Zofran) 4 mg PRN Q8HRS PRN IV NAUSEA/VOMITING; Start 07/19/18 at 14:30; Stop 07/20/18 at 14:29; Status DC Morphine Sulfate (Morphine Sulfate) 4 mg PRN Q2HR PRN IV PAIN Last administered on 07/19/18at 17:20; Start 07/19/18 at 14:30; Stop 07/20/18 at 14:29 ; Status DC Acetaminophen (Tylenol) 650 mg PRN Q4HRS PRN PO FEVER Last administered on 07/20at 04:16; Start 07/19/18 at 14:30; Stop 07/20/18 at 14:29; Status DC Sodium Chloride 1,000 ml @ 125 mls/hr 1X ONCE IV Last administered on at 18:22; Start 07/19/18 at 14:30; Stop 07/19/18 at 22:29; Status DC Pharmacy Consult (C.diff Med Screen By Rx) 1 each 1X ONCE MC ; Start 07/19/18 at 15:30; Stop 07/19/18 at 15:31; Status UNV Vancomycin HCl (Vanco Per Pharmacy) 1 each PRN DAILY PRN MC SEE COMMENTS Last administered on 07/24/18 03:08; Start 07/19/18 at 15:45 Acetaminophen/ Hydrocodone Bitart (Lortab 10/325) 1 tab PRN Q6HRS PRN PO MODERATE PAIN Last administered on 07/24/18at 15:34; Start 07/19/18 at 15:45 Ondansetron HCl (Zofran Odt) 4 mg PRN Q8HRS PRN PO NAUSEA; Start 07/19/18 at 15 :45 Trazodone HCl (Desyrel) 100 mg HS PO Last administered on 07/24/18 20:52; Start 07/19/18 at 21:00 Citalopram Hydrobromide (CeleXA) 10 mg DAILY PO Last administered on 07/24/18 09:25; Start 07/19/18 at 16:30 Gabapentin (Neurontin) 600 mg TID PO Last administered on 07/24/18 20:52; Start 07/19/18 at 21:00 Meloxicam (Mobic) 7.5 mg DAILY PO Last administered on 07/24/18 09:25; Start 07/19/18 at 16:30 Non-Formulary Medication (Metronidazole (Flagyl)) 1 tab TID PO ; Start 07/19/18 at 21:00; Status UNV Pantoprazole Sodium (Protonix) 40 mg DAILYAC PO Last administered on 07/21/18 07:56; Start 07/19/18 at 16:30; Stop 07/21/18 at 15:35; Status DC Alprazolam (Xanax) 1 mg PRN Q8HRS PRN PO ANXIETY / AGITATION Last administered on 07/19/18at 16:43; Start 07/19/18 at 15:45; Stop 07/20/18 at 09:25; Status DC Piperacillin Sod/ Tazobactam Sod (Zosyn Per Pharmacy) 1 each PRN DAILY PRN MC SEE COMMENTS; Start 07/19/18 at 16:00 Vancomycin HCl 1 gm/Sodium Chloride 250 ml @ 250 mls/hr Q24H IV Last administered on 07/20/18at 17:11; Start 07/20/18 at 12:30; Stop 07/21/18 at 16:59 ; Status DC Vancomycin HCl (Vancomycin Trough Level) 1 each 1X ONCE MC Last administered on 07/21/18at 16:30; Start 07/21/18 at 16:30; Stop 07/21/18 at 16:31; Status DC Oxycodone HCl (Roxicodone) 20 mg PRN Q6HRS PRN PO SEVERE PAIN Last administered on 07/20/18at 05:32; Start 07/19/18 at 16:00; Stop 07/20/18 at 09:25 ; Status DC Piperacillin Sod/ Tazobactam Sod 2.25 gm/Sodium Chloride 50 ml @ 100 mls/hr Q6HRS IV Last administered on 07/20/18at 15:27; Start 07/19/18 at 18:00; Stop at 16:45; Status DC Sodium Chloride 1,000 ml @ 1,000 mls/hr 1X ONCE IV Last administered on at 16:44; Start 07/19/18 at 16:15; Stop 07/19/18 at 17:14; Status DC Potassium Chloride (Klor-Con) 40 meq 1X ONCE PO Last administered on at 16:43; Start 07/19/18 at 16:15; Stop 07/19/18 at 16:28; Status DC Docusate Sodium (Colace) 100 mg DAILY PO Last administered on 07/21/18at 09:34; Start 07/20/18 at 09:00 Polyethylene Glycol (miraLAX PACKET) 17 gm PRN DAILY PRN PO CONSTIPATION; Start 07/19/18 at 16:15 Alprazolam (Xanax) 0.5 mg PRN Q8HRS PRN PO ANXIETY / AGITATION Last administered on 07/24/18at 15:40; Start 07/20/18 at 09:30 Ringer's Solution 1,000 ml @ 100 mls/hr Q10H IV Last administered on at 00:36; Start 07/20/18 at 09:30 Lidocaine/ Epinephrine (LIDOCAINE 1%-EPI 1:100,000 Multi-Dose) 20 ml STK-MED ONCE .ROUTE ; Start 07/20/18 at 13:46; Stop 07/20/18 at 13:47; Status DC Heparin Sodium (Porcine) (Heparin Sodium) 10,000 unit STK-MED ONCE .ROUTE ; Start 07/20/18 at 13:46; Stop 07/20/18 at 13:47; Status DC Heparin Sodium (Porcine) (Hep Lock Adult) 500 unit STK-MED ONCE IV ; Start 07/20 at 13:53; Stop 07/20/18 at 13:54; Status DC Midazolam HCl (Versed) 2 mg STK-MED ONCE .ROUTE ; Start 07/20/18 at 13:54; Stop 07/20/18 at 13:55; Status DC Fentanyl Citrate (Fentanyl 2ml Vial) 100 mcg STK-MED ONCE .ROUTE ; Start at 13:54; Stop 07/20/18 at 13:55; Status DC Midazolam HCl (Versed) 2 mg 1X ONCE IV ; Start 07/20/18 at 14:45; Stop at 14:46; Status DC Fentanyl Citrate (Fentanyl 2ml Vial) 50 mcg 1X ONCE IV Last administered on at 14:43; Start 07/20/18 at 14:45; Stop 07/20/18 at 14:46; Status DC Lidocaine/ Epinephrine (LIDOCAINE 1%-EPI 1:100,000 Multi-Dose) 8 ml 1X ONCE IJ Last administered on 07/20/18at 14:42; Start 07/20/18 at 14:45; Stop 07/20/18 at 14:46; Status DC Heparin Sodium (Porcine) (Hep Lock Adult) 500 unit STK-MED ONCE IV ; Start 07/20 at 14:47; Stop 07/20/18 at 14:48; Status DC Morphine Sulfate (Morphine Sulfate) 4 mg PRN Q4HRS PRN IV PAIN Last administered on 07/25/18at 07:42; Start 07/20/18 at 15:30 Piperacillin Sod/ Tazobactam Sod 3.375 gm/Sodium Chloride 50 ml @ 100 mls/hr Q6HRS IV Last administered on 07/24/18at 11:32; Start 07/20/18 at 18:00; Stop at 14:19; Status DC Lactobacillus Rhamnosus (Culturelle) 1 cap BID PO Last administered on at 20:52; Start 07/20/18 at 21:00 Famotidine (Pepcid) 20 mg HS PO Last administered on 07/24/18at 20:53; Start at 21:00 Vancomycin HCl 1 gm/Sodium Chloride 250 ml @ 250 mls/hr Q12H IV Last administered on 07/22/18at 04:36; Start 07/21/18 at 17:00; Stop 07/22/18 at 12:59 ; Status DC Vancomycin HCl (Vancomycin Trough Level) 1 each 1X ONCE MC Last administered on 07/24/18at 01:30; Start 07/24/18 at 00:30; Stop 07/24/18 at 00:31; Status DC Vancomycin HCl 1 gm/Sodium Chloride 250 ml @ 250 mls/hr 1X ONCE IV Last administered on 07/22/18at 13:03; Start 07/22/18 at 13:00; Stop 07/22/18 at 13:59 ; Status DC Vancomycin HCl 1 gm/Sodium Chloride 250 ml @ 250 mls/hr Q12H IV Last administered on 07/25/18at 00:37; Start 07/23/18 at 01:00 Morphine Sulfate (Morphine Sulfate) 2 mg 1X ONCE IV Last administered on at 15:56; Start 07/23/18 at 15:45; Stop 07/23/18 at 15:46; Status DC Fentanyl Citrate (Fentanyl 2ml Vial) 25 mcg PRN Q5MIN PRN IV MILD PAIN; Start 07/25/18 at 07:00; Stop 07/26/18 at 06:59 Fentanyl Citrate (Fentanyl 2ml Vial) 50 mcg PRN Q5MIN PRN IV MODERATE TO SEVERE PAIN; Start 07/25/18 at 07:00; Stop 07/26/18 at 06:59 Morphine Sulfate (Morphine Sulfate) 1 mg PRN Q10MIN PRN IV SEVERE PAIN; Start 07/25/18 at 07:00; Stop 07/26/18 at 06:59 Ringer's Solution 1,000 ml @ 30 mls/hr Q24H IV ; Start 07/25/18 at 07:00; Stop 07/25/18 at 18:59 Lidocaine HCl (Xylocaine-Mpf 1% 2ml Vial) 2 ml PRN 1X PRN ID PRIOR TO IV START ; Start 07/25/18 at 07:00; Stop 07/26/18 at 06:59 Hydromorphone HCl (Dilaudid) 0.5 mg PRN Q10MIN PRN IV SEV PAIN, Second choice; Start 07/25/18 at 07:00; Stop 07/26/18 at 06:59 Prochlorperazine Edisylate (Compazine) 5 mg PACU PRN PRN IV NAUSEA, MRX1; Start 07/25/18 at 07:00; Stop 07/26/18 at 06:59 Active Scripts Active Reported Meloxicam 7.5 Mg Tablet 1 Tab PO DAILY Escitalopram Oxalate 5 Mg Tablet 5 Mg PO DAILY Omeprazole 20 Mg Capsule.dr 20 Mg PO DAILY Xanax (Alprazolam) 2 Mg Tablet 1 Tab PO BID Hydrocodone-Apap 10-325 (Hydrocodone Bit/Acetaminophen) 1 Each Tablet 1 Tab PO PRN Q6HRS PRN Trazodone Hcl 100 Mg Tablet 100 Mg PO HS Gabapentin 600 Mg Tablet 600 Mg PO TID Vitals/I & O Vital Sign - Last 24 Hours 07/24/18 07/24/18 07/24/18 07/24/18 11:03 11:32 15:00 15:34 Temp 98.0 98.0 98.0 98.0 Pulse 77 72 Resp 18 18 B/P (MAP) 144/55 (84) 134/58 (83) Pulse Ox 93 93 95 95 O2 Delivery Room Air Room Air Room Air Room Air O2 Flow Rate 2.0 2.0 07/24/18 07/24/18 07/24/18 07/24/18 16:34 18:43 20:05 20:52 Temp 98.0 98.0 Pulse 66 Resp 18 18 B/P (MAP) 143/63 (89) Pulse Ox 95 95 95 O2 Delivery Room Air Room Air Room Air Room Air O2 Flow Rate 2.0 2.0 07/24/18 07/25/18 07/25/18 07/25/18 23:00 01:40 02:41 03:00 Temp 98.2 97.8 98.2 97.8 Pulse 71 74 Resp 18 18 18 18 B/P (MAP) 135/63 (87) 128/77 (94) Pulse Ox 94 94 94 93 O2 Delivery Room Air Room Air Room Air Room Air O2 Flow Rate 2.0 2.0 2.0 07/25/18 07/25/18 06:50 07:42 Temp 97.8 97.8 Pulse 79 Resp 18 B/P (MAP) 137/48 (77) Pulse Ox 94 O2 Delivery Room Air Room Air Intake and Output 07/24/18 07/24/18 07/25/18 15:00 23:00 07:00 Intake Total 600 ml 300 ml 0 ml Balance 600 ml 300 ml 0 ml ALFREDO WELLS MD Jul 25, 2018 09:20
[2018-07-25] MEDS: CITALOPRAM 10 MG TABLET. PO SCH (10:33)
[2018-07-25] MEDS: HYDROcodone/APAP 10/325 1 TAB TABLET PO PRN ×2 (10:34→17:48)
[2018-07-25] MEDS: DOCUSATE SODIUM 100 MG CAPSULE. PO SCH (10:34)
[2018-07-25] MEDS: LACTOBACILLUS RHAMNOSUS GG 1 CAPSULE. PO SCH ×2 (10:34→21:17)
[2018-07-25] MEDS: MELOXICAM 7.5 MG TABLET PO SCH (10:34)
[2018-07-25] MEDS: GABAPENTIN 300 MG CAPSULE. PO SCH ×3 (10:34→21:18)
[2018-07-25] MEDS: ALPRAZolam 0.5 MG TABLET PO PRN ×2 (10:37→19:50)
--- NOTE | 2018-07-25 10:52 | PDOC ---
Infectious Disease Note Subjective Subjective pt is feeling good ROS ROS no n/v/d/sob Vital Sign Vital Signs Vital Signs Date Time Temp Pulse Resp B/P (MAP) Pulse Ox O2 Delivery O2 Flow Rate FiO2 07/25/18 10:34 Room Air 07/25/18 06:50 97.8 79 18 137/48 (77) 94 97.8 07/25/18 02:41 2.0 Physical Exam PHYSICAL EXAM GENERAL: Alert, oriented female, not in any distress. VITAL SIGNS: Stable, afebrile. HEENT: NAD. NECK: Supple, no JVP, no lymphadenopathy. LUNGS: Clear. HEART: S1, S2 regular. ABDOMEN: Benign. EXTREMITIES: No edema or cyanosis. SKIN: Unremarkable except right axilla and right breast confluent areas of multiple abscesses. One is open with large amount of purulent drainage coming out. There is some nodularity into the breast. All the exam done with the patient's RN. NEUROLOGIC: The patient is neurologically alert, awake. No focal neurologic deficit. Labs Lab Laboratory Tests Test 07/24/18 12:30 Procalcitonin 0.25 ng/mL (0.00-0.10) Micro ANAEROBIC-AEROBIC CULTURE Final Final report ANAEROBIC RES 1 Final Comment No anaerobic growth in 72 hours. AEROBIC CULT Final Final report AEROBIC RES 1 Final Comment Methicillin - resistant Staphylococcus aureus 4+ Based on resistance to oxacillin this isolate would be resistant to all currently available beta-lactam antimicrobial agents, with the exception of the newer cephalosporins with anti-MRSA activity, such as Ceftaroline This isolate does not demonstrate inducible clindamycin resistance in vitro by D test. ANTIMICROBIAL SUSCEPTIBILITY Final Comment S = Susceptible; I = Intermediate; R = Resistant P = Positive; N = Negative MICS are expressed in micrograms per mL Antibiotic RSLT#1 RSLT#2 RSLT#3 RSLT#4 Ciprofloxacin S<=0.5 Clindamycin S<=0.25 Erythromycin R>=8 Gentamicin S<=0.5 Levofloxacin S<=0.12 Linezolid S =1 CONTINUED ON NEXT PAGE RUN DATE: 07/23/18 PAGE 2 RUN TIME: 1913 [facility] [address] [place] [address] Britton Escobar M.D., Medical Equipment Repairer SPEC: [id number] PATIENT: ROBERTA JORDAN [id number] ( Continued) Procedure Result ANTIMICROBIAL SUSCEPTIBILITY Final (continued) Oxacillin R>=4 Penicillin R>=0.5 Rifampin S<=0.5 Tetracycline S<=1 Trimethoprim/Sulfa S<=10 Vancomycin S<=0.5 GRAM STAIN Final Final report GRAM STAIN RES 1 Final Comment Objective Assessment MRSA rt axillary infection MRSA rt breast infection Nodularity sec to infection vs malignancy Anxiety Plan Plan of Care cont vanc surgery today, d/w EMILE Alamo MD Jul 25, 2018 10:52
[2018-07-25] MEDS ORDERED: DEXAMETHASONE SOD PHOS 20 MG/5 ML VIAL. ONE (12:41)
[2018-07-25] MEDS ORDERED: LIDOCAINE 2% PF 5 ML VIAL. ONE (12:41)
[2018-07-25] MEDS ORDERED: ONDANSETRON PF 4 MG/2 ML VIAL. ONE (12:41)
[2018-07-25] MEDS ORDERED: fentaNYL PF VIAL 100 MCG/2 ML VIAL ONE (12:41)
[2018-07-25] MEDS ORDERED: PROPOFOL 20 ML IV ONE (12:41)
[2018-07-25] MEDS ORDERED: MIDAZOLAM HCL/PF 2 MG/2 ML VIAL. ONE (13:06)
[2018-07-25] MEDS ORDERED: BUPIVACAINE-EPI 0.25%-1:200000 MPF 30 ML VIAL. ONE (13:12)
[2018-07-25] MEDS ORDERED: GLYCOPYRROLATE 1 MG/5 ML VIAL. ONE (13:33)
--- NOTE | 2018-07-25 14:36 | NUR ---
SW following. Discussed with RN, pt having breast biopsy and procedure today. Pt has a PICC line and may require IV abx upon discharge. SW will continue to follow for discharge planning.
--- NOTE | 2018-07-25 14:55 | PDOC4 ---
Operative Note Operative Note Date: 07/25/2018 Preoperative diagnosis: Right axillary abscess right breast abscess Postoperative diagnosis: Same Procedure: Incision and drainage of axillary and breast abscess with biopsy of breast abscess cavity Surgeon: Nino Specimen: Cultures of abscess fluid and right breast biopsy Dictation: Patient is 73-year-old female is better to the hospital with a right axillary cellulitis and draining wound she subsequently developed more redness and more fluctuant areas and a hard nodular area in the right upper outer breast as seen by CT scan. The procedure of incision and drainage and breast biopsy were explained to the patient detail risks benefits were also discussed including bleeding infection alternatives to this procedure also discussed with patient who seemed to understand and gave both verbal and written consent to have the procedure performed. Patient was taken to the operating room placed in supine position general anesthesia was initiated once patient was sleep and intubated her right axilla and breast were prepped and draped usual sterile fashion using ChloraPrep. An area in the right axilla was injected with quarter percent Marcaine with epinephrine incision was made with 15 blade scalpel there was some clearish drainage from this area cultures were taken wound was irrigated and did track to a more proximal small incision and drainage wound hemostasis was controlled with electrocautery after the wound then irrigated with copious metastases normal saline the wound was then packed with iodoform Nu Gauze. A second incision was made in the upper outer quadrant of the right breast over a fluctuant area this was more purulent hematoma. Fluid which was cultured. There was hard nodular tissue beneath the incision this was sharply excised for biopsy and sent for pathology. Wound was irrigated with copious amounts of normal saline and packed again with iodoform Nu Gauze. The wounds were then covered with 4 x 4's ABDs and Metapore tape. The patient was awakened and extubated in the operating room taken to recovery in stable condition all sponge instrument needle counts listed as correct estimated blood loss 30 mL ALFREDO RODGERS MD Jul 25, 2018 14:55
[2018-07-25] MEDS ORDERED: IV 1/2 NORMAL SALINE 1,000 ML IV ONE (16:30)
[2018-07-25] MEDS: VANCOMYCIN PER PHARMACY MC PRN (16:47)
[2018-07-25] MEDS: FAMOTIDINE 20 MG TABLET. PO SCH (21:18)
[2018-07-25] MEDS: traZODone 100 MG TABLET. PO SCH (21:18)
[2018-07-26] MEDS: VANCOMYCIN 1 GM in IV NORMAL SALINE 250ML 250 ML IV SCH ×2 (01:18→12:17)
[2018-07-26] MEDS: MORPHINE SULFATE 4 MG/ML VIAL. IV PRN ×3 (02:24→16:42)
[2018-07-26 03:00] VITALS: BP 131/62
--- NOTE | 2018-07-26 03:00 | NUR ---
Upon re-assessment of surgical dressing at this time, dressing was completely saturated. Changed dressing - 4x4's and ABD pad with Medipore tape. Will pass along to day RN.
[2018-07-26] MEDS: HYDROcodone/APAP 10/325 1 TAB TABLET PO PRN ×3 (05:47→20:29)
[2018-07-26 06:09] LABS: BASO # 0.1 x10^3/uL (0.0-0.2); BASO % 0 % (0-3); EOS % 0 % (0-3); HEMATOCRIT 26.9 % (36.0-47.0); LYMPH # 1.2 x10^3/uL (1.0-4.8); LYMPH % 9 % (24-48); MEAN CORPUSCULAR HEMOGLOBIN 32 pg (25-35); MEAN CORPUSCULAR HGB CONC 34 g/dL (31-37); MEAN CORPUSCULAR VOLUME 95 fL (79-100); MONO # 0.6 x10^3/uL (0.0-1.1); MONO % 4 % (0-9); NEUT # 11.8 x10^3uL (1.8-7.7); NEUT % 86 % (31-73); PLATELET COUNT 326 x10^3/uL (140-400); RED BLOOD COUNT 2.85 x10^6/uL (3.50-5.40); RED CELL DISTRIBUTION WIDTH 13.7 % (11.5-14.5); WHITE BLOOD COUNT 13.7 x10^3/uL (4.0-11.0)
[2018-07-26 06:26] LABS: ALBUMIN 2.2 g/dL (3.4-5.0); ALBUMIN/GLOBULIN RATIO 0.7 (1.0-1.7); CALCIUM 8.6 mg/dL (8.5-10.1); CREATININE 0.7 mg/dL (0.6-1.0); GFR 82.3; POTASSIUM 4.2 mmol/L (3.5-5.1); TOTAL BILIRUBIN 0.3 mg/dL (0.2-1.0); TOTAL PROTEIN 5.3 g/dL (6.4-8.2)
[2018-07-26 07:00] VITALS: BP 119/52
[2018-07-26] MEDS: GABAPENTIN 300 MG CAPSULE. PO SCH ×3 (07:38→20:29)
[2018-07-26] MEDS: DOCUSATE SODIUM 100 MG CAPSULE. PO SCH (07:38)
[2018-07-26] MEDS: CITALOPRAM 10 MG TABLET. PO SCH (07:38)
[2018-07-26] MEDS: LACTOBACILLUS RHAMNOSUS GG 1 CAPSULE. PO SCH ×2 (07:38→20:29)
[2018-07-26] MEDS: MELOXICAM 7.5 MG TABLET PO SCH (07:38)
[2018-07-26] MEDS: ALPRAZolam 0.5 MG TABLET PO PRN ×2 (08:42→16:42)
--- NOTE | 2018-07-26 10:37 | PDOC ---
PROGRESS NOTES Chief Complaint Chief Complaint Bilateral Axillary cellulitis Left axillary abscess AEROBIC RES 1 Final Comment Methicillin - resistant Staphylococcus aureus 4+ Pain, acute on chronic Chronic back pain, takes hydro 10 PRN for chronic back pain, has hardware Dog scratch Severe sepsis BRANDON - vasomotor nephropathy Hypokalemia 07/[address] right axilla History of Present Illness History of Present Illness discharge dx 73 yo F admit from ER with bilateral axilla pain and swelling, She has swelling and likely abscesses that began a week ago. Patient states she was seen by her PCP 07/18 and both axilla were drained. She states the next morning she woke up and she had redness on the right axilla. PO augmentin started 07/18, not better, came to ED, had wound and blood cultures drawn. Seen by surgery, bilateral US showed cellulitis on right axilla and small abscess in left. 07/20: Still with fever overnight. Lost left peripheral IV access very quickly and has dog scratch on her right arm (likely source). Flu test still pending. BP persistently low despite 2 bolus and WBC count going up. On further review she notes she broke up a dog fight about 6 days ago and was scratched multiple times, these are apparent on exam today. 07/21: Afebrile since 0300 on 07/20. Feeling improved with better drainage on the right with saturated dressing. PICC yesterday per IR due to dog scratches on her arms. Wound culture gram stain shows few GPC, looks like staph 07/23 still has large woung right axilla with purulent drainage cult pos MRSA id consulted 07/24. Contacted [facility] for her lab results and they state her last encounter there was in 2002, patient and note that the culture was sent to [facility] from the doctors office, will order records as she arrived here septic. still drainage from wound purulent 07/25 Operative Note Operative Note Date: 07/25/2018 Preoperative diagnosis: Right axillary abscess right breast abscess Postoperative diagnosis: Same Procedure: Incision and drainage of axillary and breast abscess with biopsy of breast abscess cavity Surgeon: Oneill Specimen: Cultures of abscess fluid and right breast biopsy 07/26 home on zyvox, await insurance approval for zyvox rx today, d/c planning 40 min Plan: Chlorhexidine bath, pos MRSA PCR S/p PICC for access and dual antibiotics, frequent blood draws, Appreciate surgery recs Zosyn on for capnocytophagia coverage with dog encounter. Last tetanus was 1 year ago. Dogs up to date on vaccines. Cont Vanco as well with GPC consult ID, Aggressive IV fluids Back off on her pain meds and xanax bx breast cavity 07/25 path pending Vitals Vitals Vital Signs Date Time Temp Pulse Resp B/P (MAP) Pulse Ox O2 Delivery O2 Flow Rate FiO2 07/26/18 08:07 20 98 Room Air 07/26/18 08:00 2.0 07/26/18 07:00 98.1 76 119/52 (74) 98.1 Physical Exam Physical Exam GENERAL: Alert, oriented female, not in any distress. VITAL SIGNS: Stable, afebrile. HEENT: NAD. NECK: Supple, no JVP, no lymphadenopathy. LUNGS: Clear. HEART: S1, S2 regular. ABDOMEN: Benign. EXTREMITIES: No edema or cyanosis. SKIN: Unremarkable except right axilla and right breast confluent areas of multiple abscesses. One is open with large amount of purulent drainage coming out. There is some nodularity into the breast. All the exam done with the patient's RN. NEUROLOGIC: The patient is neurologically alert, awake. No focal neurologic deficit. General: Alert, Oriented X3, Cooperative, No acute distress, mild distress Heart: Regular rate, Normal S1, Normal S2, No murmurs Lungs: Clear Abdomen: Normal bowel sounds, Soft, No tenderness Extremities: No clubbing, No cyanosis, No edema Skin: Other (right axillary dressing dry) Labs LABS Laboratory Tests Test 07/26/18 05:45 White Blood Count 13.7 x10^3/uL (4.0-11.0) Red Blood Count 2.85 x10^6/uL (3.50-5.40) Hemoglobin 9.0 g/dL (12.0-15.5) Hematocrit 26.9 % (36.0-47.0) Mean Corpuscular Volume 95 fL (79-100) Mean Corpuscular Hemoglobin 32 pg (25-35) Mean Corpuscular Hemoglobin Concent 34 g/dL (31-37) Red Cell Distribution Width 13.7 % (11.5-14.5) Platelet Count 326 x10^3/uL (140-400) Neutrophils (%) (Auto) 86 % (31-73) Lymphocytes (%) (Auto) 9 % (24-48) Monocytes (%) (Auto) 4 % (0-9) Eosinophils (%) (Auto) 0 % (0-3) Basophils (%) (Auto) 0 % (0-3) Neutrophils # (Auto) 11.8 x10^3uL (1.8-7.7) Lymphocytes # (Auto) 1.2 x10^3/uL (1.0-4.8) Monocytes # (Auto) 0.6 x10^3/uL (0.0-1.1) Eosinophils # (Auto) 0.0 x10^3/uL (0.0-0.7) Basophils # (Auto) 0.1 x10^3/uL (0.0-0.2) Sodium Level 142 mmol/L (136-145) Potassium Level 4.2 mmol/L (3.5-5.1) Chloride Level 106 mmol/L (98-107) Carbon Dioxide Level 33 mmol/L (21-32) Anion Gap 3 (6-14) Blood Urea Nitrogen 6 mg/dL (7-20) Creatinine 0.7 mg/dL (0.6-1.0) Estimated GFR (Cockcroft-Gault) 82.3 BUN/Creatinine Ratio 9 (6-20) Glucose Level 115 mg/dL (70-99) Calcium Level 8.6 mg/dL (8.5-10.1) Total Bilirubin 0.3 mg/dL (0.2-1.0) Aspartate Amino Transf (AST/SGOT) 10 U/L (15-37) Alanine Aminotransferase (ALT/SGPT) 13 U/L (14-59) Alkaline Phosphatase 65 U/L (46-116) Total Protein 5.3 g/dL (6.4-8.2) Albumin 2.2 g/dL (3.4-5.0) Albumin/Globulin Ratio 0.7 (1.0-1.7) Assessment and Plan Assessmemt and Plan Problems Medical Problems: (1) Sepsis Status: Acute Comment Review of Relevant I have reviewed the following items amber (where applicable) has been applied. Labs Laboratory Tests Test 07/24/18 12:30 07/26/18 05:45 Procalcitonin 0.25 ng/mL (0.00-0.10) White Blood Count 13.7 x10^3/uL (4.0-11.0) Red Blood Count 2.85 x10^6/uL (3.50-5.40) Hemoglobin 9.0 g/dL (12.0-15.5) Hematocrit 26.9 % (36.0-47.0) Mean Corpuscular Volume 95 fL (79-100) Mean Corpuscular Hemoglobin 32 pg (25-35) Mean Corpuscular Hemoglobin Concent 34 g/dL (31-37) Red Cell Distribution Width 13.7 % (11.5-14.5) Platelet Count 326 x10^3/uL (140-400) Neutrophils (%) (Auto) 86 % (31-73) Lymphocytes (%) (Auto) 9 % (24-48) Monocytes (%) (Auto) 4 % (0-9) Eosinophils (%) (Auto) 0 % (0-3) Basophils (%) (Auto) 0 % (0-3) Neutrophils # (Auto) 11.8 x10^3uL (1.8-7.7) Lymphocytes # (Auto) 1.2 x10^3/uL (1.0-4.8) Monocytes # (Auto) 0.6 x10^3/uL (0.0-1.1) Eosinophils # (Auto) 0.0 x10^3/uL (0.0-0.7) Basophils # (Auto) 0.1 x10^3/uL (0.0-0.2) Sodium Level 142 mmol/L (136-145) Potassium Level 4.2 mmol/L (3.5-5.1) Chloride Level 106 mmol/L (98-107) Carbon Dioxide Level 33 mmol/L (21-32) Anion Gap 3 (6-14) Blood Urea Nitrogen 6 mg/dL (7-20) Creatinine 0.7 mg/dL (0.6-1.0) Estimated GFR (Cockcroft-Gault) 82.3 BUN/Creatinine Ratio 9 (6-20) Glucose Level 115 mg/dL (70-99) Calcium Level 8.6 mg/dL (8.5-10.1) Total Bilirubin 0.3 mg/dL (0.2-1.0) Aspartate Amino Transf (AST/SGOT) 10 U/L (15-37) Alanine Aminotransferase (ALT/SGPT) 13 U/L (14-59) Alkaline Phosphatase 65 U/L (46-116) Total Protein 5.3 g/dL (6.4-8.2) Albumin 2.2 g/dL (3.4-5.0) Albumin/Globulin Ratio 0.7 (1.0-1.7) Laboratory Tests Test 07/26/18 05:45 White Blood Count 13.7 x10^3/uL (4.0-11.0) Red Blood Count 2.85 x10^6/uL (3.50-5.40) Hemoglobin 9.0 g/dL (12.0-15.5) Hematocrit 26.9 % (36.0-47.0) Mean Corpuscular Volume 95 fL (79-100) Mean Corpuscular Hemoglobin 32 pg (25-35) Mean Corpuscular Hemoglobin Concent 34 g/dL (31-37) Red Cell Distribution Width 13.7 % (11.5-14.5) Platelet Count 326 x10^3/uL (140-400) Neutrophils (%) (Auto) 86 % (31-73) Lymphocytes (%) (Auto) 9 % (24-48) Monocytes (%) (Auto) 4 % (0-9) Eosinophils (%) (Auto) 0 % (0-3) Basophils (%) (Auto) 0 % (0-3) Neutrophils # (Auto) 11.8 x10^3uL (1.8-7.7) Lymphocytes # (Auto) 1.2 x10^3/uL (1.0-4.8) Monocytes # (Auto) 0.6 x10^3/uL (0.0-1.1) Eosinophils # (Auto) 0.0 x10^3/uL (0.0-0.7) Basophils # (Auto) 0.1 x10^3/uL (0.0-0.2) Sodium Level 142 mmol/L (136-145) Potassium Level 4.2 mmol/L (3.5-5.1) Chloride Level 106 mmol/L (98-107) Carbon Dioxide Level 33 mmol/L (21-32) Anion Gap 3 (6-14) Blood Urea Nitrogen 6 mg/dL (7-20) Creatinine 0.7 mg/dL (0.6-1.0) Estimated GFR (Cockcroft-Gault) 82.3 BUN/Creatinine Ratio 9 (6-20) Glucose Level 115 mg/dL (70-99) Calcium Level 8.6 mg/dL (8.5-10.1) Total Bilirubin 0.3 mg/dL (0.2-1.0) Aspartate Amino Transf (AST/SGOT) 10 U/L (15-37) Alanine Aminotransferase (ALT/SGPT) 13 U/L (14-59) Alkaline Phosphatase 65 U/L (46-116) Total Protein 5.3 g/dL (6.4-8.2) Albumin 2.2 g/dL (3.4-5.0) Albumin/Globulin Ratio 0.7 (1.0-1.7) Microbiology 07/19/18 Blood Culture - Final, Complete NO GROWTH AFTER 5 DAYS 07/19/18 Anaerobic/Aerobic Culture - Final, Complete 07/19/18 Anaerobic Culture Result 1 (JACKIE) - Final, Complete 07/19/18 Aerobic Culture - Final, Complete 07/19/18 Aerobic Culture Result 1 (JACKIE) - Final, Complete 07/19/18 Antimicrobic Susceptibility - Final, Complete 07/19/18 Gram Stain - Final, Complete 07/19/18 Gram Stain Result 1 (JACKIE) - Final, Complete 07/19/18 Gram Stain Result 2 (JACKIE) - Final, Complete Medications Current Medications Piperacillin Sod/ Tazobactam Sod 4.5 gm/Sodium Chloride 100 ml @ 200 mls/hr 1X ONCE IV Last administered on 07/19/18at 11:30; Start 07/19/18 at 10:30; Stop 07/19/18 at 10:59; Status DC Vancomycin HCl (Vanco Per Pharmacy) 1 each 1X ONCE MC ; Start 07/19/18 at 10:30 ; Stop 07/19/18 at 10:31; Status UNV Sodium Chloride 1,000 ml @ 1,860 mls/hr Q33M IV Last administered on at 13:18; Start 07/19/18 at 10:27; Stop 07/19/18 at 11:27; Status DC Morphine Sulfate (Morphine Sulfate) 4 mg PRN Q15MIN PRN IV/SQ PAIN GREATER THAN 3/10 Last administered on 07/19/18at 10:54; Start 07/19/18 at 10:30; Stop at 10:29; Status DC Vancomycin HCl 1.5 gm/Sodium Chloride 500 ml @ 250 mls/hr 1X ONCE IV Last administered on 07/19/18at 12:36; Start 07/19/18 at 11:00; Stop 07/19/18 at 12:59 ; Status DC Acetaminophen (Tylenol) 1,000 mg 1X ONCE PO Last administered on 07/19/18at 13: 03; Start 07/19/18 at 12:45; Stop 07/19/18 at 12:47; Status DC Hydromorphone HCl (Dilaudid) 1 mg 1X ONCE IV Last administered on 07/19/18at 14 :01; Start 07/19/18 at 13:30; Stop 07/19/18 at 13:32; Status DC Ondansetron HCl (Zofran) 4 mg PRN Q8HRS PRN IV NAUSEA/VOMITING; Start 07/19/18 at 14:30; Stop 07/20/18 at 14:29; Status DC Morphine Sulfate (Morphine Sulfate) 4 mg PRN Q2HR PRN IV PAIN Last administered on 07/19/18at 17:20; Start 07/19/18 at 14:30; Stop 07/20/18 at 14:29 ; Status DC Acetaminophen (Tylenol) 650 mg PRN Q4HRS PRN PO FEVER Last administered on 07/20at 04:16; Start 07/19/18 at 14:30; Stop 07/20/18 at 14:29; Status DC Sodium Chloride 1,000 ml @ 125 mls/hr 1X ONCE IV Last administered on at 18:22; Start 07/19/18 at 14:30; Stop 07/19/18 at 22:29; Status DC Pharmacy Consult (C.diff Med Screen By Rx) 1 each 1X ONCE MC ; Start 07/19/18 at 15:30; Stop 07/19/18 at 15:31; Status UNV Vancomycin HCl (Vanco Per Pharmacy) 1 each PRN DAILY PRN MC SEE COMMENTS Last administered on 07/25/18 16:47; Start 07/19/18 at 15:45 Acetaminophen/ Hydrocodone Bitart (Lortab 10/325) 1 tab PRN Q6HRS PRN PO MODERATE PAIN Last administered on 07/26/18 05:47; Start 07/19/18 at 15:45 Ondansetron HCl (Zofran Odt) 4 mg PRN Q8HRS PRN PO NAUSEA; Start 07/19/18 at 15 :45 Trazodone HCl (Desyrel) 100 mg HS PO Last administered on 07/25/18 21:18; Start 07/19/18 at 21:00 Citalopram Hydrobromide (CeleXA) 10 mg DAILY PO Last administered on 07/26/18 07:38; Start 07/19/18 at 16:30 Gabapentin (Neurontin) 600 mg TID PO Last administered on 07/26/18 07:38; Start 07/19/18 at 21:00 Meloxicam (Mobic) 7.5 mg DAILY PO Last administered on 07/26/18 07:38; Start 07/19/18 at 16:30 Non-Formulary Medication (Metronidazole (Flagyl)) 1 tab TID PO ; Start 07/19/18 at 21:00; Status UNV Pantoprazole Sodium (Protonix) 40 mg DAILYAC PO Last administered on 07/21/18 07:56; Start 07/19/18 at 16:30; Stop 07/21/18 at 15:35; Status DC Alprazolam (Xanax) 1 mg PRN Q8HRS PRN PO ANXIETY / AGITATION Last administered on 07/19/18at 16:43; Start 07/19/18 at 15:45; Stop 07/20/18 at 09:25; Status DC Piperacillin Sod/ Tazobactam Sod (Zosyn Per Pharmacy) 1 each PRN DAILY PRN MC SEE COMMENTS; Start 07/19/18 at 16:00; Stop 07/25/18 at 16:32; Status DC Vancomycin HCl 1 gm/Sodium Chloride 250 ml @ 250 mls/hr Q24H IV Last administered on 07/20/18at 17:11; Start 07/20/18 at 12:30; Stop 07/21/18 at 16:59 ; Status DC Vancomycin HCl (Vancomycin Trough Level) 1 each 1X ONCE MC Last administered on 07/21/18at 16:30; Start 07/21/18 at 16:30; Stop 07/21/18 at 16:31; Status DC Oxycodone HCl (Roxicodone) 20 mg PRN Q6HRS PRN PO SEVERE PAIN Last administered on 07/20/18at 05:32; Start 07/19/18 at 16:00; Stop 07/20/18 at 09:25 ; Status DC Piperacillin Sod/ Tazobactam Sod 2.25 gm/Sodium Chloride 50 ml @ 100 mls/hr Q6HRS IV Last administered on 07/20/18at 15:27; Start 07/19/18 at 18:00; Stop at 16:45; Status DC Sodium Chloride 1,000 ml @ 1,000 mls/hr 1X ONCE IV Last administered on at 16:44; Start 07/19/18 at 16:15; Stop 07/19/18 at 17:14; Status DC Potassium Chloride (Klor-Con) 40 meq 1X ONCE PO Last administered on at 16:43; Start 07/19/18 at 16:15; Stop 07/19/18 at 16:28; Status DC Docusate Sodium (Colace) 100 mg DAILY PO Last administered on 07/25/18at 10:34; Start 07/20/18 at 09:00 Polyethylene Glycol (miraLAX PACKET) 17 gm PRN DAILY PRN PO CONSTIPATION; Start 07/19/18 at 16:15 Alprazolam (Xanax) 0.5 mg PRN Q8HRS PRN PO ANXIETY / AGITATION Last administered on 07/26/18at 08:42; Start 07/20/18 at 09:30 Ringer's Solution 1,000 ml @ 100 mls/hr Q10H IV Last administered on at 10:37; Start 07/20/18 at 09:30; Stop 07/25/18 at 16:22; Status DC Lidocaine/ Epinephrine (LIDOCAINE 1%-EPI 1:100,000 Multi-Dose) 20 ml STK-MED ONCE .ROUTE ; Start 07/20/18 at 13:46; Stop 07/20/18 at 13:47; Status DC Heparin Sodium (Porcine) (Heparin Sodium) 10,000 unit STK-MED ONCE .ROUTE ; Start 07/20/18 at 13:46; Stop 07/20/18 at 13:47; Status DC Heparin Sodium (Porcine) (Hep Lock Adult) 500 unit STK-MED ONCE IV ; Start 07/20 at 13:53; Stop 07/20/18 at 13:54; Status DC Midazolam HCl (Versed) 2 mg STK-MED ONCE .ROUTE ; Start 07/20/18 at 13:54; Stop 07/20/18 at 13:55; Status DC Fentanyl Citrate (Fentanyl 2ml Vial) 100 mcg STK-MED ONCE .ROUTE ; Start at 13:54; Stop 07/20/18 at 13:55; Status DC Midazolam HCl (Versed) 2 mg 1X ONCE IV ; Start 07/20/18 at 14:45; Stop at 14:46; Status DC Fentanyl Citrate (Fentanyl 2ml Vial) 50 mcg 1X ONCE IV Last administered on at 14:43; Start 07/20/18 at 14:45; Stop 07/20/18 at 14:46; Status DC Lidocaine/ Epinephrine (LIDOCAINE 1%-EPI 1:100,000 Multi-Dose) 8 ml 1X ONCE IJ Last administered on 07/20/18at 14:42; Start 07/20/18 at 14:45; Stop 07/20/18 at 14:46; Status DC Heparin Sodium (Porcine) (Hep Lock Adult) 500 unit STK-MED ONCE IV ; Start 07/20 at 14:47; Stop 07/20/18 at 14:48; Status DC Morphine Sulfate (Morphine Sulfate) 4 mg PRN Q4HRS PRN IV PAIN Last administered on 07/26/18at 07:37; Start 07/20/18 at 15:30 Piperacillin Sod/ Tazobactam Sod 3.375 gm/Sodium Chloride 50 ml @ 100 mls/hr Q6HRS IV Last administered on 07/24/18at 11:32; Start 07/20/18 at 18:00; Stop at 14:19; Status DC Lactobacillus Rhamnosus (Culturelle) 1 cap BID PO Last administered on at 07:38; Start 07/20/18 at 21:00 Famotidine (Pepcid) 20 mg HS PO Last administered on 07/25/18at 21:18; Start at 21:00 Vancomycin HCl 1 gm/Sodium Chloride 250 ml @ 250 mls/hr Q12H IV Last administered on 07/22/18at 04:36; Start 07/21/18 at 17:00; Stop 07/22/18 at 12:59 ; Status DC Vancomycin HCl (Vancomycin Trough Level) 1 each 1X ONCE MC Last administered on 07/24/18at 01:30; Start 07/24/18 at 00:30; Stop 07/24/18 at 00:31; Status DC Vancomycin HCl 1 gm/Sodium Chloride 250 ml @ 250 mls/hr 1X ONCE IV Last administered on 07/22/18at 13:03; Start 07/22/18 at 13:00; Stop 07/22/18 at 13:59 ; Status DC Vancomycin HCl 1 gm/Sodium Chloride 250 ml @ 250 mls/hr Q12H IV Last administered on 07/26/18at 01:18; Start 07/23/18 at 01:00 Morphine Sulfate (Morphine Sulfate) 2 mg 1X ONCE IV Last administered on at 15:56; Start 07/23/18 at 15:45; Stop 07/23/18 at 15:46; Status DC Fentanyl Citrate (Fentanyl 2ml Vial) 25 mcg PRN Q5MIN PRN IV MILD PAIN; Start 07/25/18 at 07:00; Stop 07/26/18 at 06:59; Status DC Fentanyl Citrate (Fentanyl 2ml Vial) 50 mcg PRN Q5MIN PRN IV MODERATE TO SEVERE PAIN Last administered on 07/25/18at 14:48; Start 07/25/18 at 07:00; Stop 07/26/18 at 06:59; Status DC Morphine Sulfate (Morphine Sulfate) 1 mg PRN Q10MIN PRN IV SEVERE PAIN Last administered on 07/25/18at 14:33; Start 07/25/18 at 07:00; Stop 07/26/18 at 06:59 ; Status DC Ringer's Solution 1,000 ml @ 30 mls/hr Q24H IV Last administered on 07/25/18at 07:00; Start 07/25/18 at 07:00; Stop 07/25/18 at 18:59; Status DC Lidocaine HCl (Xylocaine-Mpf 1% 2ml Vial) 2 ml PRN 1X PRN ID PRIOR TO IV START ; Start 07/25/18 at 07:00; Stop 07/26/18 at 06:59; Status DC Hydromorphone HCl (Dilaudid) 0.5 mg PRN Q10MIN PRN IV SEV PAIN, Second choice; Start 07/25/18 at 07:00; Stop 07/26/18 at 06:59; Status DC Prochlorperazine Edisylate (Compazine) 5 mg PACU PRN PRN IV NAUSEA, MRX1; Start 07/25/18 at 07:00; Stop 07/26/18 at 06:59; Status DC Fentanyl Citrate (Fentanyl 2ml Vial) 100 mcg STK-MED ONCE .ROUTE ; Start at 12:41; Stop 07/25/18 at 12:42; Status DC Propofol 20 ml @ As Directed STK-MED ONCE IV ; Start 07/25/18 at 12:41; Stop at 12:42; Status DC Ondansetron HCl (Zofran) 4 mg STK-MED ONCE .ROUTE ; Start 07/25/18 at 12:41; Stop 07/25/18 at 12:42; Status DC Lidocaine HCl (Lidocaine Pf 2% Vial) 5 ml STK-MED ONCE .ROUTE ; Start 07/25/18 at 12:41; Stop 07/25/18 at 12:42; Status DC Dexamethasone Sodium Phosphate (Decadron) 20 mg STK-MED ONCE .ROUTE ; Start at 12:41; Stop 07/25/18 at 12:42; Status DC Midazolam HCl (Versed) 2 mg STK-MED ONCE .ROUTE ; Start 07/25/18 at 13:06; Stop 07/25/18 at 13:07; Status DC Bupivacaine HCl/ Epinephrine Bitart (Sensorcaine-Epi 0.25%-1:715238 Mpf) 30 ml STK-MED ONCE .ROUTE Last administered on 07/25/18at 13:46; Start 07/25/18 at 13: 12; Stop 07/25/18 at 13:13; Status DC Glycopyrrolate (Robinul) 1 mg STK-MED ONCE .ROUTE ; Start 07/25/18 at 13:33; Stop 07/25/18 at 13:34; Status DC Sodium Chloride 1,000 ml @ 75 mls/hr 1X ONCE IV Last administered on at 17:48; Start 07/25/18 at 16:30; Stop 07/26/18 at 05:49; Status DC Active Scripts Active Reported Meloxicam 7.5 Mg Tablet 1 Tab PO DAILY Escitalopram Oxalate 5 Mg Tablet 5 Mg PO DAILY Omeprazole 20 Mg Capsule.dr 20 Mg PO DAILY Xanax (Alprazolam) 2 Mg Tablet 1 Tab PO BID Hydrocodone-Apap 10-325 (Hydrocodone Bit/Acetaminophen) 1 Each Tablet 1 Tab PO PRN Q6HRS PRN Trazodone Hcl 100 Mg Tablet 100 Mg PO HS Gabapentin 600 Mg Tablet 600 Mg PO TID Vitals/I & O Vital Sign - Last 24 Hours 07/25/18 07/25/18 07/25/18 07/25/18 11:00 12:35 13:00 13:45 Temp 97.9 97.9 97.9 97.9 Pulse 62 62 63 61 Resp 18 16 18 18 B/P (MAP) 153/56 (88) 175/83 137/57 (83) 137/66 (89) Pulse Ox 96 96 98 95 O2 Delivery Room Air Room Air Room Air Room Air O2 Flow Rate 2.0 07/25/18 07/25/18 07/25/18 07/25/18 14:13 14:13 14:30 14:33 Temp 98.0 98.0 98.0 98.0 Pulse 104 85 Resp 12 15 13 B/P (MAP) 127/67 154/78 Pulse Ox 99 97 95 O2 Delivery Simple Mask Mask Nasal Cannula Room Air O2 Flow Rate 6.0 6.0 2.0 07/25/18 07/25/18 07/25/18 07/25/18 14:45 14:48 15:00 15:30 Temp 98.2 98.0 98.2 98.0 Pulse 70 70 Resp 14 24 20 B/P (MAP) 121/78 145/76 Pulse Ox 95 99 98 O2 Delivery Nasal Cannula Nasal Cannula Nasal Cannula Nasal Cannula O2 Flow Rate 2.0 2.0 2.0 2.0 07/25/18 07/25/18 07/25/18 07/25/18 16:00 16:00 16:15 16:45 Pulse 75 74 61 Resp 18 18 18 B/P (MAP) 133/67 (89) 129/70 (89) 138/58 (84) Pulse Ox 95 95 95 O2 Delivery Room Air Room Air Room Air O2 Flow Rate 2.0 07/25/18 07/25/18 07/25/18 07/25/18 17:48 19:00 19:51 20:00 Temp 98.1 98.1 Pulse 65 Resp 17 14 B/P (MAP) 127/51 (76) Pulse Ox 96 95 O2 Delivery Room Air Room Air Room Air Room Air 07/25/18 07/26/18 07/26/18 07/26/18 23:00 02:24 03:00 05:47 Temp 98.3 98.0 98.3 98.0 Pulse 60 95 Resp 18 17 17 16 B/P (MAP) 114/40 (64) 131/62 (85) Pulse Ox 98 98 98 98 O2 Delivery Room Air Room Air Room Air Room Air 07/26/18 07/26/18 07/26/18 07/26/18 07:00 07:17 07:37 08:00 Temp 98.1 98.1 Pulse 76 Resp 12 20 20 B/P (MAP) 119/52 (74) Pulse Ox 98 98 98 O2 Delivery Room Air Room Air Room Air Room Air O2 Flow Rate 2.0 2.0 07/26/18 08:07 Resp 20 Pulse Ox 98 O2 Delivery Room Air Intake and Output 07/25/18 07/25/18 07/26/18 14:59 22:59 06:59 Intake Total 1550 ml 300 ml Output Total 530 ml 500 ml 0 ml Balance 1020 ml -200 ml 0 ml ALFREDO WELLS MD Jul 26, 2018 10:37
[2018-07-26 11:00] VITALS: BP 119/37
--- NOTE | 2018-07-26 11:10 | PDOC ---
SURGICAL PROGRESS NOTE Subjective Patient doing quite well denies any pain once to go home Vital Signs Vital Signs Date Time Temp Pulse Resp B/P (MAP) Pulse Ox O2 Delivery O2 Flow Rate FiO2 07/26/18 08:07 20 98 Room Air 07/26/18 08:00 2.0 07/26/18 07:00 98.1 76 119/52 (74) 98.1 I&O Intake and Output 07/26/18 07:00 Intake Total 1850 ml Output Total 1030 ml Balance 820 ml Intake Oral 300 ml IV Total 1550 ml Output Urine Total 1000 ml Estimated Blood Loss 30 ml # Voids 2 PATIENT HAS A SOSA: No General: Alert, Oriented X3, Cooperative, No acute distress Skin: Other (right axillary breast dressing intact) Labs Laboratory Tests Test 07/24/18 12:30 07/26/18 05:45 Procalcitonin 0.25 ng/mL (0.00-0.10) White Blood Count 13.7 x10^3/uL (4.0-11.0) Red Blood Count 2.85 x10^6/uL (3.50-5.40) Hemoglobin 9.0 g/dL (12.0-15.5) Hematocrit 26.9 % (36.0-47.0) Mean Corpuscular Volume 95 fL (79-100) Mean Corpuscular Hemoglobin 32 pg (25-35) Mean Corpuscular Hemoglobin Concent 34 g/dL (31-37) Red Cell Distribution Width 13.7 % (11.5-14.5) Platelet Count 326 x10^3/uL (140-400) Neutrophils (%) (Auto) 86 % (31-73) Lymphocytes (%) (Auto) 9 % (24-48) Monocytes (%) (Auto) 4 % (0-9) Eosinophils (%) (Auto) 0 % (0-3) Basophils (%) (Auto) 0 % (0-3) Neutrophils # (Auto) 11.8 x10^3uL (1.8-7.7) Lymphocytes # (Auto) 1.2 x10^3/uL (1.0-4.8) Monocytes # (Auto) 0.6 x10^3/uL (0.0-1.1) Eosinophils # (Auto) 0.0 x10^3/uL (0.0-0.7) Basophils # (Auto) 0.1 x10^3/uL (0.0-0.2) Sodium Level 142 mmol/L (136-145) Potassium Level 4.2 mmol/L (3.5-5.1) Chloride Level 106 mmol/L (98-107) Carbon Dioxide Level 33 mmol/L (21-32) Anion Gap 3 (6-14) Blood Urea Nitrogen 6 mg/dL (7-20) Creatinine 0.7 mg/dL (0.6-1.0) Estimated GFR (Cockcroft-Gault) 82.3 BUN/Creatinine Ratio 9 (6-20) Glucose Level 115 mg/dL (70-99) Calcium Level 8.6 mg/dL (8.5-10.1) Total Bilirubin 0.3 mg/dL (0.2-1.0) Aspartate Amino Transf (AST/SGOT) 10 U/L (15-37) Alanine Aminotransferase (ALT/SGPT) 13 U/L (14-59) Alkaline Phosphatase 65 U/L (46-116) Total Protein 5.3 g/dL (6.4-8.2) Albumin 2.2 g/dL (3.4-5.0) Albumin/Globulin Ratio 0.7 (1.0-1.7) Laboratory Tests Test 07/26/18 05:45 White Blood Count 13.7 x10^3/uL (4.0-11.0) Red Blood Count 2.85 x10^6/uL (3.50-5.40) Hemoglobin 9.0 g/dL (12.0-15.5) Hematocrit 26.9 % (36.0-47.0) Mean Corpuscular Volume 95 fL (79-100) Mean Corpuscular Hemoglobin 32 pg (25-35) Mean Corpuscular Hemoglobin Concent 34 g/dL (31-37) Red Cell Distribution Width 13.7 % (11.5-14.5) Platelet Count 326 x10^3/uL (140-400) Neutrophils (%) (Auto) 86 % (31-73) Lymphocytes (%) (Auto) 9 % (24-48) Monocytes (%) (Auto) 4 % (0-9) Eosinophils (%) (Auto) 0 % (0-3) Basophils (%) (Auto) 0 % (0-3) Neutrophils # (Auto) 11.8 x10^3uL (1.8-7.7) Lymphocytes # (Auto) 1.2 x10^3/uL (1.0-4.8) Monocytes # (Auto) 0.6 x10^3/uL (0.0-1.1) Eosinophils # (Auto) 0.0 x10^3/uL (0.0-0.7) Basophils # (Auto) 0.1 x10^3/uL (0.0-0.2) Sodium Level 142 mmol/L (136-145) Potassium Level 4.2 mmol/L (3.5-5.1) Chloride Level 106 mmol/L (98-107) Carbon Dioxide Level 33 mmol/L (21-32) Anion Gap 3 (6-14) Blood Urea Nitrogen 6 mg/dL (7-20) Creatinine 0.7 mg/dL (0.6-1.0) Estimated GFR (Cockcroft-Gault) 82.3 BUN/Creatinine Ratio 9 (6-20) Glucose Level 115 mg/dL (70-99) Calcium Level 8.6 mg/dL (8.5-10.1) Total Bilirubin 0.3 mg/dL (0.2-1.0) Aspartate Amino Transf (AST/SGOT) 10 U/L (15-37) Alanine Aminotransferase (ALT/SGPT) 13 U/L (14-59) Alkaline Phosphatase 65 U/L (46-116) Total Protein 5.3 g/dL (6.4-8.2) Albumin 2.2 g/dL (3.4-5.0) Albumin/Globulin Ratio 0.7 (1.0-1.7) Problem List Problems Medical Problems: (1) Sepsis Status: Acute Assessment/Plan Status post incision and drainage of right axillary breast abscess Doing quite well needs to have daily dressing change and packing Follow-up with Dr. Rodgers 2 weeks ALFREDO RODGERS MD Jul 26, 2018 11:10
--- NOTE | 2018-07-26 11:18 | PDOC ---
Infectious Disease Note Subjective Subjective pt is feeling good ROS ROS no n/v/d/sob Vital Sign Vital Signs Vital Signs Date Time Temp Pulse Resp B/P (MAP) Pulse Ox O2 Delivery O2 Flow Rate FiO2 07/26/18 08:07 20 98 Room Air 07/26/18 08:00 2.0 07/26/18 07:00 98.1 76 119/52 (74) 98.1 Physical Exam PHYSICAL EXAM GENERAL: Alert, oriented female, not in any distress. VITAL SIGNS: Stable, afebrile. HEENT: NAD. NECK: Supple, no JVP, no lymphadenopathy. LUNGS: Clear. HEART: S1, S2 regular. ABDOMEN: Benign. EXTREMITIES: No edema or cyanosis. SKIN: Unremarkable except right axilla and right breast confluent areas of multiple abscesses. One is open with large amount of purulent drainage coming out. There is some nodularity into the breast. All the exam done with the patient's RN. NEUROLOGIC: The patient is neurologically alert, awake. No focal neurologic deficit. Labs Lab Laboratory Tests Test 07/26/18 05:45 White Blood Count 13.7 x10^3/uL (4.0-11.0) Red Blood Count 2.85 x10^6/uL (3.50-5.40) Hemoglobin 9.0 g/dL (12.0-15.5) Hematocrit 26.9 % (36.0-47.0) Mean Corpuscular Volume 95 fL (79-100) Mean Corpuscular Hemoglobin 32 pg (25-35) Mean Corpuscular Hemoglobin Concent 34 g/dL (31-37) Red Cell Distribution Width 13.7 % (11.5-14.5) Platelet Count 326 x10^3/uL (140-400) Neutrophils (%) (Auto) 86 % (31-73) Lymphocytes (%) (Auto) 9 % (24-48) Monocytes (%) (Auto) 4 % (0-9) Eosinophils (%) (Auto) 0 % (0-3) Basophils (%) (Auto) 0 % (0-3) Neutrophils # (Auto) 11.8 x10^3uL (1.8-7.7) Lymphocytes # (Auto) 1.2 x10^3/uL (1.0-4.8) Monocytes # (Auto) 0.6 x10^3/uL (0.0-1.1) Eosinophils # (Auto) 0.0 x10^3/uL (0.0-0.7) Basophils # (Auto) 0.1 x10^3/uL (0.0-0.2) Sodium Level 142 mmol/L (136-145) Potassium Level 4.2 mmol/L (3.5-5.1) Chloride Level 106 mmol/L (98-107) Carbon Dioxide Level 33 mmol/L (21-32) Anion Gap 3 (6-14) Blood Urea Nitrogen 6 mg/dL (7-20) Creatinine 0.7 mg/dL (0.6-1.0) Estimated GFR (Cockcroft-Gault) 82.3 BUN/Creatinine Ratio 9 (6-20) Glucose Level 115 mg/dL (70-99) Calcium Level 8.6 mg/dL (8.5-10.1) Total Bilirubin 0.3 mg/dL (0.2-1.0) Aspartate Amino Transf (AST/SGOT) 10 U/L (15-37) Alanine Aminotransferase (ALT/SGPT) 13 U/L (14-59) Alkaline Phosphatase 65 U/L (46-116) Total Protein 5.3 g/dL (6.4-8.2) Albumin 2.2 g/dL (3.4-5.0) Albumin/Globulin Ratio 0.7 (1.0-1.7) Micro ANAEROBIC-AEROBIC CULTURE Final Final report ANAEROBIC RES 1 Final Comment No anaerobic growth in 72 hours. AEROBIC CULT Final Final report AEROBIC RES 1 Final Comment Methicillin - resistant Staphylococcus aureus 4+ Based on resistance to oxacillin this isolate would be resistant to all currently available beta-lactam antimicrobial agents, with the exception of the newer cephalosporins with anti-MRSA activity, such as Ceftaroline This isolate does not demonstrate inducible clindamycin resistance in vitro by D test. ANTIMICROBIAL SUSCEPTIBILITY Final Comment S = Susceptible; I = Intermediate; R = Resistant P = Positive; N = Negative MICS are expressed in micrograms per mL Antibiotic RSLT#1 RSLT#2 RSLT#3 RSLT#4 Ciprofloxacin S<=0.5 Clindamycin S<=0.25 Erythromycin R>=8 Gentamicin S<=0.5 Levofloxacin S<=0.12 Linezolid S =1 CONTINUED ON NEXT PAGE RUN DATE: 07/23/18 PAGE 2 RUN TIME: 1913 [facility] [address] [place] [address] Britton Escobar M.D., Parks Re[employer] Director SPEC: [id number] PATIENT: ROBERTA JORDAN [id number] ( Continued) Procedure Result ANTIMICROBIAL SUSCEPTIBILITY Final (continued) Oxacillin R>=4 Penicillin R>=0.5 Rifampin S<=0.5 Tetracycline S<=1 Trimethoprim/Sulfa S<=10 Vancomycin S<=0.5 GRAM STAIN Final Final report GRAM STAIN RES 1 Final Comment Objective Assessment MRSA rt axillary infection MRSA rt breast infection Nodularity sec to infection vs malignancy Anxiety Plan Plan of Care pt wants to go home today can be d/susie with po zyvox f/u with me in 10-14 days EMILE MONGE MD Jul 26, 2018 11:18
--- NOTE | 2018-07-26 12:21 | PDOC3 ---
Discharge Summary Date of Admission: Jul 19, 2018 Date of Discharge: Jul 26, 2018 Follow-Up: 3-5 days Admitting Diagnosis comment: discharge dx Chief Complaint Bilateral Axillary cellulitis Left axillary abscess AEROBIC RES 1 Final Comment Methicillin - resistant Staphylococcus aureus 4+ Pain, acute on chronic Chronic back pain, takes hydro 10 PRN for chronic back pain, has hardware Dog scratch Severe sepsis BRANDON - vasomotor nephropathy Hypokalemia 07/[address] right axilla History of Present Illness History of Present Illness discharge dx 73 yo F admit from ER with bilateral axilla pain and swelling, She has swelling and likely abscesses that began a week ago. Patient states she was seen by her PCP 07/18 and both axilla were drained. She states the next morning she woke up and she had redness on the right axilla. PO augmentin started 07/18, not better, came to ED, had wound and blood cultures drawn. Seen by surgery, bilateral US showed cellulitis on right axilla and small abscess in left. 07/20: Still with fever overnight. Lost left peripheral IV access very quickly and has dog scratch on her right arm (likely source). Flu test still pending. BP persistently low despite 2 bolus and WBC count going up. On further review she notes she broke up a dog fight about 6 days ago and was scratched multiple times, these are apparent on exam today. 07/21: Afebrile since 0300 on 07/20. Feeling improved with better drainage on the right with saturated dressing. PICC yesterday per IR due to dog scratches on her arms. Wound culture gram stain shows few GPC, looks like staph 07/23 still has large woung right axilla with purulent drainage cult pos MRSA id consulted 07/24. Contacted [facility] for her lab results and they state her last encounter there was in 2002, patient and note that the culture was sent to [facility] from the doctors office, will order records as she arrived here septic. still drainage from wound purulent 07/25 Operative Note Operative Note Date: 07/25/2018 Preoperative diagnosis: Right axillary abscess right breast abscess Postoperative diagnosis: Same Procedure: Incision and drainage of axillary and breast abscess with biopsy of breast abscess cavity Surgeon: Nino Specimen: Cultures of abscess fluid and right breast biopsy 07/26 home on zyvox, await insurance approval for zyvox rx today, d/c planning 40 min Plan: Chlorhexidine bath, pos MRSA PCR S/p PICC for access and dual antibiotics, frequent blood draws, Appreciate surgery recs Zosyn on for capnocytophagia coverage with dog encounter. Last tetanus was 1 year ago. Dogs up to date on vaccines. Cont Vanco as well with GPC consult ID, Aggressive IV fluids Back off on her pain meds and xanax bx breast cavity 07/25 path pending Vitals Vitals Vital Signs Date Time Temp Pulse Resp B/P (MAP) Pulse Ox O2 Delivery O2 Flow Rate FiO2 07/26/18 08:07 20 98 Room Air 07/26/18 08:00 2.0 07/26/18 07:00 98.1 76 119/52 (74) 98.1 Physical Exam Physical Exam GENERAL: Alert, oriented female, not in any distress. VITAL SIGNS: Stable, afebrile. HEENT: NAD. NECK: Supple, no JVP, no lymphadenopathy. LUNGS: Clear. HEART: S1, S2 regular. ABDOMEN: Benign. EXTREMITIES: No edema or cyanosis. SKIN: Unremarkable except right axilla and right breast confluent areas of multiple abscesses. One is open with large amount of purulent drainage coming out. There is some nodularity into the breast. All the exam done with the patient's RN. NEUROLOGIC: The patient is neurologically alert, awake. No focal neurologic deficit. General: Alert, Oriented X3, Cooperative, No acute distress, mild distress Heart: Regular rate, Normal S1, Normal S2, No murmurs Lungs: Clear Abdomen: Normal bowel sounds, Soft, No tenderness Extremities: No clubbing, No cyanosis, No edema Skin: Other (right axillary dressing dry) FINAL DIAGNOSIS Problems Medical Problems: (1) Sepsis Status: Acute Brief Hospital Course Ms. Canela is a 73 old [sex] who presented with [right axillary abscess ] CONDITION AT DISCHARGE: Improved Discharge Medications Current Medications Piperacillin Sod/ Tazobactam Sod 4.5 gm/Sodium Chloride 100 ml @ 200 mls/hr 1X ONCE IV Last administered on 07/19/18at 11:30; Start 07/19/18 at 10:30; Stop 07/19/18 at 10:59; Status DC Vancomycin HCl (Vanco Per Pharmacy) 1 each 1X ONCE MC ; Start 07/19/18 at 10:30 ; Stop 07/19/18 at 10:31; Status UNV Sodium Chloride 1,000 ml @ 1,860 mls/hr Q33M IV Last administered on at 13:18; Start 07/19/18 at 10:27; Stop 07/19/18 at 11:27; Status DC Morphine Sulfate (Morphine Sulfate) 4 mg PRN Q15MIN PRN IV/SQ PAIN GREATER THAN 3/10 Last administered on 07/19/18at 10:54; Start 07/19/18 at 10:30; Stop at 10:29; Status DC Vancomycin HCl 1.5 gm/Sodium Chloride 500 ml @ 250 mls/hr 1X ONCE IV Last administered on 07/19/18at 12:36; Start 07/19/18 at 11:00; Stop 07/19/18 at 12:59 ; Status DC Acetaminophen (Tylenol) 1,000 mg 1X ONCE PO Last administered on 07/19/18at 13: 03; Start 07/19/18 at 12:45; Stop 07/19/18 at 12:47; Status DC Hydromorphone HCl (Dilaudid) 1 mg 1X ONCE IV Last administered on 07/19/18at 14 :01; Start 07/19/18 at 13:30; Stop 07/19/18 at 13:32; Status DC Ondansetron HCl (Zofran) 4 mg PRN Q8HRS PRN IV NAUSEA/VOMITING; Start 07/19/18 at 14:30; Stop 07/20/18 at 14:29; Status DC Morphine Sulfate (Morphine Sulfate) 4 mg PRN Q2HR PRN IV PAIN Last administered on 07/19/18at 17:20; Start 07/19/18 at 14:30; Stop 07/20/18 at 14:29 ; Status DC Acetaminophen (Tylenol) 650 mg PRN Q4HRS PRN PO FEVER Last administered on 07/20at 04:16; Start 07/19/18 at 14:30; Stop 07/20/18 at 14:29; Status DC Sodium Chloride 1,000 ml @ 125 mls/hr 1X ONCE IV Last administered on 18:22; Start 07/19/18 at 14:30; Stop 07/19/18 at 22:29; Status DC Pharmacy Consult (C.diff Med Screen By Rx) 1 each 1X ONCE MC ; Start 07/19/18 at 15:30; Stop 07/19/18 at 15:31; Status UNV Vancomycin HCl (Vanco Per Pharmacy) 1 each PRN DAILY PRN MC SEE COMMENTS Last administered on 07/25/18 16:47; Start 07/19/18 at 15:45 Acetaminophen/ Hydrocodone Bitart (Lortab 10/325) 1 tab PRN Q6HRS PRN PO MODERATE PAIN Last administered on 07/26/18 05:47; Start 07/19/18 at 15:45 Ondansetron HCl (Zofran Odt) 4 mg PRN Q8HRS PRN PO NAUSEA; Start 07/19/18 at 15 :45 Trazodone HCl (Desyrel) 100 mg HS PO Last administered on 07/25/18 21:18; Start 07/19/18 at 21:00 Citalopram Hydrobromide (CeleXA) 10 mg DAILY PO Last administered on 07/26/18 07:38; Start 07/19/18 at 16:30 Gabapentin (Neurontin) 600 mg TID PO Last administered on 07/26/18 07:38; Start 07/19/18 at 21:00 Meloxicam (Mobic) 7.5 mg DAILY PO Last administered on 07/26/18 07:38; Start 07/19/18 at 16:30 Non-Formulary Medication (Metronidazole (Flagyl)) 1 tab TID PO ; Start 07/19/18 at 21:00; Status UNV Pantoprazole Sodium (Protonix) 40 mg DAILYAC PO Last administered on 07/21/18 07:56; Start 07/19/18 at 16:30; Stop 07/21/18 at 15:35; Status DC Alprazolam (Xanax) 1 mg PRN Q8HRS PRN PO ANXIETY / AGITATION Last administered on 07/19/18 16:43; Start 07/19/18 at 15:45; Stop 07/20/18 at 09:25; Status DC Piperacillin Sod/ Tazobactam Sod (Zosyn Per Pharmacy) 1 each PRN DAILY PRN MC SEE COMMENTS; Start 07/19/18 at 16:00; Stop 07/25/18 at 16:32; Status DC Vancomycin HCl 1 gm/Sodium Chloride 250 ml @ 250 mls/hr Q24H IV Last administered on 07/20/18at 17:11; Start 07/20/18 at 12:30; Stop 07/21/18 at 16:59 ; Status DC Vancomycin HCl (Vancomycin Trough Level) 1 each 1X ONCE MC Last administered on 07/21/18at 16:30; Start 07/21/18 at 16:30; Stop 07/21/18 at 16:31; Status DC Oxycodone HCl (Roxicodone) 20 mg PRN Q6HRS PRN PO SEVERE PAIN Last administered on 07/20/18 05:32; Start 07/19/18 at 16:00; Stop 07/20/18 at 09:25 ; Status DC Piperacillin Sod/ Tazobactam Sod 2.25 gm/Sodium Chloride 50 ml @ 100 mls/hr Q6HRS IV Last administered on 07/20/18 15:27; Start 07/19/18 at 18:00; Stop at 16:45; Status DC Sodium Chloride 1,000 ml @ 1,000 mls/hr 1X ONCE IV Last administered on at 16:44; Start 07/19/18 at 16:15; Stop 07/19/18 at 17:14; Status DC Potassium Chloride (Klor-Con) 40 meq 1X ONCE PO Last administered on at 16:43; Start 07/19/18 at 16:15; Stop 07/19/18 at 16:28; Status DC Docusate Sodium (Colace) 100 mg DAILY PO Last administered on 07/25/18at 10:34; Start 07/20/18 at 09:00 Polyethylene Glycol (miraLAX PACKET) 17 gm PRN DAILY PRN PO CONSTIPATION; Start 07/19/18 at 16:15 Alprazolam (Xanax) 0.5 mg PRN Q8HRS PRN PO ANXIETY / AGITATION Last administered on 07/26/18at 08:42; Start 07/20/18 at 09:30 Ringer's Solution 1,000 ml @ 100 mls/hr Q10H IV Last administered on at 10:37; Start 07/20/18 at 09:30; Stop 07/25/18 at 16:22; Status DC Lidocaine/ Epinephrine (LIDOCAINE 1%-EPI 1:100,000 Multi-Dose) 20 ml STK-MED ONCE .ROUTE ; Start 07/20/18 at 13:46; Stop 07/20/18 at 13:47; Status DC Heparin Sodium (Porcine) (Heparin Sodium) 10,000 unit STK-MED ONCE .ROUTE ; Start 07/20/18 at 13:46; Stop 07/20/18 at 13:47; Status DC Heparin Sodium (Porcine) (Hep Lock Adult) 500 unit STK-MED ONCE IV ; Start 07/20 at 13:53; Stop 07/20/18 at 13:54; Status DC Midazolam HCl (Versed) 2 mg STK-MED ONCE .ROUTE ; Start 07/20/18 at 13:54; Stop 07/20/18 at 13:55; Status DC Fentanyl Citrate (Fentanyl 2ml Vial) 100 mcg STK-MED ONCE .ROUTE ; Start at 13:54; Stop 07/20/18 at 13:55; Status DC Midazolam HCl (Versed) 2 mg 1X ONCE IV ; Start 07/20/18 at 14:45; Stop at 14:46; Status DC Fentanyl Citrate (Fentanyl 2ml Vial) 50 mcg 1X ONCE IV Last administered on at 14:43; Start 07/20/18 at 14:45; Stop 07/20/18 at 14:46; Status DC Lidocaine/ Epinephrine (LIDOCAINE 1%-EPI 1:100,000 Multi-Dose) 8 ml 1X ONCE IJ Last administered on 07/20/18at 14:42; Start 07/20/18 at 14:45; Stop 07/20/18 at 14:46; Status DC Heparin Sodium (Porcine) (Hep Lock Adult) 500 unit STK-MED ONCE IV ; Start 07/20 at 14:47; Stop 07/20/18 at 14:48; Status DC Morphine Sulfate (Morphine Sulfate) 4 mg PRN Q4HRS PRN IV PAIN Last administered on 07/26/18at 07:37; Start 07/20/18 at 15:30 Piperacillin Sod/ Tazobactam Sod 3.375 gm/Sodium Chloride 50 ml @ 100 mls/hr Q6HRS IV Last administered on 07/24/18at 11:32; Start 07/20/18 at 18:00; Stop at 14:19; Status DC Lactobacillus Rhamnosus (Culturelle) 1 cap BID PO Last administered on at 07:38; Start 07/20/18 at 21:00 Famotidine (Pepcid) 20 mg HS PO Last administered on 07/25/18at 21:18; Start at 21:00 Vancomycin HCl 1 gm/Sodium Chloride 250 ml @ 250 mls/hr Q12H IV Last administered on 07/22/18at 04:36; Start 07/21/18 at 17:00; Stop 07/22/18 at 12:59 ; Status DC Vancomycin HCl (Vancomycin Trough Level) 1 each 1X ONCE MC Last administered on 07/24/18at 01:30; Start 07/24/18 at 00:30; Stop 07/24/18 at 00:31; Status DC Vancomycin HCl 1 gm/Sodium Chloride 250 ml @ 250 mls/hr 1X ONCE IV Last administered on 07/22/18at 13:03; Start 07/22/18 at 13:00; Stop 07/22/18 at 13:59 ; Status DC Vancomycin HCl 1 gm/Sodium Chloride 250 ml @ 250 mls/hr Q12H IV Last administered on 07/26/18at 01:18; Start 07/23/18 at 01:00 Morphine Sulfate (Morphine Sulfate) 2 mg 1X ONCE IV Last administered on at 15:56; Start 07/23/18 at 15:45; Stop 07/23/18 at 15:46; Status DC Fentanyl Citrate (Fentanyl 2ml Vial) 25 mcg PRN Q5MIN PRN IV MILD PAIN; Start 07/25/18 at 07:00; Stop 07/26/18 at 06:59; Status DC Fentanyl Citrate (Fentanyl 2ml Vial) 50 mcg PRN Q5MIN PRN IV MODERATE TO SEVERE PAIN Last administered on 07/25/18at 14:48; Start 07/25/18 at 07:00; Stop 07/26/18 at 06:59; Status DC Morphine Sulfate (Morphine Sulfate) 1 mg PRN Q10MIN PRN IV SEVERE PAIN Last administered on 07/25/18at 14:33; Start 07/25/18 at 07:00; Stop 07/26/18 at 06:59 ; Status DC Ringer's Solution 1,000 ml @ 30 mls/hr Q24H IV Last administered on 07/25/18at 07:00; Start 07/25/18 at 07:00; Stop 07/25/18 at 18:59; Status DC Lidocaine HCl (Xylocaine-Mpf 1% 2ml Vial) 2 ml PRN 1X PRN ID PRIOR TO IV START ; Start 07/25/18 at 07:00; Stop 07/26/18 at 06:59; Status DC Hydromorphone HCl (Dilaudid) 0.5 mg PRN Q10MIN PRN IV SEV PAIN, Second choice; Start 07/25/18 at 07:00; Stop 07/26/18 at 06:59; Status DC Prochlorperazine Edisylate (Compazine) 5 mg PACU PRN PRN IV NAUSEA, MRX1; Start 07/25/18 at 07:00; Stop 07/26/18 at 06:59; Status DC Fentanyl Citrate (Fentanyl 2ml Vial) 100 mcg STK-MED ONCE .ROUTE ; Start at 12:41; Stop 07/25/18 at 12:42; Status DC Propofol 20 ml @ As Directed STK-MED ONCE IV ; Start 07/25/18 at 12:41; Stop at 12:42; Status DC Ondansetron HCl (Zofran) 4 mg STK-MED ONCE .ROUTE ; Start 07/25/18 at 12:41; Stop 07/25/18 at 12:42; Status DC Lidocaine HCl (Lidocaine Pf 2% Vial) 5 ml STK-MED ONCE .ROUTE ; Start 07/25/18 at 12:41; Stop 07/25/18 at 12:42; Status DC Dexamethasone Sodium Phosphate (Decadron) 20 mg STK-MED ONCE .ROUTE ; Start at 12:41; Stop 07/25/18 at 12:42; Status DC Midazolam HCl (Versed) 2 mg STK-MED ONCE .ROUTE ; Start 07/25/18 at 13:06; Stop 07/25/18 at 13:07; Status DC Bupivacaine HCl/ Epinephrine Bitart (Sensorcaine-Epi 0.25%-1:304758 Mpf) 30 ml STK-MED ONCE .ROUTE Last administered on 07/25/18at 13:46; Start 07/25/18 at 13: 12; Stop 07/25/18 at 13:13; Status DC Glycopyrrolate (Robinul) 1 mg STK-MED ONCE .ROUTE ; Start 07/25/18 at 13:33; Stop 07/25/18 at 13:34; Status DC Sodium Chloride 1,000 ml @ 75 mls/hr 1X ONCE IV Last administered on at 17:48; Start 07/25/18 at 16:30; Stop 07/26/18 at 05:49; Status DC Active Scripts Active Reported Meloxicam 7.5 Mg Tablet 1 Tab PO DAILY Escitalopram Oxalate 5 Mg Tablet 5 Mg PO DAILY Omeprazole 20 Mg Capsule.dr 20 Mg PO DAILY Xanax (Alprazolam) 2 Mg Tablet 1 Tab PO BID Hydrocodone-Apap 10-325 (Hydrocodone Bit/Acetaminophen) 1 Each Tablet 1 Tab PO PRN Q6HRS PRN Trazodone Hcl 100 Mg Tablet 100 Mg PO HS Gabapentin 600 Mg Tablet 600 Mg PO TID Vital Signs Vital Signs Date Time Temp Pulse Resp B/P (MAP) Pulse Ox O2 Delivery O2 Flow Rate FiO2 07/26/18 08:07 20 98 Room Air 07/26/18 08:00 2.0 07/26/18 07:00 98.1 76 119/52 (74) 98.1 Labs Laboratory Tests Test 07/24/18 12:30 07/26/18 05:45 Procalcitonin 0.25 ng/mL (0.00-0.10) White Blood Count 13.7 x10^3/uL (4.0-11.0) Red Blood Count 2.85 x10^6/uL (3.50-5.40) Hemoglobin 9.0 g/dL (12.0-15.5) Hematocrit 26.9 % (36.0-47.0) Mean Corpuscular Volume 95 fL (79-100) Mean Corpuscular Hemoglobin 32 pg (25-35) Mean Corpuscular Hemoglobin Concent 34 g/dL (31-37) Red Cell Distribution Width 13.7 % (11.5-14.5) Platelet Count 326 x10^3/uL (140-400) Neutrophils (%) (Auto) 86 % (31-73) Lymphocytes (%) (Auto) 9 % (24-48) Monocytes (%) (Auto) 4 % (0-9) Eosinophils (%) (Auto) 0 % (0-3) Basophils (%) (Auto) 0 % (0-3) Neutrophils # (Auto) 11.8 x10^3uL (1.8-7.7) Lymphocytes # (Auto) 1.2 x10^3/uL (1.0-4.8) Monocytes # (Auto) 0.6 x10^3/uL (0.0-1.1) Eosinophils # (Auto) 0.0 x10^3/uL (0.0-0.7) Basophils # (Auto) 0.1 x10^3/uL (0.0-0.2) Sodium Level 142 mmol/L (136-145) Potassium Level 4.2 mmol/L (3.5-5.1) Chloride Level 106 mmol/L (98-107) Carbon Dioxide Level 33 mmol/L (21-32) Anion Gap 3 (6-14) Blood Urea Nitrogen 6 mg/dL (7-20) Creatinine 0.7 mg/dL (0.6-1.0) Estimated GFR (Cockcroft-Gault) 82.3 BUN/Creatinine Ratio 9 (6-20) Glucose Level 115 mg/dL (70-99) Calcium Level 8.6 mg/dL (8.5-10.1) Total Bilirubin 0.3 mg/dL (0.2-1.0) Aspartate Amino Transf (AST/SGOT) 10 U/L (15-37) Alanine Aminotransferase (ALT/SGPT) 13 U/L (14-59) Alkaline Phosphatase 65 U/L (46-116) Total Protein 5.3 g/dL (6.4-8.2) Albumin 2.2 g/dL (3.4-5.0) Albumin/Globulin Ratio 0.7 (1.0-1.7) Laboratory Tests Test 07/26/18 05:45 White Blood Count 13.7 x10^3/uL (4.0-11.0) Red Blood Count 2.85 x10^6/uL (3.50-5.40) Hemoglobin 9.0 g/dL (12.0-15.5) Hematocrit 26.9 % (36.0-47.0) Mean Corpuscular Volume 95 fL (79-100) Mean Corpuscular Hemoglobin 32 pg (25-35) Mean Corpuscular Hemoglobin Concent 34 g/dL (31-37) Red Cell Distribution Width 13.7 % (11.5-14.5) Platelet Count 326 x10^3/uL (140-400) Neutrophils (%) (Auto) 86 % (31-73) Lymphocytes (%) (Auto) 9 % (24-48) Monocytes (%) (Auto) 4 % (0-9) Eosinophils (%) (Auto) 0 % (0-3) Basophils (%) (Auto) 0 % (0-3) Neutrophils # (Auto) 11.8 x10^3uL (1.8-7.7) Lymphocytes # (Auto) 1.2 x10^3/uL (1.0-4.8) Monocytes # (Auto) 0.6 x10^3/uL (0.0-1.1) Eosinophils # (Auto) 0.0 x10^3/uL (0.0-0.7) Basophils # (Auto) 0.1 x10^3/uL (0.0-0.2) Sodium Level 142 mmol/L (136-145) Potassium Level 4.2 mmol/L (3.5-5.1) Chloride Level 106 mmol/L (98-107) Carbon Dioxide Level 33 mmol/L (21-32) Anion Gap 3 (6-14) Blood Urea Nitrogen 6 mg/dL (7-20) Creatinine 0.7 mg/dL (0.6-1.0) Estimated GFR (Cockcroft-Gault) 82.3 BUN/Creatinine Ratio 9 (6-20) Glucose Level 115 mg/dL (70-99) Calcium Level 8.6 mg/dL (8.5-10.1) Total Bilirubin 0.3 mg/dL (0.2-1.0) Aspartate Amino Transf (AST/SGOT) 10 U/L (15-37) Alanine Aminotransferase (ALT/SGPT) 13 U/L (14-59) Alkaline Phosphatase 65 U/L (46-116) Total Protein 5.3 g/dL (6.4-8.2) Albumin 2.2 g/dL (3.4-5.0) Albumin/Globulin Ratio 0.7 (1.0-1.7) Allergies Allergies Coded Allergies Type Severity Reaction Last Updated Verified I S O L A T I O N *CONTACT* Allergy Unknown 07/24/18 Yes codeine Adverse Reaction Intermediate HALLUCINATES 07/19/18 Yes Disposition/Orders: D/C to Home Patient Instructions d/c planning 40 min ALFREDO WELLS MD Jul 26, 2018 12:21
--- NOTE | 2018-07-26 12:34 | NUR ---
SW following for discharge planning. Discussed with RN, pt is needing Zyvox/Linezolid 600mg PO BID #28. Pt's insurance requires pre authorization. SW got permission to fax prescription to [facility] with a Goodrx coupon for a discount arita of $68.33. [facility] in [place] [facility] [address] advised they can honor the coupon arita and they do have the medication in stock. 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 RN notified. No further SW needs.
[2018-07-26] MEDS ORDERED: DOCU-109 PO (12:55)
[2018-07-26] MEDS ORDERED: POLY17PO28 PO (12:55)
[2018-07-26] MEDS ORDERED: LINE600T PO (12:55)
[2018-07-26] MEDS ORDERED: LACT1CAP19 PO (12:55)
--- NOTE | 2018-07-26 12:56 | DISCH ---
DISCHARGE INSTRUCTIONS Condition on Discharge Condition on Discharge: Stable Activity After Discharge Activity Instructions for Disc: Activity as tolerated Bathing Instructions: Shower-keep dressing dry Lifting Instructions after Dis: No heavy lifting, No pulling or pushing Exercise Instruction after Dis: Progress as tolerated Driving Instructions after Dis: Do not drive Weight Bearing Status after Di: As tolerated Diet after Discharge Diet after Discharge: GI Soft Wound Incision Care Wound Care Equipment: Dressings Checks after Discharge Checks after discharge: Check blood press - daily Contacting the DR. after DC Call your doctor for: If your condition worsens Treatment/Equipment after DC Adaptive Equipment Issued: None ALFREDO WELLS MD Jul 26, 2018 12:56
--- NOTE | 2018-07-26 13:13 | NUR ---
Discharge Note: ROBERTA JORDAN Discharge instructions and discharge home medications reviewed with Patient and a copy given. All questions have been answered and understanding verbalized. The following instructions and handouts were given: d/c instructions Discontinued lines and drains: PICC intact. Patient discharged to Home or Self Care with Spouse via Wheelchair
[2018-07-26 14:38] LABS: PROTHROMBIN TIME PATIENT 14.8 SEC (11.7-14.0)
[2018-07-26] MEDS: VANCOMYCIN PER PHARMACY MC PRN (14:39)
[2018-07-26 15:00] VITALS: BP 121/44
--- NOTE | 2018-07-26 15:10 | RAD ---
Examination: CT chest without contrast HISTORY: History of hematoma right axillary region COMPARISON: 07/23/2018 TECHNIQUE: Axial CT images of chest were performed without contrast. Coronal and sagittal deformities are performed Exposure: One or more of the following individualized dose reduction techniques were utilized for this examination: 1. Automated exposure control 2. Adjustment of the mA and/or kV according to patient size 3. Use of iterative reconstruction technique FINDINGS: Right internal jugular central line with the tip in the SVC. The heart size grossly appears unremarkable The caliber of the aorta grossly appears unremarkable Moderate left, small right pleural effusions identified with the bibasilar lung airspace opacities likely atelectasis or infiltrates There is a heterogeneous density measuring 5.8 cm in CC dimension demonstrating fluid and hyperdensity within with small foci of air within probably hematoma from recent surgery. Prominent right axillary lymphadenopathy identified with diffuse fat stranding identified in the right axilla and right breast with thickened appearance of the skin of the right breast. The visualized noncontrasted liver, spleen demonstrates a few calcified granulomas. Cholecystectomy clips identified Mild degenerative changes thoracic spine. IMPRESSION: 1. 5.8 cm heterogeneous cystic structure in the right axilla demonstrating hyperdensity and foci of air within probably hematoma. Examination limited without IV contrast. There are multiple foci of air identified in the right axillary region probably due to recent intervention. 2. Prominent axillary lymph nodes identified with diffuse infiltrative fat stranding identified in the right axilla and right breast region. Inflammatory carcinoma the right breast is not excluded. Thickened appearance of the skin of the right breast. There is mild fat stranding identified in the left breast as well. Other possibilities include mild edema in the bilateral breasts. 3. Bilateral pleural effusions with moderate left pleural effusion on the left and small right pleural effusion with bibasilar lung consolidation changes likely atelectasis or pneumonia. Follow-up to resolution. Electronically signed by: Theron Ceja MD (07/26/2018 3:07 PM) [facility]
--- NOTE | 2018-07-26 15:17 | NUR ---
Wound Care Wound care follow up for post op assessment and dressing change of R axilla abscess Post Op day 1. Karma DONG had removed surgical packing just prior to arrival of WC team to prepare pt for discharge. After beginning to repack medial breast incision pt began to bleed a large consistent flow that required 20 min of continuous pressure and 5 packs of gauze to stop. Dr Oneill notified and received verbal order to pack wound tightly to stop the bleeding. Dr Kyle called to assess wound, received verbal order to draw STAT INR and hold pressure until he arrived. Dr arrived as bleeding was receding, hematoma had developed proximately to medial breast incision and PICC line would no longer flush or draw. Lab was called to take STAT labs. Dr Kyle then ordered CT of hematoma, a CBC in 3 hours in addition to repacking wound tightly as ordered by Dr Oneill. He also ordered to hold hospital discharge until daily dressing changes could be completed without bleeding. After bleeding slowed to an ebb, wound was pictured and measured, repacked tightly with 1/4" plain gauze packing into both incisions and covered with ABD pad then secured with pressure tape. Karma DONG will monitor for continued bleeding and call Dr Oneill if it continues. Pt tolerated packing with pain of 10/10. would like to change dressing with the Surgeon rounding tomorrow to ensure clot is not dislodged with removal of packing, Karma DONG will pass on in report.
[2018-07-26] MEDS ORDERED: ALTEPLASE 1MG SYRINGE. INT CAT ONE (15:30)
[2018-07-26 17:00] LABS: BASO % 0 % (0-3); EOS # 0.1 x10^3/uL (0.0-0.7); EOS % 1 % (0-3); HEMATOCRIT 24.2 % (36.0-47.0); HEMOGLOBIN 8.1 g/dL (12.0-15.5); LYMPH # 1.6 x10^3/uL (1.0-4.8); LYMPH % 14 % (24-48); MEAN CORPUSCULAR HEMOGLOBIN 32 pg (25-35); MEAN CORPUSCULAR HGB CONC 34 g/dL (31-37); MEAN CORPUSCULAR VOLUME 95 fL (79-100); MONO # 0.5 x10^3/uL (0.0-1.1); MONO % 5 % (0-9); NEUT # 8.8 x10^3uL (1.8-7.7); NEUT % 80 % (31-73); PLATELET COUNT 306 x10^3/uL (140-400); RED BLOOD COUNT 2.55 x10^6/uL (3.50-5.40); RED CELL DISTRIBUTION WIDTH 13.7 % (11.5-14.5); WHITE BLOOD COUNT 11.1 x10^3/uL (4.0-11.0)
[2018-07-26 19:00] VITALS: BP 117/67
[2018-07-26] MEDS: traZODone 100 MG TABLET. PO SCH (20:29)
[2018-07-26] MEDS: FAMOTIDINE 20 MG TABLET. PO SCH (20:29)
[2018-07-26 22:52] VITALS: BP 117/62
[2018-07-27] MEDS: VANCOMYCIN 1 GM in IV NORMAL SALINE 250ML 250 ML IV SCH ×2 (01:00→12:08)
[2018-07-27 02:50] VITALS: BP 133/57
[2018-07-27] MEDS: MORPHINE SULFATE 4 MG/ML VIAL. IV PRN ×3 (02:52→13:58)
[2018-07-27] MEDS: ALPRAZolam 0.5 MG TABLET PO PRN ×2 (05:54→13:56)
[2018-07-27] MEDS: HYDROcodone/APAP 10/325 1 TAB TABLET PO PRN ×2 (05:55→12:08)
[2018-07-27 06:11] LABS: BASO % 0 % (0-3); EOS # 0.2 x10^3/uL (0.0-0.7); EOS % 2 % (0-3); HEMATOCRIT 23.3 % (36.0-47.0); HEMOGLOBIN 7.7 g/dL (12.0-15.5); LYMPH # 1.5 x10^3/uL (1.0-4.8); LYMPH % 21 % (24-48); MEAN CORPUSCULAR HEMOGLOBIN 32 pg (25-35); MEAN CORPUSCULAR HGB CONC 33 g/dL (31-37); MEAN CORPUSCULAR VOLUME 96 fL (79-100); MONO # 0.3 x10^3/uL (0.0-1.1); MONO % 5 % (0-9); NEUT # 5.3 x10^3uL (1.8-7.7); NEUT % 72 % (31-73); PLATELET COUNT 297 x10^3/uL (140-400); RED BLOOD COUNT 2.44 x10^6/uL (3.50-5.40); RED CELL DISTRIBUTION WIDTH 13.5 % (11.5-14.5); WHITE BLOOD COUNT 7.3 x10^3/uL (4.0-11.0)
[2018-07-27 06:41] LABS: CALCIUM 8.1 mg/dL (8.5-10.1); GFR 54.5; POTASSIUM 3.6 mmol/L (3.5-5.1)
[2018-07-27 07:00] VITALS: BP 146/63
[2018-07-27] MEDS: CITALOPRAM 10 MG TABLET. PO SCH (08:56)
[2018-07-27] MEDS: MELOXICAM 7.5 MG TABLET PO SCH (08:56)
[2018-07-27] MEDS: LACTOBACILLUS RHAMNOSUS GG 1 CAPSULE. PO SCH (08:56)
[2018-07-27] MEDS: GABAPENTIN 300 MG CAPSULE. PO SCH ×2 (08:56→13:41)
[2018-07-27] MEDS: DOCUSATE SODIUM 100 MG CAPSULE. PO SCH (08:57)
--- NOTE | 2018-07-27 09:10 | PDOC ---
SURGICAL PROGRESS NOTE Subjective Patient doing quite well this morning would like to go home Vital Signs Vital Signs Date Time Temp Pulse Resp B/P (MAP) Pulse Ox O2 Delivery O2 Flow Rate FiO2 07/27/18 08:56 Room Air 07/27/18 07:00 97.7 65 16 146/63 (90) 94 97.7 07/26/18 16:42 2.0 I&O Intake and Output 07/27/18 06:59 Intake Total 4150 ml Output Total 0 ml Balance 4150 ml Intake Oral 4150 ml Output Urine Total 0 ml # Voids 9 # Bowel Movements 1 PATIENT HAS A SOSA: No General: Alert, Oriented X3, Cooperative, No acute distress Skin: Other (wounds packed improved erythema and edema of the area) Labs Laboratory Tests Test 07/26/18 05:45 07/26/18 14:15 07/26/18 16:45 07/27/18 06:00 White Blood Count 13.7 x10^3/uL (4.0-11.0) 11.1 x10^3/uL (4.0-11.0) 7.3 x10^3/uL (4.0-11.0) Red Blood Count 2.85 x10^6/uL (3.50-5.40) 2.55 x10^6/uL (3.50-5.40) 2.44 x10^6/uL (3.50-5.40) Hemoglobin 9.0 g/dL (12.0-15.5) 8.1 g/dL (12.0-15.5) 7.7 g/dL (12.0-15.5) Hematocrit 26.9 % (36.0-47.0) 24.2 % (36.0-47.0) 23.3 % (36.0-47.0) Mean Corpuscular Volume 95 fL (79-100) 95 fL (79-100) 96 fL (79-100) Mean Corpuscular Hemoglobin 32 pg (25-35) 32 pg (25-35) 32 pg (25-35) Mean Corpuscular Hemoglobin Concent 34 g/dL (31-37) 34 g/dL (31-37) 33 g/dL (31-37) Red Cell Distribution Width 13.7 % (11.5-14.5) 13.7 % (11.5-14.5) 13.5 % (11.5-14.5) Platelet Count 326 x10^3/uL (140-400) 306 x10^3/uL (140-400) 297 x10^3/uL (140-400) Neutrophils (%) (Auto) 86 % (31-73) 80 % (31-73) 72 % (31-73) Lymphocytes (%) (Auto) 9 % (24-48) 14 % (24-48) 21 % (24-48) Monocytes (%) (Auto) 4 % (0-9) 5 % (0-9) 5 % (0-9) Eosinophils (%) (Auto) 0 % (0-3) 1 % (0-3) 2 % (0-3) Basophils (%) (Auto) 0 % (0-3) 0 % (0-3) 0 % (0-3) Neutrophils # (Auto) 11.8 x10^3uL (1.8-7.7) 8.8 x10^3uL (1.8-7.7) 5.3 x10^3uL (1.8-7.7) Lymphocytes # (Auto) 1.2 x10^3/uL (1.0-4.8) 1.6 x10^3/uL (1.0-4.8) 1.5 x10^3/uL (1.0-4.8) Monocytes # (Auto) 0.6 x10^3/uL (0.0-1.1) 0.5 x10^3/uL (0.0-1.1) 0.3 x10^3/uL (0.0-1.1) Eosinophils # (Auto) 0.0 x10^3/uL (0.0-0.7) 0.1 x10^3/uL (0.0-0.7) 0.2 x10^3/uL (0.0-0.7) Basophils # (Auto) 0.1 x10^3/uL (0.0-0.2) 0.0 x10^3/uL (0.0-0.2) 0.0 x10^3/uL (0.0-0.2) Sodium Level 142 mmol/L (136-145) 147 mmol/L (136-145) Potassium Level 4.2 mmol/L (3.5-5.1) 3.6 mmol/L (3.5-5.1) Chloride Level 106 mmol/L (98-107) 109 mmol/L (98-107) Carbon Dioxide Level 33 mmol/L (21-32) 32 mmol/L (21-32) Anion Gap 3 (6-14) 6 (6-14) Blood Urea Nitrogen 6 mg/dL (7-20) 6 mg/dL (7-20) Creatinine 0.7 mg/dL (0.6-1.0) 1.0 mg/dL (0.6-1.0) Estimated GFR (Cockcroft-Gault) 82.3 54.5 BUN/Creatinine Ratio 9 (6-20) Glucose Level 115 mg/dL (70-99) 88 mg/dL (70-99) Calcium Level 8.6 mg/dL (8.5-10.1) 8.1 mg/dL (8.5-10.1) Total Bilirubin 0.3 mg/dL (0.2-1.0) Aspartate Amino Transf (AST/SGOT) 10 U/L (15-37) Alanine Aminotransferase (ALT/SGPT) 13 U/L (14-59) Alkaline Phosphatase 65 U/L (46-116) Total Protein 5.3 g/dL (6.4-8.2) Albumin 2.2 g/dL (3.4-5.0) Albumin/Globulin Ratio 0.7 (1.0-1.7) Prothrombin Time 14.8 SEC (11.7-14.0) Prothromb Time International Ratio 1.2 (0.8-1.1) Laboratory Tests Test 07/26/18 14:15 07/26/18 16:45 07/27/18 06:00 Prothrombin Time 14.8 SEC (11.7-14.0) Prothromb Time International Ratio 1.2 (0.8-1.1) White Blood Count 11.1 x10^3/uL (4.0-11.0) 7.3 x10^3/uL (4.0-11.0) Red Blood Count 2.55 x10^6/uL (3.50-5.40) 2.44 x10^6/uL (3.50-5.40) Hemoglobin 8.1 g/dL (12.0-15.5) 7.7 g/dL (12.0-15.5) Hematocrit 24.2 % (36.0-47.0) 23.3 % (36.0-47.0) Mean Corpuscular Volume 95 fL (79-100) 96 fL (79-100) Mean Corpuscular Hemoglobin 32 pg (25-35) 32 pg (25-35) Mean Corpuscular Hemoglobin Concent 34 g/dL (31-37) 33 g/dL (31-37) Red Cell Distribution Width 13.7 % (11.5-14.5) 13.5 % (11.5-14.5) Platelet Count 306 x10^3/uL (140-400) 297 x10^3/uL (140-400) Neutrophils (%) (Auto) 80 % (31-73) 72 % (31-73) Lymphocytes (%) (Auto) 14 % (24-48) 21 % (24-48) Monocytes (%) (Auto) 5 % (0-9) 5 % (0-9) Eosinophils (%) (Auto) 1 % (0-3) 2 % (0-3) Basophils (%) (Auto) 0 % (0-3) 0 % (0-3) Neutrophils # (Auto) 8.8 x10^3uL (1.8-7.7) 5.3 x10^3uL (1.8-7.7) Lymphocytes # (Auto) 1.6 x10^3/uL (1.0-4.8) 1.5 x10^3/uL (1.0-4.8) Monocytes # (Auto) 0.5 x10^3/uL (0.0-1.1) 0.3 x10^3/uL (0.0-1.1) Eosinophils # (Auto) 0.1 x10^3/uL (0.0-0.7) 0.2 x10^3/uL (0.0-0.7) Basophils # (Auto) 0.0 x10^3/uL (0.0-0.2) 0.0 x10^3/uL (0.0-0.2) Sodium Level 147 mmol/L (136-145) Potassium Level 3.6 mmol/L (3.5-5.1) Chloride Level 109 mmol/L (98-107) Carbon Dioxide Level 32 mmol/L (21-32) Anion Gap 6 (6-14) Blood Urea Nitrogen 6 mg/dL (7-20) Creatinine 1.0 mg/dL (0.6-1.0) Estimated GFR (Cockcroft-Gault) 54.5 Glucose Level 88 mg/dL (70-99) Calcium Level 8.1 mg/dL (8.5-10.1) Problem List Problems Medical Problems: (1) Sepsis Status: Acute Assessment/Plan Status post incision and drainage of right breast and axillary abscess Evidently yesterday with dressing change and repacking had a fair amount of bleeding. Discussed process of dressing change with the patient should be able to go home today from surgical standpoint ALFREDO RODGERS MD Jul 27, 2018 09:10
[2018-07-27 11:00] VITALS: BP 145/46
--- NOTE | 2018-07-27 11:04 | NUR ---
SW following. Discussed with RN, RN anticipates pt will discharge home today, collecting Zyvox prescription from [facility] in [place]. SW will continue to follow.
--- NOTE | 2018-07-27 11:07 | PDOC ---
Infectious Disease Note Subjective Subjective pt is feeling good ROS ROS no n/v/d/sob Vital Sign Vital Signs Vital Signs Date Time Temp Pulse Resp B/P (MAP) Pulse Ox O2 Delivery O2 Flow Rate FiO2 07/27/18 10:13 Room Air 07/27/18 07:00 97.7 65 16 146/63 (90) 94 97.7 07/26/18 16:42 2.0 Physical Exam PHYSICAL EXAM GENERAL: Alert, oriented female, not in any distress. VITAL SIGNS: Stable, afebrile. HEENT: NAD. NECK: Supple, no JVP, no lymphadenopathy. LUNGS: Clear. HEART: S1, S2 regular. ABDOMEN: Benign. EXTREMITIES: No edema or cyanosis. SKIN: Unremarkable except right axilla and right breast confluent areas of multiple abscesses. One is open with large amount of purulent drainage coming out. There is some nodularity into the breast. All the exam done with the patient's RN. NEUROLOGIC: The patient is neurologically alert, awake. No focal neurologic deficit. Labs Lab Laboratory Tests Test 07/26/18 14:15 07/26/18 16:45 07/27/18 06:00 Prothrombin Time 14.8 SEC (11.7-14.0) Prothromb Time International Ratio 1.2 (0.8-1.1) White Blood Count 11.1 x10^3/uL (4.0-11.0) 7.3 x10^3/uL (4.0-11.0) Red Blood Count 2.55 x10^6/uL (3.50-5.40) 2.44 x10^6/uL (3.50-5.40) Hemoglobin 8.1 g/dL (12.0-15.5) 7.7 g/dL (12.0-15.5) Hematocrit 24.2 % (36.0-47.0) 23.3 % (36.0-47.0) Mean Corpuscular Volume 95 fL (79-100) 96 fL (79-100) Mean Corpuscular Hemoglobin 32 pg (25-35) 32 pg (25-35) Mean Corpuscular Hemoglobin Concent 34 g/dL (31-37) 33 g/dL (31-37) Red Cell Distribution Width 13.7 % (11.5-14.5) 13.5 % (11.5-14.5) Platelet Count 306 x10^3/uL (140-400) 297 x10^3/uL (140-400) Neutrophils (%) (Auto) 80 % (31-73) 72 % (31-73) Lymphocytes (%) (Auto) 14 % (24-48) 21 % (24-48) Monocytes (%) (Auto) 5 % (0-9) 5 % (0-9) Eosinophils (%) (Auto) 1 % (0-3) 2 % (0-3) Basophils (%) (Auto) 0 % (0-3) 0 % (0-3) Neutrophils # (Auto) 8.8 x10^3uL (1.8-7.7) 5.3 x10^3uL (1.8-7.7) Lymphocytes # (Auto) 1.6 x10^3/uL (1.0-4.8) 1.5 x10^3/uL (1.0-4.8) Monocytes # (Auto) 0.5 x10^3/uL (0.0-1.1) 0.3 x10^3/uL (0.0-1.1) Eosinophils # (Auto) 0.1 x10^3/uL (0.0-0.7) 0.2 x10^3/uL (0.0-0.7) Basophils # (Auto) 0.0 x10^3/uL (0.0-0.2) 0.0 x10^3/uL (0.0-0.2) Sodium Level 147 mmol/L (136-145) Potassium Level 3.6 mmol/L (3.5-5.1) Chloride Level 109 mmol/L (98-107) Carbon Dioxide Level 32 mmol/L (21-32) Anion Gap 6 (6-14) Blood Urea Nitrogen 6 mg/dL (7-20) Creatinine 1.0 mg/dL (0.6-1.0) Estimated GFR (Cockcroft-Gault) 54.5 Glucose Level 88 mg/dL (70-99) Calcium Level 8.1 mg/dL (8.5-10.1) Micro ANAEROBIC-AEROBIC CULTURE Final Final report ANAEROBIC RES 1 Final Comment No anaerobic growth in 72 hours. AEROBIC CULT Final Final report AEROBIC RES 1 Final Comment Methicillin - resistant Staphylococcus aureus 4+ Based on resistance to oxacillin this isolate would be resistant to all currently available beta-lactam antimicrobial agents, with the exception of the newer cephalosporins with anti-MRSA activity, such as Ceftaroline This isolate does not demonstrate inducible clindamycin resistance in vitro by D test. ANTIMICROBIAL SUSCEPTIBILITY Final Comment S = Susceptible; I = Intermediate; R = Resistant P = Positive; N = Negative MICS are expressed in micrograms per mL Antibiotic RSLT#1 RSLT#2 RSLT#3 RSLT#4 Ciprofloxacin S<=0.5 Clindamycin S<=0.25 Erythromycin R>=8 Gentamicin S<=0.5 Levofloxacin S<=0.12 Linezolid S =1 CONTINUED ON NEXT PAGE RUN DATE: 07/23/18 PAGE 2 RUN TIME: 1913 [facility] [address] [place] [address] Britton Escobar M.D., [employer] SPEC: [id number] PATIENT: ROBERTA JORDAN [id number] ( Continued) Procedure Result ANTIMICROBIAL SUSCEPTIBILITY Final (continued) Oxacillin R>=4 Penicillin R>=0.5 Rifampin S<=0.5 Tetracycline S<=1 Trimethoprim/Sulfa S<=10 Vancomycin S<=0.5 GRAM STAIN Final Final report GRAM STAIN RES 1 Final Comment Objective Assessment 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
--- NOTE | 2018-07-27 11:58 | PDOC ---
PROGRESS NOTES Chief Complaint Chief Complaint Bilateral Axillary cellulitis Left axillary abscess AEROBIC RES 1 Final Comment Methicillin - resistant Staphylococcus aureus 4+ Pain, acute on chronic Chronic back pain, takes hydro 10 PRN for chronic back pain, has hardware Dog scratch Severe sepsis BRANDON - vasomotor nephropathy Hypokalemia 07/[address] right axilla 07/26 MARKED BLEEDING WITH WOUND DRESSING CHANGE 07/27 HOME TODAY, D/C PLANNING 38 MIN History of Present Illness History of Present Illness discharge dx 73 yo F admit from ER with bilateral axilla pain and swelling, She has swelling and likely abscesses that began a week ago. Patient states she was seen by her PCP 07/18 and both axilla were drained. She states the next morning she woke up and she had redness on the right axilla. PO augmentin started 07/18, not better, came to ED, had wound and blood cultures drawn. Seen by surgery, bilateral US showed cellulitis on right axilla and small abscess in left. 07/20: Still with fever overnight. Lost left peripheral IV access very quickly and has dog scratch on her right arm (likely source). Flu test still pending. BP persistently low despite 2 bolus and WBC count going up. On further review she notes she broke up a dog fight about 6 days ago and was scratched multiple times, these are apparent on exam today. 07/21: Afebrile since 0300 on 07/20. Feeling improved with better drainage on the right with saturated dressing. PICC yesterday per IR due to dog scratches on her arms. Wound culture gram stain shows few GPC, looks like staph 07/23 still has large woung right axilla with purulent drainage cult pos MRSA id consulted 07/24. Contacted [facility] for her lab results and they state her last encounter there was in 2002, patient and note that the culture was sent to [facility] from the doctors office, will order records as she arrived here septic. still drainage from wound purulent 07/25 Operative Note Operative Note Date: 07/25/2018 Preoperative diagnosis: Right axillary abscess right breast abscess Postoperative diagnosis: Same Procedure: Incision and drainage of axillary and breast abscess with biopsy of breast abscess cavity Surgeon: Nino Specimen: Cultures of abscess fluid and right breast biopsy 07/26 home on zyvox, await insurance approval for zyvox rx today, d/c planning 40 min Plan: Chlorhexidine bath, pos MRSA PCR S/p PICC for access and dual antibiotics, frequent blood draws, Appreciate surgery recs Zosyn on for capnocytophagia coverage with dog encounter. Last tetanus was 1 year ago. Dogs up to date on vaccines. Cont Vanco as well with GPC consult ID, Aggressive IV fluids Back off on her pain meds and xanax bx breast cavity 07/25 path pending D/C PLANNING 37 MIN Vitals Vitals Vital Signs Date Time Temp Pulse Resp B/P (MAP) Pulse Ox O2 Delivery O2 Flow Rate FiO2 07/27/18 10:13 Room Air 07/27/18 07:00 97.7 65 16 146/63 (90) 94 97.7 07/26/18 16:42 2.0 Physical Exam Physical Exam GENERAL: Alert, oriented female, not in any distress. VITAL SIGNS: Stable, afebrile. HEENT: NAD. NECK: Supple, no JVP, no lymphadenopathy. LUNGS: Clear. HEART: S1, S2 regular. ABDOMEN: Benign. EXTREMITIES: No edema or cyanosis. SKIN: Unremarkable except right axilla and right breast confluent areas of multiple abscesses. One is open with large amount of purulent drainage coming out. There is some nodularity into the breast. All the exam done with the patient's RN. NEUROLOGIC: The patient is neurologically alert, awake. No focal neurologic deficit. General: Alert, Oriented X3, Cooperative, No acute distress Heart: Regular rate, Normal S1, Normal S2, No murmurs Lungs: Clear Abdomen: Normal bowel sounds, Soft, No tenderness Extremities: No clubbing, No cyanosis, No edema Skin: Other (wounds packed improved erythema and edema of the area) Labs LABS Laboratory Tests Test 07/26/18 14:15 07/26/18 16:45 07/27/18 06:00 Prothrombin Time 14.8 SEC (11.7-14.0) Prothromb Time International Ratio 1.2 (0.8-1.1) White Blood Count 11.1 x10^3/uL (4.0-11.0) 7.3 x10^3/uL (4.0-11.0) Red Blood Count 2.55 x10^6/uL (3.50-5.40) 2.44 x10^6/uL (3.50-5.40) Hemoglobin 8.1 g/dL (12.0-15.5) 7.7 g/dL (12.0-15.5) Hematocrit 24.2 % (36.0-47.0) 23.3 % (36.0-47.0) Mean Corpuscular Volume 95 fL (79-100) 96 fL (79-100) Mean Corpuscular Hemoglobin 32 pg (25-35) 32 pg (25-35) Mean Corpuscular Hemoglobin Concent 34 g/dL (31-37) 33 g/dL (31-37) Red Cell Distribution Width 13.7 % (11.5-14.5) 13.5 % (11.5-14.5) Platelet Count 306 x10^3/uL (140-400) 297 x10^3/uL (140-400) Neutrophils (%) (Auto) 80 % (31-73) 72 % (31-73) Lymphocytes (%) (Auto) 14 % (24-48) 21 % (24-48) Monocytes (%) (Auto) 5 % (0-9) 5 % (0-9) Eosinophils (%) (Auto) 1 % (0-3) 2 % (0-3) Basophils (%) (Auto) 0 % (0-3) 0 % (0-3) Neutrophils # (Auto) 8.8 x10^3uL (1.8-7.7) 5.3 x10^3uL (1.8-7.7) Lymphocytes # (Auto) 1.6 x10^3/uL (1.0-4.8) 1.5 x10^3/uL (1.0-4.8) Monocytes # (Auto) 0.5 x10^3/uL (0.0-1.1) 0.3 x10^3/uL (0.0-1.1) Eosinophils # (Auto) 0.1 x10^3/uL (0.0-0.7) 0.2 x10^3/uL (0.0-0.7) Basophils # (Auto) 0.0 x10^3/uL (0.0-0.2) 0.0 x10^3/uL (0.0-0.2) Sodium Level 147 mmol/L (136-145) Potassium Level 3.6 mmol/L (3.5-5.1) Chloride Level 109 mmol/L (98-107) Carbon Dioxide Level 32 mmol/L (21-32) Anion Gap 6 (6-14) Blood Urea Nitrogen 6 mg/dL (7-20) Creatinine 1.0 mg/dL (0.6-1.0) Estimated GFR (Cockcroft-Gault) 54.5 Glucose Level 88 mg/dL (70-99) Calcium Level 8.1 mg/dL (8.5-10.1) Assessment and Plan Assessmemt and Plan Problems Medical Problems: (1) Sepsis Status: Acute Comment Review of Relevant I have reviewed the following items amber (where applicable) has been applied. Labs Laboratory Tests Test 07/26/18 05:45 07/26/18 14:15 07/26/18 16:45 07/27/18 06:00 White Blood Count 13.7 x10^3/uL (4.0-11.0) 11.1 x10^3/uL (4.0-11.0) 7.3 x10^3/uL (4.0-11.0) Red Blood Count 2.85 x10^6/uL (3.50-5.40) 2.55 x10^6/uL (3.50-5.40) 2.44 x10^6/uL (3.50-5.40) Hemoglobin 9.0 g/dL (12.0-15.5) 8.1 g/dL (12.0-15.5) 7.7 g/dL (12.0-15.5) Hematocrit 26.9 % (36.0-47.0) 24.2 % (36.0-47.0) 23.3 % (36.0-47.0) Mean Corpuscular Volume 95 fL (79-100) 95 fL (79-100) 96 fL (79-100) Mean Corpuscular Hemoglobin 32 pg (25-35) 32 pg (25-35) 32 pg (25-35) Mean Corpuscular Hemoglobin Concent 34 g/dL (31-37) 34 g/dL (31-37) 33 g/dL (31-37) Red Cell Distribution Width 13.7 % (11.5-14.5) 13.7 % (11.5-14.5) 13.5 % (11.5-14.5) Platelet Count 326 x10^3/uL (140-400) 306 x10^3/uL (140-400) 297 x10^3/uL (140-400) Neutrophils (%) (Auto) 86 % (31-73) 80 % (31-73) 72 % (31-73) Lymphocytes (%) (Auto) 9 % (24-48) 14 % (24-48) 21 % (24-48) Monocytes (%) (Auto) 4 % (0-9) 5 % (0-9) 5 % (0-9) Eosinophils (%) (Auto) 0 % (0-3) 1 % (0-3) 2 % (0-3) Basophils (%) (Auto) 0 % (0-3) 0 % (0-3) 0 % (0-3) Neutrophils # (Auto) 11.8 x10^3uL (1.8-7.7) 8.8 x10^3uL (1.8-7.7) 5.3 x10^3uL (1.8-7.7) Lymphocytes # (Auto) 1.2 x10^3/uL (1.0-4.8) 1.6 x10^3/uL (1.0-4.8) 1.5 x10^3/uL (1.0-4.8) Monocytes # (Auto) 0.6 x10^3/uL (0.0-1.1) 0.5 x10^3/uL (0.0-1.1) 0.3 x10^3/uL (0.0-1.1) Eosinophils # (Auto) 0.0 x10^3/uL (0.0-0.7) 0.1 x10^3/uL (0.0-0.7) 0.2 x10^3/uL (0.0-0.7) Basophils # (Auto) 0.1 x10^3/uL (0.0-0.2) 0.0 x10^3/uL (0.0-0.2) 0.0 x10^3/uL (0.0-0.2) Sodium Level 142 mmol/L (136-145) 147 mmol/L (136-145) Potassium Level 4.2 mmol/L (3.5-5.1) 3.6 mmol/L (3.5-5.1) Chloride Level 106 mmol/L (98-107) 109 mmol/L (98-107) Carbon Dioxide Level 33 mmol/L (21-32) 32 mmol/L (21-32) Anion Gap 3 (6-14) 6 (6-14) Blood Urea Nitrogen 6 mg/dL (7-20) 6 mg/dL (7-20) Creatinine 0.7 mg/dL (0.6-1.0) 1.0 mg/dL (0.6-1.0) Estimated GFR (Cockcroft-Gault) 82.3 54.5 BUN/Creatinine Ratio 9 (6-20) Glucose Level 115 mg/dL (70-99) 88 mg/dL (70-99) Calcium Level 8.6 mg/dL (8.5-10.1) 8.1 mg/dL (8.5-10.1) Total Bilirubin 0.3 mg/dL (0.2-1.0) Aspartate Amino Transf (AST/SGOT) 10 U/L (15-37) Alanine Aminotransferase (ALT/SGPT) 13 U/L (14-59) Alkaline Phosphatase 65 U/L (46-116) Total Protein 5.3 g/dL (6.4-8.2) Albumin 2.2 g/dL (3.4-5.0) Albumin/Globulin Ratio 0.7 (1.0-1.7) Prothrombin Time 14.8 SEC (11.7-14.0) Prothromb Time International Ratio 1.2 (0.8-1.1) Laboratory Tests Test 07/26/18 14:15 07/26/18 16:45 07/27/18 06:00 Prothrombin Time 14.8 SEC (11.7-14.0) Prothromb Time International Ratio 1.2 (0.8-1.1) White Blood Count 11.1 x10^3/uL (4.0-11.0) 7.3 x10^3/uL (4.0-11.0) Red Blood Count 2.55 x10^6/uL (3.50-5.40) 2.44 x10^6/uL (3.50-5.40) Hemoglobin 8.1 g/dL (12.0-15.5) 7.7 g/dL (12.0-15.5) Hematocrit 24.2 % (36.0-47.0) 23.3 % (36.0-47.0) Mean Corpuscular Volume 95 fL (79-100) 96 fL (79-100) Mean Corpuscular Hemoglobin 32 pg (25-35) 32 pg (25-35) Mean Corpuscular Hemoglobin Concent 34 g/dL (31-37) 33 g/dL (31-37) Red Cell Distribution Width 13.7 % (11.5-14.5) 13.5 % (11.5-14.5) Platelet Count 306 x10^3/uL (140-400) 297 x10^3/uL (140-400) Neutrophils (%) (Auto) 80 % (31-73) 72 % (31-73) Lymphocytes (%) (Auto) 14 % (24-48) 21 % (24-48) Monocytes (%) (Auto) 5 % (0-9) 5 % (0-9) Eosinophils (%) (Auto) 1 % (0-3) 2 % (0-3) Basophils (%) (Auto) 0 % (0-3) 0 % (0-3) Neutrophils # (Auto) 8.8 x10^3uL (1.8-7.7) 5.3 x10^3uL (1.8-7.7) Lymphocytes # (Auto) 1.6 x10^3/uL (1.0-4.8) 1.5 x10^3/uL (1.0-4.8) Monocytes # (Auto) 0.5 x10^3/uL (0.0-1.1) 0.3 x10^3/uL (0.0-1.1) Eosinophils # (Auto) 0.1 x10^3/uL (0.0-0.7) 0.2 x10^3/uL (0.0-0.7) Basophils # (Auto) 0.0 x10^3/uL (0.0-0.2) 0.0 x10^3/uL (0.0-0.2) Sodium Level 147 mmol/L (136-145) Potassium Level 3.6 mmol/L (3.5-5.1) Chloride Level 109 mmol/L (98-107) Carbon Dioxide Level 32 mmol/L (21-32) Anion Gap 6 (6-14) Blood Urea Nitrogen 6 mg/dL (7-20) Creatinine 1.0 mg/dL (0.6-1.0) Estimated GFR (Cockcroft-Gault) 54.5 Glucose Level 88 mg/dL (70-99) Calcium Level 8.1 mg/dL (8.5-10.1) Microbiology 07/19/18 Blood Culture - Final, Complete NO GROWTH AFTER 5 DAYS 07/25/18 Anaerobic/Aerobic Culture, Resulted Pending 07/25/18 Anaerobic Culture Result 1 (JACKIE), Resulted Pending 07/25/18 Aerobic Culture, Resulted Pending 07/25/18 Aerobic Culture Result 1 (JACKIE), Resulted Pending 07/25/18 Gram Stain - Final, Resulted 07/25/18 Gram Stain Result 1 (JACKIE) - Final, Resulted 07/25/18 Gram Stain Result 2 (JACKIE) - Final, Resulted Medications Current Medications Piperacillin Sod/ Tazobactam Sod 4.5 gm/Sodium Chloride 100 ml @ 200 mls/hr 1X ONCE IV Last administered on 07/19/18at 11:30; Start 07/19/18 at 10:30; Stop 07/19/18 at 10:59; Status DC Vancomycin HCl (Vanco Per Pharmacy) 1 each 1X ONCE MC ; Start 07/19/18 at 10:30 ; Stop 07/19/18 at 10:31; Status UNV Sodium Chloride 1,000 ml @ 1,860 mls/hr Q33M IV Last administered on at 13:18; Start 07/19/18 at 10:27; Stop 07/19/18 at 11:27; Status DC Morphine Sulfate (Morphine Sulfate) 4 mg PRN Q15MIN PRN IV/SQ PAIN GREATER THAN 3/10 Last administered on 07/19/18at 10:54; Start 07/19/18 at 10:30; Stop at 10:29; Status DC Vancomycin HCl 1.5 gm/Sodium Chloride 500 ml @ 250 mls/hr 1X ONCE IV Last administered on 07/19/18at 12:36; Start 07/19/18 at 11:00; Stop 07/19/18 at 12:59 ; Status DC Acetaminophen (Tylenol) 1,000 mg 1X ONCE PO Last administered on 07/19/18at 13: 03; Start 07/19/18 at 12:45; Stop 07/19/18 at 12:47; Status DC Hydromorphone HCl (Dilaudid) 1 mg 1X ONCE IV Last administered on 07/19/18at 14 :01; Start 07/19/18 at 13:30; Stop 07/19/18 at 13:32; Status DC Ondansetron HCl (Zofran) 4 mg PRN Q8HRS PRN IV NAUSEA/VOMITING; Start 07/19/18 at 14:30; Stop 07/20/18 at 14:29; Status DC Morphine Sulfate (Morphine Sulfate) 4 mg PRN Q2HR PRN IV PAIN Last administered on 07/19/18at 17:20; Start 07/19/18 at 14:30; Stop 07/20/18 at 14:29 ; Status DC Acetaminophen (Tylenol) 650 mg PRN Q4HRS PRN PO FEVER Last administered on 07/20at 04:16; Start 07/19/18 at 14:30; Stop 07/20/18 at 14:29; Status DC Sodium Chloride 1,000 ml @ 125 mls/hr 1X ONCE IV Last administered on at 18:22; Start 07/19/18 at 14:30; Stop 07/19/18 at 22:29; Status DC Pharmacy Consult (C.diff Med Screen By Rx) 1 each 1X ONCE MC ; Start 07/19/18 at 15:30; Stop 07/19/18 at 15:31; Status UNV Vancomycin HCl (Vanco Per Pharmacy) 1 each PRN DAILY PRN MC SEE COMMENTS Last administered on 07/26/18at 14:39; Start 07/19/18 at 15:45 Acetaminophen/ Hydrocodone Bitart (Lortab 10/325) 1 tab PRN Q6HRS PRN PO MODERATE PAIN Last administered on 07/27/18at 05:55; Start 07/19/18 at 15:45 Ondansetron HCl (Zofran Odt) 4 mg PRN Q8HRS PRN PO NAUSEA; Start 07/19/18 at 15 :45 Trazodone HCl (Desyrel) 100 mg HS PO Last administered on 07/26/18at 20:29; Start 07/19/18 at 21:00 Citalopram Hydrobromide (CeleXA) 10 mg DAILY PO Last administered on 07/27/18 08:56; Start 07/19/18 at 16:30 Gabapentin (Neurontin) 600 mg TID PO Last administered on 07/27/18 08:56; Start 07/19/18 at 21:00 Meloxicam (Mobic) 7.5 mg DAILY PO Last administered on 07/27/18 08:56; Start at 16:30 Non-Formulary Medication (Metronidazole (Flagyl)) 1 tab TID PO ; Start 07/19/18 at 21:00; Status UNV Pantoprazole Sodium (Protonix) 40 mg DAILYAC PO Last administered on 07/21/18at 07:56; Start 07/19/18 at 16:30; Stop 07/21/18 at 15:35; Status DC Alprazolam (Xanax) 1 mg PRN Q8HRS PRN PO ANXIETY / AGITATION Last administered on 07/19/18at 16:43; Start 07/19/18 at 15:45; Stop 07/20/18 at 09:25; Status DC Piperacillin Sod/ Tazobactam Sod (Zosyn Per Pharmacy) 1 each PRN DAILY PRN MC SEE COMMENTS; Start 07/19/18 at 16:00; Stop 07/25/18 at 16:32; Status DC Vancomycin HCl 1 gm/Sodium Chloride 250 ml @ 250 mls/hr Q24H IV Last administered on 07/20/18at 17:11; Start 07/20/18 at 12:30; Stop 07/21/18 at 16:59 ; Status DC Vancomycin HCl (Vancomycin Trough Level) 1 each 1X ONCE MC Last administered on 07/21/18at 16:30; Start 07/21/18 at 16:30; Stop 07/21/18 at 16:31; Status DC Oxycodone HCl (Roxicodone) 20 mg PRN Q6HRS PRN PO SEVERE PAIN Last administered on 07/20/18at 05:32; Start 07/19/18 at 16:00; Stop 07/20/18 at 09:25 ; Status DC Piperacillin Sod/ Tazobactam Sod 2.25 gm/Sodium Chloride 50 ml @ 100 mls/hr Q6HRS IV Last administered on 07/20/18at 15:27; Start 07/19/18 at 18:00; Stop at 16:45; Status DC Sodium Chloride 1,000 ml @ 1,000 mls/hr 1X ONCE IV Last administered on at 16:44; Start 07/19/18 at 16:15; Stop 07/19/18 at 17:14; Status DC Potassium Chloride (Klor-Con) 40 meq 1X ONCE PO Last administered on at 16:43; Start 07/19/18 at 16:15; Stop 07/19/18 at 16:28; Status DC Docusate Sodium (Colace) 100 mg DAILY PO Last administered on 07/25/18at 10:34; Start 07/20/18 at 09:00 Polyethylene Glycol (miraLAX PACKET) 17 gm PRN DAILY PRN PO CONSTIPATION; Start 07/19/18 at 16:15 Alprazolam (Xanax) 0.5 mg PRN Q8HRS PRN PO ANXIETY / AGITATION Last administered on 07/27/18at 05:54; Start 07/20/18 at 09:30 Ringer's Solution 1,000 ml @ 100 mls/hr Q10H IV Last administered on at 10:37; Start 07/20/18 at 09:30; Stop 07/25/18 at 16:22; Status DC Lidocaine/ Epinephrine (LIDOCAINE 1%-EPI 1:100,000 Multi-Dose) 20 ml STK-MED ONCE .ROUTE ; Start 07/20/18 at 13:46; Stop 07/20/18 at 13:47; Status DC Heparin Sodium (Porcine) (Heparin Sodium) 10,000 unit STK-MED ONCE .ROUTE ; Start 07/20/18 at 13:46; Stop 07/20/18 at 13:47; Status DC Heparin Sodium (Porcine) (Hep Lock Adult) 500 unit STK-MED ONCE IV ; Start 07/20 at 13:53; Stop 07/20/18 at 13:54; Status DC Midazolam HCl (Versed) 2 mg STK-MED ONCE .ROUTE ; Start 07/20/18 at 13:54; Stop 07/20/18 at 13:55; Status DC Fentanyl Citrate (Fentanyl 2ml Vial) 100 mcg STK-MED ONCE .ROUTE ; Start at 13:54; Stop 07/20/18 at 13:55; Status DC Midazolam HCl (Versed) 2 mg 1X ONCE IV ; Start 07/20/18 at 14:45; Stop at 14:46; Status DC Fentanyl Citrate (Fentanyl 2ml Vial) 50 mcg 1X ONCE IV Last administered on at 14:43; Start 07/20/18 at 14:45; Stop 07/20/18 at 14:46; Status DC Lidocaine/ Epinephrine (LIDOCAINE 1%-EPI 1:100,000 Multi-Dose) 8 ml 1X ONCE IJ Last administered on 07/20/18at 14:42; Start 07/20/18 at 14:45; Stop 07/20/18 at 14:46; Status DC Heparin Sodium (Porcine) (Hep Lock Adult) 500 unit STK-MED ONCE IV ; Start 07/20 at 14:47; Stop 07/20/18 at 14:48; Status DC Morphine Sulfate (Morphine Sulfate) 4 mg PRN Q4HRS PRN IV PAIN Last administered on 07/27/18 08:56; Start 07/20/18 at 15:30 Piperacillin Sod/ Tazobactam Sod 3.375 gm/Sodium Chloride 50 ml @ 100 mls/hr Q6HRS IV Last administered on 07/24/18at 11:32; Start 07/20/18 at 18:00; Stop at 14:19; Status DC Lactobacillus Rhamnosus (Culturelle) 1 cap BID PO Last administered on 08:56; Start 07/20/18 at 21:00 Famotidine (Pepcid) 20 mg HS PO Last administered on 07/26/18at 20:29; Start at 21:00 Vancomycin HCl 1 gm/Sodium Chloride 250 ml @ 250 mls/hr Q12H IV Last administered on 2/24/19at 04:36; Start 07/21/18 at 17:00; Stop 07/22/18 at 12:59 ; Status DC Vancomycin HCl (Vancomycin Trough Level) 1 each 1X ONCE MC Last administered on 07/24/18at 01:30; Start 07/24/18 at 00:30; Stop 07/24/18 at 00:31; Status DC Vancomycin HCl 1 gm/Sodium Chloride 250 ml @ 250 mls/hr 1X ONCE IV Last administered on 07/22/18at 13:03; Start 07/22/18 at 13:00; Stop 07/22/18 at 13:59 ; Status DC Vancomycin HCl 1 gm/Sodium Chloride 250 ml @ 250 mls/hr Q12H IV Last administered on 07/27/18at 01:00; Start 07/23/18 at 01:00 Morphine Sulfate (Morphine Sulfate) 2 mg 1X ONCE IV Last administered on at 15:56; Start 07/23/18 at 15:45; Stop 07/23/18 at 15:46; Status DC Fentanyl Citrate (Fentanyl 2ml Vial) 25 mcg PRN Q5MIN PRN IV MILD PAIN; Start 07/25/18 at 07:00; Stop 07/26/18 at 06:59; Status DC Fentanyl Citrate (Fentanyl 2ml Vial) 50 mcg PRN Q5MIN PRN IV MODERATE TO SEVERE PAIN Last administered on 07/25/18at 14:48; Start 07/25/18 at 07:00; Stop 07/26/18 at 06:59; Status DC Morphine Sulfate (Morphine Sulfate) 1 mg PRN Q10MIN PRN IV SEVERE PAIN Last administered on 07/25/18at 14:33; Start 07/25/18 at 07:00; Stop 07/26/18 at 06:59 ; Status DC Ringer's Solution 1,000 ml @ 30 mls/hr Q24H IV Last administered on 07/25/18at 07:00; Start 07/25/18 at 07:00; Stop 07/25/18 at 18:59; Status DC Lidocaine HCl (Xylocaine-Mpf 1% 2ml Vial) 2 ml PRN 1X PRN ID PRIOR TO IV START ; Start 07/25/18 at 07:00; Stop 07/26/18 at 06:59; Status DC Hydromorphone HCl (Dilaudid) 0.5 mg PRN Q10MIN PRN IV SEV PAIN, Second choice; Start 07/25/18 at 07:00; Stop 07/26/18 at 06:59; Status DC Prochlorperazine Edisylate (Compazine) 5 mg PACU PRN PRN IV NAUSEA, MRX1; Start 07/25/18 at 07:00; Stop 07/26/18 at 06:59; Status DC Fentanyl Citrate (Fentanyl 2ml Vial) 100 mcg STK-MED ONCE .ROUTE ; Start at 12:41; Stop 07/25/18 at 12:42; Status DC Propofol 20 ml @ As Directed STK-MED ONCE IV ; Start 07/25/18 at 12:41; Stop at 12:42; Status DC Ondansetron HCl (Zofran) 4 mg STK-MED ONCE .ROUTE ; Start 07/25/18 at 12:41; Stop 07/25/18 at 12:42; Status DC Lidocaine HCl (Lidocaine Pf 2% Vial) 5 ml STK-MED ONCE .ROUTE ; Start 07/25/18 at 12:41; Stop 07/25/18 at 12:42; Status DC Dexamethasone Sodium Phosphate (Decadron) 20 mg STK-MED ONCE .ROUTE ; Start at 12:41; Stop 07/25/18 at 12:42; Status DC Midazolam HCl (Versed) 2 mg STK-MED ONCE .ROUTE ; Start 07/25/18 at 13:06; Stop 07/25/18 at 13:07; Status DC Bupivacaine HCl/ Epinephrine Bitart (Sensorcaine-Epi 0.25%-1:551413 Mpf) 30 ml STK-MED ONCE .ROUTE Last administered on 07/25/18at 13:46; Start 07/25/18 at 13: 12; Stop 07/25/18 at 13:13; Status DC Glycopyrrolate (Robinul) 1 mg STK-MED ONCE .ROUTE ; Start 07/25/18 at 13:33; Stop 07/25/18 at 13:34; Status DC Sodium Chloride 1,000 ml @ 75 mls/hr 1X ONCE IV Last administered on at 17:48; Start 07/25/18 at 16:30; Stop 07/26/18 at 05:49; Status DC Alteplase, Recombinant (Cathflo For Central Catheter Clearance) 1 mg 1X ONCE INT CAT Last administered on 07/26/18at 15:03; Start 07/26/18 at 15:30; Stop at 15:31; Status DC Active Scripts Active Zyvox (Linezolid) 600 Mg Tablet 600 Mg PO BID 14 Days Culturelle (Lactobacillus Rhamnosus Gg) 1 Each Cap.sprink 1 Cap PO BID 30 Days Polyethylene Glycol 3350 17 Gm Powd.pack 17 Gm PO PRN DAILY PRN 14 Days Colace (Docusate Sodium) 100 Mg Capsule 100 Mg PO DAILY 14 Days Reported Meloxicam 7.5 Mg Tablet 1 Tab PO DAILY Escitalopram Oxalate 5 Mg Tablet 5 Mg PO DAILY Omeprazole 20 Mg Capsule.dr 20 Mg PO DAILY Xanax (Alprazolam) 2 Mg Tablet 1 Tab PO BID Hydrocodone-Apap 10-325 (Hydrocodone Bit/Acetaminophen) 1 Each Tablet 1 Tab PO PRN Q6HRS PRN Trazodone Hcl 100 Mg Tablet 100 Mg PO HS Gabapentin 600 Mg Tablet 600 Mg PO TID Vitals/I & O Vital Sign - Last 24 Hours 07/26/18 07/26/18 07/26/18 07/26/18 12:16 13:15 15:00 16:42 Temp 98.2 98.2 Pulse 68 Resp 20 20 B/P (MAP) 121/44 (69) Pulse Ox 98 92 98 O2 Delivery Room Air Room Air Room Air O2 Flow Rate 2.0 2.0 2.0 07/26/18 07/26/18 07/26/18 07/26/18 19:00 20:00 20:29 21:48 Temp 98.1 98.1 Pulse 83 Resp 17 17 16 B/P (MAP) 117/67 (84) Pulse Ox 96 96 96 O2 Delivery Room Air Room Air Room Air 07/26/18 07/27/18 07/27/18 07/27/18 22:52 02:50 02:52 03:30 Temp 98.1 97.9 98.1 97.9 Pulse 75 75 Resp 17 16 16 16 B/P (MAP) 117/62 (80) 133/57 (82) Pulse Ox 93 96 96 96 O2 Delivery Room Air Room Air Room Air 07/27/18 07/27/18 07/27/18 07/27/18 05:55 07:00 07:00 08:00 Temp 97.7 97.7 Pulse 65 Resp 15 16 B/P (MAP) 146/63 (90) Pulse Ox 96 94 O2 Delivery Room Air Room Air Room Air Room Air 07/27/18 07/27/18 08:56 10:13 O2 Delivery Room Air Room Air Intake and Output 07/26/18 07/26/18 07/27/18 15:00 23:00 07:00 Intake Total 1590 ml 1560 ml 1000 ml Output Total 0 ml 0 ml Balance 1590 ml 1560 ml 1000 ml ALFREDO WELLS MD Jul 27, 2018 11:58
[2018-07-27 15:00] VITALS: BP 148/66
--- NOTE | 2018-07-27 15:47 | NUR ---
Wound Care Wound care follow up for dressing change. See wound assessment. Packing saturated with saline and removed gently, minimal bleeding noted. Proximal wound bed has hematoma on proximal/dorsal side and wound bed is 100% dark red blood clot. Cleansed both wounds with saline and packed semi-tightly with 1/4" plain gauze packing, covered with ABD pad and secured with tape. Dr orders to change daily. Dressing supplies left in room and Pt educated on dressing changes. Pt educated if uncontrolled bleeding occurs at home to apply pressure dressing with pressure tape and report to ER. Pt verbalized understanding. No other wounds noted, Pt will follow up in C next week.
[2018-07-27] MEDS: VANCOMYCIN PER PHARMACY MC PRN (16:05)
--- NOTE | 2018-07-27 17:09 | NUR ---
Patient discharged home, self care. Patient understands prescription, Zyvox will need to be picked up at [facility] in [place]. Patient understands the need to follow up with Dr. Oneill and Dr. Nolasco within the next week. Patient given both of their office numbers and verbalized understanding to follow up. Wound care team discussed with patient about dressing changes, how to, and when. Wound care also pictured and documented wounds. Power PICC line discontinued and covered courtesy of IR RN's. Patient alert and stable upon discharge. Daughter present for discharge teachings and accompanied Alla ROBLES to take patient out to her car.
--- NOTE | 2018-07-27 17:10 | PATHOLOGY ---
[facility] Accession Number: [id number] . 01 Material submitted: . RIGHT BREAST ABSCESS . 01 Clinical history: . Right breast abscess . 02 Diagnosis: Segment of fibroadipose tissue, right breast: - Abscess. ([facility] 07/27/2018) P/07/27/2018 . 02 Comment: There is no evidence of malignancy. ([facility] 07/27/2018) . 02 Electronically signed: . Britton Escobar MD, Pathologist NPI- [id number] . 01 Gross description: . The specimen is received in formalin, labeled "Vesna Canela, right breast abscess" and consists of a partially necrotic segment of yellow lobulated tissue measuring 3.3 x 1.9 x 1.3 cm. Prep Person sections are submitted in A1. ([facility]; 07/26/2018) SYU/SYU . 02 Microscopic: . . . 02 Pathologist provided ICD-10: N61.1 . 02 CPT . 752537 Specimen Comment: A courtesy copy of this report has been sent to Specimen Comment: [phone], , . Specimen Comment: Report sent to ,DR TIRADO / DR JENSEN Specimen Comment: A duplicate report has been generated due to demographic updates. Performed at: 01 [facility] [address], [place] [id number] MD Colin Tinajero MD Phone: [phone] Performed at: 02 [facility] [address] [place], [place] [id number] MD Britton Escobar MD Phone: [phone]
== END 2018-07-27 17:35 | disposition home or self-care (01) | DRG 853 ==
LOC: ER 09:39 → 5 SOUTH 12:40
PROVIDERS: ADMIT Internal Medicine; ATTEND Internal Medicine
PROC: 0HBT0ZX Excision of Right Breast, Open Approach, Diagnostic (ICD-10-PCS; 2018-07-25)
PROC: 0X940ZZ Drainage of Right Axilla, Open Approach (ICD-10-PCS; principal; 2018-07-25 13:30)
DX: A41.9 Sepsis, unspecified organism (principal); N17.0 Acute kidney failure with tubular necrosis; L02.411 Cutaneous abscess of right axilla; L03.111 Cellulitis of right axilla; E87.6 Hypokalemia; R65.20 Severe sepsis without septic shock; B95.62 Methicillin resistant Staphylococcus aureus infection as the cause of diseases classified elsewhere; F41.9 Anxiety disorder, unspecified; G89.29 Other chronic pain; K21.9 Gastro-esophageal reflux disease without esophagitis; N61.1 Abscess of the breast and nipple; F32.9 Major depressive disorder, single episode, unspecified; K57.90 Diverticulosis of intestine, part unspecified, without perforation or abscess without bleeding; M19.90 Unspecified osteoarthritis, unspecified site; Z90.49 Acquired absence of other specified parts of digestive tract; Z90.710 Acquired absence of both cervix and uterus; Z88.5 Allergy status to narcotic agent
CPT/HCPCS: 36415; 36558; 71250; 73200; 76881; 76937; 77001; 80048; 80053; 80202; 81001; 83605; 84145; 85007; 85025; 85610; 85651; 86140; 87040; 87071; 87075; 87186; 87641; 87804; 88304; 96365; 96375; A7015; C1751; C1892; J1100; J1170; J2001; J2270; J2405; J2543; J2704; J3010; J3370; J3490; J7030; J7040; J7050; J7120; 99285-25

== ENCOUNTER → 2018-08-07 | Outpatient (CLI) | payer BC ==
[2018-07-27 15:00] VITALS: BP 148/66
[~2018-08-07] MED LIST changes: +DOCU-109 PO; +ESCITALOPRAM OXA5 M1 PO; +LACT1CAP19 PO; +LINE600T PO; +MELO7.5T29 PO; +POLY17PO28 PO
== END | disposition home or self-care (01) ==
LOC: PMGWOUND 10:50
PROVIDERS: ATTEND Emergency Medicine Undersea and Hyperbaric Medicine
DX: T81.31XA Disruption of external operation (surgical) wound, not elsewhere classified, initial encounter (principal); L02.411 Cutaneous abscess of right axilla; G89.29 Other chronic pain; F41.9 Anxiety disorder, unspecified; M19.90 Unspecified osteoarthritis, unspecified site; F32.9 Major depressive disorder, single episode, unspecified; K21.9 Gastro-esophageal reflux disease without esophagitis; F17.200 Nicotine dependence, unspecified, uncomplicated; Z90.710 Acquired absence of both cervix and uterus; Z90.49 Acquired absence of other specified parts of digestive tract; Y92.89 Other specified places as the place of occurrence of the external cause; Y83.8 Other surgical procedures as the cause of abnormal reaction of the patient, or of later complication, without mention of misadventure at the time of the procedure
CPT/HCPCS: 97597

== ENCOUNTER → 2018-08-14 | Outpatient (CLI) | payer BC ==
[2018-07-27 15:00] VITALS: BP 148/66
== END | disposition home or self-care (01) ==
LOC: PMGWOUND 12:30
PROVIDERS: ATTEND Emergency Medicine Undersea and Hyperbaric Medicine
DX: T81.31XD Disruption of external operation (surgical) wound, not elsewhere classified, subsequent encounter (principal); L02.411 Cutaneous abscess of right axilla; G89.29 Other chronic pain; F41.9 Anxiety disorder, unspecified; M19.90 Unspecified osteoarthritis, unspecified site; K21.9 Gastro-esophageal reflux disease without esophagitis; F32.9 Major depressive disorder, single episode, unspecified; F17.200 Nicotine dependence, unspecified, uncomplicated; Z88.5 Allergy status to narcotic agent; Z90.710 Acquired absence of both cervix and uterus; Z90.49 Acquired absence of other specified parts of digestive tract; Y83.8 Other surgical procedures as the cause of abnormal reaction of the patient, or of later complication, without mention of misadventure at the time of the procedure
CPT/HCPCS: 99214; G0463

== ENCOUNTER 2019-07-27 16:49 | Emergency (ER) | payer BC ==
[~2019-07-27] VITALS: Ht 157.5 cm; Wt 61.0 kg
[~2019-07-27 16:49] MED LIST changes: -LINE600T PO; +LINE600T12 PO; -OMEP20CA10 PO; +OMEP20CA16 PO; +TRAZ-123 PO; -TRAZ-86 PO
--- NOTE | 2019-07-27 17:12 | PHYS DOC ---
Past Medical History Past Medical History: Depression, Other Additional Past Medical Histor: osteoarthritis,DDD,chronic back pain,GUILLAN- BARRE Past Surgical History: Cholecystectomy, Hysterectomy, Other Additional Past Surgical Histo: back surgery,CATARCT LEFT EYE,L FEMUR ORIF Smoking Status: Current Every Day Smoker Alcohol Use: None Drug Use: None Adult General Chief Complaint Chief Complaint: ABDOMINAL PAIN HPI HPI Patient is a 74 year old Female who presents with states for the last 4 weeks she has had right flank pain that is wrapped around to the right lower abdomen that started out as a dull ache but in this past week she states is gotten worse now since sharp shooting pain. She states at times she will become nauseated. She denies chest pain, shortness of air, dizziness, headache, fever, dysuria, hematuria, constipation, diarrhea, visual changes, numbness or tingling, weakness. She rates her pain a 9 out of 10. Review of Systems Review of Systems GI: Right lower abdominal pain, nausea, denies vomiting, bloody stools or diarrhea [] Musculoskeletal:Right flank back pain or joint pain [] All other systems were reviewed and found to be within normal limits, except as documented in this note. Current Medications Current Medications Current Medications Medications (Trade) Dose Ordered Sig/Ashley Start Time Stop Time Status Last Admin Dose Admin Fentanyl Citrate (Fentanyl 2ml Vial) 50 mcg 1X ONCE 07/27/19 18:30 07/27/19 18:34 DC 07/27/19 18:37 50 MCG Iohexol (Omnipaque 300 Mg/ml) 60 ml 1X ONCE 07/27/19 19:15 07/27/19 19:16 DC 07/27/19 19:30 60 ML Ketorolac Tromethamine (Toradol 30mg Vial) 30 mg 1X ONCE 07/27/19 18:30 07/27/19 18:34 DC 07/27/19 18:37 30 MG Ondansetron HCl (Zofran) 4 mg 1X ONCE 07/27/19 17:15 07/27/19 17:16 DC 07/27/19 17:49 4 MG Sodium Chloride 1,000 ml @ 1,000 mls/hr 1X ONCE 07/27/19 17:15 07/27/19 18:14 DC 07/27/19 17:48 1,000 MLS/HR Allergies Allergies Allergies Coded Allergies Type Severity Reaction Last Updated Verified I S O L A T I O N *CONTACT* Allergy Unknown 07/24/18 Yes codeine Adverse Reaction Intermediate HALLUCINATES 07/19/18 Yes Physical Exam Physical Exam Constitutional: Well developed, well nourished, no acute distress, non-toxic appearance. [] HENT: Normocephalic, atraumatic, bilateral external ears normal, oropharynx moist, no oral exudates, nose normal. [] Eyes: PERRLA, EOMI, conjunctiva normal, no discharge. [] Neck: Normal range of motion, no tenderness, supple, no stridor. [] Cardiovascular:Heart rate regular rhythm, no murmur [] Lungs & Thorax: Bilateral breath sounds clear to auscultation [] Abdomen: Bowel sounds normal, soft, RLQ tenderness, no masses, no pulsatile masses. [] Skin: Warm, dry, no erythema, no rash. [] Back: No tenderness, right CVA tenderness. [] Extremities: No tenderness, no cyanosis, no clubbing, ROM intact, no edema. [] Neurologic: Alert and oriented X 3, normal motor function, normal sensory function, no focal deficits noted. [] Psychologic: Affect normal, judgement normal, mood normal. [] Current Patient Data Vital Signs Vital Signs Date Time Temp Pulse Resp B/P (MAP) Pulse Ox O2 Delivery O2 Flow Rate FiO2 07/27/19 18:37 16 96 Room Air 07/27/19 17:10 98.2 112 127/80 (96) 98.2 Lab Values Laboratory Tests Test 07/27/19 16:55 07/27/19 17:37 Urine Collection Type Unknown Urine Color Yellow Urine Clarity Clear Urine pH 5.5 Urine Specific [place] 1.020 Urine Protein 30 mg/dL (NEG-TRACE) Urine Glucose (UA) Negative mg/dL (NEG) Urine Ketones (Stick) Negative mg/dL (NEG) Urine Blood Negative (NEG) Urine Nitrite Negative (NEG) Urine Bilirubin Negative (NEG) Urine Urobilinogen Dipstick 0.2 mg/dL (0.2 mg/dL) Urine Leukocyte Esterase Negative (NEG) Urine RBC 0 /HPF (0-2) Urine WBC Occ /HPF (0-4) Urine Squamous Epithelial Cells Mod /LPF Urine Bacteria 0 /HPF (0-FEW) Urine Hyaline Casts Few /HPF Urine Mucus Mod /LPF White Blood Count 8.8 x10^3/uL (4.0-11.0) Red Blood Count 4.85 x10^6/uL (3.50-5.40) Hemoglobin 15.6 g/dL (12.0-15.5) H Hematocrit 44.4 % (36.0-47.0) Mean Corpuscular Volume 92 fL (79-100) Mean Corpuscular Hemoglobin 32 pg (25-35) Mean Corpuscular Hemoglobin Concent 35 g/dL (31-37) Red Cell Distribution Width 13.2 % (11.5-14.5) Platelet Count 269 x10^3/uL (140-400) Neutrophils (%) (Auto) 63 % (31-73) Lymphocytes (%) (Auto) 28 % (24-48) Monocytes (%) (Auto) 7 % (0-9) Eosinophils (%) (Auto) 1 % (0-3) Basophils (%) (Auto) 1 % (0-3) Neutrophils # (Auto) 5.5 x10^3/uL (1.8-7.7) Lymphocytes # (Auto) 2.4 x10^3/uL (1.0-4.8) Monocytes # (Auto) 0.6 x10^3/uL (0.0-1.1) Eosinophils # (Auto) 0.1 x10^3/uL (0.0-0.7) Basophils # (Auto) 0.1 x10^3/uL (0.0-0.2) Prothrombin Time 13.4 SEC (11.7-14.0) Prothrombin Time INR 1.1 (0.8-1.1) Sodium Level 139 mmol/L (136-145) Potassium Level 3.7 mmol/L (3.5-5.1) Chloride Level 102 mmol/L (98-107) Carbon Dioxide Level 29 mmol/L (21-32) Anion Gap 8 (6-14) Blood Urea Nitrogen 12 mg/dL (7-20) Creatinine 1.1 mg/dL (0.6-1.0) H Estimated GFR (Cockcroft-Gault) 48.7 BUN/Creatinine Ratio 11 (6-20) Glucose Level 86 mg/dL (70-99) Calcium Level 9.1 mg/dL (8.5-10.1) Total Bilirubin 0.7 mg/dL (0.2-1.0) Aspartate Amino Transferase (AST) 13 U/L (15-37) L Alanine Aminotransferase (ALT) 13 U/L (14-59) L Alkaline Phosphatase 68 U/L (46-116) Troponin I Quantitative < 0.017 ng/mL (0.000-0.055) Total Protein 7.0 g/dL (6.4-8.2) Albumin 4.6 g/dL (3.4-5.0) Albumin/Globulin Ratio 1.9 (1.0-1.7) H Lipase 152 U/L (73-393) Laboratory Tests 07/27/19 17:37 Laboratory Tests 07/27/19 17:37 EKG EKG Sinus Rhythm and no STEMI Interpretation Time: [address] Chaves Radiology/Procedures Radiology/Procedures [] Impressions: [facility] [address] [place] [address] IMAGING REPORT Signed PATIENT: ROBERTA JORDAN ACCOUNT: [id number] : 1945 LOCATION: ER AGE: 74 SEX: F EXAM STATUS: REG ER ORD. PHYSICIAN: RICCARDO JARVIS APRN REASON: RIGHT FLANK, RIGHT LOWER ABDOMEN, OMNI 300, 60ML IV PROCEDURE: CT ABD PELV W/ IV CONTRST ONLY CT abdomen and pelvis with contrast PQRS statement: CT scans at this facility use dose reduction including either automated exposure control, iterative reconstructions, and /or weight based radiation dosing via mA and kV modification when appropriate to reduce radiation dose to as low as reasonably achievable. Contrast: 60 mL Omnipaque 300 intravenous contrast. Abdomen findings: Lung bases unremarkable. Grade 2 anterolisthesis L5 on S1, postsurgical changes of L4 on S1 pedicle screw and antoinette fusion and laminectomies with posterior lateral osseous fusion L4-S1: Marked disc height loss L5-S1 perhaps from discectomy. Disc osteophyte L2-L3 with spinal canal stenosis. Mild prominence of the bile ducts likely related to cholecystectomy. Tiny subcentimeter renal hypodensities too small to characterize from volume averaging most likely small cysts. 2 mm right renal lower pole calculus. Left renal interpolar 1.5 cm cyst density of 16 units. Adrenals, pancreas, spleen and liver are unremarkable. Luminal collapse and wall thickening of the descending and rectosigmoid colon. Appendix is negative is retrocecal and extends medial of the cecum. No abdominal fluid or adenopathy. Pelvis findings: Hysterectomy. Bladder, ovaries and bones are unremarkable. Rectosigmoid luminal collapse and wall thickening. Bone donor site right iliac crest. Old defect from removed fixation nail left femur. IMPRESSION: 1. Luminal collapse and wall thickening of the descending and rectosigmoid colon likely muscle spasm or low-grade colitis. 2. Appendix is negative. 3. Other incidental findings as described above. Electronically signed by: Christina Finch MD (07/27/2019 7:42 PM) [id number] DICTATED and SIGNED BY: CHRISTINA FINCH MD DATE: 07/27/191941 Course & Med Decision Making Course & Med Decision Making Pertinent Labs and Imaging studies reviewed. (See chart for details) Nothing makes the pain worse or better. Patient states that she took 2 aspirins earlier this morning. She states this does not help the pain. Patient has right lower abdominal tenderness with palpation. Abdomen otherwise nontender and soft. Right CVA tenderness. Alert and oriented. Ambulatory with steady gait. Speaks in full clear sentences. Skin pink warm and dry. States that she has a history of Guillian Orellana, pressure, arthritis, diverticulitis, cholecystectomy, hysterectomy. CT shows a right sided renal stone 2mm of which she can follow up with [facility]. CT also shows possible low grade colitis or a muscle spasm, because of thisI will put her on flagyl and she can follow up with GI. [] Dragon Disclaimer Dragon Disclaimer This electronic medical record was generated, in whole or in part, using a voice recognition dictation system. Departure Departure Impression: Primary Impression: Renal calculus or stone Disposition: HOME, SELF-CARE Condition: STABLE Referrals: UNKNOWN PCP NAME (PCP) ROXANNA ESCOBAR MD Patient Instructions: Diet for Kidney Stones, Kidney Stones, [id number] Additional Instructions: Follow up with [facility] at [phone] this coming week. Drink plenty of fluids and take medications with food and as prescribed. Scripts Metronidazole (FLAGYL) 500 Mg Tablet 1 TAB PO BID, #14 TAB Prov: BAFUSRICCARDO APRN 07/27/19 Ibuprofen (IBUPROFEN) 600 Mg Tablet 600 MG PO PRN Q6HRS PRN for INFLAMMATION, #20 TAB Prov: RICCARDO JARVIS APRN 07/27/19 Tamsulosin Hcl (FLOMAX) 0.4 Mg Cap.er.24h 1 CAP PO DAILY, #30 CAP 11 Refills Prov: RICCARDO JARVIS APRN 07/27/19 Ondansetron (ONDANSETRON ODT) 4 Mg Tab.rapdis 1 TAB PO PRN Q6-8HRS, #30 TAB Prov: RICCARDO JARVIS APRN 07/27/19 Tramadol Hcl (TRAMADOL HCL) 50 Mg Tablet 50 MG PO Q6HRS PRN for PAIN, #12 TAB Prov: RICCARDO JARVIS APRN 07/27/19 RICCARDO JARVIS APRN Jul 27, 2019 17:12
[2019-07-27] MEDS ORDERED: IV NORMAL SALINE 1000ML BAG 1,000 ML IV ONE (17:15)
[2019-07-27] MEDS ORDERED: ONDANSETRON PF 4 MG/2 ML VIAL. IVP ONE (17:15)
[2019-07-27] MEDS ORDERED: fentaNYL PF VIAL 100 MCG/2 ML VIAL IVP ONE ×3 (17:15→20:15)
[2019-07-27 17:38] LABS: BILIRUBIN,URINE NEGATIVE (NEG); CLARITY,URINE CLEAR; COLOR,URINE YELLOW; NITRITE,URINE NEGATIVE (NEG); PH,URINE 5.5; PROTEIN,URINE 30 mg/dL (NEG-TRACE); UROBILINOGEN,URINE 0.2 mg/dL (0.2 mg/dL)
[2019-07-27 17:44] LABS: HYALINE CASTS, URINE FEW /HPF; SQUAMOUS EPITHELIAL CELL,UR MOD /LPF
[2019-07-27 17:45] LABS: BACTERIA,URINE 0 /HPF (0-FEW); RBC,URINE 0 /HPF (0-2); WBC,URINE OCC /HPF (0-4)
[2019-07-27 17:45] LABS: BASO # 0.1 x10^3/uL (0.0-0.2); BASO % 1 % (0-3); EOS # 0.1 x10^3/uL (0.0-0.7); EOS % 1 % (0-3); HEMATOCRIT 44.4 % (36.0-47.0); HEMOGLOBIN 15.6 g/dL (12.0-15.5); LYMPH # 2.4 x10^3/uL (1.0-4.8); LYMPH % 28 % (24-48); MEAN CORPUSCULAR HEMOGLOBIN 32 pg (25-35); MEAN CORPUSCULAR HGB CONC 35 g/dL (31-37); MEAN CORPUSCULAR VOLUME 92 fL (79-100); MONO # 0.6 x10^3/uL (0.0-1.1); MONO % 7 % (0-9); NEUT # 5.5 x10^3/uL (1.8-7.7); NEUT % 63 % (31-73); PLATELET COUNT 269 x10^3/uL (140-400); RED BLOOD COUNT 4.85 x10^6/uL (3.50-5.40); RED CELL DISTRIBUTION WIDTH 13.2 % (11.5-14.5); WHITE BLOOD COUNT 8.8 x10^3/uL (4.0-11.0)
[2019-07-27 17:56] LABS: PROTHROMBIN TIME PATIENT 13.4 SEC (11.7-14.0)
[2019-07-27 17:58] LABS: CALCIUM 9.1 mg/dL (8.5-10.1); CREATININE 1.1 mg/dL (0.6-1.0); GFR 48.7; POTASSIUM 3.7 mmol/L (3.5-5.1)
[2019-07-27 18:02] LABS: ALBUMIN 4.6 g/dL (3.4-5.0); ALBUMIN/GLOBULIN RATIO 1.9 (1.0-1.7); TOTAL BILIRUBIN 0.7 mg/dL (0.2-1.0)
[2019-07-27] MEDS ORDERED: KETOROLAC 30 MG/ML VIAL. IVP ONE (18:30)
[2019-07-27] MEDS ORDERED: IOHEXOL 300 MG/ML 100ML VIAL. IV ONE (19:15)
--- NOTE | 2019-07-27 19:45 | RAD ---
CT abdomen and pelvis with contrast PQRS statement: CT scans at this facility use dose reduction including either automated exposure control, iterative reconstructions, and /or weight based radiation dosing via mA and kV modification when appropriate to reduce radiation dose to as low as reasonably achievable. Contrast: 60 mL Omnipaque 300 intravenous contrast. Abdomen findings: Lung bases unremarkable. Grade 2 anterolisthesis L5 on S1, postsurgical changes of L4 on S1 pedicle screw and antoinette fusion and laminectomies with posterior lateral osseous fusion L4-S1: Marked disc height loss L5-S1 perhaps from discectomy. Disc osteophyte L2-L3 with spinal canal stenosis. Mild prominence of the bile ducts likely related to cholecystectomy. Tiny subcentimeter renal hypodensities too small to characterize from volume averaging most likely small cysts. 2 mm right renal lower pole calculus. Left renal interpolar 1.5 cm cyst density of 16 units. Adrenals, pancreas, spleen and liver are unremarkable. Luminal collapse and wall thickening of the descending and rectosigmoid colon. Appendix is negative is retrocecal and extends medial of the cecum. No abdominal fluid or adenopathy. Pelvis findings: Hysterectomy. Bladder, ovaries and bones are unremarkable. Rectosigmoid luminal collapse and wall thickening. Bone donor site right iliac crest. Old defect from removed fixation nail left femur. IMPRESSION: 1. Luminal collapse and wall thickening of the descending and rectosigmoid colon likely muscle spasm or low-grade colitis. 2. Appendix is negative. 3. Other incidental findings as described above. Electronically signed by: Charles Finch MD (07/27/2019 7:42 PM) [id number]
[2019-07-27] MEDS ORDERED: IBUP-1007 PO (19:53)
[2019-07-27] MEDS ORDERED: TAMS0.4C97 PO (19:53)
[2019-07-27] MEDS ORDERED: TRAM50TA PO (19:53)
[2019-07-27] MEDS ORDERED: ONDA4TAB12 PO (19:53)
[2019-07-27 20:00] VITALS: BP 130/71
[2019-07-27] MEDS ORDERED: METR500T PO (20:01)
--- NOTE | 2019-07-27 22:09 | EKG ---
[facility] [address] [place] [address] Test Date: 2019-07-27 Test Time: 17:20:06 Pat Name: ROBERTA JORDAN Department: Room: Gender: F Clinical Application Specialist: : 1945 Requested By: RICCARDO JARVIS Order Number: [id number] Reading MD: Measurements Intervals Corinna Rate: 90 P: 105 ND: 152 QRS: 125 QRSD: 78 T: 134 QT: 354 QTc: 437 Interpretive Statements SINUS RHYTHM ABNORMAL RIGHT AXIS DEVIATION LOW LIMB LEAD VOLTAGE QRS(T) CONTOUR ABNORMALITY CONSISTENT WITH HIGH LATERAL INFARCT AGE UNDETERMINED ABNORMAL ECG RI6.01 No previous ECG available for comparison
== END 2019-07-27 20:25 | disposition home or self-care (01) ==
LOC: ER 16:49
DX: N20.0 Calculus of kidney (principal); R10.31 Right lower quadrant pain; R11.0 Nausea; F32.9 Major depressive disorder, single episode, unspecified; G89.29 Other chronic pain; Z90.49 Acquired absence of other specified parts of digestive tract; Z90.710 Acquired absence of both cervix and uterus; F17.200 Nicotine dependence, unspecified, uncomplicated; Z98.890 Other specified postprocedural states; Z88.5 Allergy status to narcotic agent
CPT/HCPCS: 36415; 74177; 80053; 81001; 83690; 84484; 85025; 85610; 93005; 96374; 96375; 96376; 99285; J1885; J2405; J3010; J7030; Q9967

== ENCOUNTER 2019-07-28 14:52 | Emergency (ER) | payer BC ==
[~2019-07-28] VITALS: Ht 157.5 cm; Wt 61.4 kg
[~2019-07-28 14:52] MED LIST changes: +IBUP-1007 PO; +ONDA4TAB12 PO; +TAMS0.4C97 PO; +TRAM50TA PO
[2019-07-28] MEDS ORDERED: IV NORMAL SALINE 1000ML BAG 1,000 ML IV SCH ×2 (15:13→15:51)
[2019-07-28] MEDS ORDERED: KETOROLAC 30 MG/ML VIAL. IV ONE (15:15)
[2019-07-28] MEDS ORDERED: MORPHINE SULFATE 4 MG/ML VIAL. IV ONE ×2 (15:15→17:00)
--- NOTE | 2019-07-28 15:30 | PHYS DOC ---
Past Medical History Past Medical History: Anxiety, Depression, Other Additional Past Medical Histor: osteoarthritis,DDD,chronic back pain,GUILLAN- BARRE Past Surgical History: Cholecystectomy, Hysterectomy, Other Additional Past Surgical Histo: back surgery,CATARCT LEFT EYE,L FEMUR ORIF Smoking Status: Current Every Day Smoker Alcohol Use: None Drug Use: None Adult General Chief Complaint Chief Complaint: ABDOMINAL PAIN HPI HPI Patient is a 74 year old [f__sex] who presents with [] Review of Systems Review of Systems Constitutional: Denies fever or chills [] Eyes: Denies change in visual acuity, redness, or eye pain [] HENT: Denies nasal congestion or sore throat [] Respiratory: Denies cough or shortness of breath [] Cardiovascular: No additional information not addressed in HPI [] GI: Denies abdominal pain, nausea, vomiting, bloody stools or diarrhea [] : Denies dysuria or hematuria [] Musculoskeletal: Denies back pain or joint pain [] Integument: Denies rash or skin lesions [] Neurologic: Denies headache, focal weakness or sensory changes [] Endocrine: Denies polyuria or polydipsia [] All other systems were reviewed and found to be within normal limits, except as documented in this note. Current Medications Current Medications Current Medications Medications (Trade) Dose Ordered Sig/Ashley Start Time Stop Time Status Last Admin Dose Admin Ketorolac Tromethamine (Toradol 30mg Vial) 30 mg 1X ONCE 07/28/19 15:15 07/28/19 15:23 DC 07/28/19 15:27 30 MG Morphine Sulfate (Morphine Sulfate) 4 mg 1X ONCE 07/28/19 17:00 07/28/19 17:01 DC 07/28/19 17:05 4 MG Ondansetron HCl (Zofran) 4 mg PRN Q8HRS PRN 07/28/19 16:00 07/28/19 16:56 DC Sodium Chloride 1,000 ml @ 100 mls/hr Q10H 07/28/19 15:51 07/28/19 16:56 DC Allergies Allergies Allergies Coded Allergies Type Severity Reaction Last Updated Verified I S O L A T I O N *CONTACT* Allergy Unknown 07/24/18 Yes codeine Adverse Reaction Intermediate HALLUCINATES 07/19/18 Yes Physical Exam Physical Exam Constitutional: Well developed, well nourished, no acute distress, non-toxic appearance. [] HENT: Normocephalic, atraumatic, bilateral external ears normal, oropharynx moist, no oral exudates, nose normal. [] Eyes: PERRLA, EOMI, conjunctiva normal, no discharge. [] Neck: Normal range of motion, no tenderness, supple, no stridor. [] Cardiovascular:Heart rate regular rhythm, no murmur [] Lungs & Thorax: Bilateral breath sounds clear to auscultation [] Abdomen: Bowel sounds normal, soft, no tenderness, no masses, no pulsatile masses. [] Skin: Warm, dry, no erythema, no rash. [] Back: No tenderness, no CVA tenderness. [] Extremities: No tenderness, no cyanosis, no clubbing, ROM intact, no edema. [] Neurologic: Alert and oriented X 3, normal motor function, normal sensory func tion, no focal deficits noted. [] Psychologic: Affect normal, judgement normal, mood normal. [] Current Patient Data Vital Signs Vital Signs Date Time Temp Pulse Resp B/P (MAP) Pulse Ox O2 Delivery O2 Flow Rate FiO2 07/28/19 17:05 Room Air 07/28/19 15:15 98.2 94 12 125/56 (79) 98 98.2 Lab Values Laboratory Tests Test 07/28/19 15:05 07/28/19 15:48 White Blood Count 8.7 x10^3/uL (4.0-11.0) Red Blood Count 4.39 x10^6/uL (3.50-5.40) Hemoglobin 14.3 g/dL (12.0-15.5) Hematocrit 40.0 % (36.0-47.0) Mean Corpuscular Volume 91 fL (79-100) Mean Corpuscular Hemoglobin 33 pg (25-35) Mean Corpuscular Hemoglobin Concent 36 g/dL (31-37) Red Cell Distribution Width 13.1 % (11.5-14.5) Platelet Count 270 x10^3/uL (140-400) Neutrophils (%) (Auto) 68 % (31-73) Lymphocytes (%) (Auto) 24 % (24-48) Monocytes (%) (Auto) 6 % (0-9) Eosinophils (%) (Auto) 1 % (0-3) Basophils (%) (Auto) 1 % (0-3) Neutrophils # (Auto) 5.9 x10^3/uL (1.8-7.7) Lymphocytes # (Auto) 2.1 x10^3/uL (1.0-4.8) Monocytes # (Auto) 0.5 x10^3/uL (0.0-1.1) Eosinophils # (Auto) 0.1 x10^3/uL (0.0-0.7) Basophils # (Auto) 0.1 x10^3/uL (0.0-0.2) Prothrombin Time 13.3 SEC (11.7-14.0) Prothrombin Time INR 1.1 (0.8-1.1) Urine Collection Type Unknown Urine Color Yellow Urine Clarity Clear Urine pH 5.5 Urine Specific [place] 1.010 Urine Protein Negative mg/dL (NEG-TRACE) Urine Glucose (UA) Negative mg/dL (NEG) Urine Ketones (Stick) Negative mg/dL (NEG) Urine Blood Negative (NEG) Urine Nitrite Negative (NEG) Urine Bilirubin Negative (NEG) Urine Urobilinogen Dipstick 0.2 mg/dL (0.2 mg/dL) Urine Leukocyte Esterase Negative (NEG) Urine RBC Occ /HPF (0-2) Urine WBC Occ /HPF (0-4) Urine Squamous Epithelial Cells Few /LPF Urine Bacteria 0 /HPF (0-FEW) Sodium Level 141 mmol/L (136-145) Potassium Level 3.6 mmol/L (3.5-5.1) Chloride Level 106 mmol/L (98-107) Carbon Dioxide Level 25 mmol/L (21-32) Anion Gap 10 (6-14) Blood Urea Nitrogen 7 mg/dL (7-20) Creatinine 0.9 mg/dL (0.6-1.0) Estimated GFR (Cockcroft-Gault) 61.4 BUN/Creatinine Ratio 8 (6-20) Glucose Level 92 mg/dL (70-99) Calcium Level 8.1 mg/dL (8.5-10.1) L Total Bilirubin 0.6 mg/dL (0.2-1.0) Aspartate Amino Transferase (AST) 10 U/L (15-37) L Alanine Aminotransferase (ALT) 7 U/L (14-59) L Alkaline Phosphatase 50 U/L (46-116) Total Protein 5.2 g/dL (6.4-8.2) L Albumin 3.2 g/dL (3.4-5.0) L Albumin/Globulin Ratio 1.6 (1.0-1.7) Laboratory Tests 07/28/19 15:05 Laboratory Tests 07/28/19 15:48 EKG EKG Sinus Rhythm and no STEMI[] Interpretation Time: [address] Dickson Radiology/Procedures Radiology/Procedures [] Impressions: [facility] [address] [place] [address] IMAGING REPORT Signed PATIENT: ROBERTA JORDAN ACCOUNT: [id number] : 1945 LOCATION: ER AGE: 74 SEX: F EXAM STATUS: REG ER ORD. PHYSICIAN: RICCARDO JARVIS APRN REASON: here yesterday with kidney stone, worsening pain today PROCEDURE: CT ABDOMEN PELVIS WO CONTRAST CT abdomen and pelvis without contrast PQRS statement: CT scans at this facility use dose reduction including either automated exposure control, iterative reconstructions, and /or weight based radiation dosing via mA and kV modification when appropriate to reduce radiation dose to as low as reasonably achievable. HISTORY: Kidney stones, worsening flank pain. COMPARISON: CT abdomen and pelvis July 27, 2019. Abdomen findings: Right lower lobe 2 mm nodule image 1 is stable. Surgical changes as well as disc disease lumbar spine stable. Cholecystectomy. Liver, spleen, pancreas, adrenal glands unremarkable. Renal cysts. Small bilateral renal calculi at the lower poles largest at the right measuring 2 mm. Since the prior study there is development of asymmetric right renal pelvis dilation with a diameter 1.1 cm and mild distention of the right ureter however there is no obstructing ureteral calculus. No perinephric edema. Luminal collapse and wall thickening of the rectosigmoid colon is stable. No bowel obstruction. Appendix is negative. No abdominal fluid. Pelvis findings: Bone donor site right iliac crest. No bladder calculi. Pelvic phleboliths and iliac artery mass or calcification stable. Hysterectomy. Ovaries unremarkable. Luminal collapse and wall thickening rectosigmoid colon stable. No pelvic fluid. IMPRESSION: 1. Development of mild right renal pelviectasis and hydroureter since the prior study. There is no obstructing radiopaque urinary calculus evident. This may indicate interval passage of a urinary calculus since the prior study, versus mild progressive obstructive uropathy due to a distal ureteral stricture, or increasing distention due to pyelonephritis. No significant renal edema evident. 2. Bilateral small nonobstructing renal calculi again noted. 3. Appendix is negative. 4. Wall thickening of the rectosigmoid colon is stable could be due to muscle spasm or low-grade colitis. Electronically signed by: Christina Finch MD (07/28/2019 4:31 PM) [id number] DICTATED and SIGNED BY: CHRISTINA FINCH MD DATE: 07/28/19 163 Course & Med Decision Making Course & Med Decision Making Pertinent Labs and Imaging studies reviewed. (See chart for details) Right cva tenderness. Patient states vomited once this morning. She states she can not get comfortable and pain uncontrolled. Right lower abdomen tenderness. Patient is moaning and holding her stomach. Speaks in Full clear sentences. Alert and oriented. And rheumatoid with steady gait. Skin pink warm and dry. Denies shortness of breath, fever, chest pain, dizziness, headache, LOC, numbness or tingling, vision changes, headache, diarrhea, dysuria. Patient states she is still urinating. Patient is educated again that we don't have urology here and that I will talk to her hospitalist about admission but we may have to transfer her to . Patient states I do not want to go to , I want to stay here. I have spoken to Dr Borges and he states we can admit her for pain control as long as she understands that no urologist will see her here. I have spoken to patient and her daughter again and let them know that I can admit for pain control but no Urologist we be here to see here. They state their understanding. CT FINDINGS YESTERDAY 07/27/19: Abdomen findings: Lung bases unremarkable. Grade 2 anterolisthesis L5 on S1, postsurgical changes of L4 on S1 pedicle screw and antoinette fusion and laminectomies with posterior lateral osseous fusion L4-S1: Marked disc height loss L5-S1 perhaps from discectomy. Disc osteophyte L2-L3 with spinal canal stenosis. Mild prominence of the bile ducts likely related to cholecystectomy. Tiny subcentimeter renal hypodensities too small to characterize from volume averaging most likely small cysts. 2 mm right renal lower pole calculus. Left renal interpolar 1.5 cm cyst density of 16 units. Adrenals, pancreas, spleen and liver are unremarkable. Luminal collapse and wall thickening of the descending and rectosigmoid colon. Appendix is negative is retrocecal and extends medial of the cecum. No abdominal fluid or adenopathy. Pelvis findings: Hysterectomy. Bladder, ovaries and bones are unremarkable. Rectosigmoid luminal collapse and wall thickening. Bone donor site right iliac crest. Old defect from removed fixation nail left femur. IMPRESSION: 1. Luminal collapse and wall thickening of the descending and rectosigmoid colon likely muscle spasm or low-grade colitis. 2. Appendix is negative. 3. Other incidental findings as described above. []CT FINDINGS TODAY: IMPRESSION: 1. Development of mild right renal pelviectasis and hydroureter since the prior study. There is no obstructing radiopaque urinary calculus evident. This may indicate interval passage of a urinary calculus since the prior study, versus mild progressive obstructive uropathy due to a distal ureteral stricture, or increasing distention due to pyelonephritis. No significant renal edema evident. 2. Bilateral small nonobstructing renal calculi again noted. 3. Appendix is negative. 4. Wall thickening of the rectosigmoid colon is stable could be due to muscle spasm or low-grade colitis. With the findings of todays CT and the patient being in extreme pain, I have spoken to the patient again and she agrees to be transferred to a facility with Urology. Patient is accepted to [facility] by Dr Laws as a direct admit and she is going by ambulance. 1737: Patient is now complaining of chest pain. I have ordered a EKG and troponin. Patient states she is very anxious with having pain and being transferred. EKG is read buy Dr Dickson as Sinus Rhythm and no STEMI Dragon Disclaimer Dragon Disclaimer This electronic medical record was generated, in whole or in part, using a voice recognition dictation system. Departure Departure Impression: Primary Impression: Intractable pain Additional Impression: Kidney stone Disposition: 05 TRANSFER OTHER Condition: STABLE (OPR) Referrals: SAMANTHA CARBAJAL (PCP) Problem Qualifiers RICCARDO JARVIS APRN Jul 28, 2019 15:30
[2019-07-28 15:36] LABS: BASO # 0.1 x10^3/uL (0.0-0.2); BASO % 1 % (0-3); BILIRUBIN,URINE NEGATIVE (NEG); CLARITY,URINE CLEAR; COLOR,URINE YELLOW; EOS # 0.1 x10^3/uL (0.0-0.7); EOS % 1 % (0-3); HEMOGLOBIN 14.3 g/dL (12.0-15.5); LYMPH # 2.1 x10^3/uL (1.0-4.8); LYMPH % 24 % (24-48); MEAN CORPUSCULAR HEMOGLOBIN 33 pg (25-35); MEAN CORPUSCULAR HGB CONC 36 g/dL (31-37); MEAN CORPUSCULAR VOLUME 91 fL (79-100); MONO # 0.5 x10^3/uL (0.0-1.1); MONO % 6 % (0-9); NEUT # 5.9 x10^3/uL (1.8-7.7); NEUT % 68 % (31-73); NITRITE,URINE NEGATIVE (NEG); PH,URINE 5.5; PLATELET COUNT 270 x10^3/uL (140-400); PROTEIN,URINE NEGATIVE (NEG-TRACE); RED BLOOD COUNT 4.39 x10^6/uL (3.50-5.40); RED CELL DISTRIBUTION WIDTH 13.1 % (11.5-14.5); UROBILINOGEN,URINE 0.2 mg/dL (0.2 mg/dL); WHITE BLOOD COUNT 8.7 x10^3/uL (4.0-11.0)
[2019-07-28 15:43] LABS: PROTHROMBIN TIME PATIENT 13.3 SEC (11.7-14.0)
[2019-07-28 15:44] LABS: BACTERIA,URINE 0 /HPF (0-FEW); RBC,URINE OCC /HPF (0-2); SQUAMOUS EPITHELIAL CELL,UR FEW /LPF; WBC,URINE OCC /HPF (0-4)
[2019-07-28] MEDS ORDERED: MORPHINE SULFATE 4 MG/ML VIAL. IV PRN (16:00)
[2019-07-28] MEDS ORDERED: ONDANSETRON PF 4 MG/2 ML VIAL. IV PRN (16:00)
[2019-07-28 16:05] LABS: CALCIUM 8.1 mg/dL (8.5-10.1); CREATININE 0.9 mg/dL (0.6-1.0); GFR 61.4; POTASSIUM 3.6 mmol/L (3.5-5.1)
[2019-07-28 16:10] LABS: ALBUMIN 3.2 g/dL (3.4-5.0); ALBUMIN/GLOBULIN RATIO 1.6 (1.0-1.7); TOTAL BILIRUBIN 0.6 mg/dL (0.2-1.0); TOTAL PROTEIN 5.2 g/dL (6.4-8.2)
--- NOTE | 2019-07-28 16:34 | RAD ---
CT abdomen and pelvis without contrast PQRS statement: CT scans at this facility use dose reduction including either automated exposure control, iterative reconstructions, and /or weight based radiation dosing via mA and kV modification when appropriate to reduce radiation dose to as low as reasonably achievable. HISTORY: Kidney stones, worsening flank pain. COMPARISON: CT abdomen and pelvis July 27, 2019. Abdomen findings: Right lower lobe 2 mm nodule image 1 is stable. Surgical changes as well as disc disease lumbar spine stable. Cholecystectomy. Liver, spleen, pancreas, adrenal glands unremarkable. Renal cysts. Small bilateral renal calculi at the lower poles largest at the right measuring 2 mm. Since the prior study there is development of asymmetric right renal pelvis dilation with a diameter 1.1 cm and mild distention of the right ureter however there is no obstructing ureteral calculus. No perinephric edema. Luminal collapse and wall thickening of the rectosigmoid colon is stable. No bowel obstruction. Appendix is negative. No abdominal fluid. Pelvis findings: Bone donor site right iliac crest. No bladder calculi. Pelvic phleboliths and iliac artery mass or calcification stable. Hysterectomy. Ovaries unremarkable. Luminal collapse and wall thickening rectosigmoid colon stable. No pelvic fluid. IMPRESSION: 1. Development of mild right renal pelviectasis and hydroureter since the prior study. There is no obstructing radiopaque urinary calculus evident. This may indicate interval passage of a urinary calculus since the prior study, versus mild progressive obstructive uropathy due to a distal ureteral stricture, or increasing distention due to pyelonephritis. No significant renal edema evident. 2. Bilateral small nonobstructing renal calculi again noted. 3. Appendix is negative. 4. Wall thickening of the rectosigmoid colon is stable could be due to muscle spasm or low-grade colitis. Electronically signed by: Charles Finch MD (07/28/2019 4:31 PM) [id number]
--- NOTE | 2019-07-28 18:37 | EKG ---
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
[2019-07-28 18:47] VITALS: BP 113/75
== END 2019-07-28 19:13 | disposition short-term general hospital (02) ==
LOC: ER 14:52
DX: N20.0 Calculus of kidney (principal); R10.31 Right lower quadrant pain; R11.10 Vomiting, unspecified; F41.9 Anxiety disorder, unspecified; F32.9 Major depressive disorder, single episode, unspecified; G89.29 Other chronic pain; Z90.49 Acquired absence of other specified parts of digestive tract; Z90.710 Acquired absence of both cervix and uterus; F17.200 Nicotine dependence, unspecified, uncomplicated; Z98.890 Other specified postprocedural states; Z88.5 Allergy status to narcotic agent
CPT/HCPCS: 36415; 74176; 80053; 81001; 84484; 85025; 85610; 93005; 96361; 96374; 96375; 96376; 99285; J1885; J2270; J7030

== ENCOUNTER 2020-06-15 20:39 | Emergency (ER) | payer BC ==
[~2020-06-15] VITALS: Ht 157.5 cm; Wt 68.0 kg
--- NOTE | 2020-06-15 21:09 | PHYS DOC ---
Past Medical History Past Medical History: Anxiety, Depression, Other Additional Past Medical Histor: osteoarthritis,DDD,chronic back pain,GUILLAN- BARRE Past Surgical History: Cholecystectomy, Hysterectomy, Other Additional Past Surgical Histo: back surgery,CATARCT LEFT EYE,L FEMUR ORIF Smoking Status: Current Every Day Smoker Alcohol Use: None Drug Use: None General Adult EDM: Chief Complaint: ABDOMINAL PAIN HPI: HPI: 75 yo F Anxiety, Depression, OA, DDD w/lumbar spine sx, tobacco use, history of nephrolithiasis, neuropathy and diverticulosis, presents the ED with complaints of sharp, nonradiating localized, constant right lower quadrant abdominal pain for the past 2 weeks (told triage 3 weeks) with associated nonbloody nonbilious vomiting that she attributes to her uncontrolled pain. States she has had this pain before and it's usually her kidney stones or diverticulitis. States when she goes to the emergency department she is usually given Dilaudid, fentanyl sometimes work. Is prescribed meloxicam and gabapentin, no relief with Anacin (asa + caffeine). States she's been at a different emergency department for the same symptoms and was referred to pain management who wouldn't precrisbed her medications because she had a positive drug screen test. Has not followed up with her primary care physician for chronic pain. Denies any associated trauma, fever, bloody stools or signs of GI bleeding, exertional syncope, chest pain, dyspnea, hemoptysis, weight loss, night sweats, SI or HI. EMR reviewed -CT abd/pelvis scan in July 2019 that showed signs of obstructive uropathy-patient denies any urologic intervention. PSH -lumbar spinal fusion, cholecystectomy and hysterectomy, still has her ovaries. Review of Systems: Review of Systems: Constitutional: Denies fever or chills. [] Eyes: Denies change in visual acuity. [] HENT: Denies nasal congestion or sore throat. [] Respiratory: Denies cough or shortness of breath. [] Cardiovascular: Denies chest pain or edema. [] GI: Denies hematochezia, melena, hematemesis or diarrhea. [] : Denies dysuria, hematuria, flank pain or vaginal bleeding Musculoskeletal: Denies back pain or joint pain. [] Integument: Denies rash or diaphoresis Neurologic: Denies headache, focal weakness or sensory changes. [] Endocrine: Denies polyuria or polydipsia. [] Lymphatic: Denies swollen glands. [] Psychiatric: Denies depression or anxiety. [] Heart Score: Risk Factors: Risk Factors: DM, Current or recent (<one month) smoker, HTN, HLP, family history of CAD, obesity. Risk Scores: Score 0 - 3: 2.5% MACE over next 6 weeks - Discharge Home Score 4 - 6: 20.3% MACE over next 6 weeks - Admit for Clinical Observation Score 7 - 10: 72.7% MACE over next 6 weeks - Early Invasive Strategies Allergies: Allergies: Allergies Coded Allergies Type Severity Reaction Last Updated Verified I S O L A T I O N *CONTACT* Allergy Unknown 07/24/18 Yes codeine Adverse Reaction Intermediate HALLUCINATES 07/19/18 Yes Physical Exam: PE: Constitutional: Well developed, well nourished, no acute distress-not writhing, moving without worsening pain, non-toxic appearance HENT: Normocephalic, atraumatic, Eyes: EOMI, conjunctiva normal, no discharge. Neck: Normal range of motion, supple, Cardiovascular: S1/2 present, regular rhythm Lungs & Thorax: Speaking in full sentences, bilateral equal chest rise, no tach ypnea or increased work of breathing Abdomen: soft, no reproducible tenderness-able to palpate deep into abdomen, no pain over McBurney's point, location of pain is at the junction of right upper quadrant and right lower quadrant, no rigidity or guarding or peritonitis Skin: Warm, dry, no erythema, no rash. [] Back: No tenderness, no CVA tenderness. [] Extremities: No tenderness, no cyanosis, no edema Neurologic: Alert and oriented X 3, normal motor function, normal sensory function, no focal deficits noted. [] Psychologic: Affect normal, judgement normal, mood normal. [] EKG: EKG: [] Radiology/Procedures: Radiology/Procedures: IMAGING REPORT Signed PATIENT: ROBERTA JORDAN ACCOUNT: [id number] : 1945 LOCATION: ER AGE: 75 SEX: F EXAM STATUS: REG ER ORD. PHYSICIAN: SHANNON MADISON DO REASON: rlq pain PROCEDURE: CT ABD PELV W/ IV CONTRST ONLY Exam: CT of abdomen and pelvis with contrast INDICATION: Right lower quadrant pain TECHNIQUE: Sequential axial images through the abdomen and pelvis obtained following the administration of 75 mL of Omni 300 IV contrast. Sagittal and coronal reformatted images were reconstructed from the axial data and reviewed. Comparisons: 07/28/2019 FINDINGS: Heart size is normal. No pericardial. Visualized lung bases are clear. Liver, spleen, pancreas, and adrenals are unremarkable. Gallbladder surgically absent. Mild intrahepatic biliary ductal dilatation. Kidneys demonstrate symmetric enhancement. No perinephric inflammation or hydronephrosis. No renal or ureteral calculi are identified. Bladder is decompressed not well evaluated. Prostate is not enlarged. Large and small bowel are unremarkable. Appendix is not identified. No free intra-abdominal air or fluid. No obstruction. Abdominal aorta has a normal course and caliber. Abdominal vasculature is patent. No enlarged intra-abdominal lymph nodes are identified. No suspicious osseous lesions or acute fractures. IMPRESSION: 1. No acute process identified to explain patient's pain. 2. Mild intrahepatic biliary ductal dilatation, may relate to biliary reservoir and cholecystectomy changes. Correlate with LFTs. Exposure: One or more of the following in the visualized dose reduction techniques were utilized for this examination: 1. Automated exposure control 2. Adjustment of the MA and/or KV according to patient size 3. Use of iterative of reconstructive technique Electronically signed by: Ilya Mehta MD (06/15/2020 10:51 PM) [id number] DICTATED and SIGNED BY: ILYA MEHTA MD DATE: 06/15/20 [id number] 0 Course & Med Decision Making: Course & Med Decision Making Pertinent Labs and Imaging studies reviewed. (See chart for details) Concern for right sided abdomen pain, no obstruction (GI or renal) on CT. Mild intrahepatic biliary ductal dilatation, may relate to biliary reservoir and cholecystectomy changes. Normal LFTs, no ruq pain. U/A with no hematuria or RBCs. UDA positive for benzos. On re-eval pt requests pain medications and a prescription for pain medications. Meds in pts' purse-not on any longterm narcotics. Will recommend otc, nonaddictive medications and refer to pain management. Abdominal exam in ED presentation not consistent with pain out of proportion-aorta size normal on CT. Will discharge home with strict ED return precautions for dehydration, fever, neurologic deficits or severe pain. Encouraged urgent outpatient follow-up with PMD in 2 to 3 days and outpatient pain management. Life-threatening processes were considered but are low suspicion at this time, given history, physical exam and ED workup. Pt was educated on all prescription medications and adverse effects. All patient's questions were answered and pt was stable at time of discharge. Life/limb-threatening differential includes but is not limited to, aortic dissection, aortic aneurysm, acute coronary syndrome, surgical abdomen (appendicitis, cholecystitis, ischemic bowel, strangulated hernia, etc), bowel obstruction or volvulus, bladder outlet obstruction, gastrointestinal bleeding, inflammatory bowel disease, peptic ulcer disease, ACS/CAD, sepsis, diverticular disease, ureterolithiasis, nephrolithiasis, ovarian torsion, ectopic , vaginal hemorrhage, or genitourinary infection. I spoken with the patient and her caregivers. I explained the patient's condition, diagnoses and treatment plan based on the information available to me at this time. I have answered the patient and her caregiver's questions and addressed any concerns. The patient and her caregivers have a good understanding of patient's diagnosis, condition and treatment plan as can be expected at this point. Vital signs have been stable. Patient's condition is stable and appropriate for discharge from the emergency department. Patient will pursue further outpatient evaluation with primary care physician or other designated or consulting physician as outlined in the discharge instructions. The patient and/or caregivers are agreeable to this plan of care and follow-up instructions have been explained in detail. The patient and/or caregivers have received these instructions in written form and have expressed an understanding of the discharge instructions. The patient and/or caregivers are aware that any significant change of condition or worsening of symptoms should prompt immediate return to this or the closest emergency department or call to 911. Dalila Disclaimer: Dalila Disclaimer: This electronic medical record was generated, in whole or in part, using a voice recognition dictation system. Departure Departure Impression: Primary Impression: Abdominal pain Additional Impressions: Chronic pain Drug-seeking behavior Disposition: 01 DC HOME SELF CARE/HOMELESS Condition: STABLE Referrals: SAMANTHA CARBAJAL (PCP) in 2-3 days for re-evaluation Patient Instructions: Abdominal Pain, Chronic Pain Management Additional Instructions: FOLLOW UP WITH PAIN MANAGEMENT: [facility] Address: [address] [place] [id number] EMERGENCY DEPARTMENT GENERAL DISCHARGE INSTRUCTIONS Thank you for coming to [facility] Emergency Department (ED) today and trusting us with you care. We trust that you had a positive experience in our Emergency Department. If you wish to speak to the department management, you may call the Director at [phone]. YOUR FOLLOW UP INSTRUCTIONS ARE FOLLOWS: 1. Do you have a private Doctor? If you do not have a private doctor, please ask for a resource list of physicians or clinics that may be able to assist you with follow up care. 2. The Emergency Physicain has interpreted your x-rays. The X-Ray specialist will also review them. If there is a change in the findings, you will be notified in 48 hours when at all possible. 3. A lab test or culture has been done, your results will be reviewed and you will be notified if you need a change in treatment. ADDITIONAL INSTRUCTIONS AND INFORMATION: 1. Your care today has been supervised by a physician who is specially trained in emergency care. Many problems require more than one evaluation for a complete diagnosis and treatment. We recommend that you schedule your follow up appointment as recommended to ensure complete treatment of you illness or injury. If you are unable to obtain follow up care and continue to have a problem, or if your condition worsens, we recommend that you return to the ED. 2. We are not able to safely determine your condition over the phone nor are we able to give sound medical advice over the phone. For these safety reasons, if you call for medical advice we will ask you to come to the ED for further evaluation. 3. If you have any questions regarding these discharge instructions please call the ED at [phone]. SAFETY INFORMATION: In the interest of safety, wellness, and injury prevention; we encourage you to wear your sealbelt, if you smoke; quite smoking, and we encourage family to use a protective helmet for bicycling and other sporting events that present an increased risk for head injury. IF YOUR SYMPTOMS WORSEN OR NEW SYMPTOMS DEVELOP, OR YOU HAVE CONCERNS ABOUT YOUR CONDITION; OR IF YOUR CONDITION WORSENS WHILE YOU ARE WAITING FOR YOUR FOLLOW UP APPOINTMENT; EITHER CONTACT YOUR PRIMARY CARE DOCTOR, THE PHYSICIAN WHOSE NAME AND NUMBER YOU WERE GIVEN, OR RETURN TO THE ED IMMEDIATELY. SHANNON MADISON DO Jun 15, 2020 21:09
[2020-06-15 21:22] LABS: BILIRUBIN,URINE NEGATIVE (NEG); CLARITY,URINE CLEAR; COLOR,URINE YELLOW; NITRITE,URINE NEGATIVE (NEG); PROTEIN,URINE NEGATIVE (NEG-TRACE)
[2020-06-15 21:30] LABS: BACTERIA,URINE 0 /HPF (0-FEW); RBC,URINE OCC /HPF (0-2)
[2020-06-15 22:05] LABS: BASO % 1 % (0-3); EOS # 0.1 x10^3/uL (0.0-0.7); EOS % 1 % (0-3); HEMATOCRIT 38.6 % (36.0-47.0); HEMOGLOBIN 13.2 g/dL (12.0-15.5); LYMPH # 1.6 x10^3/uL (1.0-4.8); LYMPH % 22 % (24-48); MEAN CORPUSCULAR HEMOGLOBIN 32 pg (25-35); MEAN CORPUSCULAR HGB CONC 34 g/dL (31-37); MEAN CORPUSCULAR VOLUME 93 fL (79-100); MONO # 0.6 x10^3/uL (0.0-1.1); MONO % 8 % (0-9); NEUT # 5.1 x10^3/uL (1.8-7.7); NEUT % 69 % (31-73); PLATELET COUNT 226 x10^3/uL (140-400); RED BLOOD COUNT 4.14 x10^6/uL (3.50-5.40); RED CELL DISTRIBUTION WIDTH 13.3 % (11.5-14.5); WHITE BLOOD COUNT 7.4 x10^3/uL (4.0-11.0)
[2020-06-15 22:11] LABS: CALCIUM 9.3 mg/dL (8.5-10.1); CREATININE 0.9 mg/dL (0.6-1.0); GFR 61.2; POTASSIUM 4.5 mmol/L (3.5-5.1)
[2020-06-15 22:17] LABS: ALBUMIN 3.7 g/dL (3.4-5.0); DIRECT BILIRUBIN 0.1 mg/dL (0.0-0.2); TOTAL BILIRUBIN 0.7 mg/dL (0.2-1.0); TOTAL PROTEIN 6.1 g/dL (6.4-8.2)
[2020-06-15] MEDS ORDERED: CONTRAST GIVEN. MC PRN (22:45)
--- NOTE | 2020-06-15 22:53 | RAD ---
Exam: CT of abdomen and pelvis with contrast INDICATION: Right lower quadrant pain TECHNIQUE: Sequential axial images through the abdomen and pelvis obtained following the administrati on of 75 mL of Omni 300 IV contrast. Sagittal and coronal reformatted images were reconstructed from the axial data and reviewed. Comparisons: 07/28/2019 FINDINGS: Heart size is normal. No pericardial. Visualized lung bases are clear. Liver, spleen, pancreas, and adrenals are unremarkable. Gallbladder surgically absent. Mild intrahepa tic biliary ductal dilatation. Kidneys demonstrate symmetric enhancement. No perinephric inflammation or hydronephrosis. No renal or ureteral calculi are identified. Bladder is decompressed not well evaluated. Prostate is not enlarged. Large and small bowel are unremarkable. Appendix is not identified. No free intra-abdominal air or fl uid. No obstruction. Abdominal aorta has a normal course and caliber. Abdominal vasculature is patent. No enlarged intra-abdominal lymph nodes are identified. No suspicious osseous lesions or acute fractures. IMPRESSION: 1. No acute process identified to explain patient's pain. 2. Mild intrahepatic biliary ductal dilatation, may relate to biliary reservoir and cholecystectomy changes. Correlate with LFTs. Exposure: One or more of the following in the visualized dose reduction techniques were utilized for this examination: 1. Automated exposure control 2. Adjustment of the MA and/or KV according to patient size 3. Use of iterative of reconstructive technique Electronically signed by: Ilya Lynn MD (06/15/2020 10:51 PM) [id number]
[2020-06-15] MEDS ORDERED: fentaNYL PF VIAL 100 MCG/2 ML VIAL IVP ONE (23:00)
[2020-06-15] MEDS ORDERED: IOHEXOL 300 MG/ML 100ML VIAL. IV ONE (23:00)
[2020-06-15] MEDS ORDERED: IV NORMAL SALINE 1000ML BAG 1,000 ML IV ONE (23:00)
[2020-06-15 23:33] VITALS: BP 168/66
[2020-06-15] MEDS ORDERED: KETOROLAC 15 MG/ML VIAL. ONE (23:43)
[2020-06-15 23:54] LABS: BARBITURATES NEG (NEG); BENZODIAZEPINES POS (NEG); CANNABINOIDS NEG (NEG); COCAINE NEG (NEG); METHADONE NEG (NEG); OPIATES NEG (NEG); PHENCYCLIDINE NEG (NEG)
[2020-06-15 23:55] LABS: AMPHETAMINE/METHAMPHETAMINE NEG (NEG)
[2020-06-16] MEDS ORDERED: KETOROLAC 15 MG/ML VIAL. IVP ONE
== END 2020-06-15 23:55 | disposition home or self-care (01) ==
LOC: ER 20:39
DX: R10.31 Right lower quadrant pain (principal); G89.29 Other chronic pain; Z76.5 Malingerer [conscious simulation]; F17.200 Nicotine dependence, unspecified, uncomplicated; Z90.49 Acquired absence of other specified parts of digestive tract; Z90.710 Acquired absence of both cervix and uterus; Z88.5 Allergy status to narcotic agent; Z91.041 Radiographic dye allergy status
CPT/HCPCS: 36415; 74177; 80048; 80076; 80307; 81001; 82550; 83690; 85025; 96361; 96374; 96375; 99285; J1885; J3010; J7030; Q9967

== ENCOUNTER 2021-06-29 17:31 | Emergency (ER) | payer BC, OTHER ==
[~2021-06-29] VITALS: Ht 157.5 cm; Wt 72.1 kg
[~2021-06-29 17:31] MED LIST changes: -POLY17PO28 PO; +POLY17PO52 PO
[2021-06-29 18:43] LABS: BILIRUBIN,URINE NEGATIVE (NEG); CLARITY,URINE CLEAR; COLOR,URINE YELLOW; NITRITE,URINE NEGATIVE (NEG); PH,URINE 5.5 (<5.0-8.0); PROTEIN,URINE NEGATIVE (NEG-TRACE); UROBILINOGEN,URINE 0.2 mg/dL (0.2 mg/dL)
[2021-06-29 18:47] LABS: BACTERIA,URINE 0 /HPF (0-FEW); RBC,URINE 0 /HPF (0-2); WBC,URINE 0 /HPF (0-4)
[2021-06-29] MEDS ORDERED: IV NORMAL SALINE 1000ML BAG 1,000 ML IV ONE (19:00)
[2021-06-29] MEDS ORDERED: MORPHINE SULFATE 4 MG/ML INJ. IVP ONE (19:00)
[2021-06-29] MEDS ORDERED: ONDANSETRON PF 4 MG/2 ML VIAL. IVP ONE (19:00)
--- NOTE | 2021-06-29 19:03 | PHYS DOC ---
Past Medical History Past Medical History: Anxiety, Depression, Diverticulitis, Other Additional Past Medical Histor: osteoarthritis,DDD,chronic back pain,GUILLAN- BARRE Past Surgical History: Cholecystectomy, Hysterectomy, Other Additional Past Surgical Histo: back surgery,CATARCT LEFT EYE,L FEMUR ORIF Smoking Status: Current Every Day Smoker Alcohol Use: None Drug Use: None General Adult EDM: Chief Complaint: ABDOMINAL PAIN HPI: HPI: Patient is a 76 year old female with history of diverticulitis and previous cholecystectomy who presents with right lower quadrant pain. Patient states the pain had started approximately a month ago but was more mild. Over the past 3 days it is increasingly intensified. Is constant. Worse with movement or with palpation. Associated with nausea and several episodes of vomiting. Has continued to have bowel movements. Had diarrhea that was half brown, and half "black" earlier today. Denied previous dark stools before today. No hematemesis. No blood thinners. No dysuria, urgency, frequency. No vaginal bleeding or discharge. Review of Systems: Review of Systems: Constitutional: Denies fever or chills. [] Eyes: Denies change in visual acuity. [] HENT: Denies nasal congestion or sore throat. [] Respiratory: Denies cough or shortness of breath. [] Cardiovascular: Denies chest pain or edema. [] GI: Reports abd/pain, n/v, diarrhea, and dark stools. : Denies dysuria. [] Musculoskeletal: Denies back pain or joint pain. [] Integument: Denies rash. [] Neurologic: Denies headache, focal weakness or sensory changes. [] Heart Score: C/O Chest Pain: No Current Medications: Current Medications Medications (Trade) Dose Ordered Sig/Ashley Start Time Stop Time Status Last Admin Dose Admin Morphine Sulfate (Morphine Sulfate) 4 mg 1X ONCE 06/29/21 19:00 06/29/21 19:01 Ondansetron HCl (Zofran) 4 mg 1X ONCE 06/29/21 19:00 06/29/21 19:01 Sodium Chloride 1,000 ml @ 1,000 mls/hr 1X ONCE 06/29/21 19:00 06/29/21 19:59 Allergies: Allergies: Allergies Coded Allergies Type Severity Reaction Last Updated Verified I S O L A T I O N *CONTACT* Allergy Unknown 07/24/18 Yes codeine Adverse Reaction Intermediate HALLUCINATES 07/19/18 Yes Physical Exam: PE: Constitutional: Appears uncomfortable, clutching lower abdomen, shaking slightly HENT: Normocephalic, atraumatic Cardiovascular:Heart rate regular rhythm, no murmur [] Lungs & Thorax: Bilateral breath sounds clear to auscultation [] Abdomen: Soft, diffusely tender but most focally tender in the right lower quadrant. Skin: Warm, dry, no erythema, no rash. [] Extremities: No tenderness, no cyanosis, no clubbing, ROM intact, no edema. [] Neurologic: Alert and oriented X 3, normal motor function, normal sensory function, no focal deficits noted. [] Psychologic: Affect normal, judgement normal, mood normal. [] Current Patient Data: Labs: Laboratory Tests Test 06/29/21 18:35 Urine Collection Type Unknown Urine Color Yellow Urine Clarity Clear Urine pH 5.5 (<5.0-8.0) Urine Specific Burney 1.010 (1.000-1.030) Urine Protein Negative mg/dL (NEG-TRACE) Urine Glucose (UA) Negative mg/dL (NEG) Urine Ketones (Stick) Negative mg/dL (NEG) Urine Blood Negative (NEG) Urine Nitrite Negative (NEG) Urine Bilirubin Negative (NEG) Urine Urobilinogen Dipstick 0.2 mg/dL (0.2 mg/dL) Urine Leukocyte Esterase Negative (NEG) Urine RBC 0 /HPF (0-2) Urine WBC 0 /HPF (0-4) Urine Squamous Epithelial Cells Few /LPF Urine Bacteria 0 /HPF (0-FEW) Vital Signs: Vital Signs Date Time Temp Pulse Resp B/P (MAP) Pulse Ox O2 Delivery O2 Flow Rate FiO2 06/29/21 18:20 98.1 97 25 131/80 (97) 96 Room Air 98.1 EKG: EKG: [] Radiology/Procedures: Radiology/Procedures: [] Impression: [facility] [address] [place] [address] IMAGING REPORT Signed PATIENT: ROBERTA JORDAN ACCOUNT: [id number] : 1945 LOCATION: ER AGE: 76 SEX: F EXAM STATUS: REG ER ORD. PHYSICIAN: JAZIEL MENA MD REASON: RLQ PAIN, N/V, DIARRHEA PROCEDURE: CT ABD PELV W/ IV CONTRST ONLY CT abdomen and pelvis with contrast PQRS statement: CT scans at this facility use dose reduction including either automated exposure control, iterative reconstructions, and /or weight based radiation dosing via mA and kV modification when appropriate to reduce radiation dose to as low as reasonably achievable. Contrast: 75 mL Omnipaque 300 intravenous contrast. HISTORY: Right lower quadrant abdominal pain, diarrhea, nausea and vomiting. COMPARISON: CT abdomen June 15, 2020 Abdomen findings: 3 mm nodule right lower lobe image 1 stable. Grade 2 anterolisthesis L5 on S1, lumbar disc disease, and fusion with pedicle screws and rods across L4 and S1. 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 Mild distention of the bile ducts likely related to cholecystectomy with stable. Left renal 1.7 cm hypodense lesion measuring 26 units this is stable, the density could be observed with a dense cyst or solid lesion, although this is stable in size going back to February 2017. There are smaller subcentimeter hypodense foci in both kidneys too small to characterize most likely cysts. There is mild right renal pelviectasis which is stable.Wall thickening of the splenic flexure of the large bowel distally to the rectum similar to the prior exam. Persistent muscle spasm or low-grade colitis no significant surrounding edema evident. No bowel obstruction. Appendix not visualized and is surgically absent or obscured by surrounding small bowel loops. No abdominal fluid or adenopathy. Pelvis findings: Defect from old hardware left femur at the hip. Hysterectomy. Bladder and ovaries unremarkable. Rectosigmoid wall thickening. No pelvic fluid. IMPRESSION: 1. There is minimal collapse of wall thickening of the large bowel from the splenic flexure distally to the rectum similar to prior exam, which could be persistent muscle spasm or mild imaging changes of low-grade colitis. 2. Stable exam as described above. Electronically signed by: Christina Finch MD (06/29/2021 8:16 PM) [facility] DICTATED and SIGNED BY: CHRISTINA FINCH MD DATE: 06/29/[id number] 0 Course & Med Decision Making: Course & Med Decision Making Pertinent Labs and Imaging studies reviewed. (See chart for details) Patient is a 76-year-old female with history of diverticulitis and previous cholecystectomy who presents with progressive right lower quadrant pain, nausea, vomiting, diarrhea. She is diffusely tender on exam, but most tender in RLQ. Diverticulitis, colitis, appendicitis, ovarian/pelvic pathology all potentially in the differential. Work-up will include labs and CT of the abdomen/pelvis. 1902 Work up reassuring. Cause of pain is not clearly evident, but she does seem to have recurring pain going back months. I have made a referral to gastroenterology and asked that she follow up with her PCP. Advised bland diet and slowly reintroducing foods to see if any exacerbating foods are found. [address] Disclaimer: [place] Disclaimer: This electronic medical record was generated, in whole or in part, using a voice recognition dictation system. Departure Departure Impression: Primary Impression: Recurrent abdominal pain Disposition: HOME / SELF CARE / HOMELESS Condition: STABLE Referrals: SAMANTHA CARBAJAL (PCP) Schedule a follow up appt. ROXANNA BEARDEN MD Schedule an appt with our GI specialist. Additional Instructions: Your work-up was very reassuring. There is no signs of serious/life-threatening problem in your abdomen. Your urine did not appear infected or like you have a stone. Your blood work was all reassuring. This may be a chronic food intolerance or inflammatory issue. You will need to see a specialist for further work-up. I made a referral to Dr. Bearden, our gastroenterology group. Please call their office tomorrow morning to schedule an appointment. Please also schedule an appointment with your primary care provider. Please eat a very bland diet and slowly reintroduce foods as tolerated. Please take a journal and see if any foods make the pain worse. You can use Zofran for nausea, and can try Pepto-Bismol for stomach upset as well. For pain tylenol and ibuprofen are best used on a schedule. Please alternate between the two. -Tylenol 1000 mg every 6 hours (do not exceed 4000 mg in one day) -Ibuprofen 400 mg every 6 hours. Take with food. Do not take for more than 1 week. Scripts Ondansetron (ONDANSETRON ODT) 4 Mg Tab.rapdis 1 TAB PO PRN Q6-8HRS, #16 TAB Prov: JAZIEL MENA MD 06/29/21 JAZIEL MENA MD Jun 29, 2021 19:03
[2021-06-29 19:12] LABS: BASO # 0.1 x10^3/uL (0.0-0.2); BASO % 1 % (0-3); EOS # 0.1 x10^3/uL (0.0-0.7); EOS % 1 % (0-3); HEMATOCRIT 40.6 % (36.0-47.0); HEMOGLOBIN 13.8 g/dL (12.0-15.5); LYMPH # 1.5 x10^3/uL (1.0-4.8); LYMPH % 24 % (24-48); MEAN CORPUSCULAR HEMOGLOBIN 31 pg (25-35); MEAN CORPUSCULAR HGB CONC 34 g/dL (31-37); MEAN CORPUSCULAR VOLUME 91 fL (79-100); MONO # 0.4 x10^3/uL (0.0-1.1); MONO % 7 % (0-9); NEUT # 4.1 x10^3/uL (1.8-7.7); NEUT % 66 % (31-73); PLATELET COUNT 222 x10^3/uL (140-400); RED BLOOD COUNT 4.45 x10^6/uL (3.50-5.40); RED CELL DISTRIBUTION WIDTH 13.4 % (11.5-14.5); WHITE BLOOD COUNT 6.2 x10^3/uL (4.0-11.0)
[2021-06-29] MEDS ORDERED: fentaNYL PF VIAL 100 MCG/2 ML VIAL IVP ONE (19:15)
[2021-06-29 19:23] LABS: CALCIUM 8.3 mg/dL (8.5-10.1); CREATININE 0.8 mg/dL (0.6-1.0); GFR 69.9
[2021-06-29 19:29] LABS: ALBUMIN 3.8 g/dL (3.4-5.0); ALBUMIN/GLOBULIN RATIO 1.5 (1.0-1.7); TOTAL BILIRUBIN 0.4 mg/dL (0.2-1.0); TOTAL PROTEIN 6.4 g/dL (6.4-8.2)
[2021-06-29] MEDS ORDERED: CONTRAST GIVEN. MC PRN (19:45)
[2021-06-29] MEDS ORDERED: IOHEXOL 300 MG/ML 100ML VIAL. IV ONE (19:45)
[2021-06-29 20:11] LABS: FECAL OB PT NEGATIVE (NEG)
--- NOTE | 2021-06-29 20:19 | RAD ---
CT abdomen and pelvis with contrast PQRS statement: CT scans at this facility use dose reduction including either automated exposure cont rol, iterative reconstructions, and /or weight based radiation dosing via mA and kV modification when appropriate to reduce radiation dose to as low as reasonably achievable. Contrast: 75 mL Omnipaque 300 intravenous contrast. HISTORY: Right lower quadrant abdominal pain, diarrhea, nausea and vomiting. COMPARISON: CT abdomen June 15, 2020 Abdomen findings: 3 mm nodule right lower lobe image 1 stable. Grade 2 anterolisthesis L5 on S1, lumb ar disc disease, and fusion with pedicle screws and rods across L4 and S1. 1 cm subcapsular lipoma ri ght hepatic lobe beneath the diaphragm. Mild distention of the bile ducts likely related to cholecyst ectomy with stable. Left renal 1.7 cm hypodense lesion measuring 26 units this is stable, the density could be observed with a dense cyst or solid lesion, although this is stable in size going back to O ctober 2016. There are smaller subcentimeter hypodense foci in both kidneys too small to characterize most likely cysts. There is mild right renal pelviectasis which is stable.Wall thickening of the spl enic flexure of the large bowel distally to the rectum similar to the prior exam. Persistent muscle s pasm or low-grade colitis no significant surrounding edema evident. No bowel obstruction. Appendix no t visualized and is surgically absent or obscured by surrounding small bowel loops. No abdominal flui d or adenopathy. Pelvis findings: Defect from old hardware left femur at the hip. Hysterectomy. Bladder and ovaries un remarkable. Rectosigmoid wall thickening. No pelvic fluid. IMPRESSION: 1. There is minimal collapse of wall thickening of the large bowel from the splenic flexure distally to the rectum similar to prior exam, which could be persistent muscle spasm or mild imaging changes o f low-grade colitis. 2. Stable exam as described above. Electronically signed by: Charles Finch MD (06/29/2021 8:16 PM) [facility]
[2021-06-29] MEDS ORDERED: ONDA4TAB12 PO (21:54)
[2021-06-29] MEDS ORDERED: HYDROmorphone 2 MG/ML INJ. IVP ONE (22:00)
[2021-06-29 22:31] VITALS: BP 158/69
== END 2021-06-29 22:51 | disposition home or self-care (01) ==
LOC: ER 17:31
DX: R10.31 Right lower quadrant pain (principal); R11.2 Nausea with vomiting, unspecified; R19.7 Diarrhea, unspecified; G89.29 Other chronic pain; F17.200 Nicotine dependence, unspecified, uncomplicated; Z90.49 Acquired absence of other specified parts of digestive tract; Z90.710 Acquired absence of both cervix and uterus; Z88.5 Allergy status to narcotic agent; Z91.041 Radiographic dye allergy status
CPT/HCPCS: 36415; 74177; 80053; 81001; 82274; 85025; 96361; 96374; 96375; 99285; J1170; J2405; J3010; J7030; Q9967